=== PATIENT | female | born 1950 | race Caucasian/White ===

== ENCOUNTER 2016-11-03 09:45 | Outpatient (RCR) | payer MEDICARE, SELFPAY | END 2016-11-21 | disposition home or self-care (01) | LOC: PSN 09:45 | PROVIDERS: Family Provider Family Medicine; PCP Family Medicine; Visit Provider Internal Medicine Critical Care Medicine | DX: F17.210 Nicotine dependence, cigarettes, uncomplicated (principal); Z71.6 Tobacco abuse counseling | CPT/HCPCS: 99407 ==

== ENCOUNTER → 2017-03-23 13:17 | Outpatient (CLI) | payer MEDICARE, SELFPAY ==
[2017-03-23 15:53] LABS: Absolute Lymphocyte Count 1.42 X10^3/ul (0.83-4.51); Absolute Neutrophil Count 3.2 X10^3/uL (2.0-7.7); Basophil# 0.03 X10^3/uL; Basophil% 0.6 % (0-1); Eosinophil# 0.11 X10^3/uL; Eosinophils% 2.1 % (0-5); Hematocrit 40.2 % (37-47); Hemoglobin 12.8 g/dl (12.0-15.0); Lymphocyte # 1.42 X10^3/ul (4.0); Mean Corp Hgb Conc 31.8 g/gl (32-36); Mean Corpuscular Hgb 28.4 pg (27.0-32.0); Mean Corpuscular Volume 89.1 fL (81-99); Mean Platelet Vol. 10.3 fl (6.2-12.0); Monocyte# 0.53 X10^3/uL; Monocyte% 10.1 % (0-10); Neutrophil # 3.15 X10^3/uL (2.7-7.7); Platelet Count 263 K/mm3 (150-450); RBC Distribution Width CV 13.6 % (11.6-14.6); RBC Distribution Width SD 43.9 fl (35.1-43.9); Red Blood Count 4.51 M/mm3 (4.2-5.4); White Blood Count 5.3 K/mm3 (4.4-11.0)
[2017-03-23 15:57] LABS: POSITIVE COUNT NO; POSITIVE DIFFERENTIAL NO; POSITIVE MORPHOLOGY NO
[2017-03-23 16:11] LABS: ALB/GLOB Ratio 1.1 RATIO (0.9-2.4); AST(SGOT) 26 U/L (15-37); Alanine Aminotransfer ALT/SGPT 26 U/L (13-56); Albumin, Serum 3.9 g/dL (3.2-5.0); Alkaline Phosphatase 85 U/L (45-117); Anion Gap 6 (5-15); BUN 15 mg/dL (7-18); BUN/Creat Ratio 24.8 RATIO (10-20); Calcium,Total 8.5 mg/dL (8.5-10.1); Chloride 100 mmol/L (98-107); Cholesterol 184 mg/dL (200); EST Glomerular Filtration Rate 105 mL/min (>60); Est Glom Filt Rate - Afr Amer 127 mL/min (>60); Globulin 3.5 g/dL (2.2-4.2); Glucose 93 mg/dL (70-110); High Density Lipoprotein 60 mg/dL; Potassium 3.6 mmol/L (3.5-5.1); Protein, Total 7.4 g/dL (6.4-8.2); Sodium Level 134 mmol/L (136-145); Triglycerides 72 mg/dL; Very Low Density Lipoprotein 14 mg/dL (5-40)
== END ==
PROVIDERS: Family Provider Family Medicine; PCP Family Medicine; Visit Provider Family Medicine
DX: I10 Essential (primary) hypertension (principal)
CPT/HCPCS: 36415; 80053; 80061; 85025

== ENCOUNTER → 2017-04-02 14:33 | Outpatient (CLI) | payer MEDICARE, SELFPAY ==
--- NOTE | 2017-04-02 14:50 | RAD_ITS ---
STUDY: X-RAY CHEST REASON FOR EXAM: Female, 66 years old. Shortness of breath. Upper respiratory infection. History of lung cancer with partial right pneumonectomy. TECHNIQUE: PA and lateral views of the chest. COMPARISON: Chest, February 27, 2016. CT of the chest, January 16, 2017. FINDINGS: The lungs are hyperexpanded. There is no focal mass or infiltrate. There is minimal right pleural effusion versus pleural thickening. Normal size heart. Normal mediastinum and lucia. Normal visualized pulmonary arteries. There is atherosclerotic calcification of the aortic arch with tortuosity. There are diffuse degenerative changes of the visualized thoracic spine. There is degenerative osteoarthritis of the bilateral shoulders. There is no demonstrated abnormality of the visualized soft tissue structures of the upper abdomen. RAD/Chest PA and Lateral IMPRESSION: 1. Pleural thickening versus small pleural effusion at the right lung base. 2. Emphysematous changes of the lungs. Electronically Signed: Dom Martínez DO at 18:48 EST Tel [phone], Service support ,
== END ==
PROVIDERS: Family Provider Family Medicine; PCP Family Medicine; Visit Provider Family Medicine
DX: J06.9 Acute upper respiratory infection, unspecified (principal); J44.9 Chronic obstructive pulmonary disease, unspecified
CPT/HCPCS: 71046

== ENCOUNTER → 2017-05-26 08:06 | Outpatient (CLI) | payer MEDICARE, SELFPAY ==
--- NOTE | 2017-05-26 08:11 | ECHOD_ITS ---
Reason For Study: Capillary infarcts in toes Procedure This was a 2D Doppler, Color Flow transthoracic echocardiogram. Exam performed in department. Left Ventricle Normal size and thickness. The estimated ejection fraction is 65 %. Stage 1 diastolic dysfunction. No regional wall motion abnormalities noted. Right Ventricle Normal size and thickness. Normal systolic function. Atria Normal left atrium. Normal right atrium. Normal atrial septum. Mitral Valve The mitral valve is structurally normal. No prolapse or stenosis seen. Trivial mitral valve insufficiency. Tricuspid Valve Normal tricuspid valve. Trivial tricuspid valve insufficiency. Right ventricular systolic pressure estimated to be 26 mmHg. Aortic Valve Trisinus/trileaflet aortic valve. Pulmonic Valve Normal pulmonic valve. Great Vessels Normal aortic root. Normal arch. Normal inferior vena cava. Inferior vena cava collapse with sniff. Pericardium/Pleural No pericardial effusion. MMode/2D Measurements & Calculations LVIDd: 4.1 cm IVSd: 0.95 cm Ao root diam: 2.9 cm LVIDs: 2.5 cm LVPWd: 0.94 cm LA dimension: 3.9 cm RVDd: 3.0 cm FS: 37.9 % LAV(MOD-bp): 48.7 ml LA A4 area: 17.8 cm2 RA A4 area: 11.9 cm2 LAV(MOD-bp) Indexed: 32.8 ml/m2 LAV(MOD-sp2): 48.9 ml LAV(MOD-sp4): 48.9 ml Doppler Measurements & Calculations MV E max etienne: 65.0 cm/sec Lat Peak E' Etienne: 6.7 cm/sec Med Peak E' Etienne: 6.1 cm/sec MV A max etienne: 55.6 cm/sec E/E' lat: 9.7 E/E' med: 10.6 MV E/A: 1.2 Ao V2 max: 132.5 cm/sec LV V1 max: 103.7 cm/sec PA V2 max: 80.6 cm/sec Ao max P.0 mmHg LV V1 max P.3 mmHg TR max etienne: 230.9 cm/sec TR max P.4 mmHg Interpretation Summary The estimated ejection fraction is 65 %. Stage 1 diastolic dysfunction. Trivial mitral valve insufficiency. Trivial tricuspid valve insufficiency. Right ventricular systolic pressure estimated to be 26 mmHg. There is no comparison study available. Ordering Physician: Heather Junior Referring Physician: Heather Junior Performed By: Maren Lee RDCS
--- NOTE | 2017-05-30 20:08 | LEAS ---
Arterial Study - Arterial Study Arterial Study: This is a 66-year-old female with a history of hypertension and smoking. The patient presents with digital infarction in the toes of her lower extremities. She also experiences paresthesias in her feet, thought to be due to ischemia. The patient was brought to the noninvasive vascular laboratory at this time for the purpose of bilateral noninvasive lower extremity arterial assessment. Doppler signal assessment was used to evaluate the pulses at ankle level bilaterally. The posterior tibial and dorsalis pedis pulses were triphasic bilaterally. Segmental limb pressures were obtained at ankle level bilaterally. The right ankle pressure, as determined by posterior tibial pulse, was measured at 155 mmHg. The right ankle pressure, as determined by dorsalis pedis pulse, was measured at 142 mmHg. The left ankle pressure, as determined by posterior tibial pulse, was measured at 154 mmHg. The left ankle pressure, as determined by dorsalis pedis pulse, was measured at 136 mmHg. Pulse-volume recordings were obtained bilaterally and segmentally. Waveform amplitudes appeared to be satisfactory at low thigh, calf, and ankle levels bilaterally. Resting ankle-brachial indices were calculated bilaterally. The resting right ankle-brachial index was calculated to be 1.18. The resting left ankle-brachial index was calculated to be 1.18. Digital waveforms were obtained of all 5 digits in both feet. A flat-line nonpulsatile waveform was noted in all digits bilaterally. Impression: Based upon the findings of this resting noninvasive lower extremity study, arterial perfusion to ankle level appears to be relatively normal, with triphasic waveforms at ankle level bilaterally. Furthermore, resting ankle-brachial indices are bilaterally normal. However, based upon digital waveforms of the digits bilaterally, there appears to be severely diminished perfusion at digital level in both feet, for which clinical correlation is advised.
--- NOTE | 2017-05-30 20:11 | LEAS_ITS ---
Arterial Study - Arterial Study Arterial Study: This is a 66-year-old female with a history of hypertension and smoking. The patient presents with digital infarction in the toes of her lower extremities. She also experiences paresthesias in her feet, thought to be due to ischemia. The patient was brought to the noninvasive vascular laboratory at this time for the purpose of bilateral noninvasive lower extremity arterial assessment. Doppler signal assessment was used to evaluate the pulses at ankle level bilaterally. The posterior tibial and dorsalis pedis pulses were triphasic bilaterally. Segmental limb pressures were obtained at ankle level bilaterally. The right ankle pressure, as determined by posterior tibial pulse, was measured at 155 mmHg. The right ankle pressure, as determined by dorsalis pedis pulse, was measured at 142 mmHg. The left ankle pressure, as determined by posterior tibial pulse, was measured at 154 mmHg. The left ankle pressure, as determined by dorsalis pedis pulse, was measured at 136 mmHg. Pulse-volume recordings were obtained bilaterally and segmentally. Waveform amplitudes appeared to be satisfactory at low thigh, calf, and ankle levels bilaterally. Resting ankle-brachial indices were calculated bilaterally. The resting right ankle-brachial index was calculated to be 1.18. The resting left ankle- brachial index was calculated to be 1.18. Digital waveforms were obtained of all 5 digits in both feet. A flat-line nonpulsatile waveform was noted in all digits bilaterally. Impression: Based upon the findings of this resting noninvasive lower extremity study, arterial perfusion to ankle level appears to be relatively normal, with triphasic waveforms at ankle level bilaterally. Furthermore, resting ankle- brachial indices are bilaterally normal. However, based upon digital waveforms of the digits bilaterally, there appears to be severely diminished perfusion at digital level in both feet, for which clinical correlation is advised.
== END ==
LOC: CVS 08:08
PROVIDERS: Family Provider Family Medicine; PCP Family Medicine; Visit Provider Family Medicine
DX: I74.3 Embolism and thrombosis of arteries of the lower extremities (principal)
CPT/HCPCS: 93306; 93923

== ENCOUNTER → 2017-10-26 14:32 | Outpatient (CLI) | payer MEDICARE, SELFPAY | LOC: CT 14:33 | PROVIDERS: Family Provider Family Medicine; PCP Family Medicine; Visit Provider Otolaryngology | DX: J32.9 Chronic sinusitis, unspecified (principal) | CPT/HCPCS: 70486 ==

== ENCOUNTER → 2017-12-03 06:37 | Outpatient (CLI) | payer MEDICARE, SELFPAY ==
--- NOTE | 2017-12-03 06:40 | CT_ITS ---
STUDY: CT CHEST WITHOUT CONTRAST REASON FOR EXAM: Female, 67 years old. COPD, follow-up lung cancer with previous right upper lobectomy RADIATION DOSAGE (If Supplied By Facility): CTDIvol = ( 7.17 ) mGy, DLP = ( 281.26 ) mGycm TECHNIQUE: Transaxial imaging was performed without the administration of intravenous contrast material. Individualized dose optimization techniques were used for this CT. COMPARISON: Previous study of 01/16/2017 FINDINGS: There are mild emphysematous changes of the lungs predominantly involving the left upper lobe. There is a stable 4 mm nodule of the left lower lobe image 73 of series 4. There are changes consistent with right upper lobectomy. There are prominent interstitial fibrotic markings most severely affecting the right lower lobe. No new nodules are identified. There is a small loculated right apical effusion, stable in the interval. The heart size is within normal limits. There is no pericardial effusion. Coronary arterial calcifications are seen. Normal mediastinum. Hilar areas are difficult to assess on this noncontrast study. There is no obvious hilar mass or adenopathy. Normal unenhanced pulmonary arteries. There are calcified plaques of the thoracic aorta. There is mild diffuse endplate spondylosis of the visualized thoracolumbar spine. There is no demonstrated abnormality of the visualized upper abdomen. CT/Chest without Contrast IMPRESSION: 1. Status post right upper lobectomy. 2. Mild emphysematous changes of the lungs predominantly involving the left upper lobe. 3. Stable 4 mm nodule of the left lower lobe. No new nodules are evident. 4. Prominent interstitial fibrotic markings most severely affecting the right lower lobe. 5. Findings are similar to the previous study. There is no evidence of new or recurrent malignancy. Electronically Signed: Giovanni Barrientos MD at 23:32 EDT , Service support ,
--- NOTE | 2017-12-03 12:57 | PFT ---
INTRODUCTION: The patient is a 67-year-old female that presents for pulmonary function studies secondary to a diagnosis of COPD. Respiratory therapy reports good patient effort. Bronchodilators were used during testing. INTERPRETATION: Forced expiration spirometry demonstrates the presence of a mild large airways obstructive ventilatory defect. There was no significant response to aerosolized bronchodilators. Spirograms are of good quality and do not plateau indicating slow emptying of the lungs. Body plethysmography was performed with grossly elevated lung volumes noted, likely erroneous in nature. Diffusing capacity by single breath CO is moderately reduced at 57% of predicted. When compared to previous pulmonary function studies dated December 2015, there has been a 16% reduction in FEV1 along with a 19% reduction in DLCO. IMPRESSION: These pulmonary function studies demonstrate the presence of an irreversible mild large airways obstructive ventilatory defect with an associated moderate reduction in diffusing capacity. Lung volumes were uninterpretable. There has been worsening in the patient's PFTs since 2015, as noted above.
== END ==
PROVIDERS: Family Provider Family Medicine; PCP Family Medicine; Referring Provider Internal Medicine Critical Care Medicine; Visit Provider Internal Medicine Critical Care Medicine
DX: C34.90 Malignant neoplasm of unspecified part of unspecified bronchus or lung (principal); J44.9 Chronic obstructive pulmonary disease, unspecified
CPT/HCPCS: 71250; 94060; 94726; 94729

== ENCOUNTER → 2018-03-02 09:09 | Outpatient (CLI) | payer MEDICARE, SELFPAY ==
[2018-03-02 08:01] VITALS: BMI 24.0
== END ==
PROVIDERS: Family Provider Family Medicine; PCP Family Medicine; Referring Provider Nurse Practitioner Acute Care; Visit Provider Nurse Practitioner Acute Care
DX: J18.9 Pneumonia, unspecified organism (principal)
CPT/HCPCS: 87070; 87205

== ENCOUNTER → 2018-03-15 14:42 | Outpatient (CLI) | payer MEDICARE, SELFPAY ==
[2018-03-02 08:01] VITALS: BMI 24.0
--- NOTE | 2018-03-15 14:46 | CT_ITS ---
STUDY: CT CHEST WITHOUT CONTRAST REASON FOR EXAM: Female, 67 years old. Pulmonary nodule. History of lung cancer with right upper lobectomy. RADIATION DOSAGE (If Supplied By Facility): CTDIvol = ( 7.83 ) mGy, DLP = ( 260.07 ) mGycm TECHNIQUE: Transaxial imaging was performed without the administration of intravenous contrast material. Coronal and sagittal reformatted images were created. Individualized dose optimization techniques were used for this CT. COMPARISON: 12/03/2017 FINDINGS: There are stable emphysematous changes noted in the lungs. There are stable postsurgical changes from a right upper lobectomy. There is stable scarring noted in the right lung. There is a stable 4 mm nodule in the left lower lobe (image 64 series 4). There is a new 7 m millimeter subpleural nodule in the lingula (image 29 series 4) which has adjacent linear opacities and likely represents scarring. However, follow-up is recommended. There are no pulmonary infiltrates or pleural effusions. There is no pneumothorax. The heart and pericardium are within normal limits. There are coronary artery calcifications noted. There is no thoracic lymphadenopathy. Images through the upper abdomen demonstrate no significant abnormality. There are no destructive osseous lesions. CT/Chest without Contrast IMPRESSION: Stable emphysema. Stable post surgical changes from a right upper lobectomy. Stable scarring in the right lung. Stable 4 mm nodule in the left lower lobe. New 7 mm subpleural nodule in the lingula with adjacent linear opacities. This likely represents scarring. However, follow-up is recommended. Coronary artery disease. Electronically Signed: Bennett Huerta, at 15:32 EST Tel , Service support ,
--- OUTSIDE RECORDS SUMMARY | 2018-05-17 20:54 | XMS RPT_ITS ---
:1950 Author Organization OHIP Support Name Relationship Address Phone VERENICE MARTINEZ Unavailable [address] + [place] [address] R Unavailable Unavailable Unavailable VERENICE MARTINEZ Unavailable [address] + [place] [address] R Unavailable Unavailable Unavailable VERENICE MARTINEZ Unavailable [address] + [place] [address] R Unavailable Unavailable Unavailable MICHELLE VERENICE Unavailable [address] + [place] [address] R Unavailable Unavailable Unavailable VERENICE MARTINEZ Unavailable [address] + [place] [address] R Unavailable Unavailable Unavailable MICHELLE VERENICE Unavailable [address] + [place] [address] R Unavailable Unavailable Unavailable VERENICE MARTINEZ Unavailable [address] + [place] [address] R Unavailable Unavailable Unavailable MICHELLE VERENICE Unavailable [address] + [place] [address] R Unavailable Unavailable Unavailable VERENICE MARTINEZ Unavailable [address] + [place] [address] R Unavailable Unavailable Unavailable MICHELLE VERENICE Unavailable [address] + [place] [address] R Unavailable Unavailable Unavailable VERENICE MARTINEZ Unavailable [address] + [place] [address] R Unavailable Unavailable Unavailable VERENICE MARTINEZ Unavailable [address] + [place] [address] R Unavailable Unavailable Unavailable VERENICE MARTINEZ Unavailable [address] + [place] [address] R Unavailable Unavailable Unavailable VERENICE MARTINEZ Unavailable [address] + [place] [address] R Unavailable Unavailable Unavailable Care Team Providers Name Role Phone Louie Johnston D.O. Attending Unavailable Louie Johnston D.O. Referring Unavailable Stephania Diaz Attending Unavailable Ari, Cleve Referring Unavailable Diaz, Stephania Attending Unavailable Diaz, Stephania Referring Unavailable Ari, Cleve Primary Care Unavailable Joe, Stephania Attending Unavailable Diaz, Stephania Referring Unavailable Ari, Cleve Primary Care Unavailable Ari, Cleve Attending Unavailable Ari, Cleve Primary Care Unavailable Ari, Cleve Referring Unavailable Ari, Cleve Attending Unavailable Ari, Cleve Referring Unavailable Ari, Cleve Primary Care Unavailable Heather Junior Attending Unavailable Ari, Cleve Primary Care Unavailable Heather Junior Referring Unavailable Bernard Poole Attending Unavailable Ari, Cleve Referring Unavailable Timothy Agustin Attending Unavailable Sandi, Heather Referring Unavailable Carla Ruth Attending Unavailable Louie Johnston D.O. Attending Unavailable Ari, Cleve Referring Unavailable Nigel Bose Attending Unavailable Nigel Bose Referring Unavailable Ari, Cleve Primary Care Unavailable Louie Johnston D.O. Attending Unavailable Louie Johnston D.O. Referring Unavailable Ari, Cleve Primary Care Unavailable Louie Johnston D.O. Attending Unavailable Ari, Cleve Referring Unavailable PROBLEMS PROBLEMS DATE TYPE CONDITION / CODE ATTENDING STATUS SOURCE 03/02/2018 Unknown J18.9 - Pneumonia, Diaz, Active [place] unspecified [facility] organism / Hospital J18.9(ICD-10) Repository 03/02/2018 Unknown R91.8 - Other Diaz, Active [place] nonspecific [facility] abnormal finding of Hospital lung field / Repository R91.8(ICD-10) 01/20/2018 Unknown J44.9 - Chronic Louie Johnston, Active [place] obstructive [facility] Community pulmonary disease, Hospital unspecified / Repository J44.9(ICD-10) 02/04/2018 Unknown C34.90 - Malignant Louie Johnston, Active [place] neoplasm of D.O. Community unspecified part of Hospital unspecified Repository bronchus or lung / C34.90(ICD-10) 07/20/2017 Unknown F17.210 - Nicotine Louie Johnston Active [place] dependence, D.O. Community cigarettes, Hospital uncomplicated / Repository F17.210(ICD-10) 07/20/2017 Unknown I73.9 - Peripheral Louie Preston, Active [facility] vascular disease, D.O. Community unspecified / Hospital I73.9(ICD-10) Repository 06/18/2017 Unknown I74.9 - Embolism Timothy Agustin Active [place] and thrombosis of Community unspecified artery Hospital / I74.9(ICD-10) Repository 06/18/2017 Unknown J06.9 - Acute upper Cleve Chapman Active [facility] respiratory Community infection, Hospital unspecified / Repository J06.9(ICD-10) 03/24/2017 Unknown I10 - Essential Cleve Chapman Active [place] (primary) Community hypertension / Hospital I10(ICD-10) Repository PROCEDURES PROCEDURES No Procedure Records FoundRESULTS RESULTS CHEST WITHOUT Observed: 03/15/2018 Status: F Source: [facility] CONTRAST 2:46 PM REPOSITORY [facility] Imaging Services [address] [place] [address] Chest without Contrast MR#: [id number] Acct: [id number] Name: YVROSE ADHIKARI Rep #: [id number] : 1950 F 67 From: Bennett Huerta MD PCP: Cleve Chapman DO Status: REG CLI Study: Chest without Contrast Date of Exam: 03/15/18 Exam# [id number] Ordering Dr: Stephania Diaz [address] LIAISON-C STUDY: CT CHEST WITHOUT CONTRAST REASON FOR EXAM: Female, 67 years old. Pulmonary nodule. History of lung cancer with right upper lobectomy. RADIATION DOSAGE (If Supplied By Facility): CTDIvol = ( 7.83 ) mGy, DLP = ( 260.07 ) mGycm TECHNIQUE: Transaxial imaging was performed without the administration of intravenous contrast material. Coronal and sagittal reformatted images were created. Individualized dose optimization techniques were used for this CT. COMPARISON: 12/03/2017 FINDINGS: There are stable emphysematous changes noted in the lungs. There are stable postsurgical changes from a right upper lobectomy. There is stable scarring noted in the right lung. There is a stable 4 mm nodule in the left lower lobe (image 64 series 4). There is a new 7 m millimeter subpleural nodule in the lingula (image 29 series 4) which has adjacent linear opacities and likely represents scarring. However, follow-up is recommended. There are no pulmonary infiltrates or pleural effusions. There is no pneumothorax. The heart and pericardium are within normal limits. There are coronary artery calcifications noted. There is no thoracic lymphadenopathy. Images through the upper abdomen demonstrate no significant abnormality. There are no destructive osseous lesions. CT/Chest without Contrast IMPRESSION: Stable emphysema. Stable post surgical changes from a right upper lobectomy. Stable scarring in the right lung. Stable 4 mm nodule in the left lower lobe. New 7 mm subpleural nodule in the lingula with adjacent linear opacities. This likely represents scarring. However, follow-up is recommended. Coronary artery disease. Electronically Signed: Bennett Chanvanshreya, at 15:32 EST Tel , Service support , CC: Stephania Diaz; Cleve Chapman DO Golf Tournament Consultant: Signed PULMONARY VISIT REPORT Observed: 03/03/2018 Status: F Source: [facility] 1:17 PM REPOSITORY [facility] of [address] [place] [address] OFFICE VISIT Date of Service: 03/02/18 MR#: [id number] Acct: [id number] Name: CHARLYDARIO MICHELLEEDGARYVROSE J Rep #: [id number] : 1950 Provider: Stephania Diaz Age/Sex: 67/F [facility] Status: Signed Assessment AND Plan 1. Chronic obstructive pulmonary disease with acute exacerbation J44.1 Plan Deteriorated. Treating for exacerbation with antibiotics and a prednisone taper. Continue current maintenance medications. Obtaining a sputum culture today to determine if the appropriate medication has been started, will alter antibiotic if necessary. Follow-up with myself in 3 weeks. 2. Malignant neoplasm of lung, unspecified laterality, unspecified part of lung C34.90 Plan History of lung cancer, patient is concerned that she has returning symptoms. Plan to repeat CT of the chest for further evaluation. Follow-up with myself in 3 weeks to discuss test results. 3. 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 Patient has resumed smoking. Will try nicotine patches and encouraged the use of suckers. The patient has previously failed on Chantix and Wellbutrin. Follow-up in 3 weeks. Plan Detail Other Orders Orders: Other Medications New: prednisone take 4 tabs for three days, then 3 tabs for three10 mg PO QDAY 30 tabs 0RF days, then 2 tabs for three days, then 1 tab for 3 days Follow Up 3 Weeks ([facility]) HPI 6 wk FU: Chief Complaint: fatigue HPI Comments Details: This patient presents the office today to follow- up on her COPD and lung mass. She is ambulatory and currently in room air. The patient reports that unfortunately she has started smoking again, is up to approximately 5 cigarettes/day. She does admit that at times it is as high as 1 pack/day. She would like to evaluate smoking cessation options. She was recently started on Stiolto states that the medication has been very helpful. She continues with Flonase but does not needed daily. She is using her pro-air rescue inhaler approximately 3 times daily for shortness of breath, only receives mild resolution of her symptoms. Currently she is experiencing wheezing and chest tightness, these have been going on for the past 4-5 days. She has a cough that is productive of thick yellow sputum. She is reporting chest tightness and chest congestion. She denies any fever, chills or body aches. She has not added any enlg-jhq-[id number] medications for her symptoms. She does report hot flashes that occur nightly. Her weight is down approximately 10-15 pounds recently, despite that she is not only eating a normal diet but believes she has increased her caloric intake. She also reports some strange random episodes of itchy skin. She states that the symptoms were present previously when she was diagnosed with small cell lung cancer. Intake Vital Signs03/02/18 Body Mass Index (BMI) 24.0 03/02/18 Height 5 ft 03/02/18 Weight: 117 lb Intake Visit Reasons: 6 wk FU Clinical Sociologist Required: No Accompanied by: Self Is patient in pain?: No Allergies meperidine HCl [From Demerol] Adverse Reaction (Verified 03/02/18 07:49) pass out Medications Metoprolol Tartrate [Lopressor (Beta J Luis)] 50 mg PO BID 06/20/14 [History Confirmed 03/02/18] hydrochlorothiazide 25 mg tablet 25 mg PO 30 Days tab 07/20/17 [History Confirmed 03/02/18] albuterol sulfate HFA 90 mcg/actuation aerosol inhaler 2 puff INHALATION Q4H PRN #1 device 01/20/18 [Rx Confirmed 03/02/18] tiotropium 2.5 mcg-olodaterol 2.5 mcg/actuation mist for inhalation 2 puff INHALATION DAILY #1 device 01/20/18 [Rx Confirmed 03/02/18] azithromycin 250 mg tablet 250 mg PO QDAY #6 tab 03/02/18 [Rx Confirmed 03/02/18] docusate sodium 100 mg capsule 100 mg PO DAILY 03/02/18 [History Confirmed 03/02/18] fluticasone 50 mcg/actuation nasal spray,suspension 2 spray INTRANASAL QDAY PRN device 03/02/18 [History] nicotine 21 mg/24 hr daily transdermal patch 1 patch TRANSDERMAL DAILY #28 ea 03/02/18 [Rx Confirmed 03/02/18] paroxetine 10 mg tablet 10 mg PO DAILY 03/02/18 [History Confirmed 03/02/18] prednisone 10 mg tablet 10 mg PO QDAY #30 tab 03/02/18 [Rx Confirmed 03/02/18] prednisone 20 mg tablet 20 mg PO DAILY 03/02/18 [History Confirmed 03/02/18] PFSH Medical History Emphysema of lung (Chronic) Lung mass (Acute) COPD (chronic obstructive pulmonary disease) (Chronic) Unintentional weight loss (Acute) Pneumonia (Acute) HTN (hypertension) (Chronic) Lung cancer (Acute) Tobacco dependence in remission (Chronic) Surgical History H/O tubal ligation (Resolved) History of bilateral carpal tunnel release (Resolved) Wedge resection of lung (Resolved) H/O pneumonectomy (Resolved) repaired lymph node (Resolved) Family History Mother Thyroid cancer Anemia Lung disease Father Throat cancer Diabetes Hypertension Arthritis Lung disease Sister Breast cancer Brain cancer Social History Smoking Status: Former smoker alcohol intake: never substance use type: does not use Review of Systems Const CONSTITUTIONAL: Positive fatigue; negative anorexia, body ache, chills, daytime sleepiness, fever(s), night sweats, oral thrush, stops breathing during sleep, weight loss, sleeping in chair, weight loss, weight gain, frequent colds, seasonal allergies, other, headache(s) or orthopnea EETM Ear Nose Throat Mouth: Positive hearing normal, nasal discharge (clear-yellow) and post nasal drip; negative hard of hearing, hoarseness, dry mouth in morning, change in vision, itchy eyes, eye pain, swallowing Difficulty, ear pain, nose bleed, headache(s), mouth pain, nasal congestion, sinus pain, sinus pressure, sore throat or other Cardio Cardiovascular: Negative chest pain, chest pain at rest, chest pain with activity, irregular heart rhythm, edema, shortness of breath when lying down, palpitations, murmur or other Resp Respiratory: Positive as per HPI, shortness of breath, wheezing, cough cough: Positive productive color: Positive yellow and thick, chest tightness and inhalers; negative pain with cough, chest congestion, pain on inspiration, increase use of rescue inhalers, snoring, apnea or other Gastro Gastrointestional: Negative bloody stools, change in appetite, difficulty swallowing, reflux, hematemesis, melena stool, loose stool, constipation or other Genitourinary: Negative blood in urine, nocturia, pain with urination or other Musc Musculoskeletal: Negative body pain, back pain, neck pain or other Skin/Breast Skin/Breast: Negative dry skin, itching, rash, unusual bruising, breast lump or other Neuro Neurological: Positive weakness; negative restless legs, confusion or other Psych Psychocological: Negative abnormal sleep pattern, anxiety, thoughts of hurting self/others, hopelessness or other Lymph Lymphatic: Negative easy bleeding, easy bruising, swollen lymph nodes or other Exam Const Constitutional: Positive conversant, cooperative, in no acute respiratory distress, healthy appearing, well developed, well nourished, good hygiene and smells of smoke Head Head: Positive normocephalic and atraumatic; negative cyanosis of lips/distal nose Eyes Eye: Positive clear conjunctiva; negative nystagmus or scleral abnormality Ears Ear: Positive hearing normal and external ears normal; negative hard of hearing Nose Nose: Positive external nose normal and no nasal discharge; negative epistaxis Mouth Mouth: Positive post nasal drip, oral mucosae normal, no lesions, poor dentition and posterior oropharynx is adequate; negative malodorous breath or oral thrush present Mallampati Score: II: Mallampati Score Neck Neck: Positive normal visual inspection, full ROM and trachea midline; negative lymphadenopathy, JVD or tender Chest Wall Chest: Positive normal inspection of the chest and symmetric chest movement; negative increased A/P diameter Resp lung sounds: Positive diminished, wheezes, prolonged expiratory time and increased work of breathing; negative rhonchi, rales, dullness to percussion or use of accessory muscles Cardio Cardiac: Positive regular rate, regular rhythm, S1 normal and S2 normal; negative murmur GI GI: Positive normal to inspection; negative distended Genitourinary: Positive deferred Musc Musculoskeletal: Positive steady gait and ROM normal; negative kyphosis or scoliosis Skin Pulmonary Skin Exam: Positive intact; negative rash Pulses Pulse: Yes pulses normal x4 extremities Extremities Extremities: Yes capillary refill normal, No clubbing, No cyanosis, No edema Neuro Neurologic: Yes conversant, Yes no focal neuro deficits, Yes cooperative, Yes normal cognition, Yes normal coordination, Yes normal concentration, Yes understands questions, No tremor Lymph Lymphatic: No lymphadenopathy, No tenderness, No cervical adenopathy Psych Appearance: Positive grossly normal, eye contact and well kempt Mental Status: Positive mental status grossly normal Mood: Positive congruent mood Affect: Positive normal affect Coding Level of Care Code Off vis,est,level 4 Diagnoses Chronic obstructive pulmonary disease with acute exacerbation J44.1 COPD type: COPD with acute exacerbation Malignant neoplasm of lung, unspecified laterality, unspecified part of lung C34.90 Laterality: unspecified laterality Lung location: unspecified part of lung Tobacco abuse, in remission F17.201 03/03/18 1317 <Electronically signed by Stephania JONES> Date Stephania JONES Cosigner Signature: Date (if applicable) CC: Cleve Chapman DO Observed: 03/02/2018 Status: F Source: [facility] CULTURE, SPUTUM 9:59 AM REPOSITORY Gram Stain Acceptable Specimen? Yes (<25 Epithelial cells per/lpf) Gram Stain 2+ White Blood Cells 1+ Epithelial cells 4+ Gram positive cocci 2+ Gram negative rods Resp. Culture Mixed normal respiratory henry. No Haemophilus, Streptococcus pneumoniae, beta-hemolytic Streptococcus or Staphylococcus aureus isolated. Performed By: #### [id number] #### [facility] [address] [place], [address] PULMONARY VISIT REPORT Observed: 01/20/2018 Status: F Source: [facility] 7:52 AM REPOSITORY [facility] [address] [place] [address] OFFICE VISIT Date of Service: 01/20/18 MR#: [id number] Acct: [id number] Name: YVROSE ADHIKARI Lisa Rep #: [id number] : 1950 Provider: Louie Johnston D.O. Age/Sex: 67/F Location: [facility] [place] Status: Signed Assessment AND Plan 1. COPD (chronic obstructive pulmonary disease) J44.9 Plan The patient has known COPD and continues to smoke cigarettes daily. She was previously trialed on Anoro, but developed side effects to the medication and subsequently discontinued its use. She is not currently utilizing any inhalers at her baseline. At this time, would recommend initiation of Stiolto Respimat along with an albuterol metered- dose inhaler to be utilized every 4 hours as needed. Samples for the patient's new maintenance inhaler regimen were provided to her today. I personally supervised the patient's self administration of her new inhaler medication. Inhaler technique was reviewed and questions were answered accordingly. The patient is going to follow-up in 6 weeks to reassess her symptom response to her new therapy. Orders Orders: 2. Lung cancer C34.90 Plan The patient has a history of non-small cell lung cancer, which was surgically resected at [facility]. Given the patient's smoking history, age and cancer history, recommend periodic chest imaging. 3. Nicotine dependence, cigarettes, uncomplicated F17.210 Plan The patient was once again counseled regarding the deleterious effects of ongoing tobacco use. 4. Allergic rhinitis J30.9 Plan The patient was provided with a prescription for Flonase today with instructions on its use. Plan Detail Other Medications New: tiotropium-olodaterol 2.5-2.5 mcg/actuation (2 puffs Inhalation DAILY 1 device 3RF Stiolto Respimat) albuterol sulfate HFA 90 mcg/actuation adm2 puffs Inhalation Q4H PRN 1 device 3RF shor inister with spacer tness of breath or wheezing Follow Up 6 Weeks ([facility]) HPI HPI Comments Details: The patient is a 67-year-old female who presents to the clinic today for a routine scheduled follow-up office visit. If you recall, the patient has a history of non-small cell lung cancer. She also has an extensive smoking history. The patient underwent a right upper lobectomy in January 2016 with repeat surgery completed in February 2016. Her operative course was complicated by the development of a chylothorax, which necessitated TPN and ultimately repeat surgery with ligation. Noncontrasted chest CT completed in August 2016 revealed a subcentimeter opacity in the lateral segment of the right lower lobe along with paratracheal lymphadenopathy and emphysematous changes. Noncontrasted chest CT completed in December 2016 showed radiographic evidence of the patient's right upper lobectomy, along with interstitial fibrotic densities and a 0.4 cm nodule in the periphery of the left lower lobe. Pulmonary function testing from September 2016 revealed evidence of an irreversible mild large airways obstructive ventilatory defect with associated hyperinflation, air trapping and reduction in diffusing capacity. A 6 minute walk test also completed at that time revealed no significant exertional oxygen desaturation. Repeat pulmonary function testing completed in November 2017 revealed evidence of any reversible mild large airways obstructive ventilatory defect with an associated moderate reduction in diffusing capacity. A CT chest without contrast completed in November 2017 revealed evidence of emphysematous changes and 4 mm left lower lobe pulmonary nodule. Today, the patient reports that she has had worsening in the degree of her shortness of breath. She is no longer taking the Anoro, as previously prescribed, due to side effects which included nausea and choking. She is also out of her rescue inhaler is therefore not utilizing any baseline inhalers at this time. She is currently seeing an law enforcement officer and receiving immunotherapy injections. She reports the presence of clear nasal discharge and postnasal drip, but is not utilizing any medications at the time. She continues to smoke between 5 and 10 cigarettes daily. Her weight has remained stable. She denies fevers, chills or night sweats. Intake Vital Signs01/20/18 Height 5 ft 01/20/18 Weight: 123 lb 01/20/18 Body Mass Index (BMI) 24.0 01/20/18 Blood Pressure 131/73 H H 01/20/18 Blood Pressure Location Rt brachial 01/20/18 Blood Pressure Position Sitting Intake Visit Reasons: 6 M FU Clinical Sociologist Required: No Accompanied by: Self Is patient in pain?: No Allergies meperidine HCl [From Demerol] Adverse Reaction (Verified 01/20/18 06:54) Other Medications Metoprolol Tartrate [Lopressor (Beta J Luis)] 50 mg PO BID 06/20/14 [History Confirmed 01/20/18] bupropion HCl SR 150 mg tablet,12 hr sustained-release 150 mg PO BID #60 tab 01/29/17 [Rx Confirmed 01/20/18] albuterol sulfate HFA 90 mcg/actuation aerosol inhaler 2 puff INHALATION Q4H PRN 07/09/17 [History Confirmed 01/20/18] aspirin 81 mg tablet,delayed release 81 mg PO QDAY 07/20/17 [History Confirmed 01/20/18] fluticasone 50 mcg/actuation nasal spray,suspension 2 spray INTRANASAL QDAY #1 device 07/20/17 [Rx Confirmed 01/20/18] hydrochlorothiazide 25 mg tablet 25 mg PO 30 Days tab 07/20/17 [History Confirmed 01/20/18] loratadine 10 mg tablet 10 mg PO QDAY #30 tab 07/20/17 [Rx Confirmed 01/20/18] albuterol sulfate HFA 90 mcg/actuation aerosol inhaler 2 puff INHALATION Q4H PRN #1 device 01/20/18 [Rx Confirmed 01/20/18] fluticasone 50 mcg/actuation nasal spray,suspension 2 spray INTRANASAL QDAY #1 device 01/20/18 [Rx Confirmed 01/20/18] tiotropium 2.5 mcg-olodaterol 2.5 mcg/actuation mist for inhalation 2 puff INHALATION DAILY #1 device 01/20/18 [Rx Confirmed 01/20/18] [facility] Medical History Emphysema of lung (Chronic) Lung mass (Acute) COPD (chronic obstructive pulmonary disease) (Chronic) Unintentional weight loss (Acute) Pneumonia (Acute) HTN (hypertension) (Chronic) Lung cancer (Acute) Tobacco dependence in remission (Chronic) Surgical History H/O tubal ligation (Resolved) History of bilateral carpal tunnel release (Resolved) Wedge resection of lung (Resolved) H/O pneumonectomy (Resolved) repaired lymph node (Resolved) Family History Mother Thyroid cancer Anemia Lung disease Father Throat cancer Diabetes Hypertension Arthritis Lung disease Sister Breast cancer Brain cancer Social History Smoking Status: Former smoker quit date: 02/23/16 pack-years: 26 alcohol intake: never substance use type: does not use Review of Systems Const CONSTITUTIONAL: Positive fatigue; negative anorexia, body ache, chills, daytime sleepiness, fever(s), night sweats, oral thrush, stops breathing during sleep, weight loss, sleeping in chair, weight loss, weight gain, frequent colds, seasonal allergies, other, headache(s) or orthopnea EETM Ear Nose Throat Mouth: Positive hearing normal and nasal discharge; negative hard of hearing, hoarseness, dry mouth in morning, change in vision, itchy eyes, eye pain, swallowing Difficulty, ear pain, nose bleed, headache(s), mouth pain, nasal congestion, post nasal drip, sinus pain, sinus pressure, sore throat or other Cardio Cardiovascular: Negative chest pain, chest pain at rest, chest pain with activity, irregular heart rhythm, edema, shortness of breath when lying down, palpitations, murmur or other Resp Respiratory: Positive as per HPI, shortness of breath, cough cough: Positive productive color: Positive clear and inhalers; negative pain with cough, wheezing, chest congestion, chest tightness, pain on inspiration, increase use of rescue inhalers, snoring, apnea or other Gastro Gastrointestional: Negative bloody stools, change in appetite, difficulty swallowing, reflux, hematemesis, melena stool, loose stool, constipation or other Genitourinary: Negative blood in urine, nocturia, pain with urination or other Musc Musculoskeletal: Negative body pain, back pain, neck pain or other Skin/Breast Skin/Breast: Negative dry skin, itching, rash, unusual bruising, breast lump or other Neuro Neurological: Negative restless legs, confusion, weakness or other Psych Psychocological: Negative abnormal sleep pattern, anxiety, thoughts of hurting self/others, hopelessness or other Lymph Lymphatic: Negative easy bleeding, easy bruising, swollen lymph nodes or other Exam Const Constitutional: Positive conversant, cooperative, in no acute respiratory distress, well developed, well nourished and good hygiene Head Head: Positive normocephalic and atraumatic; negative cyanosis of lips/distal nose Eyes Eye: Positive clear conjunctiva; negative nystagmus or scleral abnormality Ears Ear: Positive hearing normal and external ears normal; negative hard of hearing Nose Nose: Positive external nose normal; negative epistaxis Mouth Mouth: Positive oral mucosae normal and posterior oropharynx is adequate; negative no lesions or post nasal drip Mallampati Score: I: Mallampati Score Neck Neck: Positive normal visual inspection and trachea midline; negative lymphadenopathy Chest Wall Chest: Positive symmetric chest movement Normal AP diameter. Resp lung sounds: Positive diminished; negative wheezes, rhonchi or rales Cardio Cardiac: Positive regular rate, regular rhythm, S1 normal and S2 normal; negative rub, gallop or murmur GI GI: Positive normal bowel sounds Soft without distention Genitourinary: Positive deferred Musc Musculoskeletal: Positive steady gait Skin Pulmonary Skin Exam: Positive intact; negative lesion, ulcers, dermal atrophy or rash Pulses Pulse: Yes Pedal pulses present: Extremities Extremities: No clubbing, No cyanosis, No edema Neuro Neurologic: Yes conversant, Yes no focal neuro deficits, Yes cooperative Lymph Lymphatic: No lymphadenopathy Psych Appearance: Positive grossly normal Mental Status: Positive mental status grossly normal Mood: Positive congruent mood Affect: Positive normal affect Pulmonary Procedure Smoking Cessation Education: Yes education provided Coding Level of Care Code Off vis,est,level 3 Diagnoses COPD (chronic obstructive pulmonary disease) J44.9 Lung cancer C34.90 Nicotine dependence, cigarettes, uncomplicated F17.210 Allergic rhinitis J30.9 01/20/18 0752 <Electronically signed by Louie Johnston DO> Date Louie Johnston DO Cosigner Signature: Date (if applicable) CC: Cleve Chapman DO PULMONARY FUNCTION Observed: 12/03/2017 Status: F Source: [facility] TEST 1:00 PM REPOSITORY [facility] Pulmonary Services/Neurology [address] [place] [address] MR#: [id number] Acct: [id number] Name: YVROSE ADHIKARI Rep #: [id number] : 1950 67 From: Louie Johnston DO Referring Dr: Louie Johnston D.O. Status: REG CLI Ordering Dr: Date: Location: [facility] Sex: F C INTRODUCTION: The patient is a 67-year-old female that presents for pulmonary function studies secondary to a diagnosis of COPD. Respiratory therapy reports good patient effort. Bronchodilators were used during testing. INTERPRETATION: Forced expiration spirometry demonstrates the presence of a mild large airways obstructive ventilatory defect. There was no significant response to aerosolized bronchodilators. Spirograms are of good quality and do not plateau indicating slow emptying of the lungs. Body plethysmography was performed with grossly elevated lung volumes noted, likely erroneous in nature. Diffusing capacity by single breath CO is moderately reduced at 57% of predicted. When compared to previous pulmonary function studies dated December 2015, there has been a 16% reduction in FEV1 along with a 19% reduction in DLCO. IMPRESSION: These pulmonary function studies demonstrate the presence of an irreversible mild large airways obstructive ventilatory defect with an associated moderate reduction in diffusing capacity. Lung volumes were uninterpretable. There has been worsening in the patient's PFTs since 2015, as noted above. 12/03/17 1300 <Electronically signed by Louie Johnston DO> Date Louie Johnston DO CC: Louie Johnston D.O.; Cleve Chapman DO Date Dictated: 12/03/17 1257 Date Transcribed: 12/03/17 1257 Golf Tournament Consultant: LITTLE Signed CHEST WITHOUT Observed: 12/03/2017 Status: F Source: [facility] CONTRAST 6:40 AM REPOSITORY [facility] Imaging Services [address] [place] [address] Chest without Contrast MR#: [id number] Acct: [id number] Name: YVROSE ADHIKARI Rep #: [id number] : 1950 F 67 From: Giovanni Barrientos MD PCP: Cleve Chapman DO Status: REG CLI Study: Chest without Contrast Date of Exam: 12/03/17 Exam# [id number] Ordering Dr: Stephania Diaz [address] LIAISON-C STUDY: CT CHEST WITHOUT CONTRAST REASON FOR EXAM: Female, 67 years old. COPD, follow-up lung cancer with previous right upper lobectomy RADIATION DOSAGE (If Supplied By Facility): CTDIvol = ( 7.17 ) mGy, DLP = ( 281.26 ) mGycm TECHNIQUE: Transaxial imaging was performed without the administration of intravenous contrast material. Individualized dose optimization techniques were used for this CT. COMPARISON: Previous study of 01/16/2017 FINDINGS: There are mild emphysematous changes of the lungs predominantly involving the left upper lobe. There is a stable 4 mm nodule of the left lower lobe image 73 of series 4. There are changes consistent with right upper lobectomy. There are prominent interstitial fibrotic markings most severely affecting the right lower lobe. No new nodules are identified. There is a small loculated right apical effusion, stable in the interval. The heart size is within normal limits. There is no pericardial effusion. Coronary arterial calcifications are seen. Normal mediastinum. Hilar areas are difficult to assess on this noncontrast study. There is no obvious hilar mass or adenopathy. Normal unenhanced pulmonary arteries. There are calcified plaques of the thoracic aorta. There is mild diffuse endplate spondylosis of the visualized thoracolumbar spine. There is no demonstrated abnormality of the visualized upper abdomen. CT/Chest without Contrast IMPRESSION: 1. Status post right upper lobectomy. 2. Mild emphysematous changes of the lungs predominantly involving the left upper lobe. 3. Stable 4 mm nodule of the left lower lobe. No new nodules are evident. 4. Prominent interstitial fibrotic markings most severely affecting the right lower lobe. 5. Findings are similar to the previous study. There is no evidence of new or recurrent malignancy. Electronically Signed: Giovanni Barrientos MD at 23:32 EDT , Service support , CC: Stephania Diaz; Cleve Chapman DO Golf Tournament Consultant: Signed SINUS/FACIAL BONE Observed: 10/26/2017 Status: F Source: [place] 2:36 PM REPOSITORY [facility] Imaging Services [address] [place] [address] Sinus/Facial Bone MR#: [id number] Acct: [id number] Name: YVROSE ADHIKARI Rep #: [id number] : 1950 F 67 From: Ladan Kay MD PCP: Cleve Chapman DO Status: REG CLI Study: Sinus/Facial Bone Date of Exam: 10/26/17 Exam# [id number] Ordering Dr: Nigel Bose MD STUDY: CT MAXILLOFACIAL SINUSES REASON FOR EXAM: Female, 67 years old. Sinusitis, allergies RADIATION DOSAGE (If Supplied By Facility): CTDIvol = ( 33.06 ) mGy, DLP = ( 862.77 ) mGycm TECHNIQUE: The patient was scanned in a multi detector CT scanner. High resolution axial imaging was performed without the administration of intravenous contrast material. Sagittal and coronal images were reconstructed. Individualized dose optimization techniques were used for this CT. COMPARISON: None. FINDINGS: FRONTAL SINUSES: Normal aeration, without mucosal inflammatory disease. ETHMOIDAL SINUSES: There is minimal mucosal thickening. MAXILLARY SINUSES: There is a left side minimal focus of mucosal thickening. SPHENOIDAL SINUSES: There is opacification of the left-sided sphenoid sinus. There is patency of the bilateral maxillary infundibuli with normal uncinate processes, ethmoid bullae, and hiatus semilunaris. Normal bilateral middle turbinates. Normal bilateral inferior turbinates. Normal midline nasal septum. There is patency of the bilateral nasal airways. There are numerous dental cavities and periodontal abscesses. For example on the right side maxilla there is a large periodontal abscess erosion of the bone around the remaining right molar. There is degenerative change in the cervical spine. The bones are osteopenic. The visualized bilateral orbital contents are normal. CT/Sinus/Facial Bone IMPRESSION: Mild to moderate sphenoid sinusitis. Minimal ethmoid sinusitis. Multiple dental cavities recommend dental consult. Multilevel degenerative change cervical spine. Electronically Signed: Ladan Kay MD at 20:02 EDT Tel , Service support , CC: Calderon Bose MD; Cleve Chapman DO Golf Tournament Consultant: Signed PULMONARY VISIT REPORT Observed: 07/20/2017 Status: F Source: [place] 8:00 AM [facility] Pulmonary Medicine of [address] [place] [address] OFFICE VISIT Date of Service: 07/20/17 MR#: [id number] Acct: [id number] Name: YVROSE ADHIKARI Rep #: [id number] : 1950 Provider: Louie Johnston D.O. Age/Sex: 66/F Location: [facility] [place].[facility] Status: Signed Assessment AND Plan 1. COPD (chronic obstructive pulmonary disease) J44.9 Plan Pulmonary function testing did reveal evidence of a mild obstructive ventilatory impairment. The patient currently only utilizes albuterol on an as-needed basis. She was previously prescribed Anoro, but stopped utilizing the medication due to a lack of perceived benefit. Given the patient's ongoing tobacco utilization, recommend repeating pulmonary function testing prior to her follow-up office. The patient's current cough, is likely precipitated by postnasal drip in the setting of allergic rhinitis. Therefore, she will be started on Flonase and Claritin daily. Orders Orders: 2. Lung cancer C34.90 Plan The patient has a history of non-small cell lung cancer, which was surgically resected by Dr. Meeks at [facility]. Given the patient's smoking history, age and cancer history, recommend repeating low-dose CT scan. 3. PVD (peripheral vascular disease) I73.9 Plan Recent lower extremity arterial studies revealed severely diminished perfusion at digital level in both feet. The patient does report the presence of associated ulcer formation. The patient is interested in being referred to vascular surgery for further evaluation. A referral will be placed to Dr. Walt Melvin of vascular surgery at [facility]. Orders Referrals: 4. Nicotine dependence, cigarettes, uncomplicated F17.210 Plan The patient was again counseled regarding the deleterious effects of ongoing tobacco use, including modalities which could be utilized to achieve a smoke-free lifestyle. The patient was recently started on Wellbutrin by her primary care provider. Orders Orders: Referrals: Plan Detail Other Medications New: fluticasone 50 mcg/actuation (Flonase Allergy Relief) adminis2 sprays Intranasal QDAY ter into each nostril Follow Up 6 Months (DMB) HPI HPI Comments Details: The patient is a 66-year-old female who presents to the clinic today for a routine scheduled follow-up office visit. If you recall, the patient has a history of non-small cell lung cancer. She also has an extensive smoking history. The patient underwent a right upper lobectomy in January 2016 with repeat surgery completed in February 2016. Her operative course was complicated by the development of a chylothorax, which necessitated TPN and ultimately repeat surgery with ligation. Noncontrasted chest CT completed in August 2016 revealed a subcentimeter opacity in the lateral segment of the right lower lobe along with paratracheal lymphadenopathy and emphysematous changes. Noncontrasted chest CT completed in December 2016 showed radiographic evidence of the patient's right upper lobectomy, along with interstitial fibrotic densities and a 0.4 cm nodule in the periphery of the left lower lobe. Pulmonary function testing from September 2016 revealed evidence of an irreversible mild large airways obstructive ventilatory defect with associated hyperinflation, air trapping and reduction in diffusing capacity. A 6 minute walk test also completed at that time revealed no significant exertional oxygen desaturation. Today, the patient reports overall stability in her breathing quality. She continues to experience dyspnea with strenuous physical exertion. Since her last office visit, she stopped using the Anoro, which was previously prescribed to her, stating that she did not feel that it helped her. She continues to utilize an albuterol rescue inhaler on an as-needed basis. However, she states that on average she only has to utilize said medication 2-3 times per months. She believes that performing breathing exercises helps more with her sensation of dyspnea than medications. She is currently battling symptoms of depression, for which her primary care provider recently started her on Wellbutrin. She also reports having completed arterial Doppler studies recently which revealed severely diminished perfusion at digital level in both feet. She is awaiting referral to vascular surgery for evaluation. 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 She has recently been experiencing issues with a cough with associated rhinorrhea, postnasal drip, sneezing and itchy/watery eyes. She has lost 5 pounds, but reports that her appetite remains good. She denies fevers, chills or night sweats. She denies chest pain, dizziness or lightheadedness. Intake Vital Signs07/20/17 Height 5 ft 07/20/17 Weight: 120 lb Intake Visit Reasons: 6 M FU Clinical Sociologist Required: No Accompanied by: Self Is patient in pain?: Yes Allergies meperidine HCl [From Demerol] Adverse Reaction (Verified 07/20/17 07:15) Other Medications Metoprolol Tartrate [Lopressor (Beta J Luis)] 50 mg PO BID 06/20/14 [History Confirmed 07/20/17] bupropion HCl SR 150 mg tablet,12 hr sustained-release 150 mg PO BID #60 tab 01/29/17 [Rx Confirmed 07/20/17] albuterol sulfate HFA 90 mcg/actuation aerosol inhaler 2 puff INHALATION Q4H PRN 07/09/17 [History Confirmed 07/20/17] aspirin 81 mg tablet,delayed release 81 mg PO QDAY 07/20/17 [History Confirmed 07/20/17] fluticasone 50 mcg/actuation nasal spray,suspension 2 spray INTRANASAL QDAY #1 device 07/20/17 [Rx Confirmed 07/20/17] hydrochlorothiazide 25 mg tablet 25 mg PO 30 Days tab 07/20/17 [History Confirmed 07/20/17] loratadine 10 mg tablet 10 mg PO QDAY #30 tab 07/20/17 [Rx Confirmed 07/20/17] [facility] Medical History Emphysema of lung (Chronic) Lung mass (Acute) COPD (chronic obstructive pulmonary disease) (Chronic) Unintentional weight loss (Acute) Pneumonia (Acute) HTN (hypertension) (Chronic) Lung cancer (Acute) Tobacco dependence in remission (Chronic) Surgical History H/O tubal ligation (Resolved) History of bilateral carpal tunnel release (Resolved) Wedge resection of lung (Resolved) H/O pneumonectomy (Resolved) repaired lymph node (Resolved) Family History Mother Thyroid cancer Anemia Lung disease Father Throat cancer Diabetes Hypertension Arthritis Lung disease Sister Breast cancer Brain cancer Social History Smoking Status: Former smoker quit date: 02/23/16 pack-years: 26 alcohol intake: never substance use type: does not use Review of Systems Const CONSTITUTIONAL: Positive fatigue; negative anorexia, body ache, chills, daytime sleepiness, fever(s), night sweats, oral thrush, stops breathing during sleep, weight loss, sleeping in chair, weight loss, weight gain, frequent colds, seasonal allergies, other, headache(s) or orthopnea EETM Ear Nose Throat Mouth: Positive hearing normal and nasal discharge; negative hard of hearing, hoarseness, dry mouth in morning, change in vision, itchy eyes, eye pain, swallowing Difficulty, ear pain, nose bleed, headache(s), mouth pain, nasal congestion, post nasal drip, sinus pain, sinus pressure, sore throat or other Cardio Cardiovascular: Positive edema Location: upper extremity (hands); negative chest pain, chest pain at rest, chest pain with activity, irregular heart rhythm, shortness of breath when lying down, palpitations, murmur or other Resp Respiratory: Positive as per HPI, shortness of breath, cough cough: Positive productive color: Positive clear and inhalers; negative pain with cough, wheezing, chest congestion, chest tightness, pain on inspiration, increase use of rescue inhalers, snoring, apnea or other Gastro Gastrointestional: Negative bloody stools, change in appetite, difficulty swallowing, reflux, hematemesis, melena stool, loose stool, constipation or other Genitourinary: Negative blood in urine, nocturia, pain with urination or other Musc Musculoskeletal: Negative body pain, back pain, neck pain or other Skin/Breast Skin/Breast: Negative dry skin, itching, rash, unusual bruising, breast lump or other Neuro Neurological: Negative restless legs, confusion, weakness or other Psych Psychocological: Positive other (depression); negative abnormal sleep pattern, anxiety, thoughts of hurting self/others or hopelessness Lymph Lymphatic: Negative easy bleeding, easy bruising, swollen lymph nodes or other Exam Const Constitutional: Positive conversant, cooperative, in no acute respiratory distress, well developed, well nourished, good hygiene and thin Head Head: Positive normocephalic and atraumatic; negative cyanosis of lips/distal nose Eyes Eye: Positive clear conjunctiva; negative nystagmus or scleral abnormality Ears Ear: Positive hearing normal and external ears normal; negative hard of hearing Nose Nose: Positive external nose normal; negative epistaxis Mouth Mouth: Positive oral mucosae normal and posterior oropharynx is adequate; negative no lesions or post nasal drip Mallampati Score: II: Mallampati Score Neck Neck: Positive normal visual inspection and trachea midline; negative lymphadenopathy Chest Wall Chest: Positive symmetric chest movement Normal AP diameter. Resp lung sounds: Positive diminished diminished: Positive bialteral and normal expiratory time; negative wheezes, rhonchi or rales Cardio Cardiac: Positive regular rate, regular rhythm, S1 normal and S2 normal; negative rub, gallop or murmur GI GI: Positive normal bowel sounds Soft without distention Genitourinary: Positive deferred Musc Musculoskeletal: Positive steady gait Skin Pulmonary Skin Exam: Positive intact; negative lesion, ulcers, dermal atrophy or rash Pulses Pulse: Yes Pedal pulses present: Extremities Extremities: No clubbing, No cyanosis, No edema Neuro Neurologic: Yes conversant, Yes no focal neuro deficits, Yes cooperative Lymph Lymphatic: No lymphadenopathy Psych Appearance: Positive grossly normal Mental Status: Positive mental status grossly normal Mood: Positive congruent mood Affect: Positive flat Coding Level of Care Code Off vis,est,level 4 Diagnoses COPD (chronic obstructive pulmonary disease) J44.9 Lung cancer C34.90 PVD (peripheral vascular disease) I73.9 Nicotine dependence, cigarettes, uncomplicated F17.210 07/20/17 0800 <Electronically signed by Louie Johnston DO> Date Louie Johnston DO Cosigner Signature: Date (if applicable) CC: Cleve Chapman DO LOWER EXT ARTERIAL Observed: 05/30/2017 Status: F Source: [facility] 8:11 PM REPOSITORY [facility] Cardiovascular Services [address] [place] [address] 05/30/172007 MR#: [id number] Acct: [id number] Name: YVROSE ADHIKARI Rep #: [id number] : 1950 66 From: Derrek Garcia MD Attending Dr: Heather Junior MD Status: REG CLI Ordering Dr: Date: 05/30/17 Location: [facility] Sex: F C Admitted: Arterial Study - Arterial Study Arterial Study: This is a 66-year-old female with a history of hypertension and smoking. The patient presents with digital infarction in the toes of her lower extremities. She also experiences paresthesias in her feet, thought to be due to ischemia. The patient was brought to the noninvasive vascular laboratory at this time for the purpose of bilateral noninvasive lower extremity arterial assessment. Doppler signal assessment was used to evaluate the pulses at ankle level bilaterally. The posterior tibial and dorsalis pedis pulses were triphasic bilaterally. Segmental limb pressures were obtained at ankle level bilaterally. The right ankle pressure, as determined by posterior tibial pulse, was measured at 155 mmHg. The right ankle pressure, as determined by dorsalis pedis pulse, was measured at 142 mmHg. The left ankle pressure, as determined by posterior tibial pulse, was measured at 154 mmHg. The left ankle pressure, as determined by dorsalis pedis pulse, was measured at 136 mmHg. Pulse-volume recordings were obtained bilaterally and segmentally. Waveform amplitudes appeared to be satisfactory at low thigh, calf, and ankle levels bilaterally. Resting ankle-brachial indices were calculated bilaterally. The resting right ankle-brachial index was calculated to be 1.18. The resting left ankle-brachial index was calculated to be 1.18. Digital waveforms were obtained of all 5 digits in both feet. A flat-line nonpulsatile waveform was noted in all digits bilaterally. Impression: Based upon the findings of this resting noninvasive lower extremity study, arterial perfusion to ankle level appears to be relatively normal, with triphasic waveforms at ankle level bilaterally. Furthermore, resting ankle-brachial indices are bilaterally normal. However, based upon digital waveforms of the digits bilaterally, there appears to be severely diminished perfusion at digital level in both feet, for which clinical correlation is advised. 05/30/172010 <Electronically signed by Derrek Garcia MD> Date Derrek Garcia MD CC: Heather Junior MD; Cleve Chapman DO Date Dictated: 05/30/172007 Date Transcribed: 05/30/172007 Golf Tournament Consultant: ABRAHAN Perez ECHOCARDIOGRAM COMPLETE Observed: 05/26/2017 Status: F Source: [place] 4:12 PM REPOSITORY [facility] Cardiovascular Services [address] [place] [address] Echo Complete 05/26/17 0855 MR#: [id number] Acct: [id number] Name: YVROSE ADHIKARI Rep #: [id number] : 1950 66 From: Timothy Agustin MD Attending Dr: Heather Junior MD Status: REG CLI Ordering Dr: Heather Junior MD Date: 05/26/17 Location: [facility] Sex: F C Admitted: Reason For Study: Capillary infarcts in toes Procedure This was a 2D Doppler, Color Flow transthoracic echocardiogram. Exam performed in department. Left Ventricle Normal size and thickness. The estimated ejection fraction is 65 %. Stage 1 diastolic dysfunction. No regional wall motion abnormalities noted. Right Ventricle Normal size and thickness. Normal systolic function. Atria Normal left atrium. Normal right atrium. Normal atrial septum. Mitral Valve The mitral valve is structurally normal. No prolapse or stenosis seen. Trivial mitral valve insufficiency. Tricuspid Valve Normal tricuspid valve. Trivial tricuspid valve insufficiency. Right ventricular systolic pressure estimated to be 26 mmHg. Aortic Valve Trisinus/trileaflet aortic valve. Pulmonic Valve Normal pulmonic valve. Great Vessels Normal aortic root. Normal arch. Normal inferior vena cava. Inferior vena cava collapse with sniff. Pericardium/Pleural No pericardial effusion. MMode/2D Measurements AND Calculations LVIDd: 4.1 cm IVSd: 0.95 cm Ao root diam: 2.9 cm LVIDs: 2.5 cm LVPWd: 0.94 cm LA dimension: 3.9 cm RVDd: 3.0 cm FS: 37.9 % LAV(MOD-bp): 48.7 ml LA A4 area: 17.8 cm2 RA A4 area: 11.9 cm2 LAV(MOD-bp) Indexed: 32.8 ml/m2 LAV(MOD-sp2): 48.9 ml LAV(MOD-sp4): 48.9 ml Doppler Measurements AND Calculations MV E max etienne: 65.0 cm/sec Lat Peak E' Etienne: 6.7 cm/sec Med Peak E' Etienne: 6.1 cm/sec MV A max etienne: 55.6 cm/sec E/E' lat: 9.7 E/E' med: 10.6 MV E/A: 1.2 Ao V2 max: 132.5 cm/sec LV V1 max: 103.7 cm/sec PA V2 max: 80.6 cm/sec Ao max P.0 mmHg LV V1 max P.3 mmHg TR max etienne: 230.9 cm/sec TR max P.4 mmHg Interpretation Summary The estimated ejection fraction is 65 %. Stage 1 diastolic dysfunction. Trivial mitral valve insufficiency. Trivial tricuspid valve insufficiency. Right ventricular systolic pressure estimated to be 26 mmHg. There is no comparison study available. Ordering Physician: Heather Junior Referring Physician: Heather Junior Performed By: Maren Lee RDCS 05/26/171611 Date Timothy Agustin MD CC: Heather Junior MD; Cleve Chapman DO Date Dictated: 05/26/17 0855 Date Transcribed: 05/26/171611 Golf Tournament Consultant: Signed CHEST PA AND LATERAL Observed: 04/02/2017 Status: F Source: [facility] 2:38 PM REPOSITORY [facility] Imaging Services [address] [place] [address] Chest PA and Lateral MR#: [id number] Acct: [id number] Name: YVROSE ADHIKARI Rep #: [id number] : 1950 F 66 From: Dom Martínez DO PCP: Cleve Chapman DO Status: REG CLI Study: Chest PA and Lateral Date of Exam: 04/02/17 Exam# [id number] Ordering Dr: Cleve Chapman DO STUDY: X-RAY CHEST REASON FOR EXAM: Female, 66 years old. Shortness of breath. Upper respiratory infection. History of lung cancer with partial right pneumonectomy. TECHNIQUE: PA and lateral views of the chest. COMPARISON: Chest, February 27, 2016. CT of the chest, January 16, 2017. FINDINGS: The lungs are hyperexpanded. There is no focal mass or infiltrate. There is minimal right pleural effusion versus pleural thickening. Normal size heart. Normal mediastinum and lucia. Normal visualized pulmonary arteries. There is atherosclerotic calcification of the aortic arch with tortuosity. There are diffuse degenerative changes of the visualized thoracic spine. There is degenerative osteoarthritis of the bilateral shoulders. There is no demonstrated abnormality of the visualized soft tissue structures of the upper abdomen. RAD/Chest PA and Lateral IMPRESSION: 1. Pleural thickening versus small pleural effusion at the right lung base. 2. Emphysematous changes of the lungs. Electronically Signed: Dom Martínez DO at 18:48 EST Tel [phone], Service support , CC: Cleve Chapman DO Golf Tournament Consultant: Signed CBC W/DIFF, AUTOMATED Collected: 03/23/2017 Status: F Source: KIKI 1:19 PM REPOSITORY TYPE CODE TESTS RESULT OUT OF RANGE REFERENCE UNITS LAB L100.1000 4.4-11.0 K/mm3 Normal WBC 5.3 LAB L100.1200 4.2-5.4 M/mm3 Normal RBC 4.51 LAB L100.1300 12.0-15.0 g/dl Normal HGB 12.8 LAB L100.1400 37-47 % Normal HCT 40.2 LAB L100.1500 81-99 fL Normal MCV 89.1 LAB L100.1600 27.0-32.0 pg Normal MCH 28.4 LAB L100.1700 32-36 g/gl Low MCHC 31.8 LAB L100.1810 11.6-14.6 % Normal RDW CV 13.6 LAB L100.1820 35.1-43.9 fl Normal RDW SD 43.9 LAB L100.1900 150-450 K/mm3 Normal PLT 263 LAB L100.2000 6.2-12.0 fl Normal MPV 10.3 LAB L100.2100 47-70 % Normal NEUT% 60.0 LAB L100.2200 19-41 % Normal LY% 27.0 LAB L100.2300 0-10 % High MONO% 10.1 LAB L100.2400 0-5 % Normal EO% 2.1 LAB L100.2500 0-1 % Normal BASO% 0.6 LAB L100.2550 0.0-0.9 % Normal IM GRAN % 0.200 Result Comment: IG% - Immature Granulocytes (promyelocytes, myelocytes and metamyelocytes) > 1% indicates that a LEFT SHIFT is Present. LAB L100.2620 2.0-7.7 X10 3/uL Normal Absolute Neut 3.2 LAB L100.2720 0.83-4.51 X10 3/ul Normal Absolute Lymph 1.42 Performed By: #### L100.0100 #### [facility] [address] [place], [place], [address] COMPREHENSIVE METABOLIC Collected: 03/23/2017 Status: F Source: [facility] 1:19 PM REPOSITORY TYPE CODE TESTS RESULT OUT OF RANGE REFERENCE UNITS LAB L501.0100 70-110 mg/dL Normal GLU 93 LAB L501.1000 7-18 mg/dL Normal BUN 15 LAB L501.1100 0.55-1.02 mg/dL Normal 0.60 CREAT,SERUM Result Comment: The validity of the calculated GFR AND GFRAA in patients over 70 years has not been determined. Clinical correlation is essential. LAB L501.1110 >60 mL/min Normal EST GFR 105 Result Comment: Non- GFR Calc LAB L501.1115 >60 mL/min Normal EST GFR - AA 127 Result Comment: GFR Calc LAB L501.1300 10-20 RATIO High BUN/CRE 24.8 LAB L501.1500 6.4-8.2 g/dL T Normal PROT 7.4 LAB L501.1800 3.2-5.0 g/dL Normal ALB 3.9 LAB L501.1950 2.2-4.2 g/dL Normal GLOB 3.5 LAB L501.2000 0.9-2.4 RATIO Normal A/G 1.1 LAB L501.2200 8.5-10.1 mg/dL CA Normal 8.5 LAB L501.4100 15-37 U/L Normal AST 26 LAB L501.4305 45-117 U/L Normal ALK P 85 LAB L501.4405 13-56 U/L Normal ALT 26 Result Comment: Please note revised ALT reference range effective 2017. LAB L501.4600 0.20-1.00 mg/dL Normal T BILI 0.40 LAB L501.5300 136-145 mmol/L Low NA 134 LAB L501.5600 3.5-5.1 mmol/L Normal K 3.6 LAB L501.5900 98-107 mmol/L Normal CL 100 LAB L501.6100 21.0-32.0 mmol/L Normal CO2 28.0 LAB L501.6200 5-15 Normal GAP 6 Performed By: #### L500.4050, L500.4100 #### [facility] [address] [place], [address] LIPID PROFILE Collected: 03/23/2017 Status: F Source: [facility] 1:19 PM REPOSITORY TYPE CODE TESTS RESULT OUT OF RANGE REFERENCE UNITS LAB L501.4900 200 mg/dL Normal CHOL 184 Result Comment: <200 mg/dL Desirable 200-240 mg/dL Borderline >240 mg/dL High Risk LAB L501.5000 mg/dL Normal TRIG 72 Result Comment: The drugs N-Acetylcysteine and Metamizole may falsely depress this assay. Serum Triglycerides Reference Interval Normal <150 mg/dL Borderline high 150 - 199 mg/dL High 200 - 499 mg/dL Very High > or = 500 mg/dL LAB L501.6400 mg/dL Normal HDL 60 Result Comment: The drugs N-Acetylcysteine and Metamizole may falsely depress this assay. Reference Range HDL <40 mg/dL Low HDL Cholesterol HDL >or= 60 mg/dL High HDL Cholesterol LAB L501.6500 0-130 mg/dL Normal LDL 110 LAB L501.6600 5-40 mg/dL Normal VLDL 14 Performed By: #### L500.4050, L500.4100 #### [facility] [address] [place], [address] ALLERGIES ALLERGIES DATE TYPE / CODE NAME / CODE REACTION SEVERITY SOURCE 03/02/2018 Drug meperidine pass out Unknown [place] Allergy/416 HCl/[id number](RX Community 720999([facility] ED CT) Repository ENCOUNTERS ENCOUNTERS ADMIT/DISCHARGE ACCOUNT ADMITTING ENCOUNTER LOCATION SOURCE NUMBER CLASS 03/15/2018 [id number] Ambulatory [place] [facility] 1 [facility] ing:CT Repository 03/02/2018 [id number] Ambulatory [place] 4 [facility] ing:LABSPEC Repository 03/02/2018/ [id number] Ambulatory [facility]MS[facility] [facility] [place] 01/20/2018/ [id number] Ambulatory BMSBuilding:[place] 8 [facility] [place] 12/03/2017 [id number] Ambulatory BMSBuilding:W [place] 3 [facility] Repository 12/03/2017 [id number] Ambulatory [place] 5 [facility] ing:PSN Repository 10/26/2017 [id number] Ambulatory [place] 0 [facility] ing:CT Repository 07/20/2017/ [id number] Ambulatory BMSBuilding:B [place] 8 3 [facility] [place] 07/09/2017 [id number] Ambulatory BMS [place] 9 [facility] Repository 06/14/2017 [id number] Ambulatory BMSBuilding:B [place] 5 [facility] Repository 05/26/2017 [id number] Ambulatory [place]iki K[place] 8 [facility] ing:CVS Repository 05/26/2017 [id number] Ambulatory BMSBuilding:W [place] 0 [facility] Repository 04/02/2017 [id number] Ambulatory [place] 0 [facility] ing:RAD Repository 03/23/2017 [id number] Ambulatory [place] K[place] 3 [facility] ing:LAB.TAIWO Repository E PAYERS PAYERS ENCOUNTER GUARANTOR PAYER SUBSCRIBER SOURCE 03/15/2018 YVROSEJAMAICA PARKSEL Primary YVROSE J ZACKEL [place] [id number] [place] Insurance:[employer] E[place]ISDOB[place] [id number] Hospital [address]251Qag: (330) Number: Repository [phone] () [id number] Date:4775-72-79FD [address] [place] [address] 54[address]OQ: 03/15/2018 Secondary NOT GIVENUNK [place] Insurance:SELF PAY [facility] Number: Effective Repository Date:2018-03-10 03/02/2018 YVROSEWilbert PARKSEL Primary YVROSE J ZACKEL [place] [id number] [place] Insurance:[employer] ENNISDOB[place] [id number] Hospital 35854Mzw: (330) Number: Repository [phone] () [id number] Date:2398-49-55AB [address] [place] [address] 85499WM: 03/02/2018 Secondary NOT GIVENUNK [place] Insurance:SELF PAY [facility] Number: Effective Repository Date:2018-03-02 03/02/2018 YVROSE Lisa ELIZONDOCKEL Primary YVROSE J CAROCKEL [place] [id number] [place] Insurance:[employer] ENNISDOB[place] [id number] Hospital 6[address]Cwp: (330) Number: Repository [phone] () [id number] Date:3092-22-05MU [address] [place] [address] 05829LF: 03/02/2018 Secondary NOT GIVENUNK [place] Insurance:SELF PAY [facility] Number: Effective Repository Date:2018-02-25 01/20/2018 YVROSE J ZACKEL Primary YVROSE J ZACKEL K[place] [id number] [place] Insurance:[employer] ENNISDOB[place] [id number] Hospital 517[address]Ehg: (330) Number: Repository [phone] () [id number] Date:4123-91-12YT [address] [place] [address] 37173KK: 01/20/2018 Secondary NOT GIVENUNK [place] Insurance:SELF PAY [facility] Number: Effective Repository Date:2018-01-17 12/03/2017 YVROSE J ZACKEL Primary YVROSE J ZACKEL Kiki [id number] [place] Insurance:[employer] ENNISDOB: [place] [id number] Hospital 079[address]Mbp: (330) Number: Repository [phone] () [id number] Date:3005-26-31MU [address] [place] [address] 79550PB: 12/03/2017 Secondary NOT GIVENUNK [place] Insurance:SELF PAY [facility] Number: Effective Repository Date:2017-12-03 12/03/2017 YVROSE J ZACKEL Primary YVROSE J ZACKEL [place] [id number] [place] Insurance:[employer] ENNISDOB: [place] [id number] Hospital 405[address]Jfh: (330) Number: Repository [phone] () [id number] Date:3638-49-16PC [address] [place] [address] 46506XI: 12/03/2017 Secondary NOT GIVENUNK [place] Insurance:SELF PAY [facility] Number: Effective Repository Date:2017-07-20 10/26/2017 YVROSE J ZACKEL Primary YVROSE J ZACKEL K[place] [id number] [place] Insurance:[employer] ENNISDOB: [place] [id number] Hospital 42247Mpw: (330) Number: Repository [phone] () [id number] Date:2200-23-63LN [facility] [facility] [place] [place] [address]TO: 10/26/2017 Secondary NOT GIVENUNK [place] Insurance:SELF PAY [facility] Number: Effective Repository Date:2017-10-13 07/20/2017 YVROSE J ZACKEL Primary YVROSE J ZACKEL [place] [id number] [place] Insurance:[employer] ENNISDOB: [place] [id number] [id number]: (330) Number: Repository [phone] () [id number] Date:1181-26-09FN [address] [facility] [place], [place] [address]MO: 07/20/2017 Secondary NOT GIVENUNK [place] Insurance:SELF PAY [facility] Number: Effective Repository Date:2017-07-16 07/09/2017 YVROSE J ZACKEL Primary YVROSE J ZACKEL K[place] [id number] [place] Insurance:[employer] ENNISDOB: [place] [id number] Hospital 15400Tbr: (330) Number: Repository [phone] () [id number] Date:4753-09-50KZ [address] [place], [place] [address]RP: 07/09/2017 Secondary NOT GIVENUNK [place] Insurance:SELF PAY [facility] Number: Effective Repository Date:2017-07-09 06/14/2017 YVROSE J ZACKEL Primary YVROSE J ZACKEL K[place] [id number] [place] Insurance:[employer] ENNISDOB: [place] [id number] Hospital 64990Ovp: (330) Number: Repository [phone] () [id number] Date:2033-91-95KZ [address] [address]JW: 06/14/2017 Secondary NOT GIVENUNK [place] Insurance:SELF PAY [facility] Number: Effective Repository Date:2017-06-08 05/26/2017 YVROSE J ZACKEL Primary YVROSE J ZACKEL K[place] [id number] [place] Insurance:[employer] [place] [id number] Hospital [address]Ufk: (330) Number: Repository [phone] () [id number] Date:9700-70-70VJ [address] [place] [address] 207[address]IJ: 05/26/2017 Secondary NOT GIVENUNK [place] Insurance:SELF PAY [facility] Number: Effective Repository Date:2017-05-07 05/26/2017 YVROSE J CAROCKEL Primary YVROSE J ZACKEL K[place] [id number] [place] Insurance:[employer] E[place]ISDOB: [place] [id number] Hospital 211[address]Dsv: (330) Number: Repository [phone] () [id number] Date:9229-00-00EW [address] [place] [address] 28759HZ: 05/26/2017 Secondary NOT GIVENUNK [place] Insurance:SELF PAY [facility] Number: Effective Repository Date:2017-05-26 04/02/2017 YVROSE J CAROCKEL Primary YVROSE J ZACKEL [place] [id number] [place] Insurance:[employer] ENNISDOB: [place] [id number] Hospital [address]Gnx: (330) Number: Repository [phone] () [id number] Date:2414-04-13MQ [address] [place] [address] 98122WD: 04/02/2017 Secondary NOT GIVENUNK [place] Insurance:SELF PAY [facility] Number: Effective Repository Date:2017-04-02 03/23/2017 YVROSE J ZACKEL Primary YVROSE J ZACKEL Kiki [id number] [place] [facility] ENNISD[facility]: [place] [facility] [id number] Hospital [address]Gvb: (330) Number: Repository [phone] (HP) [id number] Date:7779-49-83SC [address] [place], [place] [address]SG: 03/23/2017 Secondary NOT GIVENUNK [place] Insurance:SELF PAY [facility] Number: Effective Repository Date:2017-01-27
== END ==
PROVIDERS: Family Provider Family Medicine; PCP Family Medicine; Referring Provider Nurse Practitioner Acute Care; Visit Provider Nurse Practitioner Acute Care
DX: R91.8 Other nonspecific abnormal finding of lung field (principal)
CPT/HCPCS: 71250

== ENCOUNTER → 2018-08-09 | Outpatient (CLI) | payer MEDICARE, SELFPAY ==
[2018-03-23 08:13] VITALS: BMI 24.0
--- NOTE | 2018-08-09 13:55 | RAD_ITS ---
HISTORY: right side chest pain, suspect muscular, hx of right bronchial cancer s/p removalhx of pneumonia EXAMINATION/TECHNIQUE: XR Chest 2 Views: COMPARISON: 04/02/17 CXR FINDINGS: LINES/DEVICES: None. LUNGS: No evidence of pneumothorax, pleural effusion, pneumonia, or pulmonary edema. Right apical and costophrenic sulcus opacities, surgical sutures right lateral lower lung base unchanged. Emphysematous changes are noted. MEDIASTINUM AND CARDIOVASCULAR STRUCTURES: Cardiac silhouette not enlarged. Central airways and mediastinal contour are unremarkable. BONES AND SOFT TISSUES: Unremarkable. RAD/Chest PA and Lateral IMPRESSION: COPD with right-sided pleural-based opacities which are chronic and unchanged. No radiographic evidence of acute cardiopulmonary disease. at 1427 Reported and signed by: Giovanni Metz MD Electronically Signed: Giovanni Metz, at 14:26 EDT Tel , Service support ,
== END | disposition home or self-care (01) ==
PROVIDERS: Family Provider Family Medicine; PCP Family Medicine; Referring Provider Family Medicine; Visit Provider Family Medicine
DX: R07.9 Chest pain, unspecified (principal)
CPT/HCPCS: 71046

== ENCOUNTER → 2018-08-19 | Outpatient (CLI) | payer MEDICARE, SELFPAY ==
[2018-03-23 08:13] VITALS: BMI 24.0
--- NOTE | 2018-08-19 06:34 | CT_ITS ---
STUDY: CT CHEST WITHOUT CONTRAST REASON FOR EXAM: Female, 67 years old. RADIATION DOSAGE (If Supplied By Facility): CTDIvol = ( 7.30 ) mGy, DLP = ( 289.96 ) mGycm TECHNIQUE: Transaxial imaging was performed without the administration of intravenous contrast material. Individualized dose optimization techniques were used for this CT. COMPARISON: March 15, 2018 FINDINGS: There is now noted evidence of remote In the right in the left upper lobe with pleural parenchymal scarring series 4 image 31, this showed interval increase in the size of the nodule in the left upper lobe this measures in today's examination 1 cm compared to 7 mm before, there is no new revealed some irregularity of the border is associated with some degree of honeycomb pattern. Otherwise no evidence of any masses in either lung no pleural effusion or pneumothorax. No retrosternal, paratracheal or hilar adenopathy calcification is noted in the thoracic aorta some scarring noted in the right base. Hyperinflation of the lung tineo noted although there is known right upper lobe lobectomy with evidence of pleural-parenchymal scarring in the right apex.. No evidence of pneumothorax or pleural effusion No retrosternal, paratracheal or hilar adenopathy. The lungs are normal. There is no demonstrated pleural abnormality. Normal heart and pericardium. Except for coronary calcification Normal osseous structures. There is no demonstrated abnormality of the visualized upper abdomen. CT/Chest without Contrast IMPRESSION: Interval increase in the size of the small nodule which is irregular involving the left upper lobe with some honeycomb pattern. Electronically Signed: Louise Alonzo, at 11:38 EDT Tel , Service support ,
== END | disposition home or self-care (01) ==
PROVIDERS: Family Provider Family Medicine; PCP Family Medicine; Referring Provider Nurse Practitioner Acute Care; Visit Provider Nurse Practitioner Acute Care
DX: R91.8 Other nonspecific abnormal finding of lung field (principal)
CPT/HCPCS: 71250

== ENCOUNTER → 2018-08-29 06:48 | Outpatient (CLI) | payer MEDICARE, SELFPAY ==
[2018-08-23 07:39] VITALS: BMI 24.0
--- NOTE | 2018-08-29 07:30 | PET_ITS ---
EXAMINATION: FDG PET/CT INDICATIONS: A 67-year-old female with history of carcinoma of the lung presenting for restaging examination. COMPARISON EXAMINATION: Prior FDG PET study dated 12/30/15 INDEX LESION SIZE SUV INTERPRETATION NEW: left upper hemithorax pulmonary parenchyma, left upper lobe 9.6-mm (frame 204) 1.4 Quantitative criteria for viable neoplasm are not fulfilled, sequential radiologic investigation recommended PREVIOUS: right upper hemithorax pulmonary parenchyma, right upper lobe Demonstrates metabolic resolution on the current examination NON-INDEX LESION SIZE SUV INTERPRETATION NEW: right anterolateral chest wall, fourth rib 1.3 Quantitative criteria for viable osseous neoplasm are not fulfilled, most consistent with trauma-fracture TECHNIQUE: Following the intravenous administration of 13.46 mCi of F-18 deoxyglucose via the left antecubital fossa, multiplanar image acquisitions of the neck, chest, abdomen and pelvis to level of mid thigh, obtained at one hour post radiopharmaceutical administration contemporaneously interpreted with the current CT of the neck, chest, abdomen and pelvis to level of mid thigh, dated 08/29/18 via coregistration, and prior FDG PET study dated 12/30/15 reveal: SERUM GLUCOSE LEVEL: 113 mg/dl. HEIGHT: 60 inches. WEIGHT: 129 lbs. FINDINGS: 1. Newly identified increased glucose metabolism is demonstrated in the left upper anterior hemithorax pulmonary parenchyma, left upper lobe, generating a calculated maximal standard uptake value of 1.4. The maximal axial diameter of the corresponding parenchymal density on review of CT of the chest dated 08/29/18 is 9.6-mm (AP). 2. Normal physiologic distribution of the radiopharmaceutical is apparent in the hepatic (3.3/2.5) and splenic parenchyma, both renal units, bladder and visualized intestinal tract. The visualized portion of the cerebral cortex demonstrate symmetric and preserved glucose metabolism. Diffuse radiopharmaceutical concentration is noted in all four quadrants of the abdomen and pelvis. Prominent glucose concentration is observed in the oral cavity to the right of the midline in proximity to dental hardware placement likely representing a component of metallic reconstruction artifact. Facilitated uptake is noted in the right mid anterolateral chest wall contiguous to the fourth rib with a calculated maximal standard uptake value of 1.3. The previously identified right upper hemithorax pulmonary parenchymal, right upper lobe hypermetabolic focus noted on the FDG PET study dated 12/30/15 is not apparent on the current examination. Pertinent CT findings are as follows: CHEST: There are no additional parenchymal densities-nodules defined in the right and left hemithorax demonstrating discernible increased glucose metabolism. A subtle pleural-based subcentimeter non-calcified density noted in the right mid posterolateral hemithorax demonstrates no evidence of increased glucose metabolism. There is atherosclerotic calcification defined in the thoracic aorta without evidence of dilatation-aneurysm formation. Coronary arterial calcification is observed. Calcifications defined in the region of the right thoracic perihilum and medial pleural interface of the right mid hemithorax are ametabolic. ABDOMEN AND PELVIS: There is atherosclerotic calcification defined in the abdominal aorta without evidence of dilatation-aneurysm formation. Pelvic arterial calcification is observed. Right-left inguinal soft tissue densities with fatty hilus formation are non-glucose avid. SKELETAL: Degenerative changes are noted in the cervical, thoracic and lumbar spine. Diffuse demineralization is demonstrated. PET/PET/CT Tumor Base -Thigh Init IMPRESSION: 1. NEGATIVE EXAMINATION. There is no definitive quantitative scintigraphic evidence of recurrent-metastatic/viable neoplasm. 2. Subtle increased FDG concentration noted in the left upper anterior lung field, left upper lobe, does not fulfill quantitative criteria for viable neoplasm. (Quintanilla et al, Annals of Internal Medicine, 138:724, 2003). 3. Metabolic and/or anatomic stability may be ensured in the left upper hemithorax pulmonary parenchymal abnormality with repeat FDG PET study and/or CT of the thorax in three-six months. (Xiu, Journal of Nuclear Medicine 45:88, P2004 [facility], Seminars in Thoracic and Cardiovascular Surgery 14:292, 2002). 4. Mild increased FDG distribution noted in the fourth rib anteriorly on the right does not fulfill quantitative criteria for viable osseous neoplasm and is most consistent with trauma-fracture. (Shelton et al, [employer] 13:755, 2002). 5. There is interim metabolic resolution of the prior defined right upper lung field, right upper lobe, hypermetabolic focus. 6. Overall, compared to the prior FDG PET study dated 12/30/15, there is current absence of defined viable neoplastic disease. Electronic Signature River Florian D.O. Electronically Signed: River Florian DO at 23:06 EDT Tel , Service support ,
== END ==
PROVIDERS: Family Provider Family Medicine; PCP Family Medicine; Referring Provider Nurse Practitioner Acute Care; Visit Provider Nurse Practitioner Acute Care
DX: R91.8 Other nonspecific abnormal finding of lung field (principal)
CPT/HCPCS: 78815; A9552

== ENCOUNTER → 2018-09-13 | Outpatient (CLI) | payer MEDICARE, SELFPAY ==
[2018-08-23 07:39] VITALS: BMI 24.0
[2018-09-13 12:43] VITALS: PULSE 58; PULSE 60; PULSE 62; PULSE 64; PULSE 65; PULSE 67; PULSE 73; O2SAT 100; O2SAT 88; O2SAT 89; O2SAT 94; O2SAT 95; O2SAT 98
--- NOTE | 2018-09-13 12:49 | CPS ---
came in on room Air at 145 into test dropped to 88% placed on 2 LPM for rest of test. Stephania called and notified Patient sent home without O2 will be notified later.
--- NOTE | 2018-09-13 14:51 | PCM.PSN.6M ---
PSN 6 Minute Walk Test - 6 Minute Walk Test 6 Minute Walk Test: 6 Minute Walk Test PSN:6-Minute Walk Test Start: 09/13/18 12:42 Freq: Status: Active Protocol: RESP.6MINW Document 09/13/18 12:43 FR (Rec: 09/13/18 12:52 FR [id number]) 6 Minute Walk Test Date Performed 09/13/18 Time Performed 12:30 Height 5 ft Weight: 57.153 kg Weight in Pounds 126.0 lbs Assistive device used: None Pre-test Oxygen Delivery Method Room Air Pulse Ox (%) 98 Pulse Rate (60-100 beats/min) 60 Dyspnea Casey Scale (0-10) 3 Exertion Casey Scale (6-20) 8 1st minute Oxygen Delivery Method Room Air Pulse Ox (%) 89 Pulse Rate (60-100 beats/min) 58 L Reported Symptoms Increased Work of Breathing 2nd minute Oxygen Delivery Method Room Air Pulse Ox (%) 88 Pulse Rate (60-100 beats/min) 64 3rd minute Oxygen Flow Rate (L/min) (L/min) 2 Oxygen Delivery Method Nasal Cannula Pulse Ox (%) 95 Pulse Rate (60-100 beats/min) 62 Reported Symptoms Increased Work of Breathing 4th minute Oxygen Flow Rate (L/min) (L/min) 2 Oxygen Delivery Method Nasal Cannula Pulse Ox (%) 95 Pulse Rate (60-100 beats/min) 65 5th minute Oxygen Flow Rate (L/min) (L/min) 2 Oxygen Delivery Method Nasal Cannula Pulse Ox (%) 94 Pulse Rate (60-100 beats/min) 67 6th minute Oxygen Flow Rate (L/min) (L/min) 2 Oxygen Delivery Method Nasal Cannula Pulse Ox (%) 98 Pulse Rate (60-100 beats/min) 73 Dyspnea Casey Scale (0-10) 6 Exertion Casey Scale (6-20) 11 Post-test Oxygen Flow Rate (L/min) (L/min) 2 Oxygen Delivery Method Nasal Cannula Pulse Ox (%) 100 Pulse Rate (60-100 beats/min) 58 L Full Laps Walked 12 Partial Lap, Number of Tiles Walked 24 Total Distance Walked (ft) 732 09/13/18 12:49 Cardiopulmonary Services by Dulce Petty came in on room Air at 145 into test dropped to 88% placed on 2 LPM for rest of test. Stephania called and notified Patient sent home without O2 will be notified later. Initialized on 09/13/18 12:49 - END OF NOTE - Interpretation Interpretation: The patient was noted to be 98% on room air at rest. However, in the second minute of ambulation, patient desaturated to 88%. Patient was placed on 2 L nasal cannula and saturations were acceptable for the remaining of the test. In total, patient traveled 732 feet over the course of 6 minutes on room air with no assistive device and only one break. No significant tachycardia was noted. These veins are consistent with a respiratory limitation exercise tolerance. - Recommendations Recommendations: No supplemental oxygen is indicated at rest. However, patient should be using 2 L nasal cannula with any exertion.
== END | disposition home or self-care (01) ==
LOC: PSN 12:12
PROVIDERS: Family Provider Family Medicine; PCP Family Medicine; Referring Provider Nurse Practitioner Acute Care; Visit Provider Nurse Practitioner Acute Care
DX: J44.9 Chronic obstructive pulmonary disease, unspecified (principal)
CPT/HCPCS: 94618

== ENCOUNTER → 2018-12-23 15:12 | Outpatient (CLI) | payer MEDICARE, SELFPAY ==
[2018-10-10 13:47] VITALS: BMI 25.4
[2018-12-23 17:13] LABS: Absolute Lymphocyte Count 1.57 X10^3/uL (0.83-4.51); Basophil# 0.06 X10^3/uL; Basophil% 0.9 % (0-1); Eosinophil# 0.12 X10^3/uL; Eosinophils% 1.9 % (0-5); Hematocrit 42.9 % (37-47); Hemoglobin 13.7 g/dL (12.0-15.0); Lymphocyte # 1.57 X10^3/ul (4.0); Lymphocyte % 24.8 % (19-41); Mean Corp Hgb Conc 31.9 g/dL (32-36); Mean Corpuscular Hgb 28.4 pg (27.0-32.0); Mean Corpuscular Volume 88.8 fL (81-99); Mean Platelet Vol. 9.7 fl (6.2-12.0); Monocyte# 0.59 X10^3/uL; Monocyte% 9.3 % (0-10); NRBC Flagged by Analyzer 0 % (0-5); Neutrophil # 3.99 X10^3/uL (2.7-7.7); Neutrophil % 62.9 % (47-70); Platelet Count 287 K/mm3 (150-450); RBC Distribution Width CV 12.9 % (11.6-14.6); RBC Distribution Width SD 42.2 fl (35.1-43.9); Red Blood Count 4.83 M/mm3 (4.2-5.4); White Blood Count 6.3 K/mm3 (4.4-11.0)
[2018-12-23 17:25] LABS: ALB/GLOB Ratio 0.9 RATIO (0.9-2.4); AST(SGOT) 20 U/L (15-37); Alanine Aminotransfer ALT/SGPT 20 U/L (13-56); Albumin, Serum 3.6 g/dL (3.2-5.0); Alkaline Phosphatase 82 U/L (45-117); Anion Gap 7 (5-15); BUN 13 mg/dL (7-18); BUN/Creat Ratio 22.7 RATIO (10-20); Calcium,Total 8.9 mg/dL (8.5-10.1); Chloride 100 mmol/L (98-107); Creatinine, Serum 0.57 mg/dL (0.55-1.02); EST Glomerular Filtration Rate 111 mL/min (>60); Est Glom Filt Rate - Afr Amer 134 mL/min (>60); Globulin 3.8 g/dL (2.2-4.2); Glucose 89 mg/dL (74-106); Potassium 3.6 mmol/L (3.5-5.1); Protein, Total 7.4 g/dL (6.4-8.2); Sodium Level 135 mmol/L (136-145)
== END ==
PROVIDERS: Family Provider Family Medicine; PCP Family Medicine; Visit Provider Family Medicine
DX: I10 Essential (primary) hypertension (principal)
CPT/HCPCS: 36415; 80053; 85025

== ENCOUNTER → 2019-01-06 15:25 | Outpatient (CLI) | payer MEDICARE, SELFPAY ==
[2018-10-10 13:47] VITALS: BMI 25.4
--- NOTE | 2019-01-06 15:27 | BI_ITS ---
MAMMOGRAPHY - BILATERAL SCREENING REASON FOR EXAM: Female, 68 years old. Routine annual screening examination. PERTINENT HISTORY: Sister with breast cancer. TECHNIQUE: Digital bilateral breast jasmin (3D mammographic acquisition) in the CC and MLO projections. 2-D mediolateral oblique (MLO) and craniocaudad (CC) views of both breasts were obtained. CAD: Full Field Digital Mammography with Computer Added Detection was performed. COMPARISON: Comparison is made with prior study dated April 04, 2015 and October 30, 2013. FINDINGS: Breast Composition: There are scattered areas of fibroglandular density. There are no dominant masses or suspicious calcifications. No other significant abnormalities are identified. There has been no significant change since the prior study. BI/SCREEN MAMM (CAD) W/JASMIN BILAT IMPRESSION: Stable bilateral screening mammogram. Yearly follow-up mammogram recommended. (A) ASSESSMENT CATEGORY: BIRADS Category 1: Negative. A letter regarding these results will be sent to the patient by the facility within 30 days. Approximately 10% of breast cancers are not detected by mammography. A normal mammogram should not delay biopsy of a clinically suspicious abnormality. [id number] Electronically Signed: Hiram Chi, at 8:15 EST , Service support ,
== END ==
PROVIDERS: Family Provider Family Medicine; PCP Family Medicine; Referring Provider Family Medicine; Visit Provider Family Medicine
DX: Z12.31 Encounter for screening mammogram for malignant neoplasm of breast (principal)
CPT/HCPCS: 77063; 77067

== ENCOUNTER → 2019-01-10 13:25 | Outpatient (CLI) | payer MEDICARE, SELFPAY ==
[2018-10-10 13:47] VITALS: BMI 25.4
--- NOTE | 2019-01-11 10:03 | PFT ---
INTRODUCTION: The patient is a 68-year-old female that presents for pulmonary function studies secondary to a diagnosis of COPD. Respiratory therapy reports good patient effort. Bronchodilators were used during testing. INTERPRETATION: Forced expiration spirometry demonstrates the presence of a moderate large airways obstructive ventilatory defect. There was no significant response to aerosolized bronchodilators. Spirograms are of fair quality and do not plateau indicating slow emptying of the lungs. Body plethysmography was performed and revealed an elevated TLC and RV, indicative of underlying hyperinflation and air trapping. Diffusing capacity by single breath CO is reduced at 50% of predicted. IMPRESSION: Irreversible moderate large airways obstructive ventilatory defect with associated hyperinflation, air trapping and symmetric reduction in diffusing capacity.
== END ==
LOC: PSN 13:26
PROVIDERS: Family Provider Family Medicine; PCP Family Medicine; Referring Provider Internal Medicine Critical Care Medicine; Visit Provider Internal Medicine Critical Care Medicine
DX: J44.1 Chronic obstructive pulmonary disease with (acute) exacerbation (principal)
CPT/HCPCS: 94060; 94726; 94729

== ENCOUNTER → 2019-01-26 14:25 | Outpatient (CLI) | payer MEDICARE, SELFPAY ==
[2018-10-10 13:47] VITALS: BMI 25.4
--- NOTE | 2019-01-26 14:27 | CT_ITS ---
STUDY: CT CHEST WITHOUT CONTRAST REASON FOR EXAM: Female, 68 years old. Follow-up lung cancer with pulmonary nodules. Prior right upper lobectomy, COPD and hypertension. RADIATION DOSAGE (If Supplied By Facility): CTDIvol = ( 7.18 ) mGy, DLP = ( 269.01 ) mGycm TECHNIQUE: Transaxial imaging was performed without the administration of intravenous contrast material. Coronal and sagittal reconstructions were performed. Individualized dose optimization techniques were used for this CT. COMPARISON: Whole body PET/CT fusion scan 08/29/2018. FINDINGS: Increased size of spiculated nodule in the anterior segment of the left upper lobe measuring 9 mm in diameter (series 4, images 34), previously 7 mm. No new pulmonary nodules. Paraseptal cysts in the left upper lobe and multiple coalescent centrilobular cysts in the medial aspect of the lower lobes. Minimal subsegmental atelectases and/or scarring in the right lower lobe. Surgical sutures in the right suprahilar region from previous partial right upper lobectomy. There is no demonstrated pleural abnormality. Normal cardiac size. Calcifications of the coronary arteries. No pericardial fluid. Small lymph nodes in the right medial aspect of the right posterior neck base. These were present previously and are unchanged. Normal mediastinum. Normal hilar regions. Normal unenhanced pulmonary arteries. Atherosclerotic calcifications along the thoracic aorta were present previously. No acute osseous abnormality. There is no demonstrated abnormality of the visualized upper abdomen. CT/Chest without Contrast IMPRESSION: 1. Mild increased size of spiculated left upper lobe pulmonary nodule measuring 9 mm, previously 7 mm. 2. Coalescent centrilobular cysts in the medial aspect of both lower lobes and paraseptal cysts in the left upper lobe. These were present previously. 3. Small lymph nodes in the medial aspect of the right posterior neck base. These are just above the right partial upper lobectomy site and were present previously. Electronically Signed: Robel Fleming MD at 12:08 EST , Service support ,
== END ==
LOC: CT 14:27
PROVIDERS: Family Provider Family Medicine; PCP Family Medicine; Referring Provider Internal Medicine Critical Care Medicine; Visit Provider Internal Medicine Critical Care Medicine
DX: R91.1 Solitary pulmonary nodule (principal); Z85.118 Personal history of other malignant neoplasm of bronchus and lung
CPT/HCPCS: 71250

== ENCOUNTER → 2019-02-06 07:50 | Outpatient (CLI) | payer MEDICARE, SELFPAY ==
[2019-01-30 10:49] VITALS: BMI 25.9
[2019-02-06] VITALS (11 sets, daily range): BP systolic 94–155; BP diastolic 37–65; PULSE 53–59; RESP 10–20; TEMP 37.2; O2SAT 95–100; BMI 25.5
--- NOTE | 2019-02-06 | LUNB_PTH ---
PATIENT: YVROSE HAWTHORNE LOC: [place] U#:[id number] AGE/SX: 74/F ROOM: RE02/06/[address]: Dr. Louie Johnston DO : 1950 BED: DIS: SPEC #: [id number] RECD: 02/06/19 10:37 STATUS: LUCILLE REQ #: [id number] OSVALDO: 02/06/19 00:[address]: Louie Johnston DEPT: SURGICAL PATHOLOGY RECD BY: Linda Pardo ENTERED: 02/06/19 10:38 SP TYPE: LUNG BX OTHR DR: Dr. Cleve Chapman DO Tissues: Lung, NOS Procedures: Special Stain Group II Surgery Specimen Level IV Imprint (control) Cytology Other HEADER OPERATION: CT-guided left lung biopsy PRE-OP DIAGNOSIS: RAIZA mass TISSUE SUBMITTED: RAIZA lung mass, CT-guided core biopsy MICROSCOPIC DIAGNOSIS RAIZA lung mass, CT-guided core biopsy (cell block and cytospin): A few atypical cells noted. Negative for malignancy. See comment. SJ:rg 02/07/19 COMMENT The specimen is evaluated at the time of biopsy by Dr. Moses. Immediate Evaluation = Negative for malignant cells. The smears predominantly show benign epithelial cells, a few atypical epithelial cells and macrophages. Cell block is paucicellular and consists of a minute fragment of fibrous tissue and macrophages. Multiple levels are examined. Cytospin smears are acellular. Please make reference to previous specimen ([id number]) CT-guided fine needle aspiration, right lung mass with diagnosis of positive for malignant cells consistent with non-small cell carcinoma with squamous features. Correlation with clinical, radiologic findings and appropriate follow up are necessary. Case has been reviewed in consultation with Dr. Hermosillo who concurs with the above diagnosis. MICROSCOPIC DESCRIPTION Slides are reviewed. GROSS DESCRIPTION Received in fixative is one container labeled with the patient's name and designated left upper lung mass, CT-guided core biopsy. The specimen consists of a scant amount of soft tissue. The specimen is totally submitted for cell block preparation. Two cytospins are also prepared. Two touch imprints are prepared at the time of core biopsy. / RUCHI:stephanie 02/06/19 TC:5 CPT: 24633, 87159, 85142
--- NOTE | 2019-02-06 07:53 | CT_ITS ---
PROCEDURE: CT GUIDED CORE NEEDLE BIOPSY OF A left upper lobe LUNG LESION INDICATION: Female, 68 years old. Left upper lobe nodule. PHYSICIAN: Dr. Alon Prado CONSENT: Written informed consent was obtained having explained the risks, benefits and alternatives in detail with the patient who accepted the risks and agreed to proceed. Laboratory review and clinical assessment was performed. CONSCIOUS SEDATION PROTOCOL: The Drugs used were: 2 mg Versed, IV., and 50 mcg Fentanyl, IV. The sedation time was: 23 minutes. Conscious sedation was started on 9:21 AM and terminated at 9:44 AM. The conscious sedation protocol was independently monitored. RADIATION DOSAGE (If Supplied By Facility): CTDIvol = ( 21.9 ) mGy, DLP = ( 259.97 ) mGycm Individualized dose optimization techniques were used for this CT. TECHNIQUE: The patient was placed in the supine position. A noncontrast CT was performed to localize the lesion in the left upper lobe . The skin surface was prepped and draped in a sterile fashion. 1% lidocaine was used for local anesthesia. Using CT guidance, a 20-gauge coaxial biopsy device was advanced to the periphery of the lesion. A total of 4 core specimens were obtained. The specimens were placed in a formalin solution. A post procedure CT demonstrated no adverse sequelae or pneumothorax. The patient tolerated the procedure well without adverse event. A negative biopsy does not exclude malignancy. Further imaging or clinical followup based on patient condition and degree of clinical suspicion for malignancy. Suggest rebiopsy, if biopsy results do not match with clinical scenario. CT/Biopsy/Inj or Needle Placement IMPRESSION: 1. CT directed core needle biopsy of the using CT image guidance with image documentation as described. Pathology results are pending. 2. Conscious Sedation protocol utilized with independent monitoring. Electronically Signed: Hiram Chi, at 10:31 EST , Service support ,
[2019-02-06 08:36] LABS: Basophil# 0.03 X10^3/uL; Basophil% 0.7 % (0-1); Eosinophil# 0.11 X10^3/uL; Eosinophils% 2.4 % (0-5); Hematocrit 41.8 % (37-47); Hemoglobin 13.3 g/dL (12.0-15.0); Lymphocyte % 19.5 % (19-41); Mean Corp Hgb Conc 31.8 g/dL (32-36); Mean Corpuscular Hgb 28.2 pg (27.0-32.0); Mean Corpuscular Volume 88.7 fL (81-99); Mean Platelet Vol. 9.6 fl (6.2-12.0); Monocyte# 0.54 X10^3/uL; Monocyte% 11.7 % (0-10); NRBC Flagged by Analyzer 0 % (0-5); Neutrophil # 3.02 X10^3/uL (2.7-7.7); Neutrophil % 65.5 % (47-70); Platelet Count 212 K/mm3 (150-450); RBC Distribution Width CV 13.1 % (11.6-14.6); RBC Distribution Width SD 42.7 fl (35.1-43.9); Red Blood Count 4.71 M/mm3 (4.2-5.4); White Blood Count 4.6 K/mm3 (4.4-11.0)
[2019-02-06 08:41] LABS: International Normalized Ratio 1.1; Partial Thromboplast Time 36.7 Seconds (24.1-36.2); Prothrombin Time (Protime)PT. 13.6 SECONDS (11.7-14.9)
[2019-02-06] MEDS: Midazolam 2 MG/2 ML Syringe IV (09:21)
[2019-02-06] MEDS: fentaNYL 100 MCG/2 ML Ampul IV (09:22)
--- NOTE | 2019-02-06 09:50 | RAD_ITS ---
STUDY: X-RAY CHEST REASON FOR EXAM: Female, 68 years old. Status post left lung biopsy. TECHNIQUE: PA inspiration expiration views. COMPARISON: Comparison is made with prior examination dated August 09, 2018. FINDINGS: The patient is status post percutaneous biopsy of the left upper lobe nodule. There is no evidence of pneumothorax. There is evidence of a small parenchymal bleed. RAD/Chest Insp/Exp 2 View IMPRESSION: Status post percutaneous biopsy of the left upper lobe nodule. There is no evidence of pneumothorax. Electronically Signed: Hiram Chi, at 10:23 EST , Service support ,
--- NOTE | 2019-02-06 11:58 | RAD_ITS ---
STUDY: X-RAY CHEST REASON FOR EXAM: Female, 68 years old. 2 hour post lung biopsy TECHNIQUE: 2 AP portable views of the chest. Inspiration expiration COMPARISON: Post biopsy study February 07, 2016 at 9:58 AM FINDINGS: The upright inspiration and expiration images show no evidence of pneumothorax. There is a persistent vague density in the left upper lobe. There is blunting of the right costophrenic angle. There is persistent right apical thickening. Normal size heart. Normal mediastinum and lucia. Normal visualized pulmonary arteries. There is atherosclerotic calcification of the aortic arch with tortuosity. Normal visualized thoracic spine. Normal visualized ribs, clavicles, and shoulders. There is no demonstrated abnormality of the visualized soft tissue structures of the upper abdomen. RAD/Chest Insp/Exp 2 View IMPRESSION: No evidence of pneumothorax with inspiration and expiration. Persistent left upper lobe density. Persistent right apical thickening. Trace blunting of the right costophrenic angle likely associated with scarring. Electronically Signed: Ladan Kay MD at 13:15 EST Tel , Service support ,
== END ==
LOC: CT 07:50
PROVIDERS: Family Provider Family Medicine; PCP Family Medicine; Referring Provider Internal Medicine Critical Care Medicine; Visit Provider Internal Medicine Critical Care Medicine
DX: R91.1 Solitary pulmonary nodule (principal); J43.9 Emphysema, unspecified; I10 Essential (primary) hypertension; Z87.01 Personal history of pneumonia (recurrent); Z85.118 Personal history of other malignant neoplasm of bronchus and lung; Z79.899 Other long term (current) drug therapy; F17.210 Nicotine dependence, cigarettes, uncomplicated
CPT/HCPCS: 32405; 36415; 71046; 77012; 85025; 85610; 85730; 88161; 88305; 88313; 99156; 99157; J7040; A4216

== ENCOUNTER → 2019-08-02 14:55 | Outpatient (CLI) | payer MEDICARE, SELFPAY ==
[2019-02-10 09:16] VITALS: BMI 25.5
--- NOTE | 2019-08-02 15:05 | CT_ITS ---
STUDY: CT CHEST WITH CONTRAST REASON FOR EXAM: Female, 68 years old. LUNG CANCER RADIATION DOSAGE (If Supplied By Facility): CTDIvol = ( 8.72 ) mGy, DLP = ( 221.20 ) mGycm TECHNIQUE: Transaxial imaging was performed following intravenous administration of IV 100ML ISOVUE [id number]. Multiplanar coronal and sagittal images were reformatted. Individualized dose optimization techniques were used for this CT. COMPARISON: Comparison is made with prior study dated January 26, 2019. FINDINGS: Hyperinflation. Stable emphysematous changes worse in the upper lobes. The previously seen spiculated nodule in the anterior aspect of the left upper lobe is not seen at this time. There is evidence of a linear density along the medial aspect of the left upper lobe with mild nodularity. 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 Stable partial right upper lobectomy. There is no demonstrated pleural abnormality. There are calcifications of the coronary arteries. Normal mediastinum. Normal hilar regions. Normal enhanced pulmonary arteries. There is atherosclerotic calcification of the aortic arch with tortuosity and elongation of the aortic arch and descending thoracic aorta. There are degenerative changes of the thoracic spine. Stable hypertrophy of the left adrenal gland. 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 Electronically Signed: Hiram Chi, at 15:50 EDT , Service support ,
[2019-08-03 07:23] LABS: CREATININE FINGERSTICK 0.57 mg/dL (0.55-1.02); EGFR FINGERSTICK > 60 mL/min (>60)
== END ==
PROVIDERS: PCP Family Medicine
DX: C34.12 Malignant neoplasm of upper lobe, left bronchus or lung (principal)
CPT/HCPCS: 71260; Q9967

== ENCOUNTER → 2019-09-25 08:19 | Outpatient (CLI) | payer MEDICARE, SELFPAY ==
[2019-02-10 09:16] VITALS: BMI 25.5
--- NOTE | 2019-09-25 14:44 | PFTCOMP ---
COMPLETE PULMONARY FUNCTION TEST INTERPRETATION Brief HPI: Patient is a 69 year old female, currently under the care of Dr. Johnston, who presents to [facility] for complete pulmonary function tests secondary to diagnosis of COPD. Respiratory therapist reports good effort and reproducible results. Interpretation: Forced expiration spirometry shows a severe large airways obstructive ventilatory defect with an FEV1 of 48% predicted. There is a significant bronchodilator response in FEV1 by strict ATS criteria. Spirograms are of good quality and plateau slowly, indicating slowly emptying areas of the lungs. The respiratory flow volume loop shows decreased expiratory flow rates at all lung volumes consistent with airway obstruction. Lung volumes by body plethysmography show a normal total lung capacity at 4.04 L, 101% predicted. FRC and RV are elevated out of proportion. Lung volume measurements are consistent with air-trapping. Diffusion capacity by carbon monoxide is decreased at 48% predicted. The airway resistance is elevated. Compared to previous pulmonary function tests from 01/10/2019, there is been a significant decrease in FVC, FEV1 and TLC by 24%, 44% and 25% respectively. Impression: Partially reversible severe large airways obstructive ventilatory defect with a symmetric reduction diffusing capacity and significant worsening compared to previous study.
== END ==
PROVIDERS: PCP Family Medicine; Referring Provider Internal Medicine Critical Care Medicine; Visit Provider Internal Medicine Critical Care Medicine
DX: J44.9 Chronic obstructive pulmonary disease, unspecified (principal)
CPT/HCPCS: 94060; 94726; 94729

== ENCOUNTER → 2019-09-26 08:13 | Outpatient (CLI) | payer MEDICARE, SELFPAY ==
[2019-02-10 09:16] VITALS: BMI 25.5
[2019-09-26 08:30] VITALS: PULSE 59; PULSE 61; PULSE 66; PULSE 67; PULSE 68; PULSE 71; O2SAT 87; O2SAT 94; O2SAT 96; O2SAT 97; O2SAT 98
--- NOTE | 2019-09-26 08:58 | CPS ---
Pt dropped to 87% at 1min 35 seconds into walk. Pt was placed on O2 at 2 lpm. Saturation came up to 95%. Walk was resumed and finished with 2 lpm of oxygen
--- NOTE | 2019-09-26 12:34 | WT_ITS ---
PSN 6 Minute Walk Test - 6 Minute Walk Test 6 Minute Walk Test: 6 Minute Walk Test PSN:6-Minute Walk Test Start: 09/26/19 08:50 Freq: Status: Active Protocol: RESP.6MINW Document 09/26/19 08:30 [facility] (Rec: 09/26/19 09:00 [facility] [id number]) 6 Minute Walk Test Date Performed 09/26/19 Time Performed 08:30 Height 5 ft Weight: 118 kg Weight in Pounds 260.[address]: Dr Johnston Assistive device used: None 1st minute Oxygen Delivery Method Room Air Pulse Ox (%) 87 Pulse Rate (60-100 beats/min) 66 Dyspnea Casey Scale (0-10) 5 Number of Rests Taken 1 Reported Symptoms Increased Work of Breathing 2nd minute Oxygen Flow Rate (L/min) (L/min) 2 Oxygen Delivery Method Nasal Cannula Pulse Ox (%) 96 Pulse Rate (60-100 beats/min) 61 3rd minute Oxygen Flow Rate (L/min) (L/min) 2 Oxygen Delivery Method Nasal Cannula Pulse Ox (%) 94 Pulse Rate (60-100 beats/min) 68 Number of Rests Taken 1 4th minute Oxygen Flow Rate (L/min) (L/min) 2 Oxygen Delivery Method Nasal Cannula Pulse Ox (%) 96 Pulse Rate (60-100 beats/min) 71 5th minute Oxygen Flow Rate (L/min) (L/min) 2 Oxygen Delivery Method Nasal Cannula Pulse Ox (%) 97 Pulse Rate (60-100 beats/min) 71 6th minute Oxygen Flow Rate (L/min) (L/min) 2 Oxygen Delivery Method Nasal Cannula Pulse Ox (%) 96 Pulse Rate (60-100 beats/min) 67 Dyspnea Casey Scale (0-10) 5 Exertion Casey Scale (6-20) 14 Post-test Oxygen Flow Rate (L/min) (L/min) 2 Oxygen Delivery Method Nasal Cannula Pulse Ox (%) 98 Pulse Rate (60-100 beats/min) 59 L Full Laps Walked 8 Partial Lap, Number of Tiles Walked 13 Total Distance Walked (ft) 485 09/26/19 08:58 Cardiopulmonary Services by Aruna Barrera Pt dropped to 87% at 1min 35 seconds into walk. Pt was placed on O2 at 2 lpm. Saturation came up to 95%. Walk was resumed and finished with 2 lpm of oxygen Initialized on 09/26/19 08:58 - END OF NOTE - Interpretation Interpretation: The patient was noted to be 90% on room air at rest. Within the first minute of ambulation, the patient desaturated to 87% was placed on 2 L nasal cannula with improvement to 95%. The patient was then able to ambulate for the remaining of the 6 minutes. No significant tachycardia was noted. In total, the patient traveled 485 feet over the course of 6 minutes with the assistance of a break. These findings are consistent with a respiratory limitation exercise tolerance. - Recommendations Recommendations: The patient requires no supplemental oxygen at rest, but should be using 2 L nasal cannula with any exertion.
== END ==
PROVIDERS: PCP Family Medicine; Referring Provider Internal Medicine Critical Care Medicine; Visit Provider Internal Medicine Critical Care Medicine
DX: J96.11 Chronic respiratory failure with hypoxia (principal)
CPT/HCPCS: 94618

== ENCOUNTER → 2019-12-04 12:35 | Outpatient (CLI) | payer MEDICARE, SELFPAY ==
[2019-02-10 09:16] VITALS: BMI 25.5
--- NOTE | 2019-12-04 12:40 | CT_ITS ---
HISTORY: LEFT LUNG CA. HX OF LOBECOTOMY TECHNIQUE: Helically acquired images of the chest were obtained without IV contrast. Number of images including paperwork: [phone]. A radiation dose optimization technique was used for this scan. COMPARISON: 08/02/2019, 01/26/2019 FINDINGS: VASCULATURE: Unremarkable as imaged. HEART/PERICARDIUM: Left ventricular prominence. Coronary calcifications. MEDIASTINUM: Unremarkable. ADENOPATHY: Small nodes in the right lower neck/upper mediastinum appear similar to previous. Evaluation limited without contrast. THYROID: Unremarkable visualized portions. LUNG PARENCHYMA: Emphysema. Postoperative changes are noted bilaterally. Bilateral apical scarring with small amount of fluid at the right apex, similar to previous exam 08/02/2019. PLEURAL SPACES: Unremarkable. UPPER ABDOMEN: Unremarkable. OSSEOUS AND SOFT TISSUE STRUCTURES: No acute skeletal findings. DEVICES: None. CT/Chest without Contrast IMPRESSION: Postoperative changes of the lungs. No evidence of metastatic disease in the chest. Individualized dose optimization techniques were used for this CT. at 0424 Reported and signed by: Sirena Xiao MD Electronically Signed: Sirena Xiao MD at 4:24 EDT Tel , Service support ,
== END ==
PROVIDERS: PCP Family Medicine
DX: C34.92 Malignant neoplasm of unspecified part of left bronchus or lung (principal)
CPT/HCPCS: 71250

== ENCOUNTER → 2019-12-22 08:58 | Outpatient (CLI) | payer MEDICARE, SELFPAY ==
[2019-12-20 10:25] VITALS: BMI 23.6
--- NOTE | 2019-12-22 09:05 | RAD_ITS ---
STUDY: X-RAY - BILATERAL, Knee(s) REASON FOR EXAM: Female, 69 years old. LEFT KNEE PAIN AND WEAKNESS, NKI -- OSTEOARTHRITIS TECHNIQUE: 1 view(s) of the BILATERAL, knee(s) were obtained including AP standing weight-bearing views. COMPARISON: None. FINDINGS - RIGHT KNEE: Normal visualized right distal femur. Normal visualized proximal right tibia and fibula. Normal right proximal tibiofibular articulation. Normal medial femorotibial compartment of the right knee. Normal lateral femorotibial compartment of the right knee. Normal patellofemoral articulation of the right knee. The soft tissue structures are unremarkable. FINDING - LEFT KNEE: Normal visualized left distal femur. Normal visualized proximal left tibia and fibula. Normal left proximal tibiofibular articulation. Normal medial femorotibial compartment of the left knee. Normal lateral femorotibial compartment of the left knee. Normal patellofemoral articulation of the left knee. The soft tissue structures are unremarkable. RAD/Knees Standing AP Bilateral IMPRESSION: Normal x-ray examination of the knee(s). Electronically Signed: River Siddiqui MD at 8:40 EDT Tel , Service support ,
--- NOTE | 2019-12-22 09:05 | RAD_ITS ---
STUDY: X-RAY - LEFT KNEE REASON FOR EXAM: Female, 69 years old. LEFT KNEE PAIN AND WEAKNESS, NKI -- OSTEOARTHRITIS TECHNIQUE: 4 view(s) of the knee. COMPARISON: None. FINDINGS: Normal visualized distal femur. Normal visualized proximal tibia and fibula. Normal proximal tibiofibular articulation. Normal medial femorotibial compartment. Normal lateral femorotibial compartment. Normal patellofemoral articulation. The soft tissue structures are unremarkable. RAD/Knee 4 or More Views IMPRESSION: Normal x-ray examination of the knee. Electronically Signed: River Siddiqui MD at 8:39 EDT Tel , Service support ,
== END ==
PROVIDERS: PCP Internal Medicine; Referring Provider Internal Medicine; Visit Provider Internal Medicine
DX: M25.562 Pain in left knee (principal); M17.10 Unilateral primary osteoarthritis, unspecified knee; M25.362 Other instability, left knee
CPT/HCPCS: 73564; 73565

== ENCOUNTER → 2020-06-03 12:33 | Outpatient (CLI) | payer MEDICARE, SELFPAY ==
[2019-12-20 10:25] VITALS: BMI 23.6
--- NOTE | 2020-06-03 12:41 | CT_ITS ---
STUDY: CT CHEST WITHOUT CONTRAST REASON FOR EXAM: Female, 69 years old. For exam chest pain, known lung CA RADIATION DOSAGE (If Supplied By Facility): CTDIvol = ( 5.16 ) mGy, DLP = ( 170.51 ) mGycm TECHNIQUE: Transaxial imaging was performed without the administration of intravenous contrast material. Multiplanar coronal and sagittal images were reformatted. Individualized dose optimization techniques were used for this CT. COMPARISON: 12/04/2019 FINDINGS: The lung windows again show underlying emphysema with nonspecific pleural thickening in the right apex with fibrotic scarring in the left anterior and medial aspect of the right upper lobe. There appearance is essentially unchanged from the previous study. There are stable nonspecific pleural thickening in both hemithoraces. There is no new suspicious noncalcified mass or nodule, no organized infiltrate, or suspicious groundglass opacifications. The soft tissue windows show a normal-appearing thyroid gland stable scattered subcentimeter axillary and mediastinal lymph nodes. No suspicious perihilar adenopathy. Normal heart and pericardium. There are calcifications of the coronary arteries. Normal unenhanced pulmonary arteries. Normal aorta arch and descending thoracic aorta. There are multi-level degenerative changes of the thoracic spine. There is no demonstrated abnormality of the visualized upper abdomen. CT/Chest without Contrast IMPRESSION: Underlying emphysema with stable interstitial fibrotic scarring, and postoperative changes. No new suspicious noncalcified mass or nodule, no organized infiltrate or effusion. No significant interval change No new suspicious adenopathy Calcified coronary vessels Degenerative bony changes Electronically Signed: Bryce Meeks MD at 16:21 EDT , Service support ,
== END ==
LOC: CT 12:37 → RAO 06-17 15:55
PROVIDERS: PCP Internal Medicine
DX: C34.11 Malignant neoplasm of upper lobe, right bronchus or lung (principal); C34.12 Malignant neoplasm of upper lobe, left bronchus or lung
CPT/HCPCS: 71250

== ENCOUNTER → 2020-12-05 12:35 | Outpatient (CLI) | payer MEDICARE, SELFPAY ==
[2020-06-07 10:30] VITALS: BMI 24.0
--- NOTE | 2020-12-05 12:40 | CT_ITS ---
STUDY: CT CHEST WITHOUT CONTRAST REASON FOR EXAM: Female, 70 years old. Follow up treated lung cancer. The patient is status post right upper lobectomy and partial resection of the left upper lobe. RADIATION DOSAGE (If Supplied By Facility): CTDIvol = ( 6.73 ) mGy, DLP = ( 250.56 ) mGycm TECHNIQUE: Transaxial imaging was performed without the administration of intravenous contrast material. Multiplanar coronal and sagittal images were reformatted. Individualized dose optimization techniques were used for this CT. COMPARISON: Comparison is made with prior examination dated 06/03/2020. FINDINGS: Stable postsurgical changes in the right upper lobe. Stable postsurgical changes in the medial aspect of the left upper lobe. Emphysematous changes. Stable linear scarring at the right lung base. There is no demonstrated pleural abnormality. There are calcifications of the coronary arteries. Normal mediastinum. Normal hilar regions. Normal unenhanced pulmonary arteries. There is atherosclerotic calcification of the aortic arch with tortuosity and elongation of the aortic arch and descending thoracic aorta. There are multi-level degenerative changes of the thoracic spine. There is no demonstrated abnormality of the visualized upper abdomen. CT/Chest without Contrast IMPRESSION: Stable examination. Electronically Signed: Hiram Chi MD at 15:10 EDT , Service support ,
== END ==
PROVIDERS: PCP Internal Medicine; Referring Provider Student in an Organized Health Care Education/Training Program; Visit Provider Student in an Organized Health Care Education/Training Program
DX: Z85.118 Personal history of other malignant neoplasm of bronchus and lung (principal)
CPT/HCPCS: 71250

== ENCOUNTER 2021-01-01 15:25 | Emergency (ER) | payer MEDICARE, SELFPAY ==
[2021-01-01] VITALS (7 sets, daily range): BP systolic 139–154; BP diastolic 69–77; PULSE 58–68; RESP 14–22; TEMP 35.5–37.2; O2SAT 88–98; BMI 23.0
--- NOTE | 2021-01-01 15:47 | EKG12_ITS ---
Test Reason : SOB Blood Pressure : / mmHG Vent. Rate : 057 BPM Atrial Rate : 057 BPM P-R Int : 172 ms QRS Dur : 072 ms QT Int : 424 ms P-R-T Axes : 086 062 059 degrees QTc Int : 412 ms Sinus bradycardia Nonspecific ST abnormality Abnormal ECG When compared with ECG of 27-FEB-2016 14:37, No significant change was found Confirmed by ALDA NICHOLS, CAITLIN ([id number]), editor school photograph CIARRA HYDE ([id number]) on 01/07/2021 11:00:06 AM Referred By: WALT Confirmed By:CAITLIN LIZAMA MD
[2021-01-01] MEDS: Ipratropium/Albuterol Sulfate 3 ML AMPUL.NEB INHALATION (16:04)
[2021-01-01] MEDS: Albuterol 2.5 MG/3 ML VIAL.NEB. INHALATION ×3 (16:04)
--- NOTE | 2021-01-01 16:04 | EDS_ITS ---
HPI History of Present Illness Chief Complaint: Shortness of Breath Informant: patient and spouse/S.O. Onset/Context/Timing Onset: Weeks (Respiratory symptoms started 1 week ago) Context: sudden Timing: Continuous and Waxes and wanes Quality: Positive for Dyspnea on exertion and Wheezing; Negative for Orthopnea and PND Current Severity: Mild Maximum Severity: Severe Worsened by: Exertion and Coughing Relieved by: Nothing (Is better with rest and use of inhaler) Associated Symptoms cough, rhinorrhea, sore throat and yellow sputum; Negative for post nasal drip, ear pain, fever, subjective, chills or sweats Chest Pain: Positive for Tightness (Onset this morning while at rest. No radiation or associated symptoms.) Narrative Narrative: Patient is a 70-year-old woman with history of COPD who is still a smoker. She had a resection of her right lobe in 2015 and a resection of a left lobe in 2019 due to lung cancer. Surgery was done at [facility] by Dr. Walt Meeks. She presents with respiratory symptoms a started 3 days after her booster Covid 19 vaccine. She denies fever or chills. She denies headache. She denies visual, ocular auditory symptoms. She does report rhinorrhea and sore throat. She denies loss of taste or smell. She does report dyspnea on exertion. She states she can walk 10 to 15 feet before stopping. Prior to this illness she was able to walk 50 to 75 feet. She is on oxygen at home as needed. She has not been on oral steroids in the last 3 to 6 months. She does report cough that is essentially nonproductive. When she does cough up sputum is yellow-colored. There is no blood. She denies abdominal pain, nausea or vomiting. She has had 1-2 loose mushy stools past 2 to 3 days. Has not noted blood or mucus. She denies urologic symptoms. She denies neurologic symptoms. She denies history of VTE. She denies leg pain, swelling discoloration. PE Risk Factors: Positive for Cancer; Negative for OCP + Smoking + > 35, Prior DVT or PE, Recent immobilization, Recent surgery and Recent travel Prior similar symptoms: Yes (COPD exacerbation) Recent Illness/Hospitalization: No [facility] Medical History Chronic bronchitis COPD (chronic obstructive pulmonary disease) Depression Emphysema of lung History of pneumonia HTN (hypertension) Lung cancer Lung mass Pneumonia Seasonal allergies Tobacco dependence in remission Unintentional weight loss Home Medications albuterol sulfate 90 mcg/actuation aerosol inhaler 2 puff INHALATION Q4H PRN #8.5 g 12/08/19 [Rx Last Taken Unknown] albuterol sulfate 90 mcg/actuation breath activated powder inhaler 2 inh INHALATION Q6H PRN 12/08/19 [History Last Taken Unknown] ipratropium 0.5 mg-albuterol 3 mg (2.5 mg base)/3 mL nebulization soln 3 ml INHALATION Q4H PRN #120 vial 12/08/19 [Rx Last Taken Unknown] meloxicam 15 mg tablet 15 mg PO DAILY #30 tab 01/29/20 [Rx Last Taken Unknown] fluticasone propionate 220 mcg/actuation HFA aerosol inhaler 1 puff INHALATION BID #12 g 06/07/20 [Rx Last Taken Unknown] tiotropium 2.5 mcg-olodaterol 2.5 mcg/actuation mist for inhalation 2 puff INHALATION DAILY #1 device 06/07/20 [Rx Last Taken Unknown] paroxetine HCl 10 mg tablet 10 mg PO DAILY #90 tab 07/15/20 [Rx Last Taken Unknown] metoprolol tartrate 50 mg tablet 50 mg PO BID #180 tab 10/03/20 [Rx Last Taken Unknown] doxycycline monohydrate 100 mg PO BID #10 capsule 01/01/21 [Rx Last Taken Unknown] prednisone 60 mg PO DAILY #15 tablet 01/01/21 [Rx Last Taken Unknown] Allergy/AdvReac Type Severity Reaction Status Date / Time meperidine HCl [From Demerol] AdvReac pass out Verified 01/01/21 15:27 Family History Mother Thyroid cancer Anemia Lung disease Father Throat cancer Diabetes Hypertension Arthritis Lung disease Sister Breast cancer Brain cancer Other Asthma Ovarian cancer Surgical History H/O pneumonectomy H/O tubal ligation History of bilateral carpal tunnel release repaired lymph node Wedge resection of lung Social History (Updated 01/01/21 @ 16:[address] Valentin aPrsons MD) household members: spouse Smoking Status: Heavy Smoker (>10/day) Tobacco: How many years used: 50 second hand exposure: Yes alcohol intake: never substance use type: does not use what type of physical activity do you participate in: none ROS ROS ED Constitutional Constitutional ED: Denies chills, fever(s), sweats or weight loss Eyes Eyes: Denies blurry vision or change in vision ENT ENT ED: Reports rhinorrhea and sore throat; Denies ear pain Cardiovascular Cardiovascular: Reports chest pain; Denies orthopnea, palpitations, paroxysmal nocturnal dyspnea or racing heartbeat Respiratory/Chest Respiratory/Chest: Reports cough, dyspnea, dyspnea on exertion and sputum; Denies orthopnea or paroxysmal nocturnal dyspnea Gastrointestinal Gastrointestinal: Reports diarrhea; Denies abdominal pain, constipation, melena, nausea or vomiting Genitourinary Genitourinary ED: Denies dysuria, hematuria or urinary frequency Musculoskeletal Musculoskeletal: Denies arthralgias, back pain, myalgias or neck pain Integumentary Denies rash Neurologic Neurologic: Denies headache(s), paresthesias or weakness Endocrine Endocrinology: Denies polydipsia, polyphagia or polyuria Hematologic/Lymphatic Hematologic/Lymphatic: Denies easy bleeding or easy bruising EXAM Physical Exam Const Vital Signs: 01/01/21 15:25 01/01/21 15:40 01/01/21 16:05 Temperature 96 F L Temperature Source Temporal Pulse Rate 58 L 59 L 58 L Respiratory Rate 22 H 18 20 H Respiratory Effort Short of Breath Labored Respiratory Pattern Tachypnea Normal Blood Pressure 154/77 H Blood Pressure Mean 102 Pulse Ox 90 92 Oxygen Delivery Method Room Air Room Air Oxygen Flow Rate (L/min) 01/01/21 16:30 01/01/21 17:35 Temperature 99.0 F Temperature Source Temporal Pulse Rate 62 67 Respiratory Rate 14 14 Respiratory Effort Respiratory Pattern Blood Pressure 139/75 H 146/69 H Blood Pressure Mean 96 94 Pulse Ox 91 97 Oxygen Delivery Method Room Air Nasal Cannula Oxygen Flow Rate (L/min) 3 Positive well nourished and well developed General Appearance ED: well developed; Negative for NAD or pallor HEENT Reports TM's clear and moist mucous membranes HEENT Narrative: Nares patent. Uvula midline. No erythema or exudate of posterior pharynx. Head is normocephalic. atraumatic Tympanic Membrane ED: Yes TM's clear Eyes PERRL and EOMs intact bilaterally General Eye ED: Negative for pale conjunctiva or scleral icterus Neck no lymphadenopathy, supple, no meningeal signs and no JVD Resp No normal respiratory effort and No clear to auscultation bilaterally Auscultation: wheezes expiratory wheezes and throughout (With increased expiratory phase and diminished breath sounds) Cardio regular rate, regular rhythm, S1 normal heart sound, S2 normal heart sound and no murmurs GI non-tender, non-distended and no masses Auscultation: normoactive bowel sounds Palpation: soft Back/Spine normal to inspection; Negative for no CVA tenderness Extremity normal to inspection Extremity Narrative: There is no asymmetry, swelling, discoloration, leg vein distention, palpable cords or tenderness along the distribution of the deep venous system. General Extremety ED: Negative for edema or tenderness General Extremity: Negative for edema Neuro oriented x3 and CN's II-XII intact bilaterally Sensorium / Orientation: alert Psych mental status grossly normal Thought Process: normal thought process Skin no wounds General Skin Exam: Negative for jaundice or pallor Lesions: no lesions Rashes: no rashes MDM MDM MDM Narrative Medical decision making narrative: With history of chest tightness suspect COPD. Will obtain EKG to evaluate for any acute ischemic EKG changes. Chest x-ray is obtained to assess for pneumonia versus pneumothorax versus exacerbation COPD. Appropriate blood work was ordered. Patient was treated with Solu-Medrol, DuoNeb and albuterol. Lab Data Attestation: I reviewed the patient's lab results. Labs: Laboratory Results - last 24 hr 01/01/21 01/01/21 01/01/21 15:46 15:46 15:46 WBC 7.9 RBC 4.86 Hgb 13.9 Hct 42.8 MCV 88.1 MCH 28.6 MCHC 32.5 RDW Std Deviation 41.3 RDW Coeff of Joi 12.8 Plt Count 241 MPV 9.4 Immature Gran % (Auto) 0.300 Neut % (Auto) 76.1 H Lymph % (Auto) 14.2 L Harris % (Auto) 7.0 Eos % (Auto) 1.8 Baso % (Auto) 0.6 Absolute Neuts (auto) 6.0 Absolute Lymphs (auto) 1.12 Nucleated RBC % 0 Sodium 136 Potassium 4.1 Chloride 104 Carbon Dioxide 28.0 Anion Gap 4 L BUN 12 Creatinine 0.66 Estim Creat Clear Calc 36.53 Est GFR (MDRD) Af Amer 114 Est GFR (MDRD) Non-Af 94 BUN/Creatinine Ratio 18.2 Glucose 95 Lactic Acid 0.5 Calcium 9.0 Radiography Chest X-Ray - ED: 1 View, Read by ED Physician (X-ray reveals chronic changes with hyperinflation and COPD. There is no evidence of pneumothorax or infiltrate. X-ray of interpreted by me at 16;09), Unchanged, Normal, Heart, Mediastinum, Bony Structures, No Acute Disease and Chronic Changes Diagnostic Testing: Clinical Impression(s) from Imaging Studies Chest X-Ray 01/01/21 16:15 IMPRESSION: Emphysema without pneumonia or atelectasis. Electronically Signed: River Siddiqui MD at 16:37 EST Tel , Service support , EKG Initial EKG: Attestation: I personally reviewed and interpreted this EKG as follows: Interpretation: Sinus Bradycardia (Ventricular rate is 57. OR interval is 172 ms. QS duration 72 ms. QT durations 424 ms. [place] is normal. Computer is reading nonspecific ST-T wave abnormalities. I did cut agree and there is no ischemic changes noted.) Treatment and Re-Evaluation Comments:: Patient was reassessed. She states she feels much better. She is no longer wheezing. Plan is to discharge to home with a burst of prednisone and short course of doxycycline. Discharge Plan Triage Chief Complaint: Shortness of Breath ED Provider: Valentin Parsons Dx/Rx/DC Orders Clinical Impression: Chronic obstructive pulmonary disease with (acute) exacerbation, Bronchitis, purulent, chronic, Acute bronchospasm Instructions: ED COPD Flare Prescriptions: New prednisone 20 MG tablet 60 mg PO DAILY Qty: 15 RF: 0 doxycycline monohydrate 100 MG capsule 100 mg PO BID Qty: 10 RF: 0 No Action albuterol sulfate 90 mcg/actuation aerosol powdr breath activated 2 inh INHALATION Q6H PRN (Reason: Shortness Of Breath) RF: 0 ipratropium-albuterol 0.5 mg-3 mg(2.5 mg base)/3 mL solution for nebulization 3 ml INHALATION Q4H PRN (Reason: shortness of breath or wheezing) Qty: 120 RF: 6 albuterol sulfate 90 mcg/actuation HFA aerosol inhaler 2 puff INHALATION Q4H PRN (Reason: shortness of breath or wheezing) Qty: 8.5 RF: 6 Flovent HFA 220 mcg/actuation HFA aerosol inhaler 1 puff INHALATION BID Qty: 12 RF: 6 Stiolto Respimat 2.5-2.5 mcg/actuation mist 2 puff INHALATION DAILY Qty: 1 RF: 11 meloxicam [Mobic] 15 mg tablet 15 mg PO DAILY Qty: 30 RF: 0 paroxetine HCl [Paxil] 10 mg tablet 10 mg PO DAILY Qty: 90 RF: 1 metoprolol tartrate 50 mg tablet 50 mg PO BID Qty: 180 RF: 1 Primary Care Provider: Eryn Shelton Referrals: Eryn Shelton MD [Primary Care Provider] -
[2021-01-01 16:10] LABS: Absolute Lymphocyte Count 1.12 X10^3/uL (0.83-4.51); Basophil# 0.05 X10^3/uL; Basophil% 0.6 % (0-1); Eosinophil# 0.14 X10^3/uL; Eosinophils% 1.8 % (0-5); Hematocrit 42.8 % (37-47); Hemoglobin 13.9 g/dL (12.0-15.0); Lymphocyte # 1.12 X10^3/ul (0.83-4.51); Lymphocyte % 14.2 % (19-41); Mean Corp Hgb Conc 32.5 g/dL (32-36); Mean Corpuscular Hgb 28.6 pg (27.0-32.0); Mean Corpuscular Volume 88.1 fL (81-99); Mean Platelet Vol. 9.4 fl (6.2-12.0); Monocyte# 0.55 X10^3/uL; NRBC Flagged by Analyzer 0 % (0-5); Neutrophil # 6.02 X10^3/uL (2.7-7.7); Neutrophil % 76.1 % (47-70); Platelet Count 241 K/mm3 (150-450); RBC Distribution Width CV 12.8 % (11.6-14.6); RBC Distribution Width SD 41.3 fl (35.1-43.9); Red Blood Count 4.86 M/mm3 (4.2-5.4); White Blood Count 7.9 K/mm3 (4.4-11.0)
[2021-01-01] MEDS: MethylPREDNISolone 125 MG/2 ML Vial 60 MG IV (16:11)
--- NOTE | 2021-01-01 16:15 | RAD_ITS ---
STUDY: X-RAY CHEST REASON FOR EXAM: Female, 70 years old. Dyspnea, wheezing, cough TECHNIQUE: Single AP portable view of the chest. COMPARISON: 02/06/2019 FINDINGS: There is hyperinflation of the lungs consistent with chronic obstructive lung disease (COPD). There is no demonstrated pleural abnormality. Normal size heart. Normal mediastinum and lucia. Normal visualized pulmonary arteries. Normal visualized aortic arch and descending thoracic aorta. Normal visualized thoracic spine. Normal visualized ribs, clavicles, and shoulders. There is no demonstrated abnormality of the visualized soft tissue structures of the upper abdomen. RAD/Chest 1 View (Portable) IMPRESSION: Emphysema without pneumonia or atelectasis. Electronically Signed: River Siddiqui MD at 16:37 EST Tel , Service support ,
[2021-01-01 16:19] LABS: Anion Gap 4 (5-15); BUN 12 mg/dL (7-18); BUN/Creat Ratio 18.2 RATIO (10-20); Chloride 104 mmol/L (98-107); Creatinine, Serum 0.66 mg/dL (0.55-1.02); EST Glomerular Filtration Rate 94 mL/min (>60); Est Glom Filt Rate - Afr Amer 114 mL/min (>60); Estimated Creatinine Clearance 36.53 ml/min; Glucose 95 mg/dL (74-106); Potassium 4.1 mmol/L (3.5-5.1); Sodium Level 136 mmol/L (136-145)
[2021-01-01 16:41] LABS: Lactic Acid 0.5 mmol/L (0.4-1.9)
== END 2021-01-01 18:03 | disposition home or self-care (01) ==
LOC: ED 16:30
PROVIDERS: Emergency Provider Emergency Medicine; PCP Internal Medicine
DX: J44.1 Chronic obstructive pulmonary disease with (acute) exacerbation (principal); I10 Essential (primary) hypertension; F32.A Depression, unspecified; Z87.01 Personal history of pneumonia (recurrent); Z85.118 Personal history of other malignant neoplasm of bronchus and lung; Z90.2 Acquired absence of lung [part of]; F17.200 Nicotine dependence, unspecified, uncomplicated
CPT/HCPCS: 71045; 80048; 83605; 85025; 87426; 93005; 94640; 96374; 99285; J7030; A4216

== ENCOUNTER 2021-06-06 12:44 | Outpatient (CLI) | payer MEDICARE, SELFPAY ==
--- NOTE | 2021-06-06 12:46 | CT_ITS ---
STUDY: CT CHEST WITHOUT CONTRAST REASON FOR EXAM: Female, 70 years old. Disease monitoring, compare to prior -- h/o bilateral lung adenocarcinoma s/p treatment RADIATION DOSAGE (If Supplied By Facility): CTDIvol = ( 5.18 ) mGy, DLP = ( 185.45 ) mGycm TECHNIQUE: Transaxial imaging was performed without intravenous contrast administration . . Multiplanar coronal and sagittal images were reformatted. Individualized dose optimization techniques were used for this CT. COMPARISON: Comparison is made with prior study 12/05/2020. FINDINGS: Scarring and emphysematous changes in the left upper lobe more prominent along its medial aspect. Status post partial resection of the right lung apex. Stable scarring at the right lung base with minimal pleural thickening. There is no demonstrated pleural abnormality. Normal heart and pericardium. Coronary artery calcification Normal mediastinum. Normal hilar regions. Normal enhanced and unenhanced pulmonary arteries. There is atherosclerotic calcification of the aortic arch with tortuosity and elongation of the aortic arch and descending thoracic aorta. There are multi-level degenerative changes of the thoracic spine. There is no demonstrated abnormality of the visualized upper abdomen. CT/Chest without Contrast IMPRESSION: Stable examination. No acute abnormality is seen. Electronically Signed: Hiram Chi MD at 13:37 EDT ,
== END 2021-06-06 23:59 | disposition home or self-care (01) ==
PROVIDERS: PCP Internal Medicine; Visit Provider Student in an Organized Health Care Education/Training Program
DX: C34.91 Malignant neoplasm of unspecified part of right bronchus or lung (principal); C34.92 Malignant neoplasm of unspecified part of left bronchus or lung
CPT/HCPCS: 71250

== ENCOUNTER → 2021-11-06 | Outpatient (CLI) | payer MEDICARE, SELFPAY ==
[2021-11-06 15:04] LABS: Absolute Lymphocyte Count 0.66 X10^3/uL (0.83-4.51); Absolute Neutrophil Count 3.3 X10^3/uL (2.0-7.7); Basophil# 0.03 X10^3/uL; Basophil% 0.7 % (0-1); Eosinophil# 0.09 X10^3/uL; Hematocrit 43.4 % (37-47); Hemoglobin 13.7 g/dL (12.0-15.0); Lymphocyte # 0.66 X10^3/ul (0.83-4.51); Lymphocyte % 14.8 % (19-41); Mean Corp Hgb Conc 31.6 g/dL (32-36); Mean Corpuscular Hgb 28.3 pg (27.0-32.0); Mean Corpuscular Volume 89.7 fL (81-99); Mean Platelet Vol. 9.8 fl (6.2-12.0); Monocyte# 0.31 X10^3/uL; NRBC Flagged by Analyzer 0 % (0-5); Neutrophil # 3.34 X10^3/uL (2.7-7.7); Neutrophil % 75.1 % (47-70); Platelet Count 240 K/mm3 (150-450); RBC Distribution Width CV 13.2 % (11.6-14.6); RBC Distribution Width SD 43.5 fl (35.1-43.9); Red Blood Count 4.84 M/mm3 (4.2-5.4); White Blood Count 4.5 K/mm3 (4.4-11.0)
[2021-11-06 15:22] LABS: Vitamin D,25 Hydroxy 21.6 ng/mL
[2021-11-06 15:31] LABS: ALB/GLOB Ratio 0.9 RATIO (0.9-2.4); AST(SGOT) 17 U/L (15-37); Alanine Aminotransfer ALT/SGPT 23 U/L (13-56); Albumin, Serum 3.6 g/dL (3.2-5.0); Alkaline Phosphatase 99 U/L (45-117); Anion Gap 5 (5-15); BUN 13 mg/dL (7-18); Calcium,Total 8.8 mg/dL (8.5-10.1); Chloride 106 mmol/L (98-107); Cholesterol 203 mg/dL (200); Creatinine, Serum 0.72 mg/dL (0.55-1.02); EST Glomerular Filtration Rate 84 mL/min (>60); Est Glom Filt Rate - Afr Amer 101 mL/min (>60); Globulin 3.9 g/dL (2.2-4.2); Glucose 91 mg/dL (74-106); High Density Lipoprotein 60 mg/dL; Protein, Total 7.5 g/dL (6.4-8.2); Sodium Level 138 mmol/L (136-145); Thyroid Stim Hormone (TSH) 2.21 uIU/mL (0.358-3.74); Triglycerides 73 mg/dL; Very Low Density Lipoprotein 15 mg/dL (5-40)
== END | disposition home or self-care (01) ==
LOC: BIMLAB 13:48
PROVIDERS: PCP Internal Medicine; Referring Provider Internal Medicine; Visit Provider Internal Medicine
DX: F32.9 Major depressive disorder, single episode, unspecified (principal); J44.1 Chronic obstructive pulmonary disease with (acute) exacerbation; I10 Essential (primary) hypertension; Z13.220 Encounter for screening for lipoid disorders; E55.9 Vitamin D deficiency, unspecified
CPT/HCPCS: 36415; 80053; 80061; 82306; 84443; 85025

== ENCOUNTER → 2021-11-11 | Outpatient (CLI) | payer MEDICARE, SELFPAY ==
--- NOTE | 2021-11-11 08:29 | BI_ITS ---
MAMMOGRAPHY - BILATERAL SCREENING 3-D TOMOSYNTHESIS REASON FOR EXAM: Female, 71 years old. breast cancer screening PERTINENT HISTORY: No significant family history. TECHNIQUE: 2-D mammograms and 3-D Tomosynthesis of the breast (s) were performed. CAD was performed. COMPARISON: 01/06/2019 FINDINGS: The breast composition is composed of scattered fibroglandular density. Scattered benign calcifications are seen. No dense spiculated masses or suspicious microcalcifications are identified. No architectural distortion is identified. There is no skin thickening or retraction. There has been no significant change since the prior study. BI/SCRN MAMM (CAD)W/JASMIN BILAT IMPRESSION: No mammographic signs of malignancy. Routine yearly mammograms recommended. ASSESSMENT CATEGORY: BIRADS Category 1: Negative. A letter regarding these results will be sent to the patient by the facility within 30 days. FOLLOW UP RECOMMENDATION: Yearly follow up mammogram recommended. (A) Approximately 10% of breast cancers are not detected by mammography. A normal mammogram should not delay biopsy of a clinically suspicious abnormality. Electronically Signed: River Siddiqui MD at 9:14 EDT ,
== END | disposition home or self-care (01) ==
LOC: OPBI 08:28
PROVIDERS: PCP Internal Medicine; Referring Provider Internal Medicine; Visit Provider Internal Medicine
DX: Z12.31 Encounter for screening mammogram for malignant neoplasm of breast (principal)
CPT/HCPCS: 77063; 77067

== ENCOUNTER → 2021-12-02 | Outpatient (CLI) | payer MEDICARE, SELFPAY ==
--- NOTE | 2021-12-02 13:12 | CT_ITS ---
HISTORY: bilateral lung cancer treated. TECHNIQUE: Helically acquired images were obtained of the chest without contrast. A radiation dose optimization technique was used for this scan. 519 images. COMPARISON: 06/06/2021, 12/05/2020, 08/02/2019. FINDINGS: LARGE AIRWAYS: Trace fluid in the central airways. LUNGS/PLEURA: Right upper lobectomy with chronic pleural parenchymal scarring and thickening. Right lower lobe postoperative change with suture, mild scarring, mild bronchiectasis, and air trapping similar to prior. Chronic left apical and medial scarring with suture. Hyperinflation with emphysema. Stable since 2019 2 mm left lower lobe nodule laterally. HEART/PERICARDIUM: Heart within normal limits in size. Multivessel coronary artery calcification. No pericardial effusion. VESSELS: Thoracic aorta nondilated. MEDIASTINUM/SARAH: Stable borderline enlarged 9 to 10 mm right apical superior mediastinal lymph nodes. UPPER ABDOMEN: Unchanged appearance. BONES: Degenerative change and osteopenia without suspicious osteoblastic or osteolytic lesion.. CT/Chest without Contrast IMPRESSION: No significant interval change. Stable postoperative changes and scarring in the lungs. Electronically Signed: Nathalia Bliss MD at 10:24 EDT ,
== END | disposition home or self-care (01) ==
LOC: CT 13:12
PROVIDERS: PCP Internal Medicine; Referring Provider Student in an Organized Health Care Education/Training Program; Visit Provider Student in an Organized Health Care Education/Training Program
DX: C34.91 Malignant neoplasm of unspecified part of right bronchus or lung (principal); C34.92 Malignant neoplasm of unspecified part of left bronchus or lung
CPT/HCPCS: 71250

== ENCOUNTER 2021-12-04 22:17 | Emergency (ER) | payer MEDICARE, SELFPAY ==
[2021-12-04 22:19] VITALS: BP 187/81; PULSE 90; RESP 24; TEMP 36.4; O2SAT 100; BMI 23.4
[2021-12-04 22:38] LABS: Absolute Lymphocyte Count 0.99 X10^3/uL (0.83-4.51); Basophil# 0.04 X10^3/uL; Basophil% 0.5 % (0-1); Eosinophil# 0.09 X10^3/uL; Hematocrit 42.7 % (37-47); Hemoglobin 13.4 g/dL (12.0-15.0); Lymphocyte # 0.99 X10^3/ul (0.83-4.51); Lymphocyte % 11.1 % (19-41); Mean Corp Hgb Conc 31.4 g/dL (32-36); Mean Corpuscular Hgb 28.2 pg (27.0-32.0); Mean Corpuscular Volume 89.7 fL (81-99); Mean Platelet Vol. 9.6 fl (6.2-12.0); Monocyte# 0.79 X10^3/uL; Monocyte% 8.9 % (0-10); NRBC Flagged by Analyzer 0 % (0-5); Neutrophil # 6.95 X10^3/uL (2.7-7.7); Neutrophil % 78.3 % (47-70); Platelet Count 205 K/mm3 (150-450); RBC Distribution Width CV 13.2 % (11.6-14.6); RBC Distribution Width SD 43.3 fl (35.1-43.9); Red Blood Count 4.76 M/mm3 (4.2-5.4); White Blood Count 8.9 K/mm3 (4.4-11.0)
--- NOTE | 2021-12-04 22:40 | RAD_ITS ---
STUDY: X-RAY CHEST REASON FOR EXAM: Female, 71 years old. SOB TECHNIQUE: Single AP portable view of the chest. COMPARISON: 01/01/2021 FINDINGS: There is hyperinflation of the lungs consistent with chronic obstructive lung disease (COPD). Tiny right pleural effusion or pleural scarring which is unchanged. Normal size heart. Normal mediastinum and lucia. Normal visualized pulmonary arteries. Normal visualized aortic arch and descending thoracic aorta. Normal visualized thoracic spine. Normal visualized ribs, clavicles, and shoulders. There is no demonstrated abnormality of the visualized soft tissue structures of the upper abdomen. RAD/Chest 1 View (Portable) IMPRESSION: Emphysema without pneumonia or atelectasis. Electronically Signed: River Siddiqui MD at 23:03 EDT ,
[2021-12-04 22:52] LABS: Anion Gap 5 (5-15); BUN 12 mg/dL (7-18); BUN/Creat Ratio 18.7 RATIO (10-20); Chloride 106 mmol/L (98-107); Creatinine, Serum 0.64 mg/dL (0.55-1.02); EST Glomerular Filtration Rate 96 mL/min (>60); Est Glom Filt Rate - Afr Amer 116 mL/min (>60); Estimated Creatinine Clearance 35.99 ml/min; Glucose 117 mg/dL (74-106); Potassium 3.9 mmol/L (3.5-5.1); Sodium Level 140 mmol/L (136-145)
[2021-12-04 23:23] VITALS: BP 159/77; PULSE 97; RESP 21; TEMP 36.6; O2SAT 98
[2021-12-04 23:31] VITALS: RESP 21; O2SAT 98
--- NOTE | 2021-12-04 23:44 | EKG12_ITS ---
Test Reason : SOB Blood Pressure : / mmHG Vent. Rate : 067 BPM Atrial Rate : 067 BPM P-R Int : 164 ms QRS Dur : 072 ms QT Int : 376 ms P-R-T Axes : 085 065 067 degrees QTc Int : 397 ms Normal sinus rhythm Nonspecific ST abnormality Abnormal ECG Confirmed by CALI NICHOLS, VLADISLAV ([id number]), social media editor CIARRA HYDE ([id number]) on 12/08/2021 10:12:09 AM Referred By: Confirmed By:PRAKASH LEIVA MD
--- NOTE | 2021-12-04 23:46 | EDS_ITS ---
HPI History of Present Illness Chief Complaint: Shortness of Breath Informant: patient Onset/Context/Timing Onset: Yesterday Context: Gradual Onset Current Severity: Mild Maximum Severity: Moderate Narrative Narrative: Patient present secondary shortness of breath. Patient has a history of COPD, asthma, lung cancer. She reports shortness of breath that started yesterday. She did feel like she was wheezing. She had some chest pressure. She has had cough but no fever. Tonight her breathing got much worse. She was finishing albuterol treatment as EMS arrived. They note that she had wheezes bilaterally on their exam. Due to very busy emergency room patient placed in triage before being brought back to the room. On my evaluation patient is breathing comfortably and speaking full sentences with no distress. [facility] Medical History Chronic bronchitis COPD (chronic obstructive pulmonary disease) Depression Emphysema of lung History of pneumonia HTN (hypertension) Lung cancer Lung mass Pneumonia Seasonal allergies Tobacco dependence in remission Unintentional weight loss Home Medications metoprolol tartrate 50 mg tablet 50 mg PO BID #180 tabs 10/28/21 [Rx Last Taken Unknown] Handicap Placard #1 ea 11/05/21 [Rx Last Taken Unknown] albuterol sulfate 90 mcg/actuation aerosol inhaler 2 puff inhalation Q4H PRN shortness of breath or wheezing #8.5 grams 11/05/21 [Rx Last Taken Unknown] budesonide 0.5 mg/2 mL suspension for nebulization 0.5 mg (2 mL) inhalation BID #120 mL 11/05/21 [Rx Last Taken Unknown] ipratropium 0.5 mg-albuterol 3 mg (2.5 mg base)/3 mL nebulization soln 3 ml inhalation Q4H PRN shortness of breath or wheezing #120 vials 11/05/21 [Rx Last Taken Unknown] paroxetine HCl 10 mg tablet (Paxil) 10 mg PO DAILY #90 tabs 11/05/21 [Rx Last Taken Unknown] cholecalciferol (vitamin D3) 25 mcg (1,000 unit) capsule 25 mcg PO DAILY 11/10/21 [History Last Taken Unknown] azithromycin 250 mg tablet (Zithromax) 250 mg PO DAILY 4 days #4 tabs 12/05/21 [Rx Last Taken Unknown] prednisone 20 mg tablet 40 mg PO DAILY #8 tabs 12/05/21 [Rx Last Taken Unknown] Allergy/AdvReac Type Severity Reaction Status Date / Time meperidine HCl [From Demerol] AdvReac pass out Verified 12/04/21 22:23 Family History Mother Thyroid cancer Anemia Lung disease Father Throat cancer Diabetes Hypertension Arthritis Lung disease Sister Breast cancer Brain cancer Other Asthma Ovarian cancer Surgical History H/O pneumonectomy H/O tubal ligation History of bilateral carpal tunnel release repaired lymph node Wedge resection of lung Social History household members: spouse Smoking Status: Heavy Smoker (>10/day) Tobacco: How many years used: 50 how long ago did patient quit smoking: pt reports smoking 2-3 cigs every couple of days second hand exposure: Yes alcohol intake: never substance use type: does not use what type of physical activity do you participate in: none ROS ROS ED Constitutional Constitutional ED: Denies chills or fever(s) Eyes Eyes: Denies change in vision or discharge from eye(s) ENT ENT ED: Denies discharge from eye(s), rhinorrhea or sore throat Cardiovascular Cardiovascular: Reports chest pain; Denies palpitations Respiratory/Chest Respiratory/Chest: Reports cough, dyspnea and sputum Gastrointestinal Gastrointestinal: Denies abdominal pain, diarrhea, nausea or vomiting Genitourinary Genitourinary ED: Denies dysuria Musculoskeletal Musculoskeletal: Denies back pain or extremity pain Integumentary Denies Abrasions or rash Neurologic Neurologic: Denies headache(s) or weakness Psychiatric Psychiatric: Denies anxiety or depression Allergic/Immunologic Allergic/Immunologic ED: Denies lip swelling or urticaria EXAM Physical Exam Const Vital Signs: 12/04/21 22:19 12/04/21 23:23 12/04/21 23:23 Temperature 97.6 F L 97.8 F Temperature Source Temporal Temporal Pulse Rate 90 97 Respiratory Rate 24 H 21 H Respiratory Effort Respiratory Depth Respiratory Pattern Blood Pressure 187/81 H 159/77 H Blood Pressure Mean 116 104 Pulse Ox 100 98 98 Oxygen Delivery Method Nasal Cannula Nasal Cannula Nasal Cannula Oxygen Flow Rate (L/min) 4 2 2 12/04/21 23:31 12/04/21 23:31 12/04/21 23:31 Temperature Temperature Source Pulse Rate Respiratory Rate 21 H Respiratory Effort Short of Breath Respiratory Depth Normal Respiratory Pattern Normal Blood Pressure Blood Pressure Mean Pulse Ox 98 98 Oxygen Delivery Method Nasal Cannula Nasal Cannula Nasal Cannula Oxygen Flow Rate (L/min) 2 2 2 12/05/21 00:00 Temperature Temperature Source Pulse Rate Respiratory Rate Respiratory Effort Respiratory Depth Respiratory Pattern Blood Pressure Blood Pressure Mean Pulse Ox 93 Oxygen Delivery Method Room Air Oxygen Flow Rate (L/min) Positive well nourished and well developed General Appearance ED: well developed HEENT Reports normocephalic and head/scalp atraumatic Eyes PERRL and EOMs intact bilaterally Neck supple Chest Wall inspection of chest normal and palpation of chest normal Resp normal respiratory effort Resp Narrative: Lung sounds slightly diminished bilaterally. No wheezing appreciated at this time. Cardio regular rate and regular rhythm GI normal to inspection, nondistended, normoactive bowel sounds Palpation: soft Extremity normal to inspection General Extremety ED: Negative for edema General Extremity: Negative for edema Neuro oriented x3 and no sensory deficits noted Sensorium / Orientation: alert Motor Exam: strength 5/5 throughout Psych mental status grossly normal Skin no rashes or lesions noted MDM MDM MDM Narrative Medical decision making narrative: Patient placed on manager monitoring. EKG, chest x-ray, lab work obtained. Patient given Solu-Medrol. Lung sounds are clear at this time the patient does not feel that she needs another breathing treatment. Lab Data Attestation: I reviewed the patient's lab results. Labs: Laboratory Results - last 24 hr 12/04/21 12/04/21 12/04/21 22:30 22:30 22:30 WBC 8.9 RBC 4.76 Hgb 13.4 Hct 42.7 MCV 89.7 MCH 28.2 MCHC 31.4 L RDW Std Deviation 43.3 RDW Coeff of Joi 13.2 Plt Count 205 MPV 9.6 Immature Gran % (Auto) 0.200 Neut % (Auto) 78.3 H Lymph % (Auto) 11.1 L [place] % (Auto) 8.9 Eos % (Auto) 1.0 Baso % (Auto) 0.5 Absolute Neuts (auto) 7.0 Absolute Lymphs (auto) 0.99 Nucleated RBC % 0 Sodium 140 Potassium 3.9 Chloride 106 Carbon Dioxide 29.0 Anion Gap 5 BUN 12 Creatinine 0.64 Estim Creat Clear Calc 35.99 Est GFR (MDRD) Af Amer 116 Est GFR (MDRD) Non-Af 96 BUN/Creatinine Ratio 18.7 Glucose 117 H Calcium 9.0 Troponin I High Sens 5 Radiography Chest X-Ray - ED: 1 View, Read by ED Physician and Chronic Changes Diagnostic Testing: Clinical Impression(s) from Imaging Studies Chest X-Ray 12/04/21 22:40 IMPRESSION: Emphysema without pneumonia or atelectasis. Electronically Signed: River Siddiqui MD at 23:03 EDT , EKG Initial EKG: Attestation: I personally reviewed and interpreted this EKG as follows: Interpretation: Sinus Rhythm (Sinus at 67. 1/[address] depression diffusely. This appears similar to prior study.) Treatment and Re-Evaluation Narrative: On repeat evaluation patient resting comfortably. CBC reveals normal white count. Chemistry studies unremarkable. Troponin returns normal at 5. Chest x- ray reveals no focal infiltrate. With patient having wheezing earlier I do feel that this is more consistent with a COPD exacerbation. She has had increased cough. She will be given 4 additional days of prednisone as well as Zithromax. Patient has home oxygen and a pulse ox meter. Return instructions are provided. Discharge Plan Triage Chief Complaint: Shortness of Breath ED Provider: Mildred Paul Dx/Rx/DC Orders Clinical Impression: COPD exacerbation Instructions: ED COPD Flare Prescriptions: New prednisone 20 mg tablet 40 mg PO DAILY Qty: 8 0RF azithromycin [Zithromax] 250 mg tablet 250 mg PO DAILY 4 Days Qty: 4 0RF Rx Instructions: start on day 2 of therapy No Action (DME) Handicap Placard See Rx Instructions .Route .MEDSUPPLY Qty: 1 0RF Rx Instructions: 5 year RX (11/05/21-11/05/26) cholecalciferol (vitamin D3) 25 mcg (1,000 unit) capsule 25 mcg PO DAILY metoprolol tartrate 50 mg tablet 50 mg PO BID Qty: 180 3RF albuterol sulfate 90 mcg/actuation HFA aerosol inhaler 2 puff INHALATION Q4H PRN (Reason: shortness of breath or wheezing) Qty: 8.5 6RF Rx Instructions: administer with spacer budesonide 0.5 mg/2 mL suspension for nebulization 0.5 mg inhalation BID Qty: 120 6RF ipratropium-albuterol 0.5 mg-3 mg(2.5 mg base)/3 mL solution for nebulization 3 ml INHALATION Q4H PRN (Reason: shortness of breath or wheezing) Qty: 120 6RF Rx Instructions: J96.11 Chronic respiratory failure with hypoxia J44.1 COPD with exacerbation paroxetine HCl [Paxil] 10 mg tablet 10 mg PO DAILY Qty: 90 3RF Primary Care Provider: Eryn Shelton Referrals: Eryn Shelton MD [Primary Care Provider] - 1 Week Disposition Disposition: Home, Self Care
[2021-12-04] MEDS: MethylPREDNISolone 125 MG/2 ML Vial IV (23:53)
[2021-12-05] VITALS: O2SAT 93
[2021-12-05 00:32] LABS: Troponin-I HS 5 pg/mL (3.0-54.0)
[2021-12-05] MEDS: Ibuprofen 200 MG Tablet 400 MG PO (00:32)
[2021-12-05] MEDS: Azithromycin 250 MG Tablet 500 MG PO (00:50)
[2021-12-05 00:51] VITALS: PULSE 71; RESP 20; O2SAT 96
== END 2021-12-05 00:58 | disposition home or self-care (01) ==
PROVIDERS: Emergency Provider Emergency Medicine; PCP Internal Medicine; Visit Provider Emergency Medicine
DX: J44.1 Chronic obstructive pulmonary disease with (acute) exacerbation (principal); I10 Essential (primary) hypertension; F17.210 Nicotine dependence, cigarettes, uncomplicated; R06.02 Shortness of breath; Z79.52 Long term (current) use of systemic steroids; Z20.822 Contact with and (suspected) exposure to COVID-19
CPT/HCPCS: 71045; 80048; 84484; 85025; 87811; 93005; 94760; 96374; 99284; A4216

== ENCOUNTER 2022-01-10 14:00 | Emergency (ER) | payer MEDICARE, SELFPAY ==
[2022-01-10 14:00] VITALS: O2SAT 100
[2022-01-10 14:01] VITALS: BP 145/110; PULSE 62; RESP 22; TEMP 36.2; O2SAT 100; BMI 22.4
--- NOTE | 2022-01-10 14:17 | EDS_ITS ---
HPI HPI - URI History of Present Illness Chief Complaint: Shortness of Breath Narrative Narrative: 71-year-old female presenting with a cough and shortness of breath. She has a history of COPD. She states she has home nebulizers at home which she has been using. Her symptoms started last evening. She states she has production of yellow sputum. She has not had a fever that she knows of. She states she feels a little rundown. She states she wears up to 3 L at home if needed but she has not had a need for that recently until last evening. She states that typically she gets put on prednisone and her symptoms do improve. She has no known sick contacts. She states she does have a history of lung cancer which is in remission. She said follow-up studies that show this. She states that she did have part of her right upper lung removed and a wedge of her left lung removed. ROS ROS ED Constitutional Constitutional ED: Denies chills or fever(s) Eyes Eyes: Denies change in vision or diplopia ENT ENT ED: Reports sore throat; Denies rhinorrhea Cardiovascular Cardiovascular: Denies chest pain or palpitations Respiratory/Chest Respiratory/Chest: Reports cough and dyspnea Gastrointestinal Gastrointestinal: Denies abdominal pain Genitourinary Genitourinary ED: Denies dysuria or hematuria Musculoskeletal Musculoskeletal: Denies arthralgias or back pain Integumentary Denies abscess or Abrasions Neurologic Neurologic: Denies headache(s) or paresthesias Psychiatric Psychiatric: Denies anxiety or depression [facility] Medical History Chronic bronchitis COPD (chronic obstructive pulmonary disease) Depression Emphysema of lung History of pneumonia HTN (hypertension) Lung cancer Lung mass Pneumonia Seasonal allergies Tobacco dependence in remission Unintentional weight loss Home Medications metoprolol tartrate 50 mg tablet 50 mg PO BID #180 tabs 10/28/21 [Rx Last Taken Unknown] Handicap Placard #1 ea 11/05/21 [Rx Last Taken Unknown] albuterol sulfate 90 mcg/actuation aerosol inhaler 2 puff inhalation Q4H PRN shortness of breath or wheezing #8.5 grams 11/05/21 [Rx Last Taken Unknown] budesonide 0.5 mg/2 mL suspension for nebulization 0.5 mg (2 mL) inhalation BID #120 mL 11/05/21 [Rx Last Taken Unknown] ipratropium 0.5 mg-albuterol 3 mg (2.5 mg base)/3 mL nebulization soln 3 ml inhalation Q4H PRN shortness of breath or wheezing #120 vials 11/05/21 [Rx Last Taken Unknown] paroxetine HCl 10 mg tablet (Paxil) 10 mg PO DAILY #90 tabs 11/05/21 [Rx Last Taken Unknown] cholecalciferol (vitamin D3) 25 mcg (1,000 unit) capsule 25 mcg PO DAILY 11/10/21 [History Last Taken Unknown] azithromycin 250 mg tablet (Zithromax) 250 mg PO DAILY 4 days #4 tabs 12/08/21 [Rx Last Taken Unknown] buspirone 5 mg tablet 5 mg PO BID #60 tabs 12/08/21 [Rx Last Taken Unknown] prednisone 10 mg tablet See Rx Instructions PO DAILY #21 tabs 12/08/21 [Rx Last Taken Unknown] prednisone 10 mg tablet 50 mg PO DAILY 5 days #25 tabs 01/10/22 [Rx Last Taken Unknown] Allergy/AdvReac Type Severity Reaction Status Date / Time meperidine HCl [From Demerol] AdvReac pass out Verified 01/10/22 14:03 Family History Mother Thyroid cancer Anemia Lung disease Father Throat cancer Diabetes Hypertension Arthritis Lung disease Sister Breast cancer Brain cancer Other Asthma Ovarian cancer Surgical History H/O pneumonectomy H/O tubal ligation History of bilateral carpal tunnel release repaired lymph node Wedge resection of lung Social History household members: spouse Smoking Status: Heavy Smoker (>10/day) Tobacco: How many years used: 50 how long ago did patient quit smoking: pt reports smoking 2-3 cigs every couple of days second hand exposure: Yes alcohol intake: never substance use type: does not use what type of physical activity do you participate in: none EXAM Physical Exam Const Vital Signs: 01/10/22 14:01 01/10/22 14:00 01/10/22 14:01 Temperature 97.1 F L 97.1 F L Temperature Source Temporal Temporal Pulse Rate 62 62 Respiratory Rate 22 H 22 H Respiratory Effort Short of Breath Respiratory Depth Normal Respiratory Pattern Normal Blood Pressure 145/110 H 145/110 H Blood Pressure Mean 121 121 Pulse Ox 100 100 Oxygen Delivery Method Nasal Cannula Nasal Cannula Nasal Cannula Oxygen Flow Rate (L/min) 2 2 2 01/10/22 14:28 01/10/22 15:03 01/10/22 16:04 Temperature 98.3 F Temperature Source Temporal Pulse Rate 59 L 61 60 Respiratory Rate 17 18 20 H Respiratory Effort Respiratory Depth Respiratory Pattern Normal Blood Pressure 155/85 H 126/93 H Blood Pressure Mean 108 Pulse Ox 96 Oxygen Delivery Method Nasal Cannula Oxygen Flow Rate (L/min) 2 Positive well nourished General Appearance ED: NAD; Negative for pallor HEENT Reports moist mucous membranes normocephalic and atraumatic Throat: posterior oropharynx normal Neck no lymphadenopathy Resp clear to auscultation bilaterally Effort and Inspection: Negative for retractions Auscultation: Negative for rhonchi or wheezes GI non-tender Extremity normal to inspection Neuro oriented x3 and CN's II-XII intact bilaterally Sensorium / Orientation: alert Psych mental status grossly normal Skin General Skin Exam: Negative for jaundice or pallor MDM MDM MDM Narrative Medical decision making narrative: Patient states she feels like she is come down with something. She has not had a fever. She denies chills or body aches. She states she feels a little bit rundown and short. She states he is having to wear her oxygen which she does not always have to wear. She is currently on 2 L and satting 100%. Lungs sound clear to auscultation. No accessory muscle use. Patient subjectively feels like she is wheezing. She is given Solu-Medrol 125 mg and breathing treatments. I will obtain a chest x-ray and basic lab work. She denies any chest pain. CBC and BMP are obtained and are normal. On reevaluation patient is feeling improved. She tested negative for COVID, influenza, RSV. At this point I will place her on a prednisone burst and have her follow-up with pulmonology. She is amenable to this. Impression: 1. COPD exacerbation Lab Data Attestation: I reviewed the patient's lab results. Labs: Laboratory Results - last 24 hr 01/10/22 01/10/22 14:10 14:10 WBC 8.3 RBC 4.69 Hgb 13.1 Hct 42.1 MCV 89.8 MCH 27.9 MCHC 31.1 L RDW Std Deviation 43.4 RDW Coeff of Joi 13.3 Plt Count 255 MPV 9.6 Immature Gran % (Auto) 0.100 Neut % (Auto) 77.3 H Lymph % (Auto) 14.0 L [place] % (Auto) 7.3 Eos % (Auto) 0.8 Baso % (Auto) 0.5 Absolute Neuts (auto) 6.4 Absolute Lymphs (auto) 1.16 Nucleated RBC % 0 Sodium 138 Potassium 3.7 Chloride 106 Carbon Dioxide 28.0 Anion Gap 4 L BUN 12 Creatinine 0.60 Estim Creat Clear Calc 35.99 Est GFR (MDRD) Af Amer 125 Est GFR (MDRD) Non-Af 103 BUN/Creatinine Ratio 19.9 Glucose 107 H Calcium 8.9 Radiography Diagnostic Testing: Clinical Impression(s) from Imaging Studies Chest X-Ray 01/10/22 14:34 IMPRESSION: Stable chest, postoperative change right lower lung scarring. Emphysema chronic obstructive pulmonary disease. Electronically Signed: Ladna Kay MD at 14:48 EST Reading Location ID and State: [facility] / [place] Tel , Service support , Discharge Plan Triage Chief Complaint: Shortness of Breath ED Provider: Erik Lynch Dx/Rx/DC Orders Instructions: ED COPD Flare Prescriptions: New prednisone 10 mg tablet 50 mg PO DAILY 5 Days Qty: 25 0RF No Action (DME) Handicap Placard See Rx Instructions .Route .MEDSUPPLY Qty: 1 0RF Rx Instructions: 5 year RX (11/05/21-11/05/26) cholecalciferol (vitamin D3) 25 mcg (1,000 unit) capsule 25 mcg PO DAILY azithromycin [Zithromax] 250 mg tablet 250 mg PO DAILY 4 Days Qty: 4 0RF prednisone 10 mg tablet See Rx Instructions PO DAILY Qty: 21 0RF Rx Instructions: Take 4 tabs daily for 3 days, then 2 tabs daily for 3 days, then 1 tab daily for 3 days then stop. buspirone 5 mg tablet 5 mg PO BID Qty: 60 2RF metoprolol tartrate 50 mg tablet 50 mg PO BID Qty: 180 3RF albuterol sulfate 90 mcg/actuation HFA aerosol inhaler 2 puff INHALATION Q4H PRN (Reason: shortness of breath or wheezing) Qty: 8.5 6RF Rx Instructions: administer with spacer budesonide 0.5 mg/2 mL suspension for nebulization 0.5 mg inhalation BID Qty: 120 6RF ipratropium-albuterol 0.5 mg-3 mg(2.5 mg base)/3 mL solution for nebulization 3 ml INHALATION Q4H PRN (Reason: shortness of breath or wheezing) Qty: 120 6RF Rx Instructions: J96.11 Chronic respiratory failure with hypoxia J44.1 COPD with exacerbation paroxetine HCl [Paxil] 10 mg tablet 10 mg PO DAILY Qty: 90 3RF Primary Care Provider: Eryn Shelton Referrals: Eryn Shelton MD [Primary Care Provider] - Disposition Disposition: Home, Self Care Discharge Date/Time: 01/10/22 16:08
[2022-01-10] MEDS: Ipratropium/Albuterol Sulfate 3 ML AMPUL.NEB INHALATION (14:25)
[2022-01-10] MEDS: Albuterol 2.5 MG/3 ML VIAL.NEB. INHALATION (14:25)
[2022-01-10 14:27] LABS: Absolute Lymphocyte Count 1.16 X10^3/uL (0.83-4.51); Absolute Neutrophil Count 6.4 X10^3/uL (2.0-7.7); Basophil# 0.04 X10^3/uL; Basophil% 0.5 % (0-1); Eosinophil# 0.07 X10^3/uL; Eosinophils% 0.8 % (0-5); Hematocrit 42.1 % (37-47); Hemoglobin 13.1 g/dL (12.0-15.0); Lymphocyte # 1.16 X10^3/ul (0.83-4.51); Mean Corp Hgb Conc 31.1 g/dL (32-36); Mean Corpuscular Hgb 27.9 pg (27.0-32.0); Mean Corpuscular Volume 89.8 fL (81-99); Mean Platelet Vol. 9.6 fl (6.2-12.0); Monocyte# 0.61 X10^3/uL; Monocyte% 7.3 % (0-10); NRBC Flagged by Analyzer 0 % (0-5); Neutrophil # 6.42 X10^3/uL (2.7-7.7); Neutrophil % 77.3 % (47-70); Platelet Count 255 K/mm3 (150-450); RBC Distribution Width CV 13.3 % (11.6-14.6); RBC Distribution Width SD 43.4 fl (35.1-43.9); Red Blood Count 4.69 M/mm3 (4.2-5.4); White Blood Count 8.3 K/mm3 (4.4-11.0)
[2022-01-10 14:28] VITALS: PULSE 59; RESP 17
[2022-01-10] MEDS: MethylPREDNISolone 125 MG/2 ML Vial IV (14:32)
--- NOTE | 2022-01-10 14:34 | RAD_ITS ---
STUDY: X-RAY CHEST REASON FOR EXAM: Female, 71 years old. Cough TECHNIQUE: Single AP portable view of the chest. COMPARISON: January 01, 2021 chest x-ray FINDINGS: There is a stable appearance of the chest with a hyperlucent, hyperinflated appearance of the lungs with flattening of the right hemidiaphragm and postoperative change in the right lung base. There is no demonstrated pleural abnormality. Normal size heart. Postoperative changes at the level of the aortic arch. Normal visualized pulmonary arteries. Normal visualized aortic arch and descending thoracic aorta. Normal visualized thoracic spine. Normal visualized ribs, clavicles, and shoulders. There is no demonstrated abnormality of the visualized soft tissue structures of the upper abdomen. RAD/Chest 1 View (Portable) IMPRESSION: Stable chest, postoperative change right lower lung scarring. Emphysema chronic obstructive pulmonary disease. Electronically Signed: Ladan Kay MD at 14:48 EST ,
[2022-01-10 14:38] LABS: Anion Gap 4 (5-15); BUN 12 mg/dL (7-18); BUN/Creat Ratio 19.9 RATIO (10-20); Calcium,Total 8.9 mg/dL (8.5-10.1); Chloride 106 mmol/L (98-107); EST Glomerular Filtration Rate 103 mL/min (>60); Est Glom Filt Rate - Afr Amer 125 mL/min (>60); Estimated Creatinine Clearance 35.99 ml/min; Glucose 107 mg/dL (74-106); Potassium 3.7 mmol/L (3.5-5.1); Sodium Level 138 mmol/L (136-145)
[2022-01-10 15:03] VITALS: BP 155/85; PULSE 61; RESP 18; TEMP 36.8; O2SAT 96
[2022-01-10 16:04] VITALS: BP 126/93; PULSE 60; RESP 20
== END 2022-01-10 16:08 | disposition home or self-care (01) ==
PROVIDERS: Emergency Provider Student in an Organized Health Care Education/Training Program; PCP Internal Medicine; Visit Provider Student in an Organized Health Care Education/Training Program
DX: J44.1 Chronic obstructive pulmonary disease with (acute) exacerbation (principal); I10 Essential (primary) hypertension; F17.210 Nicotine dependence, cigarettes, uncomplicated; R06.02 Shortness of breath; Z79.52 Long term (current) use of systemic steroids
CPT/HCPCS: 71045; 80048; 85025; 87428; 87807; 94640; 96374; 99283; A4216

== ENCOUNTER 2022-05-08 02:08 | Inpatient (IN) | payer MEDICARE, SELFPAY ==
[2022-05-08] VITALS (22 sets, daily range): BP systolic 151–188; BP diastolic 70–149; PULSE 67–79; RESP 17–28; TEMP 36.3–37.2; O2SAT 94–99; BMI 27.3; BMI 25.2
--- NOTE | 2022-05-08 02:25 | RAD_ITS ---
EXAM: XR CHEST, 1 VIEW CLINICAL INDICATION: dyspnea TECHNIQUE: Frontal view of the chest. This report was created using [employer] report generation technology. COMPARISON: 01/10/2022 FINDINGS: LUNGS AND PLEURAL SPACES: Mild bibasilar airspace disease. Hyperinflation. No pneumothorax. No effusion. HEART: Unremarkable. Cardiac silhouette not enlarged. MEDIASTINUM: Central airways and mediastinal contour are unremarkable. BONES/JOINTS: Unremarkable. SOFT TISSUES: Unremarkable. RAD/Chest 1 View (Portable) IMPRESSION: Mild bibasilar airspace disease. This may indicate pneumonia superimposed on chronic emphysematous changes. Electronically Signed: Puma Ortiz MD at 3:31 EDT ,
--- NOTE | 2022-05-08 02:25 | EKG12_ITS ---
Test Reason : SOB/CP Blood Pressure : / mmHG Vent. Rate : 068 BPM Atrial Rate : 068 BPM P-R Int : 160 ms QRS Dur : 072 ms QT Int : 362 ms P-R-T Axes : 090 066 082 degrees QTc Int : 384 ms Normal sinus rhythm Possible Left atrial enlargement Nonspecific ST abnormality Abnormal ECG When compared with ECG of 04-DEC-2021 23:52, No significant change was found Confirmed by ALDA NICHOLS, CAITLIN ([id number]), copy editor CIARRA HYDE ([id number]) on 05/13/2022 8:32:52 AM Referred By: BREONNA Confirmed By:CAITLIN LIZAMA MD
--- NOTE | 2022-05-08 02:26 | EDS_ITS ---
HPI History of Present Illness Chief Complaint: Chest Pain Detail of Chief Complaint: Shortness of breath and mild chest discomfort Informant: patient Narrative Narrative: Patient presents the emergency department after waking up this evening feeling short of breath. Patient describes wheezing. She does have history of COPD. Patient on 3 L of O2 all the time. She has had a cough for a couple of days and bringing up some clear phlegm at times. She denies fever or chills or sweats. Patient has no history of PE or DVT. No recent travel or surgery. Patient does have history of lung cancer with prior partial lobectomy bilaterally. Patient has no heart history. [facility] Medical History (Updated 05/08/22 @ 04:[address] Kayden Daigle, ) Chronic bronchitis Chronic obstructive pulmonary disease with (acute) exacerbation COPD (chronic obstructive pulmonary disease) Depression Emphysema of lung History of pneumonia HTN (hypertension) Lung cancer Lung mass Pneumonia Seasonal allergies Tobacco dependence in remission Unintentional weight loss Home Medications metoprolol tartrate 50 mg tablet 50 mg PO BID #180 tabs 10/28/21 [Rx Last Taken Unknown] Handicap Placard #1 ea 11/05/21 [Rx Last Taken Unknown] albuterol sulfate 90 mcg/actuation aerosol inhaler 2 puff inhalation Q4H PRN shortness of breath or wheezing #8.5 grams 11/05/21 [Rx Last Taken Unknown] budesonide 0.5 mg/2 mL suspension for nebulization 0.5 mg (2 mL) inhalation BID #120 mL 11/05/21 [Rx Last Taken Unknown] ipratropium 0.5 mg-albuterol 3 mg (2.5 mg base)/3 mL nebulization soln 3 ml inhalation Q4H PRN shortness of breath or wheezing #120 vials 11/05/21 [Rx Last Taken Unknown] paroxetine HCl 10 mg tablet (Paxil) 10 mg PO DAILY #90 tabs 11/05/21 [Rx Last Taken Unknown] prednisone 10 mg tablet 10 mg PO DAILY #30 tabs 02/09/22 [Rx Last Taken Unknown] buspirone 5 mg tablet 5 mg PO BID #180 tabs 03/09/22 [Rx Last Taken Unknown] Allergy/AdvReac Type Severity Reaction Status Date / Time meperidine HCl [From Demerol] AdvReac pass out Verified 05/08/22 02:16 Family History Mother Thyroid cancer Anemia Lung disease Father Throat cancer Diabetes Hypertension Arthritis Lung disease Sister Breast cancer Brain cancer Other Asthma Ovarian cancer Surgical History H/O pneumonectomy H/O tubal ligation History of bilateral carpal tunnel release repaired lymph node Wedge resection of lung Social History household members: spouse Smoking Status: Heavy Smoker (>10/day) Tobacco: How many years used: 50 how long ago did patient quit smoking: pt reports smoking 2-3 cigs every couple of days second hand exposure: Yes alcohol intake: never substance use type: does not use what type of physical activity do you participate in: none ROS ROS ED Review of Systems ROS Unobtainable: other Constitutional Constitutional ED: Reports lethargy; Denies chills, fever(s), sweats or weight loss Eyes Eyes: Denies blurry vision, change in vision or diplopia ENT ENT ED: Denies rhinorrhea or sore throat Cardiovascular Cardiovascular: Reports chest pain; Denies orthopnea or racing heartbeat Respiratory/Chest Respiratory/Chest: Reports cough, dyspnea and dyspnea on exertion; Denies orthopnea or sputum Gastrointestinal Gastrointestinal: Denies abdominal pain, diarrhea, nausea or vomiting Genitourinary Genitourinary ED: Denies dysuria, hematuria or urinary frequency Musculoskeletal Musculoskeletal: Denies arthralgias, back pain, myalgias or neck pain Integumentary Denies abscess, Abrasions or rash Neurologic Neurologic: Denies headache(s) or weakness Psychiatric Psychiatric: Denies anxiety, depression or suicidal thoughts Endocrine Endocrinology: Denies polydipsia, polyphagia or polyuria Hematologic/Lymphatic Hematologic/Lymphatic: Denies easy bleeding, easy bruising or lymphadenopathy Allergic/Immunologic Allergic/Immunologic ED: Denies mouth swelling, tongue swelling or urticaria EXAM Physical Exam Const Vital Signs: 05/08/22 02:09 05/08/22 02:16 05/08/22 02:31 Temperature 99.0 F Temperature Source Temporal Pulse Rate 68 67 Respiratory Rate 28 H 17 Respiratory Effort Short of Breath Blood Pressure 185/149 H Blood Pressure Mean 161 Pulse Ox 98 Oxygen Delivery Method Nasal Cannula Oxygen Flow Rate (L/min) 3 05/08/22 02:38 05/08/22 03:59 Temperature 99 F 98.8 F Temperature Source Oral Temporal Pulse Rate 67 74 Respiratory Rate 20 H 19 H Respiratory Effort Blood Pressure 185/73 H 179/88 H Blood Pressure Mean 110 118 Pulse Ox 99 96 Oxygen Delivery Method Nasal Cannula Nasal Cannula Oxygen Flow Rate (L/min) 3 3 Positive well nourished and well developed General Appearance ED: well developed and NAD HEENT Reports TM's clear and moist mucous membranes normocephalic and atraumatic; Negative for trauma or tenderness Tympanic Membrane ED: Yes TM's clear Eyes PERRL and EOMs intact bilaterally General Eye ED: Negative for pale conjunctiva or scleral icterus Neck no lymphadenopathy, supple and no JVD General: Negative for tenderness Chest Wall inspection of chest normal and palpation of chest normal Chest: Negative for tenderness Resp normal respiratory effort Resp Narrative: Patient with mild tachypnea and mild conversational dyspnea. She has expiratory wheezes bilaterally. Effort and Inspection: Negative for respiratory distress or pain with movement Auscultation: Negative for rhonchi, wheezes or diminished lung sounds Cardio regular rate, regular rhythm, S1 normal heart sound, S2 normal heart sound and no murmurs Peripheral Pulses: pulses 2+ throughout GI normal to inspection, nondistended, normoactive bowel sounds, soft to palpation, non-tender, non-distended and no masses Back/Spine no CVA tenderness and no thoracic nor lumbar tenderness Extremity normal to inspection General Extremety ED: Negative for edema General Extremity: Negative for edema Neuro oriented x3, CN's II-XII intact bilaterally, no sensory deficits noted and gait normal Sensorium / Orientation: awake, alert, oriented to person, oriented to place and oriented to time Motor Exam: strength 5/5 throughout and strength abnormal Psych mental status grossly normal Skin no rashes or lesions noted and no wounds MDM MDM MDM Narrative Medical decision making narrative: Patient presents with dyspnea and URI symptoms. Patient audibly wheezing on arrival and tachypneic. She was placed on monitor technician and IV line established. Patient was given DuoNeb aerosol followed by albuterol aerosols and Solu-Medrol 125 mg IV. After treatment she continues to wheeze and feel dyspneic. CBC with differential was unremarkable. Chemistries unremarkable. D-dimer when corrected for age was normal at 0.70. Troponin was normal. Lactate was 0.6. Patient will require admission. She will be started on Tamiflu. Patient was positive for influenza B. Lab Data Attestation: I reviewed the patient's lab results. Labs: Laboratory Results - last 24 hr 05/08/22 05/08/22 05/08/22 02:26 02:26 02:26 WBC 7.1 RBC 4.98 Hgb 14.3 Hct 46.2 MCV 92.8 MCH 28.7 MCHC 31.0 L RDW Std Deviation 46.0 H RDW Coeff of Joi 13.5 Plt Count 213 MPV 9.7 Immature Gran % (Auto) 0.400 Neut % (Auto) 79.2 H Lymph % (Auto) 10.3 L [place] % (Auto) 8.7 Eos % (Auto) 0.8 Baso % (Auto) 0.6 Absolute Neuts (auto) 5.6 Absolute Lymphs (auto) 0.73 L Nucleated RBC % 0 D-Dimer Quant (PE/DVT) 0.70 H* Sodium 138 Potassium 3.8 Chloride 103 Carbon Dioxide 30.0 Anion Gap 5 BUN 22 H Creatinine 0.74 Estim Creat Clear Calc 35.99 Est GFR (MDRD) Af Amer 98 Est GFR (MDRD) Non-Af 81 BUN/Creatinine Ratio 29.5 H Glucose 108 H Lactic Acid Calcium 9.0 Troponin I High Sens 9 05/08/22 02:26 WBC RBC Hgb Hct MCV MCH MCHC RDW Std Deviation RDW Coeff of Joi Plt Count MPV Immature Gran % (Auto) Neut % (Auto) Lymph % (Auto) [place] % (Auto) Eos % (Auto) Baso % (Auto) Absolute Neuts (auto) Absolute Lymphs (auto) Nucleated RBC % D-Dimer Quant (PE/DVT) Sodium Potassium Chloride Carbon Dioxide Anion Gap BUN Creatinine Estim Creat Clear Calc Est GFR (MDRD) Af Amer Est GFR (MDRD) Non-Af BUN/Creatinine Ratio Glucose Lactic Acid 0.6 Calcium Troponin I High Sens Radiography Diagnostic Testing: Clinical Impression(s) from Imaging Studies Chest X-Ray 05/08/22 02:25 IMPRESSION: Mild bibasilar airspace disease. This may indicate pneumonia superimposed on chronic emphysematous changes. Electronically Signed: Puma Ortiz MD at 3:31 EDT , 1 view chest x-ray obtained interpreted by myself as chronic interstitial changes without evidence of acute infiltrate or pneumothorax. Radiology felt bibasilar airspace disease may indicate pneumonia superimposed on chronic emphysematous changes. EKG Initial EKG: Attestation: I personally reviewed and interpreted this EKG as follows: Comments: Sinus rhythm with a ventricular rate of 68 bpm with left atrial enlargement and nonspecific ST changes Discharge Plan Triage Chief Complaint: Chest Pain ED Provider: Kayden Daigle Dx/Rx/DC Orders Clinical Impression: Acute exacerbation of chronic obstructive pulmonary disease, Influenza B, Dyspnea Prescriptions: No Action prednisone 10 mg tablet 10 mg PO DAILY Qty: 30 6RF (DME) Handicap Placard See Rx Instructions .Route .MEDSUPPLY Qty: 1 0RF Rx Instructions: 5 year RX (11/05/21-11/05/26) metoprolol tartrate 50 mg tablet 50 mg PO BID Qty: 180 3RF albuterol sulfate 90 mcg/actuation HFA aerosol inhaler 2 puff INHALATION Q4H PRN (Reason: shortness of breath or wheezing) Qty: 8.5 6RF Rx Instructions: administer with spacer budesonide 0.5 mg/2 mL suspension for nebulization 0.5 mg inhalation BID Qty: 120 6RF ipratropium-albuterol 0.5 mg-3 mg(2.5 mg base)/3 mL solution for nebulization 3 ml INHALATION Q4H PRN (Reason: shortness of breath or wheezing) Qty: 120 6RF Rx Instructions: J96.11 Chronic respiratory failure with hypoxia J44.1 COPD with exacerbation paroxetine HCl [Paxil] 10 mg tablet 10 mg PO DAILY Qty: 90 3RF buspirone 5 mg tablet 5 mg PO BID Qty: 180 3RF Primary Care Provider: Eryn Shelton Referrals: Eryn Shelton MD [Primary Care Provider] - Disposition Disposition: Acute Care [facility]
[2022-05-08] MEDS: Ipratropium/Albuterol Sulfate 3 ML AMPUL.NEB INHALATION ×6 (02:31→23:14)
[2022-05-08] MEDS: Albuterol 2.5 MG/3 ML VIAL.NEB. INHALATION ×3 (02:37)
[2022-05-08 02:41] LABS: Absolute Lymphocyte Count 0.73 X10^3/uL (0.83-4.51); Absolute Neutrophil Count 5.6 X10^3/uL (2.0-7.7); Basophil# 0.04 X10^3/uL; Basophil% 0.6 % (0-1); Eosinophil# 0.06 X10^3/uL; Eosinophils% 0.8 % (0-5); Hematocrit 46.2 % (37-47); Hemoglobin 14.3 g/dL (12.0-15.0); Lymphocyte # 0.73 X10^3/ul (0.83-4.51); Lymphocyte % 10.3 % (19-41); Mean Corpuscular Hgb 28.7 pg (27.0-32.0); Mean Corpuscular Volume 92.8 fL (81-99); Mean Platelet Vol. 9.7 fl (6.2-12.0); Monocyte# 0.62 X10^3/uL; Monocyte% 8.7 % (0-10); NRBC Flagged by Analyzer 0 % (0-5); Neutrophil # 5.62 X10^3/uL (2.7-7.7); Neutrophil % 79.2 % (47-70); Platelet Count 213 K/mm3 (150-450); RBC Distribution Width CV 13.5 % (11.6-14.6); Red Blood Count 4.98 M/mm3 (4.2-5.4); White Blood Count 7.1 K/mm3 (4.4-11.0)
[2022-05-08] MEDS: MethylPREDNISolone 125 MG/2 ML Vial IV (02:42)
[2022-05-08] MEDS: 0.9% Normal Saline 1,000 ML 150 ML IV (02:47)
[2022-05-08] MEDS: Acetaminophen 325 MG Tablet 650 MG PO ×2 (03:02→14:22)
[2022-05-08 03:05] LABS: Anion Gap 5 (5-15); BUN 22 mg/dL (7-18); BUN/Creat Ratio 29.5 RATIO (10-20); Chloride 103 mmol/L (98-107); Creatinine, Serum 0.74 mg/dL (0.55-1.02); EST Glomerular Filtration Rate 81 mL/min (>60); Est Glom Filt Rate - Afr Amer 98 mL/min (>60); Estimated Creatinine Clearance 35.99 ml/min; Glucose 108 mg/dL (74-106); Potassium 3.8 mmol/L (3.5-5.1); Sodium Level 138 mmol/L (136-145); Troponin-I HS 9 pg/mL (3.0-54.0)
[2022-05-08 03:29] LABS: Lactic Acid 0.6 mmol/L (0.4-1.9)
--- NOTE | 2022-05-08 03:54 | HP.PCM.HOS_ITS ---
[facility] - General General Date of Admission: 05/08/22 Date of Service: 05/08/22 Chief Complaint: Shortness of breath HPI Narrative YVROSE AHWTHORNE, is a 71 F with a significant history of hypertension; COPD on 3 L of home nasal oxygen; lung cancer status post bilateral lung resection, left lung radiation and currently with lung nodules in her left lung which is under surveillance and who presents to the emergency department with 3-day history of progressively worsening shortness of breath that got even worse on the night of presentation. Associated with her symptoms is increased wheezing above her baseline. Further she has increased cough with thicker clear sputum than her baseline. She has baseline orthopnea and sleeps in a recliner. She reports fatigue. She reports that her had COVID about a year ago and is always sick. [facility] Medical History Chronic bronchitis Chronic obstructive pulmonary disease with (acute) exacerbation COPD (chronic obstructive pulmonary disease) Depression Emphysema of lung History of pneumonia HTN (hypertension) Lung cancer Lung mass Pneumonia Seasonal allergies Tobacco dependence in remission Unintentional weight loss Home Medications metoprolol tartrate 50 mg tablet 50 mg PO BID #180 tabs 10/28/21 [Rx Last Taken Unknown] Handicap Placard #1 ea 11/05/21 [Rx Last Taken Unknown] albuterol sulfate 90 mcg/actuation aerosol inhaler 2 puff inhalation Q4H PRN shortness of breath or wheezing #8.5 grams 11/05/21 [Rx Last Taken Unknown] budesonide 0.5 mg/2 mL suspension for nebulization 0.5 mg (2 mL) inhalation BID #120 mL 11/05/21 [Rx Last Taken Unknown] ipratropium 0.5 mg-albuterol 3 mg (2.5 mg base)/3 mL nebulization soln 3 ml inhalation Q4H PRN shortness of breath or wheezing #120 vials 11/05/21 [Rx Last Taken Unknown] paroxetine HCl 10 mg tablet (Paxil) 10 mg PO DAILY #90 tabs 11/05/21 [Rx Last Taken Unknown] prednisone 10 mg tablet 10 mg PO DAILY #30 tabs 02/09/22 [Rx Last Taken Unknown] buspirone 5 mg tablet 5 mg PO BID #180 tabs 03/09/22 [Rx Last Taken Unknown] Allergy/AdvReac Type Severity Reaction Status Date / Time meperidine HCl [From Demerol] AdvReac pass out Verified 05/08/22 02:16 Family History Mother Thyroid cancer Anemia Lung disease Father Throat cancer Diabetes Hypertension Arthritis Lung disease Sister Breast cancer Brain cancer Other Asthma Ovarian cancer Surgical History H/O pneumonectomy H/O tubal ligation History of bilateral carpal tunnel release repaired lymph node Wedge resection of lung Social History household members: spouse Smoking Status: Heavy Smoker (>10/day) Tobacco: How many years used: 50 how long ago did patient quit smoking: pt reports smoking 2-3 cigs every couple of days second hand exposure: Yes alcohol intake: never substance use type: does not use what type of physical activity do you participate in: none ROS ROS Narrative Pertinent positives and pertinent negatives as noted in HPI. All other systems were reviewed and are negative Vital Signs Vital Signs Vital Signs: 05/08/22 02:09 05/08/22 02:16 05/08/22 02:31 Temperature 99.0 F Temperature Source Temporal Pulse Rate 68 67 Respiratory Rate 28 H 17 Respiratory Effort Short of Breath Blood Pressure 185/149 H Blood Pressure Mean 161 Pulse Ox 98 Oxygen Delivery Method Nasal Cannula Oxygen Flow Rate (L/min) 3 05/08/22 02:38 Temperature 99 F Temperature Source Oral Pulse Rate 67 Respiratory Rate 20 H Respiratory Effort Blood Pressure 185/73 H Blood Pressure Mean 110 Pulse Ox 99 Oxygen Delivery Method Nasal Cannula Oxygen Flow Rate (L/min) 3 Weight Weight: 63.6 kg Body Mass Index (BMI) 27.3 Physical Exam Narrative Physical exam: General: Thin frame elderly female Head: Normocephalic, atraumatic, no tenderness Eyes: Vision is grossly intact. EOMI ENT, no trauma, mildly dry mucous membranes, no rhinorrhea Neck: Nontender, No thyromegaly. CVS: Regular rate and rhythm. S1-S2 present. No murmur, gallop or rub. Respiratory : Moderate wheezing throughout, chest wall nontender, no wheezing Abdomen: Soft, nontender, nondistended, normal bowel sounds, no masses : Deferred Back: Nontender, no CVA tenderness, no midline spinal tenderness, deformities, step-offs Extremities: Nontender full range of motion, no trauma Skin: Normal color, no trauma, abrasions Neuro: Alert, oriented, cranial nerves II through XII grossly intact. Psychiatry: Normal mood. Normal affect. Not depressed. Not anxious. Results Lab / Micro Data Attestation: I reviewed the patient's lab results. Result Diagrams: 05/08/22 02:26 05/08/22 02:26 Labs: Laboratory Results - last 24 hr 05/08/22 02:26: WBC 7.1, RBC 4.98, Hgb 14.3, Hct 46.2, MCV 92.8, MCH 28.7, MCHC 31.0 L, RDW Std Deviation 46.0 H, RDW Coeff of Joi 13.5, Plt Count 213, MPV 9.7, Immature Gran % (Auto) 0.400, Neut % (Auto) 79.2 H, Lymph % (Auto) 10.3 L, [place] % (Auto) 8.7, Eos % (Auto) 0.8, Baso % (Auto) 0.6, Absolute Neuts (auto) 5.6, Absolute Lymphs (auto) 0.73 L, Nucleated RBC % 0 05/08/22 02:26: D-Dimer Quant (PE/DVT) 0.70 H* 05/08/22 02:26: Sodium 138, Potassium 3.8, Chloride 103, Carbon Dioxide 30.0, An ion Gap 5, BUN 22 H, Creatinine 0.74, Estim Creat Clear Calc 35.99, Est GFR ( MDRD) Af Amer 98, Est GFR (MDRD) Non-Af 81, BUN/Creatinine Ratio 29.5 H, Glucose 108 H, Calcium 9.0, Troponin I High Sens 9 05/08/22 02:26: Lactic Acid 0.6 Micro: Microbiology 05/08/22 02:32 Nasal Secretion SARS-CoV-2 & FLU Antigen (Rapid) - Final Influenzae B Radiology Impression Chest X-Ray 05/08/22 02:25 IMPRESSION: Mild bibasilar airspace disease. This may indicate pneumonia superimposed on chronic emphysematous changes. Electronically Signed: Puma Ortiz MD at 3:31 EDT , Assessment & Plan Assessment/Plan (1) COPD exacerbation: (2) Influenza B: (3) Pneumonia: PLAN: Plan Influenza B infection Rapid COVID screen negative. Acute positive for influenza B. Started on Tamiflu and continued. Acute exacerbation of COPD with possible pneumonia Impression of chest x-ray by radiologist: Mild bibasilar airspace disease.? This may indicate pneumonia superimposed on chronic emphysematous changes. Chest x-ray was independently reviewed and compared to previous x-rays and I agree with radiology interpretation. Pneumonia Gram-positive, gram-negative or viral (influenza) CBC reviewed showed normal white counts. Scheduled DuoNeb Albuterol as needed Mucinex ordered Solu-Medrol IV ordered. Continue home ICS. Levaquin ordered. On home supplemental oxygen of 3 L with oxygen saturation of at least 95%, titrate as necessary. Monitor BMP and CBC Elevated BUN/dehydration BUN of 22 on presentation. Review of old records essentially showed normal BUN. Home steroid use may be contributing. Started on gentle IV hydration. Trend BMP. Hypertension Blood pressure is not within goal Home metoprolol continued. As needed hydralazine ordered. Trend blood pressure and adjust blood pressure medications. DVT prophylaxis Subcutaneous Lovenox ordered. Charges/Coding Visit Charges Inpatient E&M: 56685 Init Hosp L3
[2022-05-08] MEDS: Oseltamivir Phosphate 30 MG Capsule PO ×2 (05:01→19:43)
[2022-05-08] MEDS: 0.9% Normal Saline 1,000 ML 75 ML IV (05:40)
[2022-05-08] MEDS: guaiFENesin 1,200 MG Tablet 1200 MG PO ×2 (06:41→19:43)
[2022-05-08] MEDS: levoFLOXacin 750 MG Tablet PO (06:41)
--- NOTE | 2022-05-08 08:52 | PN.HOSP_ITS ---
Reason for Visit Reason for Visit: Diagnoses Influenza due to other identified influenza virus with other respiratory manife stations (05/08/22) Pneumonia, unspecified organism (05/08/22) Chronic obstructive pulmonary disease with (acute) exacerbation (05/08/22) Subjective Subjective Still short of breath Objective Data Objective Data Vital Signs: Vital Signs Temp Pulse Resp BP Pulse Ox O2 Del Method O2 Flow Rate 36.8 C 74 22 H 177/82 H 97 Nasal Cannula 3 05/08/22 05:19 05/08/22 05:19 05/08/22 05:19 05/08/22 05:19 05/08/22 05:19 05/08/22 05:19 05/08/22 05:19 Oxygen Flow Rate (L/min) 3 Oxygen Delivery Method Nasal Cannula Weight: 58.6 kg Body Mass Index (BMI) 25.2 Intake & Output: Intake and Output for Last 24 Hours 05/06/22 05/07/22 05/08/22 23:59 23:59 23:59 Intake Total 357.5 / 357.5 Output Total 0 / 0 Balance 357.5 / 357.5 Lab / Micro Data Result Diagrams: 05/08/22 02:26 05/08/22 02:26 Labs: Laboratory Results - last 24 hr 05/08/22 02:26: WBC 7.1, RBC 4.98, Hgb 14.3, Hct 46.2, MCV 92.8, MCH 28.7, MCHC 31.0 L, RDW Std Deviation 46.0 H, RDW Coeff of Joi 13.5, Plt Count 213, MPV 9.7, Immature Gran % (Auto) 0.400, Neut % (Auto) 79.2 H, Lymph % (Auto) 10.3 L, [place] % (Auto) 8.7, Eos % (Auto) 0.8, Baso % (Auto) 0.6, Absolute Neuts (auto) 5.6, Absolute Lymphs (auto) 0.73 L, Nucleated RBC % 0 05/08/22 02:26: D-Dimer Quant (PE/DVT) 0.70 H* 05/08/22 02:26: Sodium 138, Potassium 3.8, Chloride 103, Carbon Dioxide 30.0, Anion Gap 5, BUN 22 H, Creatinine 0.74, Estim Creat Clear Calc 35.99, Est GFR (MDRD) Af Amer 98, Est GFR (MDRD) Non-Af 81, BUN/Creatinine Ratio 29.5 H, Glucose 108 H, Calcium 9.0, Troponin I High Sens 9 05/08/22 02:26: Lactic Acid 0.6 Micro: Microbiology 05/08/22 02:32 Nasal Secretion SARS-CoV-2 & FLU Antigen (Rapid) - Final Influenzae B Radiography Diagnostic Testing: Radiology Impression Chest X-Ray 05/08/22 02:25 IMPRESSION: Mild bibasilar airspace disease. This may indicate pneumonia superimposed on chronic emphysematous changes. Electronically Signed: Puma Ortiz MD at 3:31 EDT , Physical Exam Const alert and no apparent distress Resp normal respiratory effort, no retractions, no use of accessory muscles and clear to auscultation bilaterally Cardio regular rate, regular rhythm, S1 normal heart sound and S2 normal heart sound GI normal to inspection, nondistended, normoactive bowel sounds, soft to palpation, non-tender and non-distended Extremity normal to inspection Assessment & Plan Assessment/Plan (1) COPD exacerbation: PLAN: Acute exacerbation of COPD with possible pneumonia Scheduled DuoNeb Albuterol as needed Mucinex ordered Solu-Medrol IV ordered. Continue home ICS. Levaquin ordered. On home supplemental oxygen of 3 L with oxygen saturation of at least 95%, titrate as necessary. Monitor BMP and CBC Exacerbated by influenza. Chest x-ray personally reviewed and shows chronic changes not significant change from January 10, 2022. We will continue with the levofloxacin. Check urinary antigens for Streptococcus and Legionella. Check sputum culture. Infectious work-up other than influenza is negative then would discontinue antibiotics. (2) Influenza B: PLAN: Influenza B infection Rapid COVID screen negative. Acute positive for influenza B. Started on Tamiflu and continued. (3) Hypertension, accelerated: PLAN: Certainly exacerbated due to the patient's underlying COPD and influenza but has been persistently high in the 170s 180s. Patient currently takes metoprolol tartrate 50 mg twice daily. We will add HCTZ PLAN: Plan DVT prophylaxis Subcutaneous Lovenox ordered. Disposition: Monitor. Charges/Coding Visit Charges Inpatient E&M: 82441 Subs Hosp L2
[2022-05-08] MEDS: busPIRone 5 MG Tablet PO ×2 (11:15→19:43)
[2022-05-08] MEDS: Metoprolol Tartrate 50 MG Tablet PO ×2 (11:15→19:43)
[2022-05-08] MEDS: Enoxaparin 40 MG/0.4 ML Syringe SC (11:17)
[2022-05-08] MEDS: PARoxetine 10 MG Tablet PO (11:17)
[2022-05-08] MEDS: hydroCHLOROthiazide 25 MG Tablet PO (11:17)
--- NOTE | 2022-05-08 11:25 | CASEMGMT ---
MORGAN MG Face to Face with patient for initial transition planning/care coordination assessment. RN CM introduced self and role at [facility]. Patient lying in bed, alert and oriented, daughter at bedside. Patient willing to participate in assessment and is able to answer all questions appropriately. Care providers, pharmacy, and demographics verified. Patient wishes to discharge home, RN HARITHA discussed Patient Link program with patient and voiced interest, referral made to patient link. Patient states she has no further needs or concerns at this time. CM to follow for discharge planning needs that may arise. PCP: Nikita Specialists: Moshe Johnston menagerie caretaker; Bakari radiation oncologist Preferred Pharmacy: [facility] Insurance: [place] Prescription Benefit: yes Living Will/HPOA: none, patient wishes to complete, SW notified LNOK: , daughter, stepson Living Arrangements: Patient lives with in a 2 story home with bed and bath on first floor, 2 steps to enter the home. Transportation: self, daughter DME/HHC: Patient has shower chair, grab bars, rollator, grab bars, nebulizer, pulse ox, and home oxygen with portability with [employer] at 3 lpm. No previous HHC or SNF Disposition Plan: Patient to discharge home with family support and follow-up plans in place and Patient link referral. Asiya VELAZQUEZ, RN, CM
[2022-05-08] MEDS: Ibuprofen 600 MG Tablet PO ×2 (11:51→19:43)
[2022-05-08] MEDS: 0.9% Saline Lock 10 ML Syringe IV ×2 (15:02→19:44)
--- NOTE | 2022-05-08 18:00 | CASEMGMT ---
Social Work PCU Reason for consult: Advance directives Referral source: RN HARITHA Updated by MORGAN Mcfadden of patient's interest in completing advanced directives. Participated in multidisciplinary rounds this date and let patient know this telegraphic typewriter operator would be back later to discuss advance directives. Patient expressed during rounds that wanted to talk about the directives. Returned to patient's room this evening. Visitors present who were not present during the daytime, and patient's indicated desire to speak with the social worker health services about advance directives but not at current time. Let patient know that social work would be back at a later time to attempt to discuss and if still not a good time could leave information and contact number to call and discuss at patient's convenience. Patient expressed agreement and thanks. -LIZETTE Noel, DEVELOPMENT SPEC *This note was generated with [employer] dictation software. It may contain incorrect words, spelling, and punctuation that were not noted in review of the chart prior to signing*
[2022-05-08] MEDS: Gabapentin 100 MG Capsule PO (19:43)
[2022-05-09] VITALS (10 sets, daily range): BP systolic 128–155; BP diastolic 66–73; PULSE 60–82; RESP 15–18; TEMP 36.7–36.8; O2SAT 80–98
[2022-05-09] MEDS: Ipratropium/Albuterol Sulfate 3 ML AMPUL.NEB INHALATION ×4 (03:09→14:32)
[2022-05-09] MEDS: Acetaminophen 325 MG Tablet 650 MG PO (06:03)
[2022-05-09] MEDS: 0.9% Saline Lock 10 ML Syringe IV (06:03)
[2022-05-09] MEDS: Gabapentin 100 MG Capsule PO (06:03)
--- NOTE | 2022-05-09 08:07 | PCM.PN.HOSP ---
Reason for Visit Reason for Visit: Diagnoses Essential (primary) hypertension (05/08/22) Influenza due to other identified influenza virus with other respiratory manifestations (05/08/22) Pneumonia, unspecified organism (05/08/22) Chronic obstructive pulmonary disease with (acute) exacerbation (05/08/22) Subjective Subjective Feels much better. Non-productive cough, worse at night. Gabapentin helped her restless legs. Objective Data Objective Data Vital Signs: Vital Signs Temp Pulse Resp BP Pulse Ox O2 Del Method O2 Flow Rate 36.8 C 60 18 128/66 H 98 Nasal Cannula 3 05/09/22 03:05 05/09/22 03:10 05/09/22 03:10 05/09/22 03:05 05/09/22 03:05 05/09/22 03:05 05/09/22 03:05 Oxygen Flow Rate (L/min) 3 Oxygen Delivery Method Nasal Cannula Weight: 58.6 kg Body Mass Index (BMI) 25.2 Intake & Output: Intake and Output for Last 24 Hours 05/07/22 05/08/22 05/09/22 23:59 23:59 23:59 Intake Total 1777.5 / 1777.5 120 / 120 Output Total 0 / 0 Balance 1777.5 / 1777.5 120 / 120 Lab / Micro Data Result Diagrams: 05/09/22 08:09 05/09/22 08:09 Micro: Microbiology 05/08/22 15:05 Urine, Clean Catch Legionella Antigen - Final 05/08/22 15:05 Urine, Clean Catch Streptococcus pneumoniae Antigen (M - Final 05/08/22 02:32 Nasal Secretion SARS-CoV-2 & FLU Antigen (Rapid) - Final Influenzae B Physical Exam Const alert and no apparent distress Resp normal respiratory effort and no retractions Resp Narrative: improved aeration. some expiratory wheezes. Cardio regular rate, regular rhythm, S1 normal heart sound and S2 normal heart sound GI normal to inspection, nondistended, normoactive bowel sounds and soft to palpation Assessment & Plan Assessment/Plan (1) COPD exacerbation: PLAN: Acute exacerbation of COPD with possible pneumonia Scheduled DuoNeb Albuterol as needed Mucinex ordered Solu-Medrol IV ordered. Continue home ICS. Levaquin ordered. On home supplemental oxygen of 3 L with oxygen saturation of at least 95%, titrate as necessary. Monitor BMP and CBC Exacerbated by influenza. Chest x-ray personally reviewed and shows chronic changes not significant change from January 10, 2022. Strep and Legionella antigens negative. Sputum culture currently pending but thus far negative. (2) Influenza B: PLAN: Influenza B infection Rapid COVID screen negative. Acute positive for influenza B. Started on Tamiflu and continued. (3) Hypertension, accelerated: PLAN: Improved Certainly exacerbated due to the patient's underlying COPD and influenza but has been persistently high in the 170s 180s. Patient currently takes metoprolol tartrate 50 mg twice daily. We will add HCTZ PLAN: Plan DVT prophylaxis Subcutaneous Lovenox ordered. Disposition: Monitor.
--- NOTE | 2022-05-09 08:31 | NURSING ---
Per patient request turned O2 down to 2L NC, patient sating at 93%.
[2022-05-09 08:37] LABS: Absolute Lymphocyte Count 0.43 X10^3/uL (0.83-4.51); Absolute Neutrophil Count 7.5 X10^3/uL (2.0-7.7); Basophil# 0.01 X10^3/uL; Basophil% 0.1 % (0-1); Hematocrit 42.3 % (37-47); Hemoglobin 13.4 g/dL (12.0-15.0); Lymphocyte # 0.43 X10^3/ul (0.83-4.51); Lymphocyte % 5.1 % (19-41); Mean Corp Hgb Conc 31.7 g/dL (32-36); Mean Corpuscular Hgb 28.8 pg (27.0-32.0); Mean Platelet Vol. 9.8 fl (6.2-12.0); Monocyte# 0.44 X10^3/uL; Monocyte% 5.3 % (0-10); NRBC Flagged by Analyzer 0 % (0-5); Neutrophil # 7.45 X10^3/uL (2.7-7.7); POSITIVE DIFFERENTIAL YES; Platelet Count 216 K/mm3 (150-450); RBC Distribution Width CV 13.4 % (11.6-14.6); RBC Distribution Width SD 45.2 fl (35.1-43.9); Red Blood Count 4.65 M/mm3 (4.2-5.4); White Blood Count 8.4 K/mm3 (4.4-11.0)
[2022-05-09] MEDS: Enoxaparin 40 MG/0.4 ML Syringe SC (08:37)
[2022-05-09] MEDS: Oseltamivir Phosphate 30 MG Capsule PO (08:38)
[2022-05-09] MEDS: hydroCHLOROthiazide 25 MG Tablet PO (08:39)
[2022-05-09] MEDS: PARoxetine 10 MG Tablet PO (08:39)
[2022-05-09] MEDS: guaiFENesin 1,200 MG Tablet 1200 MG PO (08:39)
[2022-05-09] MEDS: Metoprolol Tartrate 50 MG Tablet PO (08:40)
[2022-05-09] MEDS: busPIRone 5 MG Tablet PO (08:41)
[2022-05-09 08:43] LABS: Differential Indicated SCAN CRITERIA MET
[2022-05-09 08:58] LABS: Anion Gap 8 (5-15); BUN 21 mg/dL (7-18); BUN/Creat Ratio 25.7 RATIO (10-20); Calcium,Total 9.3 mg/dL (8.5-10.1); Chloride 100 mmol/L (98-107); Creatinine, Serum 0.82 mg/dL (0.55-1.02); EST Glomerular Filtration Rate 73 mL/min (>60); Est Glom Filt Rate - Afr Amer 88 mL/min (>60); Estimated Creatinine Clearance 43.89 ml/min; Glucose 143 mg/dL (74-106); Potassium 3.4 mmol/L (3.5-5.1); Sodium Level 138 mmol/L (136-145)
[2022-05-09 09:37] LABS: Platelet Estimate ADEQUATE (ADEQ); Red Cell Morphology NORM C+C NORMAL (NORM C&C)
[2022-05-09] MEDS: Potassium Chloride Oral Tablet 20 MEQ 40 MEQ PO (10:57)
--- NOTE | 2022-05-09 12:54 | PCM.DC ---
Discharge Instructions Diet Discharge Diet: No restrictions Dressing / Incision Call your doctor if you observe: Shortness of breath Follow Up Care Test Results: Test results from this visit will be discussed in further detail at your follow-up appointment, if applicable. Discharge Plan Admission Admit Date/Time: 05/08/22 04:09 Primary Reason for Your Visit: COPD exacerbation. Pneumonia. Influenza B. Attending Provider: Walt Kim Primary Care Provider: Eryn Shelton Consulting Providers: Bari Dahl Discharge Orders/Prescriptions Prescriptions: New acetaminophen 325 mg Tablet 650 mg PO Q6H PRN PRN (Reason: Pain 1-10 Or Fever>100.7) Qty: 0 0RF gabapentin 100 mg Capsule 100 mg PO TIDCM PRN (Reason: restless legs) Qty: 30 0RF hydrochlorothiazide 25 mg Tablet 25 mg PO DAILY Qty: 30 0RF levofloxacin 750 mg Tablet 750 mg PO Q48@0600 Qty: 2 0RF oseltamivir 30 mg Capsule 30 mg PO BID Qty: 7 0RF codeine-guaifenesin [Guaifenesin AC] 10-100 mg/5 mL liquid 5 ml PO Q6H PRN (Reason: coughing fits) Qty: 120 0RF prednisone 20 mg tablet 40 mg PO DAILY Qty: 10 0RF Continued (DME) Handicap Placard See Rx Instructions .Route .MEDSUPPLY Qty: 1 0RF Rx Instructions: 5 year RX (11/05/21-11/05/26) metoprolol tartrate 50 mg tablet 50 mg PO BID Qty: 180 3RF albuterol sulfate 90 mcg/actuation HFA aerosol inhaler 2 puff INHALATION Q4H PRN (Reason: shortness of breath or wheezing) Qty: 8.5 6RF Rx Instructions: administer with spacer budesonide 0.5 mg/2 mL suspension for nebulization 0.5 mg inhalation BID Qty: 120 6RF ipratropium-albuterol 0.5 mg-3 mg(2.5 mg base)/3 mL solution for nebulization 3 ml INHALATION Q4H PRN (Reason: shortness of breath or wheezing) Qty: 120 6RF Rx Instructions: J96.11 Chronic respiratory failure with hypoxia J44.1 COPD with exacerbation paroxetine HCl [Paxil] 10 mg tablet 10 mg PO DAILY Qty: 90 3RF buspirone 5 mg tablet 5 mg PO BID Qty: 180 3RF Discontinued prednisone 10 mg tablet 10 mg PO DAILY Qty: 30 6RF Referrals / Follow Up: [facility] [Provider Group] - 05/12/22 9:45 am Eryn Shelton MD [Primary Care Provider] - Within 2 Weeks Jony Villegas DO [Med Staff - Active Staff] - 06/02/22 9:30 am Disposition Disposition (needs filled in before D/C Order can be placed): Home, Self Care
--- NOTE | 2022-05-09 13:11 | PCM.DC.SUM ---
Providers Date of Admission: 05/08/22 Primary Care Physician: Dr. Eryn Shelton MD Reason For Visit: COPD EXACERBATION Diagnosis Discharge Diagnosis (1) COPD exacerbation: Status: Chronic Code(s): J44.1 - Chronic obstructive pulmonary disease with (acute) exacerbation Plan: Acute exacerbation of COPD with possible pneumonia Scheduled DuoNeb Albuterol as needed Mucinex ordered Solu-Medrol IV ordered. Continue home ICS. Levaquin ordered. On home supplemental oxygen of 3 L with oxygen saturation of at least 95%, titrate as necessary. Monitor BMP and CBC Exacerbated by influenza. Chest x-ray personally reviewed and shows chronic changes not significant change from January 10, 2022. Strep and Legionella antigens negative. Sputum culture currently pending but thus far negative. (2) Influenza B: Status: Acute Code(s): J10.1 - Influenza due to other identified influenza virus with other respiratory manifestations Plan: Influenza B infection Rapid COVID screen negative. Acute positive for influenza B. Started on Tamiflu and continued. (3) Hypertension, accelerated: Status: Acute Code(s): I10 - Essential (primary) hypertension Plan: Improved Certainly exacerbated due to the patient's underlying COPD and influenza but has been persistently high in the 170s 180s. Patient currently takes metoprolol tartrate 50 mg twice daily. We will add HCTZ Plan DVT prophylaxis Subcutaneous Lovenox ordered. Disposition: Monitor. Medications at Discharge Home Medications metoprolol tartrate 50 mg tablet 50 mg PO BID #180 tabs 10/28/21 Handicap Placard #1 ea 11/05/21 albuterol sulfate 90 mcg/actuation aerosol inhaler 2 puff inhalation Q4H PRN shortness of breath or wheezing #8.5 grams 11/05/21 budesonide 0.5 mg/2 mL suspension for nebulization 0.5 mg (2 mL) inhalation BID #120 mL 11/05/21 ipratropium 0.5 mg-albuterol 3 mg (2.5 mg base)/3 mL nebulization soln 3 ml inhalation Q4H PRN shortness of breath or wheezing #120 vials 11/05/21 paroxetine HCl 10 mg tablet (Paxil) 10 mg PO DAILY #90 tabs 11/05/21 buspirone 5 mg tablet 5 mg PO BID #180 tabs 01/16/23 acetaminophen 325 mg tablet 650 mg PO Q6H PRN PRN Pain 1-10 Or Fever>100.7 #0 tabs 05/09/22 codeine 10 mg-guaifenesin 100 mg/5 mL oral liquid (Guaifenesin AC) 5 ml PO Q6H PRN coughing fits #120 mL 05/09/22 gabapentin 100 mg capsule 100 mg PO TIDCM PRN restless legs #30 caps 05/09/22 hydrochlorothiazide 25 mg tablet 25 mg PO DAILY #30 tabs 05/09/22 levofloxacin 750 mg tablet 750 mg PO Q48@0600 #2 tabs 05/09/22 oseltamivir 30 mg capsule 30 mg PO BID #7 caps 05/09/22 prednisone 20 mg tablet 40 mg PO DAILY #10 tabs 05/09/22 Hospital Course Operations None Procedures None Summary of Care Provided Minutes Spent on Discharge: 33 Hospital Course: Patient presents with shortness of breath due to COPD. Patient was also positive for influenza B. There is concern about pneumonia as patient was started on empiric levofloxacin. Pneumonia work-up for the most part was unremarkable we will continue with levofloxacin for 2 more doses at every 48 hours. Patient will continue Tamiflu. Patient also be on prednisone. Patient had some other issues regards to nonproductive cough. Patient will be discharged with guaifenesin with codeine. Patient did have restless legs and she was started on gabapentin 100 mg 3 times daily as needed and that seemed to help so she will have a prescription for that. Patient also did have accelerated hypertension. Patient was on metoprolol as outpatient patient is also subsequent been added 25 mg of hydrochlorothiazide. Weight / BMI Weight Weight: 58.6 kg Body Mass Index (BMI) 25.2 ABG / Lab / Microbiology Data Result Diagrams: 05/09/22 08:09 05/09/22 08:09 Laboratory: Laboratory Results - last 24 hr 05/09/22 08:09: WBC 8.4, RBC 4.65, Hgb 13.4, Hct 42.3, MCV 91.0, MCH 28.8, MCHC 31.7 L, RDW Std Deviation 45.2 H, RDW Coeff of Joi 13.4, Plt Count 216, MPV 9.8, Immature Gran % (Auto) 0.500, Neut % (Auto) 89.0 H, Lymph % (Auto) 5.1 L, [place] % (Auto) 5.3, Eos % (Auto) 0.0, Baso % (Auto) 0.1, Absolute Neuts (auto) 7.5, Absolute Lymphs (auto) 0.43 L, Nucleated RBC % 0, Platelet Estimate ADEQUATE, RBC Morphology NORM C+C 05/09/22 08:09: Sodium 138, Potassium 3.4 L, Chloride 100, Carbon Dioxide 30.0, Anion Gap 8, BUN 21 H, Creatinine 0.82, Estim Creat Clear Calc 43.89, Est GFR (MDRD) Af Amer 88, Est GFR (MDRD) Non-Af 73, BUN/Creatinine Ratio 25.7 H, Glucose 143 H, Calcium 9.3 Microbiology: Microbiology 05/08/22 15:05 Urine, Clean Catch Legionella Antigen - Final 05/08/22 15:05 Urine, Clean Catch Streptococcus pneumoniae Antigen (M - Final 05/08/22 02:32 Nasal Secretion SARS-CoV-2 & FLU Antigen (Rapid) - Final Influenzae B D/C Instructions Discharge Diet: No restrictions Call your doctor if you observe: Shortness of breath Meaningful Use Info Meaningful Use Diagnoses (Choose all that apply): None applicable Discharge Plan Admission Admit Date/Time: 05/08/22 04:09 Primary Reason for Your Visit: COPD exacerbation. Pneumonia. Influenza B. Attending Provider: Walt Kim Primary Care Provider: Eryn Shelton Consulting Providers: Bari Dahl Discharge Orders/Prescriptions Prescriptions: New acetaminophen 325 mg Tablet 650 mg PO Q6H PRN PRN (Reason: Pain 1-10 Or Fever>100.7) Qty: 0 0RF gabapentin 100 mg Capsule 100 mg PO TIDCM PRN (Reason: restless legs) Qty: 30 0RF hydrochlorothiazide 25 mg Tablet 25 mg PO DAILY Qty: 30 0RF levofloxacin 750 mg Tablet 750 mg PO Q48@0600 Qty: 2 0RF oseltamivir 30 mg Capsule 30 mg PO BID Qty: 7 0RF codeine-guaifenesin [Guaifenesin AC] 10-100 mg/5 mL liquid 5 ml PO Q6H PRN (Reason: coughing fits) Qty: 120 0RF prednisone 20 mg tablet 40 mg PO DAILY Qty: 10 0RF Continued (DME) Handicap Placard See Rx Instructions .Route .MEDSUPPLY Qty: 1 0RF Rx Instructions: 5 year RX (11/05/21-11/05/26) metoprolol tartrate 50 mg tablet 50 mg PO BID Qty: 180 3RF albuterol sulfate 90 mcg/actuation HFA aerosol inhaler 2 puff INHALATION Q4H PRN (Reason: shortness of breath or wheezing) Qty: 8.5 6RF Rx Instructions: administer with spacer budesonide 0.5 mg/2 mL suspension for nebulization 0.5 mg inhalation BID Qty: 120 6RF ipratropium-albuterol 0.5 mg-3 mg(2.5 mg base)/3 mL solution for nebulization 3 ml INHALATION Q4H PRN (Reason: shortness of breath or wheezing) Qty: 120 6RF Rx Instructions: J96.11 Chronic respiratory failure with hypoxia J44.1 COPD with exacerbation paroxetine HCl [Paxil] 10 mg tablet 10 mg PO DAILY Qty: 90 3RF buspirone 5 mg tablet 5 mg PO BID Qty: 180 3RF Discontinued prednisone 10 mg tablet 10 mg PO DAILY Qty: 30 6RF Referrals / Follow Up: [facility] [Provider Group] - 05/12/22 9:45 am Eryn Shelton MD [Primary Care Provider] - Within 2 Weeks Jony Villegas DO [Med Staff - Active Staff] - 06/02/22 9:30 am Disposition Disposition (needs filled in before D/C Order can be placed): Home, Self Care Charges/Coding Visit Charges Inpatient E&M: 56984 Disch Hosp >30min
--- NOTE | 2022-05-09 13:50 | CASEMGMT ---
Patient has order for discharge. RN CM in to room to discuss discharge plan. Patient to discharge home with follow-up with patient link. Patient states their walker at home is broken and would like new walker. Script received, patient prefers [employer]. [place] [facility] [place] [employer]. Patient had no further questions or concerns at this time.
--- NOTE | 2022-05-09 15:19 | CASEMGMT ---
Social Work Pt had wanted to complete LW/POA. Pt is being discharged today, family present and had indicated yesterday may not want to do paperwork w/family present. SW gave pt copies of LW/POA paperwork, and gave her the number to the SW dept to call to set up an appointment to complete the paperwork at a later time. Pt states understanding and states will call to set up a time to complete the paperwork. LIZETTE Handley
== END 2022-05-09 03:52 | disposition home or self-care (01) | DRG 190 ==
LOC: ED 04:13 → PCU 04:42
PROVIDERS: Admitting Provider Hospitalist; Emergency Provider Emergency Medicine; PCP Internal Medicine
DX: J44.1 Chronic obstructive pulmonary disease with (acute) exacerbation (principal); J18.9 Pneumonia, unspecified organism; J96.11 Chronic respiratory failure with hypoxia; J44.0 Chronic obstructive pulmonary disease with (acute) lower respiratory infection; F17.210 Nicotine dependence, cigarettes, uncomplicated; I10 Essential (primary) hypertension; J10.1 Influenza due to other identified influenza virus with other respiratory manifestations; Z85.118 Personal history of other malignant neoplasm of bronchus and lung
CPT/HCPCS: 71045; 80048; 83605; 84484; 85025; 85379; 87040; 87070; 87205; 87428; 87449; 93005; 94640; 94668; 99285; J7030; A4216

== ENCOUNTER 2022-05-19 00:17 | Inpatient (IN) | payer MEDICARE, SELFPAY ==
[2022-05-19] VITALS (30 sets, daily range): BP systolic 87–155; BP diastolic 49–141; PULSE 71–148; RESP 12–25; TEMP 36.6–37.6; O2SAT 90–100; BMI 26.1; BMI 24.8
--- NOTE | 2022-05-19 00:48 | EKG12_ITS ---
Test Reason : SOB Blood Pressure : / mmHG Vent. Rate : 133 BPM Atrial Rate : 000 BPM P-R Int : 000 ms QRS Dur : 072 ms QT Int : 292 ms P-R-T Axes : 000 069 246 degrees QTc Int : 434 ms Atrial fibrillation with rapid ventricular response Marked ST abnormality, possible inferior subendocardial injury Abnormal ECG Confirmed by CALI NICHOLS, VLADISLAV ([id number]), newspaper or periodical editor SURY FARMER ([id number]) on 05/25/2022 6:48:24 AM Referred By: Confirmed By:PRAKASH LEIVA MD
--- NOTE | 2022-05-19 00:48 | CT_ITS ---
EXAM: CT ANGIOGRAPHY CHEST WITHOUT AND WITH INTRAVENOUS CONTRAST CLINICAL INDICATION: dyspnea TECHNIQUE: Helically acquired angiography images were obtained of the chest without and with intravenous contrast. This CT exam was performed using one or more of the following dose reduction techniques: automated exposure control, adjustment of the mA and/or kV according to patient size, and/or use of iterative reconstruction technique. This report was created using [employer] report generation technology. MIP reconstructed images were created and reviewed. CONTRAST: 75 cc of Isovue-370 IV. RADIATION DOSE: CTDIvol = 12.71 mGy, DLP = 242.09 mGy-cm. COMPARISON: 12/02/2021. FINDINGS: PULMONARY ARTERIES: Unremarkable. Normal in caliber. No evidence of pulmonary embolism. AORTA: Unremarkable. Normal in caliber. No evidence of dissection. GREAT VESSELS OF AORTIC ARCH: Unremarkable. Normal in caliber. No evidence of dissection. LUNGS AND PLEURAL SPACES: Patchy opacification and tree-in-bud nodular opacities left lung base consistent with pneumonia. Mucus plugging lower lobe bronchi bilaterally. Emphysema. Status post right upper lobectomy and partial atelectasis of the right middle lobe. No mass. No pleural effusion or thickening. HEART: Coronary artery calcifications. No pericardial effusion. No signs of right heart strain, ratio of right ventricle to left ventricle measures less than 1. MEDIASTINUM: Unremarkable. No mediastinal or hilar adenopathy. Esophagus is unremarkable. No hiatal hernia. THYROID: Unremarkable. No thyroid lesions. BONES/JOINTS: Unremarkable. No suspicious lytic or blastic abnormality. CT/CTA Chest W/WO Contrast IMPRESSION: 1. Patchy opacification and tree-in-bud nodular opacities left lung base consistent with pneumonia. 2. Mucus plugging lower lobe bronchi bilaterally. 3. No pulmonary embolism or dissection. 4. Emphysema. 5. Status post right upper lobectomy and partial atelectasis of the right middle lobe. 6. Coronary artery disease. Electronically Signed: Bhanu Pope MD at 2:52 EDT ,
[2022-05-19 00:59] LABS: Absolute Lymphocyte Count 0.58 X10^3/uL (0.83-4.51); Absolute Neutrophil Count 14.5 X10^3/uL (2.0-7.7); Basophil# 0.05 X10^3/uL; Basophil% 0.3 % (0-1); Eosinophil# 0.01 X10^3/uL; Eosinophils% 0.1 % (0-5); Hemoglobin 14.3 g/dL (12.0-15.0); Lymphocyte # 0.58 X10^3/ul (0.83-4.51); Lymphocyte % 3.7 % (19-41); Mean Corp Hgb Conc 31.8 g/dL (32-36); Mean Corpuscular Hgb 28.7 pg (27.0-32.0); Mean Corpuscular Volume 90.2 fL (81-99); Mean Platelet Vol. 9.6 fl (6.2-12.0); Monocyte# 0.68 X10^3/uL; Monocyte% 4.3 % (0-10); NRBC Flagged by Analyzer 0 % (0-5); Neutrophil # 14.45 X10^3/uL (2.7-7.7); Neutrophil % 91.2 % (47-70); POSITIVE DIFFERENTIAL YES; Platelet Count 237 K/mm3 (150-450); RBC Distribution Width CV 13.1 % (11.6-14.6); RBC Distribution Width SD 43.1 fl (35.1-43.9); Red Blood Count 4.99 M/mm3 (4.2-5.4); White Blood Count 15.8 K/mm3 (4.4-11.0)
[2022-05-19 01:01] LABS: Differential Indicated SCAN CRITERIA MET
[2022-05-19 01:07] LABS: Prothrombin Time (Protime)PT. 12.6 SECONDS (11.7-14.9)
[2022-05-19 01:08] LABS: Partial Thromboplast Time 33.7 Seconds (24.1-36.2)
[2022-05-19] MEDS: Ipratropium/Albuterol Sulfate 3 ML AMPUL.NEB INHALATION ×3 (01:09→19:16)
[2022-05-19 01:18] LABS: Anion Gap 10 (5-15); BUN 26 mg/dL (7-18); BUN/Creat Ratio 30.6 RATIO (10-20); Calcium,Total 9.2 mg/dL (8.5-10.1); Chloride 93 mmol/L (98-107); Creatinine, Serum 0.85 mg/dL (0.55-1.02); EST Glomerular Filtration Rate 70 mL/min (>60); Est Glom Filt Rate - Afr Amer 84 mL/min (>60); Estimated Creatinine Clearance 42.34 ml/min; Glucose 125 mg/dL (74-106); Magnesium 1.8 mg/dL (1.6-2.6); Potassium 2.8 mmol/L (3.5-5.1); Sodium Level 130 mmol/L (136-145); Troponin-I HS 9 pg/mL (3.0-54.0)
[2022-05-19 01:22] LABS: BNP,B-Type NATRIURETIC PEPTIDE 212.1 pg/mL (0-100)
[2022-05-19 01:24] LABS: Differential Comment SCANNED
[2022-05-19] MEDS: MethylPREDNISolone 125 MG/2 ML Vial IV (01:25)
[2022-05-19] MEDS: dilTIAZem 25 MG/5 ML Vial 10 MG IV BOLUS (01:52)
[2022-05-19 01:54] LABS: Lactic Acid 1.6 mmol/L (0.4-1.9)
[2022-05-19] MEDS: Potassium Chloride 10mEq/100mL 10 MEQ/100 ML IV.SOLN. 100 MEQ IV BOLUS ×3 (02:15→05:19)
[2022-05-19 02:17] LABS: Thyroid Stim Hormone (TSH) 2.98 uIU/mL (0.358-3.74)
[2022-05-19] MEDS: Potassium Chloride Oral Tablet 20 MEQ 40 MEQ PO (02:39)
[2022-05-19] MEDS: Digoxin 250 MCG/ML Ampul 500 MCG IV (03:05)
--- NOTE | 2022-05-19 04:14 | EX.ED.DYSGE1 ---
HPI History of Present Illness Chief Complaint: Shortness of Breath Narrative Narrative: Patient is a 71-year-old female with past medical history of lung cancer requiring lobectomy as well as COPD who wears 3 L nasal cannula oxygen 14/09. She was recently admitted to the hospital with approximately 2 weeks ago secondary to influenza B with possible pneumonia. Patient states that over the past few days she has been having mild increased shortness of breath but that this evening the shortness of breath sensation spiked and she is concerned for repeat pneumonia and therefore called EMS to bring her in for evaluation [facility] Medical History Anxiety Chronic bronchitis Chronic hypoxemic respiratory failure Chronic obstructive pulmonary disease with (acute) exacerbation COPD (chronic obstructive pulmonary disease) Depression Emphysema of lung History of lung cancer History of pneumonia HTN (hypertension) Left anterior knee pain Lung cancer Lung mass Lung nodule Nicotine dependence, cigarettes, uncomplicated Pneumonia Primary malignant neoplasm of both lungs Seasonal allergies Tobacco dependence in remission Unintentional weight loss Home Medications Handicap Placard #1 ea 11/05/21 [Rx Last Taken Unknown] albuterol sulfate 90 mcg/actuation aerosol inhaler 2 puff inhalation Q4H PRN shortness of breath or wheezing #8.5 grams 11/05/21 [Rx Last Taken Unknown] budesonide 0.5 mg/2 mL suspension for nebulization 0.5 mg (2 mL) inhalation BID #120 mL 11/05/21 [Rx Last Taken Unknown] ipratropium 0.5 mg-albuterol 3 mg (2.5 mg base)/3 mL nebulization soln 3 ml inhalation Q4H PRN shortness of breath or wheezing #120 vials 11/05/21 [Rx Last Taken Unknown] acetaminophen 325 mg tablet 650 mg PO Q6H PRN PRN Pain 1-10 Or Fever>100.7 #0 tabs 05/09/22 [Rx Last Taken Unknown] oseltamivir 30 mg capsule 30 mg PO BID #7 caps 05/09/22 [Rx Last Taken Unknown] buspirone 5 mg tablet 5 mg PO BID depression 05/19/22 [History Last Taken Unknown] guaifenesin 1,200 mg tablet, extended release 12 hr 1,200 mg PO Q12H congestion 05/19/22 [History Last Taken Unknown] hydrochlorothiazide 25 mg tablet 25 mg PO DAILY water pill 05/19/22 [History Last Taken Unknown] metoprolol tartrate 50 mg tablet 50 mg PO BID heart 05/19/22 [History Last Taken Unknown] paroxetine HCl 10 mg tablet (Paxil) 10 mg PO DAILY anxiety 05/19/22 [History Last Taken Unknown] prednisone 10 mg tablet 10 mg PO QDAY breathing 05/19/22 [History Last Taken Unknown] Allergy/AdvReac Type Severity Reaction Status Date / Time meperidine HCl [From Demerol] AdvReac pass out Verified 05/12/22 09:54 Family History Mother Thyroid cancer Anemia Lung disease Father Throat cancer Diabetes Hypertension Arthritis Lung disease Sister Breast cancer Brain cancer Other Asthma Ovarian cancer Surgical History H/O pneumonectomy H/O tubal ligation History of bilateral carpal tunnel release repaired lymph node Wedge resection of lung Social History household members: spouse Smoking Status: Heavy Smoker (>10/day) Tobacco: How many years used: 50 how long ago did patient quit smoking: pt reports smoking 2-3 cigs every couple of days second hand exposure: Yes alcohol intake: never substance use type: does not use what type of physical activity do you participate in: none ROS ROS ED Constitutional Constitutional ED: Denies chills or fever(s) ENT ENT ED: Denies sore throat Cardiovascular Cardiovascular: Reports palpitations and racing heartbeat; Denies chest pain Respiratory/Chest Respiratory/Chest: Reports cough, dyspnea and dyspnea on exertion Gastrointestinal Gastrointestinal: Denies abdominal pain, diarrhea, nausea or vomiting Genitourinary Genitourinary ED: Denies dysuria Musculoskeletal Musculoskeletal: Reports myalgias Integumentary Denies rash Neurologic Neurologic: Reports headache(s) and weakness Hematologic/Lymphatic Hematologic/Lymphatic: Denies easy bleeding or easy bruising EXAM Physical Exam Const Vital Signs: 05/19/22 00:18 05/19/22 00:21 05/19/22 00:22 Temperature 99.6 F H Temperature Source Temporal Pulse Rate 144 H Respiratory Rate 14 Respiratory Effort Short of Breath Respiratory Pattern Normal Blood Pressure Blood Pressure Mean Pulse Ox 96 99 Oxygen Delivery Method Room Air Room Air Non-Rebreather Oxygen Flow Rate (L/min) 15 05/19/22 01:50 05/19/22 01:56 05/19/22 03:02 Temperature Temperature Source Pulse Rate 137 H 134 H 148 H Respiratory Rate 20 H 19 H 23 H Respiratory Effort Respiratory Pattern Blood Pressure 106/53 L 110/92 H Blood Pressure Mean 70 98 Pulse Ox 94 94 96 Oxygen Delivery Method Nasal Cannula Nasal Cannula Room Air Oxygen Flow Rate (L/min) 3 3 05/19/22 04:10 05/19/22 04:10 Temperature 98.2 F Temperature Source Temporal Pulse Rate 121 H 119 H Respiratory Rate 17 17 Respiratory Effort Respiratory Pattern Blood Pressure 127/56 H 122/66 H Blood Pressure Mean 79 84 Pulse Ox 97 97 Oxygen Delivery Method Nasal Cannula Nasal Cannula Oxygen Flow Rate (L/min) 3 3 Positive well nourished and well developed General Appearance ED: well developed HEENT Reports dry mucous membranes HEENT Narrative: No tongue or lip swelling no oral lesions no airway edema or compromise Mouth ED: Yes dry mucous membranes Mouth: dry mucous membranes Eyes PERRL and EOMs intact bilaterally General Eye ED: Yes pale conjunctiva Neck supple and no JVD Neck Narrative: No nuchal rigidity or meningeal signs noted Chest Wall palpation of chest normal Chest Narrative: No bony deformity or crepitance Resp Resp Narrative: Patient is tachypneic with diminished breath sounds throughout and rhonchi noted in the bilateral lower lobes greatest on left Cardio Rate: other Other Details: Irregularly irregular rhythm with tachycardic rate GI normal to inspection, nondistended, normoactive bowel sounds, non-tender, non-distended and no masses GI Narrative: No voluntary guarding or rigidity no pulsatile mass or fluid wave Auscultation: normoactive bowel sounds Palpation: soft Extremity normal to inspection Extremity Narrative: No asymmetric edema no pitting edema negative Homans' sign bilaterally Neuro oriented x3 and CN's II-XII intact bilaterally Sensorium / Orientation: alert Psych mental status grossly normal Skin no rashes or lesions noted General Skin Exam: Negative for jaundice MDM MDM MDM Narrative Medical decision making narrative: Patient presented to the ER tachypneic with accessory muscle use but was satting in the mid 90s on her normal 3 L. She had diminished breath sounds with rhonchi and there is concern for pneumonia versus congestive heart failure exacerbation versus COPD exacerbation. She has an irregularly irregular heart rhythm which chart review and speaking to the patient is not normal and EKG confirmed this is atrial fibrillation. Therefore with her recent hospitalization and new onset A-fib there is concern for a pulmonary embolus and therefore CT of the chest was obtained. CT revealed no PE or dissection but it shows bilateral mucous plugging with left-sided groundglass opacities concerning for pneumonia. There is also concern that this could be influenza or COVID and patient's flu swab was positive for influenza A. At this time asked be assumed that the changes to the lung tineo are most likely related to influenza but pending blood culture results and procalcitonin value antibiotics will be started as well as Tamiflu. Patient's blood pressure was soft and she is in A-fib with RVR but she is not in acute distress or unstable so therefore there is no need for cardioversion. She was given Lovenox for anticoagulation she was initially given Cardizem without much improvement and as her blood pressure was low she was changed to digoxin which did help improve the heart rate. Lab work showed that she is hypokalemic as well with a potassium of 2.8 and with the new onset A-fib this will replace orally and by IV route. At this time the patient is satting in the mid 90s on her normal 3 L but with influenza A left-sided pneumonia and new onset A-fib with RVR and hypokalemia she will need to be admitted. The case was discussed with the medicine service and they agree with this and therefore accept the patient to their service at this time. History & Record Review Discussion w/independent historian: Patient Additional record(s) reviewed:: Prior inpatient record Lab Data Attestation: I reviewed the patient's lab results. Labs: Laboratory Results - last 24 hr 05/19/22 05/19/22 05/19/22 00:30 00:30 00:30 WBC RBC Hgb Hct MCV MCH MCHC RDW Std Deviation RDW Coeff of Joi Plt Count MPV Immature Gran % (Auto) Neut % (Auto) Lymph % (Auto) [place] % (Auto) Eos % (Auto) Baso % (Auto) Absolute Neuts (auto) Absolute Lymphs (auto) Nucleated RBC % Differential Comment PT 12.6 INR 1.0 APTT 33.7 Sodium 130 L Potassium 2.8 L Chloride 93 L Carbon Dioxide 27.0 Anion Gap 10 BUN 26 H Creatinine 0.85 Estim Creat Clear Calc 42.34 Est GFR (MDRD) Af Amer 84 Est GFR (MDRD) Non-Af 70 BUN/Creatinine Ratio 30.6 H Glucose 125 H Lactic Acid Calcium 9.2 Magnesium 1.8 Troponin I High Sens 9 B-Natriuretic Peptide 212.1 H TSH 05/19/22 05/19/22 05/19/22 00:30 00:30 01:03 WBC 15.8 H RBC 4.99 Hgb 14.3 Hct 45.0 MCV 90.2 MCH 28.7 MCHC 31.8 L RDW Std Deviation 43.1 RDW Coeff of Joi 13.1 Plt Count 237 MPV 9.6 Immature Gran % (Auto) 0.400 Neut % (Auto) 91.2 H Lymph % (Auto) 3.7 L [place] % (Auto) 4.3 Eos % (Auto) 0.1 Baso % (Auto) 0.3 Absolute Neuts (auto) 14.5 H Absolute Lymphs (auto) 0.58 L Nucleated RBC % 0 Differential Comment SCANNED PT INR APTT Sodium Potassium Chloride Carbon Dioxide Anion Gap BUN Creatinine Estim Creat Clear Calc Est GFR (MDRD) Af Amer Est GFR (MDRD) Non-Af BUN/Creatinine Ratio Glucose Lactic Acid 1.6 Calcium Magnesium Troponin I High Sens B-Natriuretic Peptide TSH 2.98 Radiography Diagnostic Testing: Clinical Impression(s) from Imaging Studies Chest CTA 05/19/22 00:48 IMPRESSION: 1. Patchy opacification and tree-in-bud nodular opacities left lung base consistent with pneumonia. 2. Mucus plugging lower lobe bronchi bilaterally. 3. No pulmonary embolism or dissection. 4. Emphysema. 5. Status post right upper lobectomy and partial atelectasis of the right middle lobe. 6. Coronary artery disease. Electronically Signed: Bhanu Pope MD at 2:52 EDT , Discharge Plan Dx/Rx/DC Orders Clinical Impression: Atrial fibrillation with rapid ventricular response, Acute hypokalemia, Influenza A, Left lower lobe pneumonia Disposition Disposition: Acute Care [facility]
[2022-05-19] MEDS: Ceftriaxone 1 GM/50 ML BAG IV (04:21)
[2022-05-19] MEDS: Enoxaparin 60 MG/0.6 ML Syringe SC ×2 (04:22→17:41)
[2022-05-19] MEDS: Oseltamivir Phosphate 30 MG Capsule PO ×2 (05:02→17:41)
--- NOTE | 2022-05-19 05:10 | PCM.HP.STD ---
HPI - General General Date of Admission: 05/19/22 Date of Service: 05/19/22 Chief Complaint: Shortness of breath HPI Narrative YVROSE HAWTHORNE, is a 71 F with a significant history of hypertension; COPD on 3 L of home nasal oxygen; lung cancer status post bilateral lung resection, left lung radiation and currently with lung nodules in her left lung which is under surveillance and? who presents to the emergency department with 2-day history of progressively worsening shortness of breath that got even worse on the day of presentation.? Associated with her symptoms is chills, poor appetite and productive cough of thick yellow sputum. Further she reports dysgeusia. [facility] Medical History Anxiety Chronic bronchitis Chronic hypoxemic respiratory failure Chronic obstructive pulmonary disease with (acute) exacerbation COPD (chronic obstructive pulmonary disease) Depression Emphysema of lung History of lung cancer History of pneumonia HTN (hypertension) Left anterior knee pain Lung cancer Lung mass Lung nodule Nicotine dependence, cigarettes, uncomplicated Pneumonia Primary malignant neoplasm of both lungs Seasonal allergies Tobacco dependence in remission Unintentional weight loss Home Medications metoprolol tartrate 50 mg tablet 50 mg PO BID #180 tabs 10/28/21 [Rx Last Taken Unknown] Handicap Placard #1 ea 11/05/21 [Rx Last Taken Unknown] albuterol sulfate 90 mcg/actuation aerosol inhaler 2 puff inhalation Q4H PRN shortness of breath or wheezing #8.5 grams 11/05/21 [Rx Last Taken Unknown] budesonide 0.5 mg/2 mL suspension for nebulization 0.5 mg (2 mL) inhalation BID #120 mL 11/05/21 [Rx Last Taken Unknown] ipratropium 0.5 mg-albuterol 3 mg (2.5 mg base)/3 mL nebulization soln 3 ml inhalation Q4H PRN shortness of breath or wheezing #120 vials 11/05/21 [Rx Last Taken Unknown] paroxetine HCl 10 mg tablet (Paxil) 10 mg PO DAILY #90 tabs 11/05/21 [Rx Last Taken Unknown] buspirone 5 mg tablet 5 mg PO BID #180 tabs 03/09/22 [Rx Last Taken Unknown] acetaminophen 325 mg tablet 650 mg PO Q6H PRN PRN Pain 1-10 Or Fever>100.7 #0 tabs 05/09/22 [Rx Last Taken Unknown] gabapentin 100 mg capsule 100 mg PO TIDCM PRN restless legs #30 caps 05/09/22 [Rx Last Taken Unknown] hydrochlorothiazide 25 mg tablet 25 mg PO DAILY #30 tabs 05/09/22 [Rx Last Taken Unknown] levofloxacin 750 mg tablet 750 mg PO Q48@0600 #2 tabs 05/09/22 [Rx Last Taken Unknown] oseltamivir 30 mg capsule 30 mg PO BID #7 caps 05/09/22 [Rx Last Taken Unknown] guaifenesin 1,200 mg tablet, extended release 12 hr 1,200 mg PO Q12H #60 tabs 05/12/22 [Rx Last Taken Unknown] ropinirole 1 mg tablet 1 mg PO QHS #60 tabs 05/12/22 [Rx Last Taken Unknown] prednisone 10 mg tablet 10 mg PO QDAY #90 tabs 05/15/22 [Rx Last Taken Unknown] Allergy/AdvReac Type Severity Reaction Status Date / Time meperidine HCl [From Demerol] AdvReac pass out Verified 05/12/22 09:54 Family History Mother Thyroid cancer Anemia Lung disease Father Throat cancer Diabetes Hypertension Arthritis Lung disease Sister Breast cancer Brain cancer Other Asthma Ovarian cancer Surgical History H/O pneumonectomy H/O tubal ligation History of bilateral carpal tunnel release repaired lymph node Wedge resection of lung Social History household members: spouse Smoking Status: Heavy Smoker (>10/day) Tobacco: How many years used: 50 how long ago did patient quit smoking: pt reports smoking 2-3 cigs every couple of days second hand exposure: Yes alcohol intake: never substance use type: does not use what type of physical activity do you participate in: none ROS ROS Narrative Pertinent positives and pertinent negatives as noted in HPI. All other systems were reviewed and are negative Vital Signs Vital Signs Vital Signs: 05/19/22 00:18 05/19/22 00:21 05/19/22 00:22 Temperature 99.6 F H Temperature Source Temporal Pulse Rate 144 H Respiratory Rate 14 Respiratory Effort Short of Breath Respiratory Pattern Normal Blood Pressure Blood Pressure Mean Pulse Ox 96 99 Oxygen Delivery Method Room Air Room Air Non-Rebreather Oxygen Flow Rate (L/min) 15 05/19/22 01:50 05/19/22 01:56 05/19/22 03:02 Temperature Temperature Source Pulse Rate 137 H 134 H 148 H Respiratory Rate 20 H 19 H 23 H Respiratory Effort Respiratory Pattern Blood Pressure 106/53 L 110/92 H Blood Pressure Mean 70 98 Pulse Ox 94 94 96 Oxygen Delivery Method Nasal Cannula Nasal Cannula Room Air Oxygen Flow Rate (L/min) 3 3 05/19/22 04:10 Temperature Temperature Source Pulse Rate 121 H Respiratory Rate 17 Respiratory Effort Respiratory Pattern Blood Pressure 127/56 H Blood Pressure Mean 79 Pulse Ox 97 Oxygen Delivery Method Nasal Cannula Oxygen Flow Rate (L/min) 3 Weight Weight: 60.6 kg Body Mass Index (BMI) 26.1 Physical Exam Narrative Physical exam: General: Well-nourished, well-developed. Head: Normocephalic, atraumatic, no tenderness Eyes: Vision is grossly intact. EOMI ENT, no trauma, moist mucous membranes, no rhinorrhea Neck: Nontender, No thyromegaly. CVS: Tachycardia. Irregularly irregular rate and rhythm. S1-S2 present. No murmur, gallop or rub. Respiratory : clear to auscultation bilaterally, chest wall nontender Abdomen: Soft, nontender, nondistended, normal bowel sounds, no masses : Deferred Back: Nontender, no CVA tenderness, no midline spinal tenderness, deformities, step-offs Extremities: Nontender full range of motion, no trauma Skin: Normal color, no trauma, abrasions Neuro: Alert, oriented, cranial nerves II through XII grossly intact. Psychiatry: Normal mood. Normal affect. Not depressed. Not anxious. Results Lab / Micro Data Result Diagrams: 05/19/22 00:30 05/19/22 00:30 Labs: Laboratory Results - last 24 hr 05/19/22 00:30: PT 12.6, INR 1.0, APTT 33.7 05/19/22 00:30: Sodium 130 L, Potassium 2.8 L, Chloride 93 L, Carbon Dioxide 27.0, Anion Gap 10, BUN 26 H, Creatinine 0.85, Estim Creat Clear Calc 42.34, Est GFR (MDRD) Af Amer 84, Est GFR (MDRD) Non-Af 70, BUN/Creatinine Ratio 30.6 H, Glucose 125 H, Calcium 9.2, Magnesium 1.8, Troponin I High Sens 9 05/19/22 00:30: B-Natriuretic Peptide 212.1 H 05/19/22 00:30: WBC 15.8 H, RBC 4.99, Hgb 14.3, Hct 45.0, MCV 90.2, MCH 28.7, MCHC 31.8 L, RDW Std Deviation 43.1, RDW Coeff of Joi 13.1, Plt Count 237, MPV 9.6, Immature Gran % (Auto) 0.400, Neut % (Auto) 91.2 H, Lymph % (Auto) 3.7 L, [place] % (Auto) 4.3, Eos % (Auto) 0.1, Baso % (Auto) 0.3, Absolute Neuts (auto) 14.5 H, Absolute Lymphs (auto) 0.58 L, Nucleated RBC % 0, Differential Comment SCANNED 05/19/22 00:30: TSH 2.98 05/19/22 01:03: Lactic Acid 1.6 Micro: Microbiology 05/19/22 01:09 Nasal Secretion SARS-CoV-2 & FLU Antigen (Rapid) - Final Influenzae A Radiology Impression Chest CTA 05/19/22 00:48 IMPRESSION: 1. Patchy opacification and tree-in-bud nodular opacities left lung base consistent with pneumonia. 2. Mucus plugging lower lobe bronchi bilaterally. 3. No pulmonary embolism or dissection. 4. Emphysema. 5. Status post right upper lobectomy and partial atelectasis of the right middle lobe. 6. Coronary artery disease. Electronically Signed: Bhanu Pope MD at 2:52 EDT , Assessment & Plan Assessment/Plan (1) Influenza A: (2) Left lower lobe pneumonia: (3) Atrial fibrillation with rapid ventricular response: (4) Acute hypokalemia: PLAN: Plan Influenza A infection Rapid influenza antigen positive for influenza A. SARS-CoV-2 negative. Of note patient was positive for influenza B when she was tested on 05/08/2022. At that time she was admitted; given Tamiflu and also given Levaquin for pneumonia. Tamiflu ordered. Pneumonia/mucous plug Gram-positive or gram-negative Impression of chest CTA include patchy opacification and tree-in-bud nodular opacities left lung base consistent with pneumonia. Mucous plugging lower lobe bronchi bilaterally. Chest CTA was visualized and independently interpreted and I agree with radiologist impression above. Acapella ordered. Mucinex ordered. Started on azithromycin and ceftriaxone emergency department and continued. White count of 15,800 with neutrophilic predominance and lymphopenia, trend. Atrial fibrillation with RVR. EKG personally reviewed showed A-fib with RVR. We will continue Cardizem bolus in the emergency department with soft blood pressures. Open patient on Cardizem drip. Of note patient has hypokalemia and not a candidate for digoxin. Received therapeutic dose of Lovenox in the emergency department and continued. We will get an echocardiogram. We will check a TSH. Supplement magnesium. Trend BMP. Acute hypokalemia Potassium presentation was 2.8. Received p.o. and IV replacement emergency department. Trend. Acute Hyponatremia Sodium of 130 on presentation. Likely secondary to poor intake. Gentle normal saline with potassium infusion ordered. Trend BMP. DVT prophylaxis: Not indicated as patient has been started on therapeutic dose of Lovenox for A-fib. Charges/Coding Visit Charges Inpatient E&M: 36250 Init Hosp L3
--- NOTE | 2022-05-19 05:37 | ECHOD_ITS ---
Reason For Study: AFIB/FLUTTER Procedure This was a 2D Doppler, Color Flow transthoracic echocardiogram. The study was technically difficult. Due to lung disease and arrhythmia. Exam performed portable in ICU/CCU. Left Ventricle Normal LV size. Left ventricular systolic function is normal. The estimated ejection fraction is 60 %. No regional wall motion abnormalities noted. Right Ventricle Normal RV size. Normal systolic function. Atria Normal left atrium. Normal right atrium. Mitral Valve Normal mitral valve. Tricuspid Valve Normal tricuspid valve. Mild tricuspid valve insufficiency. Pulmonary artery systolic pressure is 23 mmHg. Aortic Valve Trisinus/trileaflet aortic valve. Mild focal aortic valve calcification. Pulmonic Valve Normal pulmonic valve. Great Vessels Normal aortic root. The pulmonary artery is normal size. Normal inferior vena cava. Pericardium/Pleural No pericardial effusion. MMode/2D Measurements & Calculations LVIDd: 4.0 cm IVSd: 1.2 cm Ao root diam: 2.7 cm LVIDs: 2.4 cm LVPWd: 1.1 cm RVDd: 2.6 cm FS: 39.5 % LAV(MOD-bp): 34.9 ml LA A4 area: 13.2 cm2 LA dimension(2D): 3.4 cm LAV(MOD-bp) Indexed: 22.7 ml/m2 LAV(MOD-sp2): 38.9 ml LAV(MOD-sp4): 29.4 ml RA A4 area: 10.6 cm2 Doppler Measurements & Calculations MV E max oscar: 87.8 cm/sec Ao V2 max: 111.9 cm/sec LV V1 max: 85.9 cm/sec Ao max P.0 mmHg LV V1 max P.0 mmHg Ao V2 mean: 79.1 cm/sec LV V1 mean P.6 mmHg Ao mean P.7 mmHg LV V1 mean: 60.0 cm/sec Ao V2 VTI: 21.8 cm LV V1 VTI: 14.5 cm AV (velocity ratio): 0.67 PA V2 max: 68.5 cm/sec TR max oscar: 220.6 cm/sec TR max P.5 mmHg ECHO/Echo Complete Interpretation Summary Normal LV size. Left ventricular systolic function is normal. The estimated ejection fraction is 60 %. Trisinus/trileaflet aortic valve. Mild focal aortic valve calcification. Ordering Physician: Bari Dahl Referring Physician: Eryn Shelton Performed By: Yola nAglin, BETH, RVT
[2022-05-19 06:30] LABS: Absolute Lymphocyte Count 0.26 X10^3/uL (0.83-4.51); Absolute Neutrophil Count 15.3 X10^3/uL (2.0-7.7); Basophil# 0.03 X10^3/uL; Basophil% 0.2 % (0-1); Hematocrit 38.5 % (37-47); Hemoglobin 12.4 g/dL (12.0-15.0); Lymphocyte # 0.26 X10^3/ul (0.83-4.51); Lymphocyte % 1.6 % (19-41); Mean Corp Hgb Conc 32.2 g/dL (32-36); Mean Corpuscular Hgb 28.8 pg (27.0-32.0); Mean Corpuscular Volume 89.3 fL (81-99); Mean Platelet Vol. 9.4 fl (6.2-12.0); Monocyte# 0.27 X10^3/uL; Monocyte% 1.7 % (0-10); NRBC Flagged by Analyzer 0 % (0-5); Neutrophil # 15.27 X10^3/uL (2.7-7.7); Neutrophil % 95.9 % (47-70); POSITIVE DIFFERENTIAL YES; Platelet Count 214 K/mm3 (150-450); RBC Distribution Width CV 13.2 % (11.6-14.6); RBC Distribution Width SD 43.5 fl (35.1-43.9); Red Blood Count 4.31 M/mm3 (4.2-5.4); White Blood Count 15.9 K/mm3 (4.4-11.0)
[2022-05-19 06:31] LABS: Differential Indicated SCAN CRITERIA MET
[2022-05-19] MEDS: Potassium Chloride 40 MEQ in 0.9% Normal Saline 1,000 ML 75 MEQ IV ×2 (06:43→20:07)
[2022-05-19] MEDS: 0.9% Saline Lock 10 ML Syringe IV (06:43)
[2022-05-19 06:46] LABS: Differential Comment SCANNED
[2022-05-19] MEDS: Acetaminophen 325 MG Tablet 650 MG PO (06:49)
[2022-05-19 06:57] LABS: Anion Gap 6 (5-15); BUN 17 mg/dL (7-18); Calcium,Total 8.1 mg/dL (8.5-10.1); Chloride 101 mmol/L (98-107); Creatinine, Serum 0.68 mg/dL (0.55-1.02); EST Glomerular Filtration Rate 90 mL/min (>60); Est Glom Filt Rate - Afr Amer 109 mL/min (>60); Estimated Creatinine Clearance 35.99 ml/min; Glucose 228 mg/dL (74-106); Potassium 3.6 mmol/L (3.5-5.1); Sodium Level 132 mmol/L (136-145); Thyroid Stim Hormone (TSH) 0.62 uIU/mL (0.358-3.74)
[2022-05-19] MEDS: Metoprolol Tartrate 50 MG Tablet 75 MG PO ×2 (08:36→21:25)
[2022-05-19] MEDS: dilTIAZem 30 MG Tablet PO (08:38)
[2022-05-19] MEDS: hydroCHLOROthiazide 25 MG Tablet PO (08:39)
[2022-05-19] MEDS: guaiFENesin 1,200 MG Tablet 1200 MG PO ×2 (08:39→21:26)
[2022-05-19] MEDS: busPIRone 5 MG Tablet PO ×2 (08:59→21:26)
[2022-05-19] MEDS: PARoxetine 10 MG Tablet PO (08:59)
[2022-05-19] MEDS: Budesonide Respules 0.5 MG/2 ML AMPUL.NEB. INHALATION ×2 (09:15→19:16)
--- NOTE | 2022-05-19 10:12 | CASEMGMT ---
Social Work Attempted to see for advanced directives follow-up as patient was not able to have documents completed last hospitalization, per chart review. Patient being seen by another healthcare provider, social work to follow up with patient at a later time. Marjorie HAHN, LIZETTE
[2022-05-19] MEDS: Ibuprofen 400 MG Tablet PO (12:26)
--- NOTE | 2022-05-19 13:07 | CASEMGMT ---
[facility] Readmission Review: Index: 05/08 thru 05/09, Dx: COPD exac with possible pneumonia, Inf. B, accelerated HTN Readmission: 05/19/22, Dx: Inf A, Afib RVR, hypokalemia Pt admitted on the above noted dates for the noted diagnoses. Pt with comorbidities including lung CA s/p bilat lung resections and radiation, COPD, and HTN. Pt discharged on index with continued treatment including tamiflu, prednisone, levofloxacin, guaifenesin w/codeine, addition of hydrochlorothiazide, and gabapentin (for newly dx'd restless legs). DC planning assessment completed by the [facility] noted pt to live in a two story home with a first floor set up and to have the support of her spouse and daughter as needed. Pt had home O2 from [place] with a confirmed prescription for 3l/min continuous. Pt was interested in and agreeable to participating in the Pt Link program but declined when self pay representative met with her to enroll. O2 qualification testing was completed on day of discharge and pt demonstrated need for 2l/min at rest and with ambulation. Pt returned on 05/19 with c/o increased SOB and required readmission for the above noted dx's. Pt noted to remain on home O2 liter flow of 3l/min. Pt did attend her f/u appointment with her cider maker on 05/12. Will continue to monitor pt's medical progress and assist with any identified DC needs as these are identified. Shanell Levy RN CM
[2022-05-19] MEDS: Albuterol 2.5 MG/3 ML VIAL.NEB. INHALATION (13:25)
--- NOTE | 2022-05-19 15:09 | ED.RN ---
[facility] CONFORMATION OF NOTIFICATION NUMBER [id number]
--- NOTE | 2022-05-19 15:52 | PCM.HOSP.N ---
Hospitalist Note Patient was seen and examined in ICU today, she remains in atrial fibrillation, I placed her on oral metoprolol and briefly she was on oral Cardizem and her Cardizem drip was stopped. Patient became mildly bradycardic and I stopped the oral Cardizem. At this time, patient's heart rate is in the 70s to 80s and she remains in atrial fibrillation. According to the patient, she has never been in atrial fibrillation before. At this time, I will continue present care and reevaluate the patient tomorrow. At the time of this dictation, patient's echocardiogram results are pending.
[2022-05-19] MEDS: Pramipexole Di-HCl 0.5 MG Tablet PO (21:26)
[2022-05-20] VITALS (11 sets, daily range): BP systolic 126–146; BP diastolic 74–96; PULSE 81–106; RESP 15–21; TEMP 36.3–36.9; O2SAT 94–100
[2022-05-20] MEDS: Enoxaparin 60 MG/0.6 ML Syringe SC ×2 (05:13→17:23)
[2022-05-20 08:01] LABS: Absolute Lymphocyte Count 0.55 X10^3/uL (0.83-4.51); Absolute Neutrophil Count 12.7 X10^3/uL (2.0-7.7); Basophil# 0.01 X10^3/uL; Basophil% 0.1 % (0-1); Hematocrit 35.9 % (37-47); Hemoglobin 11.1 g/dL (12.0-15.0); Lymphocyte # 0.55 X10^3/ul (0.83-4.51); Lymphocyte % 3.9 % (19-41); Mean Corp Hgb Conc 30.9 g/dL (32-36); Mean Corpuscular Hgb 28.5 pg (27.0-32.0); Mean Corpuscular Volume 92.3 fL (81-99); Mean Platelet Vol. 10.3 fl (6.2-12.0); Monocyte# 0.57 X10^3/uL; Monocyte% 4.1 % (0-10); NRBC Flagged by Analyzer 0 % (0-5); Neutrophil # 12.73 X10^3/uL (2.7-7.7); Neutrophil % 91.2 % (47-70); POSITIVE DIFFERENTIAL YES; Platelet Count 233 K/mm3 (150-450); RBC Distribution Width CV 13.4 % (11.6-14.6); RBC Distribution Width SD 45.3 fl (35.1-43.9); Red Blood Count 3.89 M/mm3 (4.2-5.4)
[2022-05-20 08:03] LABS: Differential Indicated SCAN CRITERIA MET
[2022-05-20 08:09] LABS: ALB/GLOB Ratio 0.6 RATIO (0.9-2.4); AST(SGOT) 21 U/L (15-37); Alanine Aminotransfer ALT/SGPT 21 U/L (13-56); Albumin, Serum 2.4 g/dL (3.2-5.0); Alkaline Phosphatase 63 U/L (45-117); Anion Gap 3 (5-15); BUN 17 mg/dL (7-18); Calcium,Total 8.4 mg/dL (8.5-10.1); Chloride 106 mmol/L (98-107); Creatinine, Serum 0.61 mg/dL (0.55-1.02); EST Glomerular Filtration Rate 102 mL/min (>60); Est Glom Filt Rate - Afr Amer 124 mL/min (>60); Estimated Creatinine Clearance 35.99 ml/min; Globulin 3.7 g/dL (2.2-4.2); Glucose 118 mg/dL (74-106); Potassium 4.7 mmol/L (3.5-5.1); Protein, Total 6.1 g/dL (6.4-8.2); Sodium Level 136 mmol/L (136-145)
[2022-05-20] MEDS: busPIRone 5 MG Tablet PO ×2 (09:10→20:38)
[2022-05-20] MEDS: guaiFENesin 1,200 MG Tablet 1200 MG PO ×2 (09:11→20:38)
[2022-05-20] MEDS: PARoxetine 10 MG Tablet PO (09:11)
[2022-05-20] MEDS: hydroCHLOROthiazide 25 MG Tablet PO (09:11)
[2022-05-20] MEDS: Oseltamivir Phosphate 30 MG Capsule PO ×2 (09:11→20:38)
[2022-05-20] MEDS: Metoprolol Tartrate 100 MG Tablet PO ×2 (09:11→20:38)
--- NOTE | 2022-05-20 10:34 | PCM.PN.HOSP ---
Reason for Visit Reason for Visit: Diagnoses Hypokalemia (05/19/22) Unspecified atrial fibrillation (05/19/22) Influenza due to other identified influenza virus with other respiratory manifestations (05/19/22) Pneumonia, unspecified organism (05/19/22) Subjective Subjective Patient was seen and examined today, she complained of shortness of breath but her pulse ox on 2 L was 95%. Patient remains in atrial fib with a rate of approximately 100, I elected to increase her metoprolol today to 100 mg twice daily. Her echocardiogram showed no abnormality yesterday. I told her I did not feel that cardiology would add anything to her care currently. Objective Data Objective Data Vital Signs: Vital Signs Temp Pulse Resp BP Pulse Ox O2 Del Method O2 Flow Rate 97.8 F 101 H 20 H 139/89 H 95 Nasal Cannula 2 05/20/22 09:26 05/20/22 09:26 05/20/22 09:26 05/20/22 09:26 05/20/22 09:26 05/20/22 09:26 05/20/22 09:26 Oxygen Flow Rate (L/min) 2 Oxygen Delivery Method Nasal Cannula Weight: 57.8 kg Body Mass Index (BMI) 24.8 Intake & Output: Intake and Output for Last 24 Hours 05/18/22 05/19/22 05/20/22 23:59 23:59 23:59 Intake Total 3205.25 / 3205.25 1015 / 1015 Output Total 600 / 600 500 / 500 Balance 2605.25 / 2605.25 515 / 515 Lab / Micro Data Result Diagrams: 05/20/22 05:06 05/20/22 05:06 Labs: Laboratory Results - last 24 hr 05/20/22 05:06: WBC 14.0 H, RBC 3.89 L, Hgb 11.1 L, Hct 35.9 L, MCV 92.3, MCH 28.5, MCHC 30.9 L, RDW Std Deviation 45.3 H, RDW Coeff of Joi 13.4, Plt Count 233, MPV 10.3, Immature Gran % (Auto) 0.700, Neut % (Auto) 91.2 H, Lymph % (Auto) 3.9 L, [place] % (Auto) 4.1, Eos % (Auto) 0.0, Baso % (Auto) 0.1, Absolute Neuts (auto) 12.7 H, Absolute Lymphs (auto) 0.55 L, Nucleated RBC % 0 05/20/22 05:06: Sodium 136, Potassium 4.7, Chloride 106, Carbon Dioxide 27.0, Anion Gap 3 L, BUN 17, Creatinine 0.61, Estim Creat Clear Calc 35.99, Est GFR (MDRD) Af Amer 124, Est GFR (MDRD) Non-Af 102, BUN/Creatinine Ratio 28.0 H, Glucose 118 H, Calcium 8.4 L, Total Bilirubin 0.30, AST 21, ALT 21, Alkaline Phosphatase 63, Total Protein 6.1 L, Albumin 2.4 L, Globulin 3.7, Albumin/Globulin Ratio 0.6 L Micro: Microbiology 05/19/22 01:09 Nasal Secretion SARS-CoV-2 & FLU Antigen (Rapid) - Final Influenzae A Radiography Diagnostic Testing: Radiology Impression Echocardiogram 05/19/22 05:37 Interpretation Summary Normal LV size. Left ventricular systolic function is normal. The estimated ejection fraction is 60 %. Trisinus/trileaflet aortic valve. Mild focal aortic valve calcification. Ordering Physician: Bari Dahl Referring Physician: Eryn Shelton Performed By: Yola Anglin, BETH, RVT Physical Exam Const alert, oriented x3, no apparent distress, average body habitus and healthy appearing General Appearance: cooperative, well kempt and well developed Orientation / Consciousness: awake, oriented to person, oriented to place and oriented to time HEENT normocephalic, head/scalp atraumatic and moist oral mucous membranes Eyes PERRL, EOMs intact bilaterally and conjunctivae normal Neck supple, no JVD, thyroid normal and no carotid bruits General: trachea midline Resp normal respiratory effort, no retractions, no use of accessory muscles and clear to auscultation bilaterally Auscultation: Negative for rales, rhonchi or wheezes Cardio S1 normal heart sound, S2 normal heart sound, no murmurs, no rub and no gallops Cardio Narrative: Heart rate and rhythm is irregular GI normal to inspection, nondistended, normoactive bowel sounds, soft to palpation, non-tender and non-distended Extremity no clubbing, cyanosis or edema Skin no rashes or lesions noted General Skin Exam: no breakdown Neuro oriented x3, CN's II-XII intact bilaterally, moves all extremities, no focal motor deficits and no sensory deficits noted Sensorium / Orientation: awake, alert, oriented to person, oriented to place and oriented to time Speech: speech normal Psych affect normal Assessment & Plan Assessment/Plan (1) Atrial fibrillation with rapid ventricular response: PLAN: Plan 1. New onset atrial fibrillation with rapid ventricular response-again patient's metoprolol was increased today, she remains on Lovenox subcu. #2 influenza A infection-patient remains on Tamiflu #3 community-acquired pneumonia-presumed to be bacterial, patient is currently on Levaquin #4 hypokalemia-corrected at this time #5 chronic obstructive pulmonary disease-patient is on chronic oxygen at home #6 hypercoagulable state secondary to atrial fibrillation-patient is currently on Lovenox #7 chronic hypoxic respiratory failure-patient wears chronic oxygen at home, pulse ox will be monitored here and oxygen will be adjusted accordingly Total clinical time spent by myself addressing the patient's medical issues, reviewing all the data, and collaborating with patient's care team: 35-minutes Charges/Coding Visit Charges Inpatient E&M: 60301 Subs Hosp L2
[2022-05-20] MEDS: Albuterol 2.5 MG/3 ML VIAL.NEB. INHALATION (12:06)
[2022-05-20] MEDS: Ipratropium/Albuterol Sulfate 3 ML AMPUL.NEB INHALATION ×3 (15:30→22:57)
[2022-05-20] MEDS: Budesonide Respules 0.5 MG/2 ML AMPUL.NEB. INHALATION (19:07)
[2022-05-20] MEDS: Pramipexole Di-HCl 0.5 MG Tablet PO (20:38)
[2022-05-21] VITALS (8 sets, daily range): BP systolic 121–135; BP diastolic 75–87; PULSE 94–99; RESP 12–19; TEMP 36.3–36.6; O2SAT 95–98
[2022-05-21] MEDS: Ipratropium/Albuterol Sulfate 3 ML AMPUL.NEB INHALATION ×3 (02:06→16:19)
[2022-05-21 03:57] LABS: Absolute Lymphocyte Count 0.71 X10^3/uL (0.83-4.51); Basophil# 0.01 X10^3/uL; Basophil% 0.1 % (0-1); Eosinophil# 0.03 X10^3/uL; Eosinophils% 0.3 % (0-5); Hematocrit 36.7 % (37-47); Hemoglobin 11.5 g/dL (12.0-15.0); Lymphocyte # 0.71 X10^3/ul (0.83-4.51); Lymphocyte % 7.6 % (19-41); Mean Corp Hgb Conc 31.3 g/dL (32-36); Mean Corpuscular Hgb 28.7 pg (27.0-32.0); Mean Corpuscular Volume 91.5 fL (81-99); Mean Platelet Vol. 9.2 fl (6.2-12.0); Monocyte# 0.59 X10^3/uL; Monocyte% 6.3 % (0-10); NRBC Flagged by Analyzer 0 % (0-5); Neutrophil # 8.01 X10^3/uL (2.7-7.7); Neutrophil % 85.2 % (47-70); Platelet Count 233 K/mm3 (150-450); RBC Distribution Width CV 13.2 % (11.6-14.6); Red Blood Count 4.01 M/mm3 (4.2-5.4); White Blood Count 9.4 K/mm3 (4.4-11.0)
[2022-05-21 04:11] LABS: Anion Gap 2 (5-15); BUN 18 mg/dL (7-18); BUN/Creat Ratio 29.7 RATIO (10-20); Calcium,Total 8.4 mg/dL (8.5-10.1); Chloride 103 mmol/L (98-107); Creatinine, Serum 0.61 mg/dL (0.55-1.02); EST Glomerular Filtration Rate 103 mL/min (>60); Est Glom Filt Rate - Afr Amer 124 mL/min (>60); Estimated Creatinine Clearance 35.99 ml/min; Glucose 92 mg/dL (74-106); Potassium 3.9 mmol/L (3.5-5.1); Sodium Level 135 mmol/L (136-145)
[2022-05-21] MEDS: Enoxaparin 60 MG/0.6 ML Syringe SC (05:17)
[2022-05-21] MEDS: 0.9% Saline Lock 10 ML Syringe IV (05:17)
[2022-05-21] MEDS: Budesonide Respules 0.5 MG/2 ML AMPUL.NEB. INHALATION (07:30)
[2022-05-21] MEDS: busPIRone 5 MG Tablet PO (08:14)
[2022-05-21] MEDS: hydroCHLOROthiazide 25 MG Tablet PO (08:14)
[2022-05-21] MEDS: guaiFENesin 1,200 MG Tablet 1200 MG PO (08:14)
[2022-05-21] MEDS: PARoxetine 10 MG Tablet PO (08:14)
[2022-05-21] MEDS: Metoprolol Tartrate 100 MG Tablet PO (08:14)
[2022-05-21] MEDS: Oseltamivir Phosphate 30 MG Capsule PO (08:14)
--- NOTE | 2022-05-21 14:00 | CASEMGMT ---
Addendum entered by Asiya Mcfadden 05/21/22 15:24: RN HARITHA received call back from [facility] and they are able to accept the patient with planned start of care for Wednesday. RN HARITHA updated the patient, patient had no further questions or concerns at this time. RN CM updated hospitalist and nursing. Original Note: RN CM in to discuss discharge needs with patient. Therapy recommending HHC. Patient is agreeable for HHC. A list of C providers including quality and resource use data and consistent with the patient?s preferred geographical region, medical needs, and insurance network were provided from the [facility] Guide. Patient prefers [facility]. MORGAN MG called and made referral to [facility]. [facility] to review and follow-up with CM. CM will continue to follow this patient and plan for a safe discharge.
--- NOTE | 2022-05-21 16:11 | DCINST_ITS ---
Discharge Instructions Diet Discharge Diet: No restrictions Activity Discharge Activity: Return to Normal Activity Weight Bearing Status: Full weight bearing Follow Up Care Test Results: Test results from this visit will be discussed in further detail at your follow- up appointment, if applicable. Discharge Plan Admission Admit Date/Time: 05/19/22 04:18 Primary Reason for Your Visit: atrial fibrillation Attending Provider: Cleve Floyd Primary Care Provider: Eryn Shelton Consulting Providers: Bari Dahl Discharge Orders/Prescriptions Prescriptions: New metoprolol tartrate 100 mg Tablet 100 mg PO BID Qty: 60 0RF oseltamivir 30 mg Capsule 30 mg PO BID Qty: 6 0RF Eliquis 5 mg tablet 5 mg PO BID Qty: 60 0RF Rx Instructions: start on 05/21/22 cefdinir 300 mg capsule 600 mg PO DAILY Qty: 8 0RF Rx Instructions: two caps once a day starting on 05/22/22 digoxin [Lanoxin] 250 mcg (0.25 mg) tablet 250 mcg PO DAILY Qty: 30 0RF Rx Instructions: start on 05/22/22 Continued (DME) Handicap Placard See Rx Instructions .Route .MEDSUPPLY Qty: 1 0RF Rx Instructions: 5 year RX (11/05/21-11/05/26) acetaminophen 325 mg Tablet 650 mg PO Q6H PRN PRN (Reason: Pain 1-10 Or Fever>100.7) Qty: 0 0RF oseltamivir 30 mg Capsule 30 mg PO BID Qty: 7 0RF buspirone 5 mg tablet 5 mg PO BID hydrochlorothiazide 25 mg tablet 25 mg PO DAILY guaifenesin 1,200 mg tablet extended release 12hr 1,200 mg PO Q12H prednisone 10 mg tablet 10 mg PO QDAY paroxetine HCl [Paxil] 10 mg tablet 10 mg PO DAILY albuterol sulfate 90 mcg/actuation HFA aerosol inhaler 2 puff INHALATION Q4H PRN (Reason: shortness of breath or wheezing) Qty: 8.5 6RF Rx Instructions: administer with spacer budesonide 0.5 mg/2 mL suspension for nebulization 0.5 mg inhalation BID Qty: 120 6RF ipratropium-albuterol 0.5 mg-3 mg(2.5 mg base)/3 mL solution for nebulization 3 ml INHALATION Q4H PRN (Reason: shortness of breath or wheezing) Qty: 120 6RF Rx Instructions: J96.11 Chronic respiratory failure with hypoxia J44.1 COPD with exacerbation Discontinued metoprolol tartrate 50 mg tablet 50 mg PO BID Referrals / Follow Up: Tran Mariscal MD [Med Staff - Active Staff] - See Referral Note (as scheduled) Eryn Shelton MD [Primary Care Provider] - Disposition Disposition (needs filled in before D/C Order can be placed): Home Health Service
--- NOTE | 2022-05-21 16:30 | PCM.DC.SUM ---
Providers Date of Admission: 05/19/22 Date of Discharge: 05/21/22 Primary Care Physician: Dr. Eryn Shelton MD Reason For Visit: NEW ONSET AFIB WITH RVR, INFLUENZA A INFECTION,PNE Diagnosis Discharge Diagnosis (1) Atrial fibrillation with rapid ventricular response: Status: Acute Code(s): I48.91 - Unspecified atrial fibrillation Plan 1. New onset atrial fibrillation with rapid ventricular response-again patient's metoprolol was increased today, she remains on Lovenox subcu. #2 influenza A infection-patient remains on Tamiflu #3 community-acquired pneumonia-presumed to be bacterial, patient is currently on Levaquin #4 hypokalemia-corrected at this time #5 chronic obstructive pulmonary disease-patient is on chronic oxygen at home #6 hypercoagulable state secondary to atrial fibrillation-patient is currently on Lovenox #7 chronic hypoxic respiratory failure-patient wears chronic oxygen at home, pulse ox will be monitored here and oxygen will be adjusted accordingly Total clinical time spent by myself addressing the patient's medical issues, reviewing all the data, and collaborating with patient's care team: 35-minutes Medications at Discharge Home Medications Handicap Placard #1 ea 11/05/21 albuterol sulfate 90 mcg/actuation aerosol inhaler 2 puff inhalation Q4H PRN shortness of breath or wheezing #8.5 grams 11/05/21 budesonide 0.5 mg/2 mL suspension for nebulization 0.5 mg (2 mL) inhalation BID #120 mL 11/05/21 ipratropium 0.5 mg-albuterol 3 mg (2.5 mg base)/3 mL nebulization soln 3 ml inhalation Q4H PRN shortness of breath or wheezing #120 vials 11/05/21 acetaminophen 325 mg tablet 650 mg PO Q6H PRN PRN Pain 1-10 Or Fever>100.7 #0 tabs 05/09/22 oseltamivir 30 mg capsule 30 mg PO BID #7 caps 05/09/22 buspirone 5 mg tablet 5 mg PO BID depression 05/19/22 guaifenesin 1,200 mg tablet, extended release 12 hr 1,200 mg PO Q12H congestion 05/19/22 hydrochlorothiazide 25 mg tablet 25 mg PO DAILY water pill 05/19/22 paroxetine HCl 10 mg tablet (Paxil) 10 mg PO DAILY anxiety 05/19/22 prednisone 10 mg tablet 10 mg PO QDAY breathing 05/19/22 apixaban 5 mg tablet (Eliquis) 5 mg PO BID #60 tabs 05/21/22 cefdinir 300 mg capsule 600 mg PO DAILY #8 caps 05/21/22 digoxin 250 mcg (0.25 mg) tablet (Lanoxin) 250 mcg PO DAILY #30 tabs 05/21/22 metoprolol tartrate 100 mg tablet 100 mg PO BID #60 tabs 05/21/22 oseltamivir 30 mg capsule 30 mg PO BID #6 caps 05/21/22 Hospital Course Operations None Procedures 2-D Echocardiogram Summary of Care Provided Minutes Spent on Discharge: 31 Hospital Course: This 71-year-old white female was seen in the emergency room at [facility] with complaints of shortness of breath. She recently was diagnosed approximately 2 weeks prior with influenza B and possible pneumonia, labs obtained reveal an elevated white blood cell count of 15.8, patient's sodium was low at 130, potassium was 2.8, and beta natruretic peptide was 212. Patient's chest CTA revealed patchy opacification and tree-in-bud nodular opacities left lung base consistent with pneumonia, emphysema was also noted with mucous plugging. EKG showed the patient to be in atrial fibrillation with a rapid ventricular response. Patient was given IV Cardizem for her atrial fibrillation, this did not have much effect on the atrial fibrillation and her blood pressure was low and she was changed to digoxin which helped with the heart rate. She was given replacement potassium. Patient's nasal swab was positive for influenza A. Patient was admitted to ICU for atrial for with rapid ventricular response, pneumonia, hypokalemia, community-acquired pneumonia, and influenza A. Patient was treated with antibiotics and her beta-bryan was increased, she was given anticoagulation with subcu Lovenox. Patient's heart rate improved and her oxygenation improved. On 05/21/2022, patient was seen and examined: On examination she appeared in good health and spirits, she does not appear to be in any distress. Vital signs as documented. Skin warm and dry and without overt rashes. Neck without JVD, thyroid appears normal, trachea is midline, neck is supple. Lungs clear, normal air movement was noted. Heart exam notable for irregular rhythm, normal sounds and absence of murmurs, rubs or gallops. Abdomen unremarkable and without evidence of organomegaly, masses, or abdominal aortic enlargement, bowel sounds are present in all 4 quadrants, no abdominal tenderness was noted. Extremities nonedematous, no cyanosis was noted, no clubbing was noted. Neuro: Cranial nerves II through XII are grossly intact, no focal motor deficits were noted, sensation to light touch and pinprick is intact, motor exam 5/5 throughout. Psych: Patient is alert and oriented x3, she does not appear anxious or depressed, she does not appear agitated. Patient appears stable for discharge on 05/21/2022. Weight / BMI Weight Weight: 57.8 kg Body Mass Index (BMI) 24.8 ABG / Lab / Microbiology Data Result Diagrams: 05/21/22 03:49 05/21/22 03:49 Laboratory: Laboratory Results - last 24 hr 05/21/22 03:49: WBC 9.4, RBC 4.01 L, Hgb 11.5 L, Hct 36.7 L, MCV 91.5, MCH 28.7, MCHC 31.3 L, RDW Std Deviation 45.0 H, RDW Coeff of Joi 13.2, Plt Count 233, MPV 9.2, Immature Gran % (Auto) 0.500, Neut % (Auto) 85.2 H, Lymph % (Auto) 7.6 L, [place] % (Auto) 6.3, Eos % (Auto) 0.3, Baso % (Auto) 0.1, Absolute Neuts (auto) 8.0 H, Absolute Lymphs (auto) 0.71 L, Nucleated RBC % 0 05/21/22 03:49: Sodium 135 L, Potassium 3.9, Chloride 103, Carbon Dioxide 30.0, Anion Gap 2 L, BUN 18, Creatinine 0.61, Estim Creat Clear Calc 35.99, Est GFR (MDRD) Af Amer 124, Est GFR (MDRD) Non-Af 103, BUN/Creatinine Ratio 29.7 H, Glucose 92, Calcium 8.4 L Microbiology: Microbiology 05/19/22 00:31 Blood Culture (Wb) - Anticubital Right Bacteria Detection (PCR) - Final 05/19/22 00:31 Blood Culture (Wb) - Anticubital Right Blood Culture - Preliminary 05/19/22 01:04 Blood Culture (Wb) - Anticubital Left Blood Culture - Preliminary No growth in 48 hours. 05/19/22 01:09 Nasal Secretion SARS-CoV-2 & FLU Antigen (Rapid) - Final Influenzae A D/C Instructions Discharge Diet: No restrictions Weight Bearing Status: Full weight bearing Meaningful Use Info Meaningful Use Diagnoses (Choose all that apply): None applicable Discharge Plan Admission Admit Date/Time: 05/19/22 04:18 Primary Reason for Your Visit: atrial fibrillation Attending Provider: Cleve Floyd Primary Care Provider: Eryn Shelton Consulting Providers: Bari Dahl Discharge Orders/Prescriptions Prescriptions: New metoprolol tartrate 100 mg Tablet 100 mg PO BID Qty: 60 0RF oseltamivir 30 mg Capsule 30 mg PO BID Qty: 6 0RF Eliquis 5 mg tablet 5 mg PO BID Qty: 60 0RF Rx Instructions: start on 05/21/22 cefdinir 300 mg capsule 600 mg PO DAILY Qty: 8 0RF Rx Instructions: two caps once a day starting on 05/22/22 digoxin [Lanoxin] 250 mcg (0.25 mg) tablet 250 mcg PO DAILY Qty: 30 0RF Rx Instructions: start on 05/22/22 Continued (DME) Handicap Placard See Rx Instructions .Route .MEDSUPPLY Qty: 1 0RF Rx Instructions: 5 year RX (11/05/21-11/05/26) acetaminophen 325 mg Tablet 650 mg PO Q6H PRN PRN (Reason: Pain 1-10 Or Fever>100.7) Qty: 0 0RF oseltamivir 30 mg Capsule 30 mg PO BID Qty: 7 0RF buspirone 5 mg tablet 5 mg PO BID hydrochlorothiazide 25 mg tablet 25 mg PO DAILY guaifenesin 1,200 mg tablet extended release 12hr 1,200 mg PO Q12H prednisone 10 mg tablet 10 mg PO QDAY paroxetine HCl [Paxil] 10 mg tablet 10 mg PO DAILY albuterol sulfate 90 mcg/actuation HFA aerosol inhaler 2 puff INHALATION Q4H PRN (Reason: shortness of breath or wheezing) Qty: 8.5 6RF Rx Instructions: administer with spacer budesonide 0.5 mg/2 mL suspension for nebulization 0.5 mg inhalation BID Qty: 120 6RF ipratropium-albuterol 0.5 mg-3 mg(2.5 mg base)/3 mL solution for nebulization 3 ml INHALATION Q4H PRN (Reason: shortness of breath or wheezing) Qty: 120 6RF Rx Instructions: J96.11 Chronic respiratory failure with hypoxia J44.1 COPD with exacerbation Discontinued metoprolol tartrate 50 mg tablet 50 mg PO BID Referrals / Follow Up: Trna Mariscal MD [Med Staff - Active Staff] - 05/28/22 9:30 am (as scheduled) Eryn Shelton MD [Primary Care Provider] - Disposition Disposition (needs filled in before D/C Order can be placed): Home Health Service Charges/Coding Visit Charges Inpatient E&M: 57408 Disch Hosp >30min
[2022-05-21] MEDS: Digoxin 250 MCG Tablet 500 MCG PO (16:54)
[2022-05-21] MEDS: Azithromycin 250 MG Tablet 500 MG PO (16:54)
[2022-05-21] MEDS: Cefdinir 300 MG Capsule 600 MG PO (16:54)
== END 2022-05-21 17:23 | disposition home health service (06) | DRG 308 ==
LOC: ED 04:18 → ICU 05:12
PROVIDERS: Admitting Provider Hospitalist; Emergency Provider Emergency Medicine; PCP Internal Medicine; Visit Provider Internal Medicine
DX: I48.91 Unspecified atrial fibrillation (principal); J18.9 Pneumonia, unspecified organism; D68.59 Other primary thrombophilia; J44.0 Chronic obstructive pulmonary disease with (acute) lower respiratory infection; E87.1 Hypo-osmolality and hyponatremia; J96.11 Chronic respiratory failure with hypoxia; Z99.81 Dependence on supplemental oxygen; J10.1 Influenza due to other identified influenza virus with other respiratory manifestations; I10 Essential (primary) hypertension; F17.210 Nicotine dependence, cigarettes, uncomplicated; D72.810 Lymphocytopenia; E87.6 Hypokalemia
CPT/HCPCS: 71275; 80048; 80053; 83605; 83735; 83880; 84145; 84443; 84484; 85025; 85610; 85730; 87040; 87149; 87428; 93005; 93306; 94640; 94668; 97162; 97166; 99285; J7030; J7050; Q9967; A4216; J0696

== ENCOUNTER → 2022-05-28 | Outpatient (CLI) | payer MEDICARE, SELFPAY ==
--- NOTE | 2022-05-28 08:21 | CT_ITS ---
STUDY: CT CHEST WITHOUT CONTRAST REASON FOR EXAM: Female, 71 years old. Follow up treated NSCLC, please compare to prior RADIATION DOSAGE (If Supplied By Facility): CTDIvol = ( 7.09 ) mGy, DLP = ( 253.43 ) mGycm TECHNIQUE: Transaxial imaging was performed without the administration of intravenous contrast material. Multiplanar coronal and sagittal images were reformatted. Individualized dose optimization techniques were used for this CT. COMPARISON: Comparison is made with prior study done December 02, 2021 and May 19, 2022. FINDINGS: CHEST The patient is status post left upper lobe resection and radiation treatment. Postsurgical changes are seen in the medial aspect of the left upper lobe. There is also evidence of adjacent areas of linear scarring and bronchiectasis most likely secondary to prior radiation treatment and post radiation fibrosis. Mild increased linear markings are also seen in the anterior aspect of the right upper lobe as well as linear linear scarring adjacent to the left major fissure. There is no demonstrated pleural abnormality. There are calcifications of the coronary arteries. Normal mediastinum. Normal hilar regions. Normal unenhanced pulmonary arteries. There is atherosclerotic calcification of the aortic arch with tortuosity and elongation of the aortic arch and descending thoracic aorta. There are multi-level degenerative changes of the thoracic spine. There is no demonstrated abnormality of the visualized upper abdomen. CT/Chest without Contrast IMPRESSION: Status post right upper lobectomy. Postsurgical changes as well as pulsed radiation therapy changes are seen in the left upper lobe. Minimal scarring in the right upper lobe as well. Electronically Signed: Hiram Chi MD at 15:29 EDT ,
== END | disposition home or self-care (01) ==
LOC: CT 08:21
PROVIDERS: PCP Internal Medicine; Referring Provider Student in an Organized Health Care Education/Training Program; Visit Provider Student in an Organized Health Care Education/Training Program
DX: Z85.118 Personal history of other malignant neoplasm of bronchus and lung (principal)
CPT/HCPCS: 71250

== ENCOUNTER → 2022-05-29 | Outpatient (CLI) | payer MEDICARE, SELFPAY | END | disposition home or self-care (01) | LOC: LABSPEC 13:46 | PROVIDERS: PCP Internal Medicine; Visit Provider Internal Medicine | DX: R19.7 Diarrhea, unspecified (principal) | CPT/HCPCS: 87493 ==

== ENCOUNTER 2022-07-14 17:42 | Emergency (ER) | payer MEDICARE, SELFPAY ==
[2022-07-14 17:43] VITALS: BP 109/86; PULSE 87; RESP 20; TEMP 36.7; O2SAT 97; BMI 26.9
[2022-07-14 17:46] VITALS: BP 109/86; PULSE 93; RESP 16; TEMP 36.7; O2SAT 97
--- NOTE | 2022-07-14 18:00 | EKG12_ITS ---
Test Reason : DYSRHYTHMIA Blood Pressure : / mmHG Vent. Rate : 100 BPM Atrial Rate : 117 BPM P-R Int : 000 ms QRS Dur : 082 ms QT Int : 352 ms P-R-T Axes : 000 071 266 degrees QTc Int : 454 ms Atrial fibrillation Nonspecific ST and T wave abnormality Abnormal ECG Confirmed by ALDA NICHOLS, CAITLIN ([id number]), graphics editor CIARRA HYDE ([id number]) on 07/16/2022 8:55:21 AM Referred By: BREONNA Confirmed By:CAITLIN LIZAMA MD
--- NOTE | 2022-07-14 18:02 | ED.VIS.DYS ---
HPI History of Present Illness Chief Complaint: Shortness of Breath Informant: patient Narrative Narrative: Patient presents with dyspnea. This patient has a history of COPD and she is on 3 L oxygen all the time. The last days she has bumped it up to about 4. She states for the last about 3 to 4 days she has been coughing more wheezing more using breathing treatments more. She is on chronic prednisone at 10 mg a day and that has not changed. She was bringing up clear sputum but it is now starting to get a little bit of padilla color. No fevers or chills. But she says a temperature of 98 for her is high. She denied chest pain but she states it just feels tight. She also complains that she had started Multaq about 8 days ago. They had stopped her digoxin as they wanted to try a different medicine. She states that as soon as she took the Multaq she felt nauseated weak and more short of breath. She stopped taking it after a few days because it made her feel horrible. She would like to have her digoxin back because she tolerated it quite well. She is on Eliquis for history of atrial fibrillation. She is taking it twice a day as prescribed. Her appetite has been down somewhat. She does feel weak. She states it is hard to even walk across the room at home now because she feels so short of breath. [facility] Medical History Anxiety Atrial fibrillation Chronic bronchitis Chronic hypoxemic respiratory failure Chronic obstructive pulmonary disease with (acute) exacerbation COPD (chronic obstructive pulmonary disease) Depression Emphysema of lung Essential hypertension History of lung cancer History of pneumonia Influenza A Influenza B Left anterior knee pain Left lower lobe pneumonia Lung cancer Lung mass Lung nodule Nicotine dependence, cigarettes, uncomplicated PAD (peripheral artery disease) Pneumonia Primary malignant neoplasm of both lungs Seasonal allergies Tobacco dependence in remission Unintentional weight loss Home Medications Handicap Placard #1 ea 11/05/21 [Rx Last Taken Unknown] albuterol sulfate 90 mcg/actuation aerosol inhaler 2 puff inhalation Q4H PRN shortness of breath or wheezing #8.5 grams 11/05/21 [Rx Last Taken Unknown] budesonide 0.5 mg/2 mL suspension for nebulization 0.5 mg (2 mL) inhalation BID #120 mL 11/05/21 [Rx Last Taken Unknown] acetaminophen 325 mg tablet 650 mg PO Q6H PRN PRN Pain 1-10 Or Fever>100.7 #0 tabs 05/09/22 [Rx Last Taken Unknown] buspirone 5 mg tablet 5 mg PO BID depression 05/19/22 [History Last Taken Unknown] paroxetine HCl 10 mg tablet (Paxil) 10 mg PO DAILY anxiety 05/19/22 [History Last Taken Unknown] prednisone 10 mg tablet 10 mg PO QDAY breathing 05/19/22 [History Last Taken Unknown] apixaban 5 mg tablet (Eliquis) 5 mg PO BID #60 tabs 05/28/22 [Rx Last Taken Unknown] hydrochlorothiazide 25 mg tablet 12.5 mg PO DAILY water pill #60 tabs 06/09/22 [Rx Last Taken Unknown] ipratropium 0.5 mg-albuterol 3 mg (2.5 mg base)/3 mL nebulization soln 3 ml inhalation Q4H PRN shortness of breath or wheezing #120 vials 06/11/22 [Rx Last Taken Unknown] gabapentin 100 mg capsule 100 mg PO BID 06/29/22 [History Last Taken Unknown] dronedarone 400 mg tablet (Multaq) 400 mg PO BID 06/30/22 [History Last Taken Unknown] albuterol sulfate 2.5 mg/3 mL (0.083 %) solution for nebulization 2.5 mg continuous nebulization Q4H 07/01/22 [History Last Taken Unknown] metoprolol tartrate 100 mg tablet 100 mg PO BID #180 tabs 07/01/22 [Rx Last Taken Unknown] doxycycline monohydrate 100 mg capsule 100 mg PO BID #20 CAPSULES 07/14/22 [Rx Last Taken Unknown] prednisone 20 mg tablet 60 mg PO DAILY #15 TABLETS 07/14/22 [Rx Last Taken Unknown] Allergy/AdvReac Type Severity Reaction Status Date / Time meperidine HCl [From Demerol] AdvReac pass out Verified 07/14/22 17:43 Family History Mother Thyroid cancer Anemia Lung disease Father Throat cancer Diabetes Hypertension Arthritis Lung disease Sister Breast cancer Brain cancer Other Asthma Ovarian cancer Surgical History H/O pneumonectomy H/O tubal ligation History of bilateral carpal tunnel release repaired lymph node Wedge resection of lung Social History household members: spouse Smoking Status: Heavy Smoker (>10/day) Tobacco: How many years used: 50 how long ago did patient quit smoking: pt reports smoking 2-3 cigs every couple of days second hand exposure: Yes alcohol intake: never substance use type: does not use caffeine: No what type of physical activity do you participate in: none ROS ROS ED ROS Narrative A complete review of systems was performed and is negative except as documented in the history of present illness. Some specific details below. Constitutional: No recent fevers or chills. But she states that temperature of 98 is high for her. She admits to generalized weakness and hard getting around her house. EYE: No discharge, visual complaints, or pain. ENT: No difficulty swallowing. No swelling. No pain. No reflux symptoms. CV: See history of present illness. She denies pain but does describe a sense of tightness. Respiratory: See history of present illness. GI: No abdominal pain. No nausea vomiting diarrhea. No blood in stool. : No frequency dysuria or hematuria. Musculoskeletal: No recent trauma. No pains. No swelling. Skin: No rash. Nondiaphoretic. Neuro: No weakness or numbness. Endocrine: No polyuria or polydipsia. EXAM Physical Exam Narrative Exam Narrative: CONSTITUTIONAL: Patient is nontoxic in appearance. However she does look a little bit dyspneic. She does speak in slightly shortened sentences. HEENT: No notable trauma. Mucous membranes moist. No sinus tenderness. No indication of pain with swallowing. EYES: No conjunctival injection. No proptosis. NECK:No JVD. No stridor. CARDIOVASCULAR: Mildly tachycardic rate. Irregularly irregular rhythm. No notable murmur. No JVD. My interpretation of the assistant branch manager shows atrial fibrillation with a heart rate that runs about 100-110. RESPIRATORY: Diffuse expiratory wheezing. Diffuse mildly coarse breath sounds slightly more on the right but not markedly so. No subcu air. No pain with a deep breath. Her trace is normal at 97% on her 3 L of oxygen. GASTROINTESTINAL: Not distended. Bowel sounds are normal. No tenderness. No guarding. No rebound. No palpable mass. No bruit is heard. GENITOURINARY: No tenderness over the bladder. No CVA tenderness. MUSCULOSKELETAL: Atraumatic. No noted peripheral edema. NEUROLOGICAL: Patient is alert and appropriate. No focal deficit noted. SKIN: No noted rashes. No diaphoresis. PSYCHIATRIC: Patient is calm. Mood is appropriate. Const Vital Signs: 07/14/22 17:43 07/14/22 17:46 07/14/22 17:46 Temperature 98.0 F 98.0 F Temperature Source Temporal Temporal Pulse Rate 87 93 Respiratory Rate 20 H 16 Respiratory Effort Short of Breath Labored Accessory Muscle Use Respiratory Depth Normal Respiratory Pattern Tachypnea Blood Pressure 109/86 H 109/86 H Blood Pressure Mean 93 93 Pulse Ox 97 97 Oxygen Delivery Method Nasal Cannula Nasal Cannula Nasal Cannula Oxygen Flow Rate (L/min) 2 3 3 07/14/22 18:42 07/14/22 18:12 07/14/22 19:42 Temperature 97.3 F L Temperature Source Temporal Pulse Rate 99 98 98 Respiratory Rate 25 H 20 H 20 H Respiratory Effort Respiratory Depth Respiratory Pattern Normal Blood Pressure 102/72 138/78 H Blood Pressure Mean 82 98 Pulse Ox 97 98 Oxygen Delivery Method Nasal Cannula Nasal Cannula Oxygen Flow Rate (L/min) 3 3 MDM MDM MDM Narrative Medical decision making narrative: CBC shows no marked abnormalities. Patient's electrolytes were normal other than mild elevation of glucose at 122 Patient's troponin was negative despite several days of symptoms. My independent interpretation the patient's single view AP chest x-ray shows COPD changes but no sign of definitive infiltrate. Patient was feeling much better with treatments. She was much less dyspneic. We did get her up and walk. She felt dyspneic walking but her saturations stayed good. She states she always feels dyspneic walking though. It is little worse than normal. But overall she feels better. I do not think she needs CT scan as she is already on Eliquis. I will give her another treatment while here. We will get her home with steroids antibiotics. We discussed with her the option of coming in the hospital but she would prefer to go home. I think this is reasonable as she is not desaturating, has overall normal vitals, has normal saturations at rest also. She also has normal labs. I think it is appropriate to attempt outpatient therapy but we did discuss reasons to return. Lab Data Attestation: I reviewed the patient's lab results. Labs: Laboratory Results - last 24 hr 07/14/22 07/14/22 17:49 17:49 WBC 7.6 RBC 4.79 Hgb 13.8 Hct 44.3 MCV 92.5 MCH 28.8 MCHC 31.2 L RDW Std Deviation 45.4 H RDW Coeff of Joi 13.4 Plt Count 274 MPV 9.6 Immature Gran % (Auto) 0.300 Neut % (Auto) 84.6 H Lymph % (Auto) 7.1 L Mcmullen % (Auto) 7.2 Eos % (Auto) 0.1 Baso % (Auto) 0.7 Absolute Neuts (auto) 6.4 Absolute Lymphs (auto) 0.54 L Nucleated RBC % 0 Differential Comment SCANNED Sodium 138 Potassium 3.9 Chloride 102 Carbon Dioxide 30.0 Anion Gap 6 BUN 11 Creatinine 0.83 Estim Creat Clear Calc 43.36 Est GFR (MDRD) Af Amer 87 Est GFR (MDRD) Non-Af 72 BUN/Creatinine Ratio 13.3 Glucose 122 H Calcium 8.9 Troponin I High Sens 6 Radiography Diagnostic Testing: Clinical Impression(s) from Imaging Studies Chest X-Ray 07/14/22 18:40 IMPRESSION: No radiographic evidence of acute cardiopulmonary disease. Electronically Signed: Jesús Jefferson MD at 19:09 EDT , EKG Initial EKG: Comments: My independent interpretation the patient's EKG done for dyspnea and tightness shows atrial fibrillation with overall rate of 100. No acute ST elevation or depression. QRS duration and QTc are normal. Discharge Plan Triage Chief Complaint: Shortness of Breath ED Provider: Kannan Dorsey Dx/Rx/DC Orders Clinical Impression: COPD with acute exacerbation, Oxygen dependent Instructions: ED COPD Flare Prescriptions: New prednisone 20 mg tablet 60 mg PO DAILY Qty: 15 0RF doxycycline monohydrate 100 mg capsule 100 mg PO BID Qty: 20 0RF No Action (DME) Handicap Placard See Rx Instructions .Route .MEDSUPPLY Qty: 1 0RF Rx Instructions: 5 year RX (11/05/21-11/05/26) Eliquis 5 mg tablet 5 mg PO BID Qty: 60 5RF Rx Instructions: start on 05/21/22 gabapentin 100 mg capsule 100 mg PO BID Multaq 400 mg tablet 400 mg PO BID Rx Instructions: must administer with a meal/food albuterol sulfate 2.5 mg /3 mL (0.083 %) solution for nebulization 2.5 mg continuous nebulization Q4H Label Comments: Inhale one vial (with the ipratropium) every 4 hours as needed for shortness of breath/wheezing. acetaminophen 325 mg Tablet 650 mg PO Q6H PRN PRN (Reason: Pain 1-10 Or Fever>100.7) Qty: 0 0RF buspirone 5 mg tablet 5 mg PO BID prednisone 10 mg tablet 10 mg PO QDAY paroxetine HCl [Paxil] 10 mg tablet 10 mg PO DAILY albuterol sulfate 90 mcg/actuation HFA aerosol inhaler 2 puff INHALATION Q4H PRN (Reason: shortness of breath or wheezing) Qty: 8.5 6RF Rx Instructions: administer with spacer budesonide 0.5 mg/2 mL suspension for nebulization 0.5 mg inhalation BID Qty: 120 6RF hydrochlorothiazide 25 mg tablet 12.5 mg PO DAILY Qty: 60 1RF ipratropium-albuterol 0.5 mg-3 mg(2.5 mg base)/3 mL solution for nebulization 3 ml INHALATION Q4H PRN (Reason: shortness of breath or wheezing) Qty: 120 6RF Rx Instructions: J96.11 Chronic respiratory failure with hypoxia J44.1 COPD with exacerbation metoprolol tartrate 100 mg tablet 100 mg PO BID Qty: 180 1RF Primary Care Provider: Eryn Shelton Referrals: Eryn Shelton MD [Primary Care Provider] - 3-5 Days if not improving Disposition Disposition: Home, Self Care
[2022-07-14 18:12] VITALS: PULSE 98; RESP 20
[2022-07-14] MEDS: Ipratropium/Albuterol Sulfate 3 ML AMPUL.NEB INHALATION (18:12)
[2022-07-14] MEDS: Albuterol 2.5 MG/3 ML VIAL.NEB. INHALATION (18:12)
[2022-07-14 18:14] LABS: Absolute Lymphocyte Count 0.54 X10^3/uL (0.83-4.51); Absolute Neutrophil Count 6.4 X10^3/uL (2.0-7.7); Basophil# 0.05 X10^3/uL; Basophil% 0.7 % (0-1); Eosinophil# 0.01 X10^3/uL; Eosinophils% 0.1 % (0-5); Hematocrit 44.3 % (37-47); Hemoglobin 13.8 g/dL (12.0-15.0); Lymphocyte # 0.54 X10^3/ul (0.83-4.51); Lymphocyte % 7.1 % (19-41); Mean Corp Hgb Conc 31.2 g/dL (32-36); Mean Corpuscular Hgb 28.8 pg (27.0-32.0); Mean Corpuscular Volume 92.5 fL (81-99); Mean Platelet Vol. 9.6 fl (6.2-12.0); Monocyte# 0.55 X10^3/uL; Monocyte% 7.2 % (0-10); NRBC Flagged by Analyzer 0 % (0-5); Neutrophil # 6.43 X10^3/uL (2.7-7.7); Neutrophil % 84.6 % (47-70); POSITIVE DIFFERENTIAL YES; Platelet Count 274 K/mm3 (150-450); RBC Distribution Width CV 13.4 % (11.6-14.6); RBC Distribution Width SD 45.4 fl (35.1-43.9); Red Blood Count 4.79 M/mm3 (4.2-5.4); White Blood Count 7.6 K/mm3 (4.4-11.0)
[2022-07-14] MEDS: Digoxin 250 MCG Tablet PO (18:39)
[2022-07-14] MEDS: MethylPREDNISolone 125 MG/2 ML Vial IV (18:39)
--- NOTE | 2022-07-14 18:40 | RAD_ITS ---
INDICATION: SOB EXAMINATION/TECHNIQUE: X-RAY - XR Chest 1 View COMPARISON: 05/08/2022 FINDINGS: LUNGS: Similar bilateral lower lung scarring. Emphysematous lungs. No focal consolidation or large pleural effusion. MEDIASTINUM AND CARDIOVASCULAR STRUCTURES: Cardiac silhouette not enlarged. Central airways and mediastinal contour are unremarkable. RAD/Chest 1 View (Portable) IMPRESSION: No radiographic evidence of acute cardiopulmonary disease. Electronically Signed: Jesús Jefferson MD at 19:09 EDT ,
[2022-07-14 18:42] VITALS: BP 102/72; PULSE 99; RESP 25; O2SAT 97
--- NOTE | 2022-07-14 18:46 | CPS ---
x1 Albuterol given to pt. in ER as well
[2022-07-14 18:49] LABS: Differential Comment SCANNED; Differential Indicated SCAN CRITERIA MET
[2022-07-14 19:07] LABS: Anion Gap 6 (5-15); BUN 11 mg/dL (7-18); BUN/Creat Ratio 13.3 RATIO (10-20); Calcium,Total 8.9 mg/dL (8.5-10.1); Chloride 102 mmol/L (98-107); Creatinine, Serum 0.83 mg/dL (0.55-1.02); EST Glomerular Filtration Rate 72 mL/min (>60); Est Glom Filt Rate - Afr Amer 87 mL/min (>60); Estimated Creatinine Clearance 43.36 ml/min; Glucose 122 mg/dL (74-106); Potassium 3.9 mmol/L (3.5-5.1); Sodium Level 138 mmol/L (136-145); Troponin-I HS 6 pg/mL (3.0-54.0)
[2022-07-14 19:42] VITALS: BP 138/78; PULSE 98; RESP 20; TEMP 36.3; O2SAT 98
[2022-07-14 20:05] VITALS: O2SAT 97
[2022-07-14] MEDS: predniSONE 20 MG Tablet 60 MG PO (21:09)
[2022-07-14] MEDS: Doxycycline 100 MG CAPSULE PO (21:09)
== END 2022-07-14 21:18 | disposition home or self-care (01) ==
PROVIDERS: Emergency Provider Emergency Medicine; PCP Internal Medicine; Visit Provider Emergency Medicine
DX: J44.1 Chronic obstructive pulmonary disease with (acute) exacerbation (principal); I48.91 Unspecified atrial fibrillation; Z99.81 Dependence on supplemental oxygen; F17.210 Nicotine dependence, cigarettes, uncomplicated; I10 Essential (primary) hypertension; Z79.51 Long term (current) use of inhaled steroids; Z79.01 Long term (current) use of anticoagulants; Z79.899 Other long term (current) drug therapy; F32.A Depression, unspecified; F41.9 Anxiety disorder, unspecified; Z85.118 Personal history of other malignant neoplasm of bronchus and lung
CPT/HCPCS: 99285; 96374; 71045; 80048; 84484; 85025; 87428; 93005; 94640; A4216

== ENCOUNTER 2022-07-15 14:18 | Inpatient (IN) | payer MEDICARE, SELFPAY ==
[2022-07-15] VITALS (13 sets, daily range): BP systolic 131–144; BP diastolic 93–109; PULSE 89–103; RESP 16–36; TEMP 36.5–36.7; O2SAT 94–100; BMI 26.2; BMI 25.2
--- NOTE | 2022-07-15 14:49 | EKG12_ITS ---
Test Reason : SOB Blood Pressure : / mmHG Vent. Rate : 089 BPM Atrial Rate : 000 BPM P-R Int : 000 ms QRS Dur : 082 ms QT Int : 334 ms P-R-T Axes : 000 070 246 degrees QTc Int : [address] & T wave abnormality, consider inferior ischemia Abnormal ECG Confirmed by ALDA NICHOLS, CAITLIN ([id number]), multimedia editor CIARRA HYDE ([id number]) on 07/16/2022 9:07:36 AM Referred By: Confirmed By:CAITLIN LIZAMA MD
--- NOTE | 2022-07-15 15:10 | RAD_ITS ---
HISTORY: Dyspnea. TECHNIQUE: XR Chest 1 View. COMPARISON: Prior day. FINDINGS: LINES/TUBES: None. CARDIOMEDIASTINAL BORDERS: Stable. LUNGS: Right apical pleural-parenchymal thickening again seen. Hyperinflation, likely COPD. Scarring and suture in the right lung base. PLEURA: Unchanged blunting of the right costophrenic angle from trace pleural effusion or pleural scarring. RAD/Chest 1 View (Portable) IMPRESSION: No significant interval change. Electronically Signed: Nathalia Bliss MD at 15:33 EDT ,
[2022-07-15 15:18] LABS: Absolute Lymphocyte Count 0.62 X10^3/uL (0.83-4.51); Absolute Neutrophil Count 6.6 X10^3/uL (2.0-7.7); Basophil# 0.01 X10^3/uL; Basophil% 0.1 % (0-1); Hematocrit 45.5 % (37-47); Hemoglobin 14.4 g/dL (12.0-15.0); Lymphocyte # 0.62 X10^3/ul (0.83-4.51); Lymphocyte % 8.2 % (19-41); Mean Corp Hgb Conc 31.6 g/dL (32-36); Mean Corpuscular Hgb 29.3 pg (27.0-32.0); Mean Corpuscular Volume 92.5 fL (81-99); Mean Platelet Vol. 9.4 fl (6.2-12.0); NRBC Flagged by Analyzer 0 % (0-5); Neutrophil # 6.63 X10^3/uL (2.7-7.7); Neutrophil % 87.4 % (47-70); Platelet Count 268 K/mm3 (150-450); RBC Distribution Width CV 13.2 % (11.6-14.6); RBC Distribution Width SD 45.1 fl (35.1-43.9); Red Blood Count 4.92 M/mm3 (4.2-5.4); White Blood Count 7.6 K/mm3 (4.4-11.0)
[2022-07-15] MEDS: Ipratropium/Albuterol Sulfate 3 ML AMPUL.NEB INHALATION ×2 (15:19→20:08)
[2022-07-15 15:30] LABS: D-Dimer Quantitative (DVT/PE) 0.41 FEU/ug/m (0.27-0.49)
[2022-07-15 15:39] LABS: Anion Gap 7 (5-15); BUN 18 mg/dL (7-18); BUN/Creat Ratio 22.2 RATIO (10-20); Calcium,Total 9.4 mg/dL (8.5-10.1); Chloride 96 mmol/L (98-107); Creatinine, Serum 0.81 mg/dL (0.55-1.02); EST Glomerular Filtration Rate 74 mL/min (>60); Est Glom Filt Rate - Afr Amer 89 mL/min (>60); Estimated Creatinine Clearance 44.43 ml/min; Glucose 165 mg/dL (74-106); Potassium 4.3 mmol/L (3.5-5.1); Sodium Level 131 mmol/L (136-145); Troponin-I HS 8 pg/mL (3.0-54.0)
--- NOTE | 2022-07-15 15:52 | EDS_ITS ---
HPI History of Present Illness Chief Complaint: Shortness of Breath Informant: patient Onset/Context/Timing Onset: Days (2) Context: gradual Timing: Continuous Quality: Positive for Dyspnea on exertion Worsened by: Exertion Relieved by: Rest Associated Symptoms cough and clear sputum; Negative for rhinorrhea, post nasal drip, ear pain, fever, sore throat, subjective or chills Chest Pain: Positive for Aching and Pressure Narrative Narrative: Patient presents with shortness of breath that has been getting worse over the past 2 days. Patient states it is gradually getting worse. Patient states she is having difficulty ambulating from her living room to her kitchen due to the dyspnea. Patient admits to a cough with thick clear sputum. Patient denies any fevers or chills. Patient admits to some aching and pressure in her chest. Patient states it is over the lower substernal area and left parasternal area. Patient states she was seen here last night. Patient states she was started on prednisone and doxycycline. Patient states she did take her dose of prednisone and doxycycline today. Patient states she is normally on home oxygen at 3 L/min. Patient states she has a history of lung cancer. Patient states she has had resections of portions of both upper lobes. PE Risk Factors: Positive for Cancer [facility] Medical History Anxiety Atrial fibrillation Chronic bronchitis Chronic hypoxemic respiratory failure Chronic obstructive pulmonary disease with (acute) exacerbation COPD (chronic obstructive pulmonary disease) Depression Emphysema of lung Essential hypertension History of lung cancer History of pneumonia Influenza A Influenza B Left anterior knee pain Left lower lobe pneumonia Lung cancer Lung mass Lung nodule Nicotine dependence, cigarettes, uncomplicated PAD (peripheral artery disease) Pneumonia Primary malignant neoplasm of both lungs Seasonal allergies Tobacco dependence in remission Unintentional weight loss Home Medications Handicap Skylerard #1 ea 11/05/21 [Rx Last Taken Unknown] albuterol sulfate 90 mcg/actuation aerosol inhaler 2 puff inhalation Q4H PRN shortness of breath or wheezing #8.5 grams 11/05/21 [Rx Last Taken 07/14/22] budesonide 0.5 mg/2 mL suspension for nebulization 0.5 mg (2 mL) inhalation BID #120 mL 11/05/21 [Rx Last Taken 07/15/22 06:00] buspirone 5 mg tablet 5 mg PO BID depression 05/19/22 [History Last Taken 07/15/22] paroxetine HCl 10 mg tablet (Paxil) 10 mg PO DAILY anxiety 05/19/22 [History Last Taken 07/15/22] prednisone 10 mg tablet 10 mg PO DAILY breathing 05/19/22 [History Last Taken 07/15/22] apixaban 5 mg tablet (Eliquis) 5 mg PO BID #60 tabs 05/28/22 [Rx Last Taken 07/15/22] hydrochlorothiazide 25 mg tablet 12.5 mg PO DAILY water pill #60 tabs 06/09/22 [Rx Last Taken 07/15/22] ipratropium 0.5 mg-albuterol 3 mg (2.5 mg base)/3 mL nebulization soln 3 ml inhalation Q4H PRN shortness of breath or wheezing #120 vials 06/11/22 [Rx Last Taken 07/15/22] gabapentin 100 mg capsule 100 mg PO BID NERVE PAIN 06/29/22 [History Last Taken 07/08/22] albuterol sulfate 2.5 mg/3 mL (0.083 %) solution for nebulization 2.5 mg continuous nebulization Q4H SOB 07/01/22 [History Last Taken 07/15/22] metoprolol tartrate 100 mg tablet 100 mg PO BID #180 tabs 07/01/22 [Rx Last Taken 07/15/22] doxycycline monohydrate 100 mg capsule 100 mg PO BID #20 CAPSULES 07/14/22 [Rx Last Taken 07/15/22] prednisone 20 mg tablet 60 mg PO DAILY #15 TABLETS 07/14/22 [Rx Last Taken 07/15/22] digoxin 250 mcg (0.25 mg) tablet 250 mcg PO DAILY HEART 07/15/22 [History Last Taken 07/15/22] Allergy/AdvReac Type Severity Reaction Status Date / Time meperidine HCl [From Demerol] AdvReac pass out Verified 07/15/22 14:22 Family History Mother Thyroid cancer Anemia Lung disease Father Throat cancer Diabetes Hypertension Arthritis Lung disease Sister Breast cancer Brain cancer Other Asthma Ovarian cancer Surgical History H/O pneumonectomy H/O tubal ligation History of bilateral carpal tunnel release repaired lymph node Wedge resection of lung Social History household members: spouse Smoking Status: Heavy Smoker (>10/day) Tobacco: How many years used: 50 how long ago did patient quit smoking: pt reports smoking 2-3 cigs every couple of days second hand exposure: Yes alcohol intake: never substance use type: does not use caffeine: No what type of physical activity do you participate in: none ROS ROS ED Constitutional Constitutional ED: Denies chills or fever(s) Eyes Eyes: Denies blurry vision or change in vision ENT ENT ED: Reports rhinorrhea; Denies sore throat Cardiovascular Cardiovascular: Reports chest pain; Denies palpitations Respiratory/Chest Respiratory/Chest: Reports cough and dyspnea Gastrointestinal Gastrointestinal: Denies nausea or vomiting Genitourinary Genitourinary ED: Denies dysuria or hematuria Musculoskeletal Musculoskeletal: Denies back pain or neck pain Integumentary Denies abscess or rash Neurologic Neurologic: Reports headache(s); Denies weakness Allergic/Immunologic Allergic/Immunologic ED: Denies mouth swelling or urticaria EXAM Physical Exam Const Vital Signs: 07/15/22 14:19 07/15/22 14:24 07/15/22 14:25 Temperature 98.1 F Temperature Source Temporal Pulse Rate 95 Respiratory Rate 36 H Respiratory Effort Short of Breath Respiratory Depth Shallow Respiratory Pattern Tachypnea Blood Pressure 144/109 H Blood Pressure Mean 120 Pulse Ox 96 Oxygen Delivery Method Nasal Cannula Nasal Cannula Oxygen Flow Rate (L/min) 3 07/15/22 15:20 07/15/22 15:20 Temperature Temperature Source Pulse Rate 95 Respiratory Rate 22 H Respiratory Effort Respiratory Depth Respiratory Pattern Tachypnea Blood Pressure Blood Pressure Mean Pulse Ox 97 Oxygen Delivery Method Nasal Cannula Oxygen Flow Rate (L/min) 3 Positive well nourished and well developed General Appearance ED: well developed HEENT Reports moist mucous membranes Neck supple and no JVD Resp normal respiratory effort and clear to auscultation bilaterally Auscultation: wheezes and diminished lung sounds Cardio regular rate and regular rhythm GI normal to inspection, nondistended, normoactive bowel sounds and non-tender Palpation: soft Extremity normal to inspection General Extremety ED: Negative for edema or tenderness General Extremity: Negative for edema Neuro oriented x3, CN's II-XII intact bilaterally and no sensory deficits noted Sensorium / Orientation: alert Motor Exam: strength 5/5 throughout Psych mental status grossly normal Skin no rashes or lesions noted MDM MDM MDM Narrative Medical decision making narrative: Differential diagnosis includes COPD exacerbation, pneumonia, cardiac dysrhythmia, cardiac ischemia, pulmonary embolism, and pneumothorax. Chest x- ray will be obtained to assess for pneumonia and pneumothorax. EKG will be obtained to assess for cardiac dysrhythmia and cardiac ischemia. CBC will be obtained to assess for leukocytosis and anemia. Basic metabolic profile will be obtained to assess for electrolyte abnormality and renal function. High- sensitivity troponin will be obtained to assess for cardiac ischemia. D-dimer will be obtained to assess for pulmonary embolism. Lab Data Attestation: I reviewed the patient's lab results. Lab results narrative: CBC was reviewed and was within normal limits. Basic metabolic profile was reviewed. There is a mild hyponatremia of 131 and hypochloremia of 96. The remainder was essentially within normal limits. High-sensitivity troponin was reviewed and was normal at 8. D-dimer was reviewed and was normal at 0.41. Serum lactate was reviewed and was within normal limits. Labs: Laboratory Results - last 24 hr 07/15/22 07/15/22 07/15/22 14:26 14:26 14:26 WBC 7.6 RBC 4.92 Hgb 14.4 Hct 45.5 MCV 92.5 MCH 29.3 MCHC 31.6 L RDW Std Deviation 45.1 H RDW Coeff of Joi 13.2 Plt Count 268 MPV 9.4 Immature Gran % (Auto) 0.300 Neut % (Auto) 87.4 H Lymph % (Auto) 8.2 L [place] % (Auto) 4.0 Eos % (Auto) 0.0 Baso % (Auto) 0.1 Absolute Neuts (auto) 6.6 Absolute Lymphs (auto) 0.62 L Nucleated RBC % 0 D-Dimer Quant (PE/DVT) 0.41 Sodium 131 L Potassium 4.3 Chloride 96 L Carbon Dioxide 28.0 Anion Gap 7 BUN 18 Creatinine 0.81 Estim Creat Clear Calc 44.43 Est GFR (MDRD) Af Amer 89 Est GFR (MDRD) Non-Af 74 BUN/Creatinine Ratio 22.2 H Glucose 165 H Lactic Acid Calcium 9.4 Troponin I High Sens 8 07/15/22 15:00 WBC RBC Hgb Hct MCV MCH MCHC RDW Std Deviation RDW Coeff of Joi Plt Count MPV Immature Gran % (Auto) Neut % (Auto) Lymph % (Auto) [place]erry % (Auto) Eos % (Auto) Baso % (Auto) Absolute Neuts (auto) Absolute Lymphs (auto) Nucleated RBC % D-Dimer Quant (PE/DVT) Sodium Potassium Chloride Carbon Dioxide Anion Gap BUN Creatinine Estim Creat Clear Calc Est GFR (MDRD) Af Amer Est GFR (MDRD) Non-Af BUN/Creatinine Ratio Glucose Lactic Acid 1.2 Calcium Troponin I High Sens Radiography Diagnostic Testing: Clinical Impression(s) from Imaging Studies Chest X-Ray 07/15/22 15:10 IMPRESSION: No significant interval change. Electronically Signed: Nathalia Bliss MD at 15:33 EDT , Portable 1 view chest x-ray was obtained. On my independent interpretation, lung tineo are clear. There is normal cardiac silhouette. Bony thorax is normal. There is no acute process noted. Radiologist also interpreted the x- ray and agrees. EKG Initial EKG: Attestation: I personally reviewed and interpreted this EKG as follows: Interpretation: Atrial Fibrillation (89) and Non-Specific ST Changes Comments: EKG was obtained. On my interpretation it shows atrial fibrillation with a rate of 89. QRS interval and QTc intervals are within normal limits. Hyder is normal. There are nonspecific ST-T wave changes. Prior EKG tracings: available for review Prior: Unchanged (06/29/2022) Management Discussion w/another healthcare provider: Hospitalist Treatment and Re-Evaluation :: Since the patient took her prednisone dose today, I did not give her a repeat dose of prednisone. Patient was given a DuoNeb aerosol here. Patient is feeling somewhat better on reevaluation. Patient states she would prefer to stay in the hospital since she becomes short of breath with minimal ambulation. Case was discussed with the hospitalist. He will admit the patient to PCU. Patient understands and is agreeable with the plan. All questions were answere d. Discharge Plan Dx/Rx/DC Orders Clinical Impression: COPD with acute exacerbation, Essential hypertension Disposition Disposition: Acute Care Hospital [facility]
--- NOTE | 2022-07-15 16:20 | NURSING ---
DR DRE AGUILAR
[2022-07-15 16:23] LABS: Lactic Acid 1.2 mmol/L (0.4-1.9)
--- NOTE | 2022-07-15 16:24 | HP.PCM.HOS_ITS ---
HPI - General General Date of Admission: 07/15/22 Date of Service: 07/15/22 Chief Complaint: Shortness of breath progressively worsening for 1 week but the worst for last 2 days HPI Narrative YVROSE HAWTHORNE, is a 71 F with history of COPD and chronic hypoxic respiratory failure on 3 L of home oxygen came to ED for progressive worsening of shortness of breath with dyspnea at rest for last 2 days. She came to ED yesterday was sent home on steroid and doxycycline. Patient came back today stating that around 2:30 AM she felt short of breath and chest tightness in the midsternal region. Her chest tightness was about 7-8/intensity but now getting better about 5/10. She is localized, nonradiating feels like heaviness. She is also wheezing for last 2 days. Her usual baseline that she can walk easily without short of breath on level g round with oxygen but she is not dyspneic even at rest. Her heart rate also elevated was 90s last night but today about 104-110. May be related to DuoNeb. Her other concern is high blood pressure. She states her usually blood pressure is controlled 1 30-1 40 systolic, she regularly checks at home. Last 2 days blood pressure has been elevated. On monitor systolic 180. Chest x-ray does not show acute abnormality yesterday and today. Twelve-lead EKG done and shows A-fib at 89 bpm, QTc 406 ms. Yesterday on 328 her EKG was A- fib with RVR at 133 bpm. [facility] Medical History Anxiety Atrial fibrillation Chronic bronchitis Chronic hypoxemic respiratory failure Chronic obstructive pulmonary disease with (acute) exacerbation COPD (chronic obstructive pulmonary disease) Depression Emphysema of lung Essential hypertension History of lung cancer History of pneumonia Influenza A Influenza B Left anterior knee pain Left lower lobe pneumonia Lung cancer Lung mass Lung nodule Nicotine dependence, cigarettes, uncomplicated PAD (peripheral artery disease) Pneumonia Primary malignant neoplasm of both lungs Seasonal allergies Tobacco dependence in remission Unintentional weight loss Home Medications Handicap Placard #1 ea 11/05/21 [Rx Last Taken Unknown] albuterol sulfate 90 mcg/actuation aerosol inhaler 2 puff inhalation Q4H PRN shortness of breath or wheezing #8.5 grams 11/05/21 [Rx Last Taken 07/14/22] budesonide 0.5 mg/2 mL suspension for nebulization 0.5 mg (2 mL) inhalation BID #120 mL 11/05/21 [Rx Last Taken 07/15/22 06:00] buspirone 5 mg tablet 5 mg PO BID depression 05/19/22 [History Last Taken 07/15/22] paroxetine HCl 10 mg tablet (Paxil) 10 mg PO DAILY anxiety 05/19/22 [History Last Taken 07/15/22] prednisone 10 mg tablet 10 mg PO DAILY breathing 05/19/22 [History Last Taken 07/15/22] apixaban 5 mg tablet (Eliquis) 5 mg PO BID #60 tabs 05/28/22 [Rx Last Taken 07/15/22] hydrochlorothiazide 25 mg tablet 12.5 mg PO DAILY water pill #60 tabs 06/09/22 [Rx Last Taken 07/15/22] ipratropium 0.5 mg-albuterol 3 mg (2.5 mg base)/3 mL nebulization soln 3 ml inhalation Q4H PRN shortness of breath or wheezing #120 vials 06/11/22 [Rx Last Taken 07/15/22] gabapentin 100 mg capsule 100 mg PO BID NERVE PAIN 06/29/22 [History Last Taken 07/08/22] albuterol sulfate 2.5 mg/3 mL (0.083 %) solution for nebulization 2.5 mg contin uous nebulization Q4H SOB 07/01/22 [History Last Taken 07/15/22] metoprolol tartrate 100 mg tablet 100 mg PO BID #180 tabs 07/01/22 [Rx Last Taken 07/15/22] doxycycline monohydrate 100 mg capsule 100 mg PO BID #20 CAPSULES 07/14/22 [Rx Last Taken 07/15/22] prednisone 20 mg tablet 60 mg PO DAILY #15 TABLETS 07/14/22 [Rx Last Taken 07/15/22] digoxin 250 mcg (0.25 mg) tablet 250 mcg PO DAILY HEART 07/15/22 [History Last Taken 07/15/22] Allergy/AdvReac Type Severity Reaction Status Date / Time meperidine HCl [From Demerol] AdvReac pass out Verified 07/15/22 14:22 Family History Mother Thyroid cancer Anemia Lung disease Father Throat cancer Diabetes Hypertension Arthritis Lung disease Sister Breast cancer Brain cancer Other Asthma Ovarian cancer Surgical History H/O pneumonectomy H/O tubal ligation History of bilateral carpal tunnel release repaired lymph node Wedge resection of lung Social History household members: spouse Smoking Status: Heavy Smoker (>10/day) Tobacco: How many years used: 50 how long ago did patient quit smoking: pt reports smoking 2-3 cigs every couple of days second hand exposure: Yes alcohol intake: never substance use type: does not use caffeine: No what type of physical activity do you participate in: none ROS ROS Narrative Constitutional: Reports fatigue and weakness. No fever. HEENT: Reports systems reviewed and no addt'l complaints, except as documented Respiratory/Chest: Increasing cough, wheezing and shortness of breath. CVS: Chest tightness as described in HPI Gastrointestinal: Denies coffee ground emesis, hematemesis or vomiting Genitourinary: Denies burning urination or new urinary tract symptoms Musculoskeletal: Denies acute joint pain or limited range of motion. No acute injury Neurologic: Denies seizure-like symptoms. skin: No ulcer. No rash Endocrinology: Reports systems reviewed and no addt'l complaints, except as documented Hematologic/Lymphatic: Reports systems reviewed and no addt'l complaints, except as documented Rest 14 ROS are negative except as mentioned in HPI Vital Signs Vital Signs Vital Signs: 07/15/22 14:19 07/15/22 14:24 07/15/22 14:25 Temperature 98.1 F Temperature Source Temporal Pulse Rate 95 Respiratory Rate 36 H Respiratory Effort Short of Breath Respiratory Depth Shallow Respiratory Pattern Tachypnea Blood Pressure 144/109 H Blood Pressure Mean 120 Pulse Ox 96 Oxygen Delivery Method Nasal Cannula Nasal Cannula Oxygen Flow Rate (L/min) 3 07/15/22 15:20 07/15/22 15:20 Temperature Temperature Source Pulse Rate 95 Respiratory Rate 22 H Respiratory Effort Respiratory Depth Respiratory Pattern Tachypnea Blood Pressure Blood Pressure Mean Pulse Ox 97 Oxygen Delivery Method Nasal Cannula Oxygen Flow Rate (L/min) 3 Weight Weight: 134 lb 0.657 oz Body Mass Index (BMI) 26.2 Physical Exam Narrative General: Alert, Oriented x3, Cooperative HEENT: Atraumatic, PERRLA, EOMI, Normocephalic Oral: Oral mucosa dry. No Gingival or Mucosal Lesions/ Ulcerations Neck: Supple, No JVD, Negative Carotid Bruits Lungs: Air entry severely diminished in bilateral lung bases. Bilateral diffuse wheezing. On 3 L of oxygen. Cardiovascular: A-fib with RVR, Normal S1, Normal S2, No murmurs Abdomen: Bowel Sounds Present, Soft, Non Tender, Non-Distended : No renal angle tenderness. No suprapubic tenderness. Extremities: No edema, Capillary Refill Less than 3 Seconds Skin: No rashes, No breakdown Musculoskeletal: No Tenderness to Palpation of Joints or Extremities. ROM adequate and full. Neurological: Cranial nerves II-XII grossly intact, DTR 2+/4 and Symmetrical, Neuro grossly intact Psych/Mental Status: Flat affect, anxious. Results Lab / Micro Data Result Diagrams: 07/15/22 14:26 07/15/22 14:26 Labs: Laboratory Results - last 24 hr 07/15/22 14:26: WBC 7.6, RBC 4.92, Hgb 14.4, Hct 45.5, MCV 92.5, MCH 29.3, MCHC 31.6 L, RDW Std Deviation 45.1 H, RDW Coeff of Joi 13.2, Plt Count 268, MPV 9.4, Immature Gran % (Auto) 0.300, Neut % (Auto) 87.4 H, Lymph % (Auto) 8.2 L, [place] % (Auto) 4.0, Eos % (Auto) 0.0, Baso % (Auto) 0.1, Absolute Neuts (auto) 6.6, Absolute Lymphs (auto) 0.62 L, Nucleated RBC % 0 07/15/22 14:26: D-Dimer Quant (PE/DVT) 0.41 07/15/22 14:26: Sodium 131 L, Potassium 4.3, Chloride 96 L, Carbon Dioxide 28.0, Anion Gap 7, BUN 18, Creatinine 0.81, Estim Creat Clear Calc 44.43, Est GFR (MDRD) Af Amer 89, Est GFR (MDRD) Non-Af 74, BUN/Creatinine Ratio 22.2 H, Glucose 165 H, Calcium 9.4, Troponin I High Sens 8 07/15/22 15:00: Lactic Acid 1.2 Radiology Impression Chest X-Ray 07/15/22 15:10 IMPRESSION: No significant interval change. Electronically Signed: Nathalia Bliss MD at 15:33 EDT , Assessment & Plan Assessment/Plan (1) COPD with acute exacerbation: (2) Atrial fibrillation with rapid ventricular response: PLAN: Plan This 71-year-old female with history of COPD/emphysema on 3 L of home oxygen is being admitted with worsening shortness of breath, wheezing and chest tightness consistent with COPD exacerbation. 1. COPD exacerbation, exact etiology unclear but suspected viral bronchitis with chronic hypoxic respiratory failure: Patient is being admitted in PCU. Respiratory panel, COVID-19 PCR and urinary antigens ordered. Sputum culture if patient expectorates. Urinary antigens ordered. Chest x-ray mutilative does not show acute cardiopulmonary abnormality. Patient is started on ipratropium every 4 hourly, Solu-Medrol, Mucinex, incentive spirometry and Pep. BiPAP as needed. Lactic acid normal. PFT in September 2019 reported partially reversible severe large airway obstructive ventilatory defect with symmetric reduction of DLCO. 2. A-fib with mild RVR probably due to bronchodilator: Patient was last admitted in April 2022 for new onset A-fib with RVR. Patient on metoprolol 100 mg twice daily. Digoxin to 50 mcg daily. On Eliquis 5 mg twice daily. If patient gets into rapid ventricular more than 130 per night, will need diltiazem IV bolus. We will avoid albuterol for now. Last echo in May 11, 2022 reported EF 60% mild focal aortic valve calcification. Normal LV size. During previous admission patient had influenza a and pneumonia and was treated with Tamiflu and levofloxacin. 3. Mild hypotonic and hypovolemic hyponatremia and hypokalemia: Patient is started on IV fluid normal saline. 4. History of lung mass/primary malignant neoplasm, seasonal allergies history of 50 pack years of cigarette smoking : Patient still smokes 2 to 3 cigarettes every other day. Patient had partial pneumonectomy. Patient follows radiation oncologist and supervisor baking Dr. Johnston. VTE prophylaxis: On Eliquis. Living will/advanced directive/end of life care: Patient does have living will or advanced directive. Her is power of workers compensation defense attorney for health. After discussion of benefits/risks procedures involved with full code, DNR CC arrest and DNR CC, the patient opted for DNRCC arrest with no intubation Patient doesn't want artificial life support including intubation, tube feed, ventilator and/chest compression, central venous catheter, vasopressor and DC shock if needed Total time spent in [id number] encounter in discussion of advanced directive 17 minutes. Laboratory Results 07/15/22 14:26: WBC 7.6, RBC 4.92, Hgb 14.4, Hct 45.5, MCV 92.5, MCH 29.3, MCHC 31.6 L, RDW Std Deviation 45.1 H, RDW Coeff of Joi 13.2, Plt Count 268, MPV 9.4, Immature Gran % (Auto) 0.300, Neut % (Auto) 87.4 H, Lymph % (Auto) 8.2 L, [place] % (Auto) 4.0, Eos % (Auto) 0.0, Baso % (Auto) 0.1, Absolute Neuts (auto) 6.6, Absolute Lymphs (auto) 0.62 L, Nucleated RBC % 0 07/15/22 14:26: D-Dimer Quant (PE/DVT) 0.41 07/15/22 14:26: Sodium 131 L, Potassium 4.3, Chloride 96 L, Carbon Dioxide 28.0, Anion Gap 7, BUN 18, Creatinine 0.81, Estim Creat Clear Calc 44.43, Est GFR (MDRD) Af Amer 89, Est GFR (MDRD) Non-Af 74, BUN/Creatinine Ratio 22.2 H, Glucose 165 H, Calcium 9.4, Troponin I High Sens 8 07/15/22 15:00: Lactic Acid 1.2 Clinical Impression(s) from Imaging Studies Chest X-Ray 07/15/22 15:10 IMPRESSION: No significant interval change. Charges/Coding Multi Select Codes Visit Charges Visit Charges: 51649 Init Hosp L3 Hospitalists' Procedures Procedures: 89915 Advncd Care Plan 30 Min
--- NOTE | 2022-07-15 16:30 | NURSING ---
PCU DRE COPD EXAC, ATRIAL FIBULATION
[2022-07-15 17:33] LABS: Magnesium 2.6 mg/dL (1.6-2.6); Phosphorus 3.9 mg/dL (2.5-4.9)
[2022-07-15 18:23] LABS: Troponin-I HS 8 pg/mL (3.0-54.0)
[2022-07-15] MEDS: 0.9% Normal Saline 1,000 ML 100 ML IV (18:24)
[2022-07-15] MEDS: Azithromycin 250 MG Tablet 500 MG PO (18:27)
[2022-07-15] MEDS: guaiFENesin 1,200 MG Tablet 1200 MG PO (18:27)
[2022-07-15] MEDS: Methylprednisolone Sod Succ 40 MG/ML VIAL IV ×2 (18:43→22:46)
[2022-07-15] MEDS: Albuterol 2.5 MG/3 ML VIAL.NEB. INHALATION (22:10)
[2022-07-15] MEDS: Gabapentin 100 MG Capsule PO (22:46)
[2022-07-15] MEDS: 0.9% Saline Lock 10 ML Syringe IV (22:46)
[2022-07-15] MEDS: Metoprolol Tartrate 100 MG Tablet PO (22:46)
[2022-07-15] MEDS: APIXABAN 5 MG TABLET PO (22:46)
[2022-07-16] VITALS (20 sets, daily range): BP systolic 135–151; BP diastolic 80–92; PULSE 81–106; RESP 18–26; TEMP 36.6–36.9; O2SAT 95–99; BMI 25.2
[2022-07-16] MEDS: Ipratropium/Albuterol Sulfate 3 ML AMPUL.NEB INHALATION ×6 (00:08→23:20)
[2022-07-16] MEDS: Methylprednisolone Sod Succ 40 MG/ML VIAL IV ×3 (05:07→21:51)
[2022-07-16] MEDS: 0.9% Saline Lock 10 ML Syringe IV ×2 (05:07→21:57)
[2022-07-16 05:38] LABS: Absolute Lymphocyte Count 0.41 X10^3/uL (0.83-4.51); Absolute Neutrophil Count 9.2 X10^3/uL (2.0-7.7); Basophil# 0.01 X10^3/uL; Basophil% 0.1 % (0-1); Hematocrit 43.7 % (37-47); Hemoglobin 13.9 g/dL (12.0-15.0); Lymphocyte # 0.41 X10^3/ul (0.83-4.51); Lymphocyte % 4.2 % (19-41); Mean Corp Hgb Conc 31.8 g/dL (32-36); Mean Corpuscular Hgb 29.2 pg (27.0-32.0); Mean Corpuscular Volume 91.8 fL (81-99); Mean Platelet Vol. 9.3 fl (6.2-12.0); Monocyte# 0.21 X10^3/uL; Monocyte% 2.1 % (0-10); NRBC Flagged by Analyzer 0 % (0-5); Neutrophil # 9.15 X10^3/uL (2.7-7.7); Neutrophil % 93.3 % (47-70); POSITIVE DIFFERENTIAL YES; Platelet Count 244 K/mm3 (150-450); RBC Distribution Width CV 13.2 % (11.6-14.6); RBC Distribution Width SD 44.7 fl (35.1-43.9); Red Blood Count 4.76 M/mm3 (4.2-5.4); White Blood Count 9.8 K/mm3 (4.4-11.0)
[2022-07-16 05:39] LABS: Differential Indicated SCAN CRITERIA MET
[2022-07-16 06:07] LABS: Differential Comment SCANNED
[2022-07-16 06:30] LABS: Anion Gap 3 (5-15); BUN 20 mg/dL (7-18); BUN/Creat Ratio 31.4 RATIO (10-20); Calcium,Total 8.4 mg/dL (8.5-10.1); Chloride 103 mmol/L (98-107); Creatinine, Serum 0.64 mg/dL (0.55-1.02); EST Glomerular Filtration Rate 97 mL/min (>60); Est Glom Filt Rate - Afr Amer 117 mL/min (>60); Estimated Creatinine Clearance 35.99 ml/min; Glucose 132 mg/dL (74-106); Sodium Level 136 mmol/L (136-145); Thyroid Stim Hormone (TSH) 0.51 uIU/mL (0.358-3.74)
[2022-07-16] MEDS: Digoxin 250 MCG Tablet PO (09:25)
[2022-07-16] MEDS: Metoprolol Tartrate 100 MG Tablet PO ×2 (09:25→21:51)
[2022-07-16] MEDS: guaiFENesin 1,200 MG Tablet 1200 MG PO ×2 (09:26→21:51)
[2022-07-16] MEDS: PARoxetine 10 MG Tablet PO (09:26)
[2022-07-16] MEDS: Azithromycin 250 MG Tablet 500 MG PO (09:26)
[2022-07-16] MEDS: hydroCHLOROthiazide 12.5mg 12.5 MG PO (09:26)
[2022-07-16] MEDS: Gabapentin 100 MG Capsule PO ×2 (09:26→21:51)
[2022-07-16] MEDS: Albuterol 2.5 MG/3 ML VIAL.NEB. INHALATION ×2 (11:15→21:02)
[2022-07-16] MEDS: APIXABAN 5 MG TABLET PO ×2 (12:08→21:51)
--- NOTE | 2022-07-16 13:50 | CASEMGMT ---
RN HARITHA Face to Face with patient for initial transition planning/care coordination assessment. RN CM introduced self and role at [facility]. Patient sitting in chair, alert and oriented. Patient willing to participate in assessment and is able to answer all questions appropriately. Care providers, pharmacy, and demographics verified. Patient wishes to discharge to a SNF for additional rehab. Patient states he has no further needs or concerns at this time. SW updated regarding request for SNF. CM to follow for discharge planning needs that may arise. PCP: Nikita Specialists: Preston, lifter; Bakari, radiation oncologist; Slim cardioloigst Preferred Pharmacy: [facility] Insurance: [employer] Prescription Benefit: yes Living Will/HPOA: yes, Jesús Eid LNOK: , daughter Living Arrangements: Patient lives with in a 2 story home with bed and bath on first floor, 2 steps to enter the home. Patient states she is normally independent at home. Transportation: self, daughter DME/HHC: Patient has shower chair, grab bars, walker, nebulizer, pulse ox, and home oxygen with [employer] with portability at 3lpm. Patient is active with [facility] for SN. No previous SNF Disposition Plan: Patient to SNF pending acceptance and precert. Asiya VELAZQUEZ, RN, CM
--- NOTE | 2022-07-16 14:22 | CASEMGMT ---
Patient expressed interest in going to a custodial. SW met with patient. Introduced self and role at [facility]. Patient confirmed she wants to go to a custodial to get stronger and build her endurance back up. SW let patient know we will give her alist of facilities that take her insurance. SW explained she will need to pick 3 she would be okay with and SW will work on making referrals. Hamida Aquino SALESFORCE CONSULTANT DESIREE
--- NOTE | 2022-07-16 14:29 | CASEMGMT ---
Sw present for patient rounds. Patient reports that she would like to be discharged to SNF. A list of SNF providers, including quality and resources use data and consistent with the patient's preferred geographical region, medical needs and insurance network from the [facility] Guide was given to patient. Patient reviewed list and indicated that her first choice was 1. [facility] and 2. [facility]. Sophia Angeles, MEDIA EXECUTIVE, [employer]
--- NOTE | 2022-07-16 14:43 | CASEMGMT ---
SNF referral sent to [facility]
--- NOTE | 2022-07-16 15:46 | PN.HOSP_ITS ---
Reason for Visit Reason for Visit: Shortness of breath Subjective Subjective Mrs. Valle is a 71-year-old white female who has a history of COPD and chronic hypoxic respiratory failure on 3 L of nasal cannula at home. Who presented to the emergency department twice yesterday with progressively worsening shortness of breath and dyspnea at rest for the last 2 days. She came into the ER as initially and was sent home on a steroid and doxycycline the night prior to admission. She came back to the emergency department on the afternoon of 07/15/2022 stating that around 2:30 in the morning she felt more short of breath and had some chest tightness in the midsternal region. She rated her chest tightness at about 7-8 in intensity but stated on presentation had improved. She indicated it was localized and nonradiating and felt like heaviness. She also negated she been wheezing. She stated at her usual baseline she can walk easily without shortness of breath on ground-level but with oxygen. She is on 3 L at baseline as noted above. She was also concerned about elevated blood pressure that was above her baseline of 130-140 systolic. Upon presentation she was noted to be in A-fib with RVR having a heart rate of 133 bpm. This is a chronic arrhythmia for her however she is usually rate controlled. This is a relatively new diagnosis. She does have significant anxiety. CBC was overall unremarkable other than a left shift on presentation however she had been on steroids. Her chemistry panel was unremarkable. TSH was normal. She was admit curry to the telemetry floor with A-fib with RVR. Respiratory viral panel resulted positive for rhinovirus. Strep pneumo and Legionella antigens were negative. Today she is on her baseline oxygen but states she is feeling significantly short of breath and gets fairly dyspneic with exertion. She is concerned about being able to go home and care for herself especially with her dyspnea on exertion and states her does not help her much. There does seem to be an anxiety component and she agrees with this. Objective Data Objective Data Vital Signs: Vital Signs Temp Pulse Resp BP Pulse Ox O2 Del Method O2 Flow Rate 98.5 F 101 H 18 151/87 H 95 Nasal Cannula 2 07/16/22 15:27 07/16/22 15:27 07/16/22 15:27 07/16/22 15:27 07/16/22 15:27 07/16/22 15:27 07/16/22 15:27 Oxygen Flow Rate (L/min) [ 2 AMBULATING with Oxygen #1] Oxygen Flow Rate (L/min) [At 2 REST with Oxygen] Oxygen Flow Rate (L/min) 2 Oxygen Delivery Method Nasal Cannula Weight: 58.5 kg Body Mass Index (BMI) 25.2 Intake & Output: Intake and Output for Last 24 Hours 07/14/22 07/15/22 07/16/22 23:59 23:59 23:59 Intake Total 300 / 300 1500 / 1500 Balance 300 / 300 1500 / 1500 Lab / Micro Data Result Diagrams: 07/16/22 04:58 07/16/22 04:58 Labs: Laboratory Results - last 24 hr 07/15/22 14:26: Phosphorus 3.9, Magnesium 2.6 07/15/22 15:00: Lactic Acid 1.2 07/15/22 17:54: Troponin I High Sens 8 07/15/22 20:15: COVID-19 (ALEXEI) Not Detected 07/16/22 04:58: WBC 9.8, RBC 4.76, Hgb 13.9, Hct 43.7, MCV 91.8, MCH 29.2, MCHC 31.8 L, RDW Std Deviation 44.7 H, RDW Coeff of Joi 13.2, Plt Count 244, MPV 9.3, Immature Gran % (Auto) 0.300, Neut % (Auto) 93.3 H, Lymph % (Auto) 4.2 L, [place] % (Auto) 2.1, Eos % (Auto) 0.0, Baso % (Auto) 0.1, Absolute Neuts (auto) 9.2 H, Absolute Lymphs (auto) 0.41 L, Nucleated RBC % 0, Differential Comment SCANNED 07/16/22 04:58: Sodium 136, Potassium 4.0, Chloride 103, Carbon Dioxide 30.0, Anion Gap 3 L, BUN 20 H, Creatinine 0.64, Estim Creat Clear Calc 35.99, Est GFR (MDRD) Af Amer 117, Est GFR (MDRD) Non-Af 97, BUN/Creatinine Ratio 31.4 H, Glucose 132 H, Calcium 8.4 L, TSH 0.51 Micro: Microbiology 07/15/22 19:00 Urine, Clean Catch Legionella Antigen - Final 07/15/22 19:00 Urine, Clean Catch Streptococcus pneumoniae Antigen (M - Final 07/15/22 20:15 Mucosa - Nasopharyngeal Respiratory Panel (PCR) - Final Rhinovirus Physical Exam Const alert, oriented x3, no apparent distress and average body habitus Constitutional Narrative: Anxious, thin, elderly, white female, appears older than stated age, sitting up in bed watching television, nontoxic but does get conversationally dyspneic HEENT head/scalp atraumatic and moist oral mucous membranes Head and Scalp: normocephalic Resp No clear to auscultation bilaterally Resp Narrative: Conversationally dyspneic with intermittent increased accessory muscle use but no retractions, diffuse inspiratory and end expiratory wheezing Auscultation: wheezes; Negative for rales or rhonchi Cardio regular rate, S1 normal heart sound, S2 normal heart sound, no murmurs, no rub, no gallops and no clicks Cardio Narrative: Irregular irregular rhythm however rate is well controlled at this time GI normal to inspection, nondistended, normoactive bowel sounds, soft to palpation and non-tender Extremity no clubbing, cyanosis or edema Extremity Narrative: Pedal pulses are 2+ Neuro oriented x3, moves all extremities and no focal motor deficits Speech: speech normal Psych Mood & Affect: anxious Assessment & Plan Assessment/Plan (1) COPD with acute exacerbation: (2) Shortness of breath: (3) Rhinovirus: (4) Anxiety: PLAN: Plan Shortness of breath with acute exacerbation of COPD secondary to rhinovirus infection -Respiratory viral panel positive for rhinovirus -Flu and COVID is negative -Strep pneumo and Legionella antigens are negative -Continue azithromycin for anti-inflammatory purposes -Continue IV steroids -Continue scheduled and as needed nebulizers -Continue guaifenesin -I-S -Acapella -Patient is on her baseline oxygen however does wheeze significantly and has significant problems with exertion however oxygen remained stable -I think that anxiety plays a significant role in this -Anticipate discharge in the next 24 hours as long as she remains stable -Restart inhalers at discharge A-fib with RVR -Patient states she was recently diagnosed with A-fib within the last month -Continue metoprolol 100 twice daily -Continue digoxin -Continue apixaban -Suspect RVR was related to acute respiratory issues on presentation Depression/anxiety -Seems to be severe and I suspect it significantly contributes to her respiratory distress -Start BuSpar 10 mg 3 times daily -Continue paroxetine Hyponatremia -Resolved History of lung cancer -Status post partial pneumonectomy -Follows with radiation oncologist -Dr. Johnston is her supervisor [employer] -Still smoking -Ongoing outpatient follow-up with pulmonary after discharge Peripheral artery disease - is fully anticoag but no anti-platelet therapy Hypertension -Continue hydrochlorothiazide -Continue metoprolol DVT prophylaxis -Full anticoagulation with Eliquis CODE STATUS Been DNR CCA with no intubation Charges/Coding Visit Charges Inpatient E&M: 89970 Subs Hosp L2
--- NOTE | 2022-07-16 15:49 | CM.UR ---
[facility] accepted patient and will start precert. Sw informed patient. Sophia Angeles, ORAL HEALTH THERAPIST, [employer]AND[employer]
[2022-07-16] MEDS: busPIRone 5 MG Tablet 10 MG PO (21:54)
[2022-07-17] VITALS (13 sets, daily range): BP systolic 131–134; BP diastolic 93–112; PULSE 80–112; RESP 16–20; TEMP 36.7–36.8; O2SAT 86–100; BMI 25.4
[2022-07-17] MEDS: Albuterol 2.5 MG/3 ML VIAL.NEB. INHALATION ×2 (01:04→12:05)
[2022-07-17] MEDS: busPIRone 5 MG Tablet 10 MG PO ×2 (05:25→14:23)
[2022-07-17] MEDS: guaiFENesin 10 ML UDC (200MG/10ML) PO (05:25)
[2022-07-17] MEDS: Methylprednisolone Sod Succ 40 MG/ML VIAL IV ×2 (05:26→14:24)
[2022-07-17] MEDS: 0.9% Saline Lock 10 ML Syringe IV ×2 (05:33→14:24)
[2022-07-17] MEDS: Ipratropium/Albuterol Sulfate 3 ML AMPUL.NEB INHALATION ×4 (05:39→14:35)
[2022-07-17] MEDS: Azithromycin 250 MG Tablet 500 MG PO (08:34)
[2022-07-17] MEDS: hydroCHLOROthiazide 12.5mg 12.5 MG PO (08:34)
[2022-07-17] MEDS: Gabapentin 100 MG Capsule PO (08:35)
[2022-07-17] MEDS: Metoprolol Tartrate 100 MG Tablet PO (08:35)
[2022-07-17] MEDS: dilTIAZem CD 120 MG Capsule PO (08:36)
[2022-07-17] MEDS: Digoxin 250 MCG Tablet PO (08:36)
[2022-07-17] MEDS: APIXABAN 5 MG TABLET PO (08:36)
[2022-07-17] MEDS: PARoxetine 10 MG Tablet PO (08:37)
--- NOTE | 2022-07-17 12:07 | CASEMGMT ---
Social Work As per initial assessment analyst, pt has LW/POA, Jesús Eid is POA, and pt will bring in the documents. LIZETTE Handley
--- NOTE | 2022-07-17 13:17 | CASEMGMT ---
Patient was approved to go to [place]. MARIAH notified Physician. MARIAH Cortes notified patient and also let patient know SW will set up transport, but patient will get a bill. Await orders. Hamida RAMÍREZ
--- NOTE | 2022-07-17 13:24 | PCM.TXEXTCAR ---
Diet Diet Order/Speech Therapy: 07/16/22 13:30 Diet: Regular - No Added Salt Is pt able to select menu?: Yes Routine Orders/Code Status O2 Liters per Minute: 3 O2 Frequency: Continuous Keep PO Greater than or Equal to (%): 88 Code Status: DNRCC-A (no ETT) Suggestions for Active Care Change Position every (hours): 2 Therapies Weight Bearing: Full weight bearing Physical Therapy: Eval and Treat Occupational Therapy: Eval and Treat Problem/Diagnosis (1) COPD with acute exacerbation: Status: Chronic Code(s): J44.1 - Chronic obstructive pulmonary disease with (acute) exacerbation (2) Shortness of breath: Status: Acute Code(s): R06.02 - Shortness of breath (3) Rhinovirus: Status: Acute Code(s): B34.8 - Other viral infections of unspecified site (4) Anxiety: Status: Acute Code(s): F41.9 - Anxiety disorder, unspecified Allergies/Procedures Done in Hospital Allergies meperidine HCl [From Demerol] Adverse Reaction (Verified 07/15/22 14:22) pass out Procedures: EKG and - (Chest x-ray) Type of Care/Length of Stay Estimated LOS: Convalescent Care Less Than 30 days Type of Care Needed: Skilled Rehab Potential: Good Prognosis: Fair Additional Orders/Day of Discharge Day of Discharge: 07/17/22 Dietary and Speech Recommendations Dietitian Recommendations/Changes: will adjust diet to regular/no added salt given risk for malnutrition w/ acute illness. Will monitor PO intake and provide ONS as indicated/pt willing at time of follow-up Discharge Plan Admission Admit Date/Time: 07/15/22 16:20 Attending Provider: Ana Rutherford Primary Care Provider: Eryn Shelton Consulting Providers: Derek Paniagua Discharge Orders/Prescriptions Prescriptions: No Action (DME) Handicap Placard See Rx Instructions .Route .MEDSUPPLY Qty: 1 0RF Rx Instructions: 5 year RX (11/05/21-11/05/26) Eliquis 5 mg tablet 5 mg PO BID Qty: 60 5RF gabapentin 100 mg capsule 100 mg PO BID albuterol sulfate 2.5 mg /3 mL (0.083 %) solution for nebulization 2.5 mg continuous nebulization Q4H Label Comments: Inhale one vial (with the ipratropium) every 4 hours as needed for shortness of breath/wheezing. buspirone 5 mg tablet 5 mg PO BID prednisone 10 mg tablet 10 mg PO DAILY paroxetine HCl [Paxil] 10 mg tablet 10 mg PO DAILY prednisone 20 mg tablet 60 mg PO DAILY Qty: 15 0RF doxycycline monohydrate 100 mg capsule 100 mg PO BID Qty: 20 0RF digoxin 250 mcg (0.25 mg) tablet 250 mcg PO DAILY Label Comments: TAKE 1 TABLET BY MOUTH ONCE DAILY albuterol sulfate 90 mcg/actuation HFA aerosol inhaler 2 puff INHALATION Q4H PRN (Reason: shortness of breath or wheezing) Qty: 8.5 6RF Rx Instructions: administer with spacer budesonide 0.5 mg/2 mL suspension for nebulization 0.5 mg inhalation BID Qty: 120 6RF hydrochlorothiazide 25 mg tablet 12.5 mg PO DAILY Qty: 60 1RF ipratropium-albuterol 0.5 mg-3 mg(2.5 mg base)/3 mL solution for nebulization 3 ml INHALATION Q4H PRN (Reason: shortness of breath or wheezing) Qty: 120 6RF Rx Instructions: J96.11 Chronic respiratory failure with hypoxia J44.1 COPD with exacerbation metoprolol tartrate 100 mg tablet 100 mg PO BID Qty: 180 1RF Referrals / Follow Up: Eryn Shelton MD [Primary Care Provider] - 07/22/22 2:00 pm
--- NOTE | 2022-07-17 13:34 | PCM.DC.SUM ---
Providers Date of Admission: 07/15/22 Date of Discharge: 07/17/22 Primary Care Physician: Dr. Eryn Shelton MD Reason For Visit: COPD EXA, LUNG CA Diagnosis Discharge Diagnosis (1) COPD with acute exacerbation: Status: Chronic Code(s): J44.1 - Chronic obstructive pulmonary disease with (acute) exacerbation (2) Shortness of breath: Status: Acute Code(s): R06.02 - Shortness of breath (3) Rhinovirus: Status: Acute Code(s): B34.8 - Other viral infections of unspecified site (4) Anxiety: Status: Acute Code(s): F41.9 - Anxiety disorder, unspecified Medications at Discharge Home Medications Handicap Placard #1 ea 11/05/21 albuterol sulfate 90 mcg/actuation aerosol inhaler 2 puff inhalation Q4H PRN shortness of breath or wheezing #8.5 grams 11/05/21 budesonide 0.5 mg/2 mL suspension for nebulization 0.5 mg (2 mL) inhalation BID #120 mL 11/05/21 paroxetine HCl 10 mg tablet (Paxil) 10 mg PO DAILY anxiety 05/19/22 apixaban 5 mg tablet (Eliquis) 5 mg PO BID #60 tabs 05/28/22 hydrochlorothiazide 25 mg tablet 12.5 mg PO DAILY water pill #60 tabs 06/09/22 ipratropium 0.5 mg-albuterol 3 mg (2.5 mg base)/3 mL nebulization soln 3 ml inhalation Q4H PRN shortness of breath or wheezing #120 vials 06/11/22 gabapentin 100 mg capsule 100 mg PO BID NERVE PAIN 06/29/22 albuterol sulfate 2.5 mg/3 mL (0.083 %) solution for nebulization 2.5 mg continuous nebulization Q4H SOB 07/01/22 metoprolol tartrate 100 mg tablet 100 mg PO BID #180 tabs 07/01/22 digoxin 250 mcg (0.25 mg) tablet 250 mcg PO DAILY HEART 07/15/22 buspirone 5 mg tablet 10 mg PO TID #0 tabs 07/17/22 diltiazem HCl 120 mg capsule,extended release 24 hr 120 mg PO Q12 #0 caps 07/17/22 guaifenesin 100 mg/5 mL oral liquid 10 ml PO Q4H PRN PRN COUGH #0 mL 07/17/22 prednisone 10 mg tablet 10 mg PO DAILY #40 tabs 07/17/22 Hospital Course Procedures EKG and - (Chest x-ray) Summary of Care Provided Minutes Spent on Discharge: 37 Hospital Course: Mrs. Valle is a 71-year-old white female who has a history of COPD and chronic hypoxic respiratory failure on 3 L of nasal cannula at home.? Who presented to the emergency department twice yesterday with progressively worsening shortness of breath and dyspnea at rest for the last 2 days.? She came into the ER as initially and was sent home on a steroid and doxycycline the night prior to admission.? She came back to the emergency department on the afternoon of 07/15/2022 stating that around 2:30 in the morning she felt more short of breath and had some chest tightness in the midsternal region.? She rated her chest tightness at about 7-8 in intensity but stated on presentation had improved.? She indicated it was localized and nonradiating and felt like heaviness.? She also reported she been wheezing.? She stated at her usual baseline she can walk easily without shortness of breath on ground-level but with oxygen.? She is on 3 L at baseline as noted above.? She was also concerned about elevated blood pressure that was above her baseline of 130-140 systolic.? Upon presentation she was noted to be in A-fib with RVR having a heart rate of 133 bpm.? This is a chronic arrhythmia for her however she is usually rate controlled.? This is a relatively new diagnosis.? She does have significant anxiety.? CBC was overall unremarkable other than a left shift on presentation however she had been on steroids.? Her chemistry panel was unremarkable.? TSH was normal.? She was admitted to the telemetry floor with A-fib with RVR.? Respiratory viral panel resulted positive for rhinovirus.? Strep pneumo and Legionella antigens were negative. Sputum culture was obtained and was unremarkable. Antibiotics were discontinued. She was on her baseline oxygen throughout her hospital course and overall her clinical condition was much improved by 07/17/2022. She was concerned about going home and elected to go to a assisted facility as she felt it would be too much for her at home and her does not help much. She does have considerable anxiety which I think somewhat contributes to her respiratory distress at times. She did have some intermittent tachycardia and we added Cardizem 120 mg p.o. twice daily. This seemed to help her tachycardia considerably and her blood pressure remained stable after this initiation. In addition to adding Cardizem we also will send her on a prednisone taper over the next 16 days. She was able to be discharged in stable condition to [facility] for ongoing rehab with the intent to go home after she is stronger and more stable. She will be maintained on her aerosols in addition to the prednisone. She has follow-up appointment to see her primary care physician on 07/22/2022. If this is not able to be capped I would recommend outpatient follow-up 1 to 2 weeks after she is discharged from the assisted facility. Discharge diagnoses: Shortness of breath Acute exacerbation of COPD secondary to rhinovirus infection A-fib with RVR Depression Anxiety Hyponatremia-resolved History of lung cancer Peripheral artery disease Hypertension Physical Exam Const alert, oriented x3, no apparent distress and average body habitus Constitutional Narrative: Anxious but improved, thin, elderly, white female, appears older than stated age, sitting up in bed watching television, nontoxic, much less conversationally dyspneic today General Appearance: cooperative, comfortable, well kempt and well developed Orientation / Consciousness: awake, oriented to person, oriented to place and oriented to time Exam Limitations: no limitations Nutritional Appearance: thin HEENT normocephalic, head/scalp atraumatic, hearing grossly normal bilaterally and moist oral mucous membranes HEENT Narrative: Dentition is poor, Mallampati is 2, no thrush Eyes PERRL, EOMs intact bilaterally and conjunctivae normal Eyes Narrative: No scleral icterus Neck no lymphadenopathy and supple Neck Narrative: Trachea midline, no thyroid enlargement Resp normal respiratory effort, no retractions, no use of accessory muscles and No clear to auscultation bilaterally Resp Narrative: Wheezing but much improved-diffuse and scattered Auscultation: wheezes; Negative for rales or rhonchi Cardio regular rate, S1 normal heart sound, S2 normal heart sound, no murmurs, no rub, no gallops and no clicks Cardio Narrative: Irregular irregular rhythm however rate is well controlled at this time GI normal to inspection, nondistended, normoactive bowel sounds, soft to palpation and non-tender Extremity no clubbing, cyanosis or edema Extremity Narrative: Pedal pulses are 2+ Skin no rashes or lesions noted, no wounds, skin turgor normal and no jaundice Skin Narrative: Skin is thin with scattered ecchymosis likely related to intermittent steroid use Neuro oriented x3, CN's II-XII intact bilaterally, moves all extremities, no focal motor deficits and no sensory deficits noted Neuro Narrative: Generalized weakness with no focal deficits Speech: speech normal Psych Psych Narrative: Affect is normal and patient is much less anxious today Weight / BMI Weight Weight: 59.1 kg Body Mass Index (BMI) 25.4 ABG / Lab / Microbiology Data Result Diagrams: 07/16/22 04:58 07/16/22 04:58 Microbiology: Microbiology 07/16/22 15:30 Sputum, Expectorated/Coughed Gram Stain - Preliminary 07/16/22 15:30 Sputum, Expectorated/Coughed Respiratory Culture - Preliminary Appears to be normal respiratory henry. Further studies to follow. 07/15/22 19:00 Urine, Clean Catch Legionella Antigen - Final 07/15/22 19:00 Urine, Clean Catch Streptococcus pneumoniae Antigen (M - Final 07/15/22 20:15 Mucosa - Nasopharyngeal Respiratory Panel (PCR) - Final Rhinovirus Meaningful Use Info Meaningful Use Diagnoses (Choose all that apply): None applicable Discharge Plan Admission Admit Date/Time: 07/15/22 16:20 Primary Reason for Your Visit: Shortness of breath Attending Provider: Ana Rutherford Primary Care Provider: Eryn Shelton Consulting Providers: Derek Paniagua Discharge Orders/Prescriptions Prescriptions: New buspirone 5 mg Tablet 10 mg PO TID Qty: 0 0RF guaifenesin 100 mg/5 mL Liquid 10 ml PO Q4H PRN PRN (Reason: COUGH) Qty: 0 0RF diltiazem HCl 120 mg Capsule,Extended Release 24hr 120 mg PO Q12 Qty: 0 0RF prednisone 10 mg tablet 10 mg PO DAILY Qty: 40 0RF Rx Instructions: 4 tablets x 4 days, 3 tablets x 4 days, 2 tablets x 4 days, 1 tablet x 4 days Continued (DME) Handicap Placard See Rx Instructions .Route .MEDSUPPLY Qty: 1 0RF Rx Instructions: 5 year RX (11/05/21-11/05/26) Eliquis 5 mg tablet 5 mg PO BID Qty: 60 5RF gabapentin 100 mg capsule 100 mg PO BID albuterol sulfate 2.5 mg /3 mL (0.083 %) solution for nebulization 2.5 mg continuous nebulization Q4H Label Comments: Inhale one vial (with the ipratropium) every 4 hours as needed for shortness of breath/wheezing. paroxetine HCl [Paxil] 10 mg tablet 10 mg PO DAILY digoxin 250 mcg (0.25 mg) tablet 250 mcg PO DAILY Label Comments: TAKE 1 TABLET BY MOUTH ONCE DAILY albuterol sulfate 90 mcg/actuation HFA aerosol inhaler 2 puff INHALATION Q4H PRN (Reason: shortness of breath or wheezing) Qty: 8.5 6RF Rx Instructions: administer with spacer budesonide 0.5 mg/2 mL suspension for nebulization 0.5 mg inhalation BID Qty: 120 6RF hydrochlorothiazide 25 mg tablet 12.5 mg PO DAILY Qty: 60 1RF ipratropium-albuterol 0.5 mg-3 mg(2.5 mg base)/3 mL solution for nebulization 3 ml INHALATION Q4H PRN (Reason: shortness of breath or wheezing) Qty: 120 6RF Rx Instructions: J96.11 Chronic respiratory failure with hypoxia J44.1 COPD with exacerbation metoprolol tartrate 100 mg tablet 100 mg PO BID Qty: 180 1RF Discontinued buspirone 5 mg tablet 5 mg PO BID prednisone 10 mg tablet 10 mg PO DAILY prednisone 20 mg tablet 60 mg PO DAILY Qty: 15 0RF doxycycline monohydrate 100 mg capsule 100 mg PO BID Qty: 20 0RF Referrals / Follow Up: Eryn Shelton MD [Primary Care Provider] - 07/22/22 2:00 pm Disposition Disposition (needs filled in before D/C Order can be placed): Detention Facility Charges/Coding Visit Charges Inpatient E&M: 89778 SNF Disch >30 Min
--- NOTE | 2022-07-17 14:44 | CASEMGMT ---
Authorization received from insurance by [facility]. Orders were sent to [facility] via [facility]. Patient informed of acceptance, pt stated she would notify her family. Transportation arranged with [facility], patient informed that transportation would be self pay. Sw informed patient, nurse and placement secretary of rock picker time. Pt stated she would tell her family what time she is being transferred. Plan: Patient being transferred to [facility] via skilled level of care. Transportation via [facility] arranged via [facility], pt to update family of transfer and time. [id number] completed in [facility]. Sophia Angeles, COMMERCIAL ACCOUNT OFFICER, [employer]
--- NOTE | 2022-07-17 14:58 | NURSING ---
Report called to nurse Bowen for pt to be d/c to [facility].
== END 2022-07-17 16:13 | disposition skilled nursing facility (03) | DRG 191 ==
LOC: ED 16:24 → PCU 16:38
PROVIDERS: Admitting Provider Internal Medicine; Emergency Provider Emergency Medicine; PCP Internal Medicine; Visit Provider Internal Medicine
DX: J44.1 Chronic obstructive pulmonary disease with (acute) exacerbation (principal); E87.1 Hypo-osmolality and hyponatremia; J96.11 Chronic respiratory failure with hypoxia; I48.91 Unspecified atrial fibrillation; I73.9 Peripheral vascular disease, unspecified; J44.0 Chronic obstructive pulmonary disease with (acute) lower respiratory infection; E87.6 Hypokalemia; F17.210 Nicotine dependence, cigarettes, uncomplicated; I10 Essential (primary) hypertension; F41.9 Anxiety disorder, unspecified; Z79.51 Long term (current) use of inhaled steroids; Z51.5 Encounter for palliative care; Z79.01 Long term (current) use of anticoagulants; Z66 Do not resuscitate; B34.8 Other viral infections of unspecified site; F32.A Depression, unspecified
CPT/HCPCS: 36415; 71045; 80048; 83605; 83735; 84100; 84443; 84484; 85025; 85379; 87070; 87205; 87428; 87449; 87633; 87635; 93005; 94640; 94668; 96374; 97162; 97166; 97530; 97535; 99252; 99285; J7030; A4216; G0463; U0005

== ENCOUNTER 2022-08-01 19:23 | Emergency (ER) | payer MEDICARE, SELFPAY ==
[2022-08-01 19:24] VITALS: BP 120/71; PULSE 77; RESP 15; TEMP 36.6; O2SAT 91; BMI 26.3
[2022-08-01 19:28] VITALS: BP 120/71; PULSE 83; RESP 16; TEMP 36.6; O2SAT 93
[2022-08-01 19:29] VITALS: O2SAT 96
--- NOTE | 2022-08-01 19:38 | EKG12_ITS ---
Test Reason : SOB Blood Pressure : / mmHG Vent. Rate : 078 BPM Atrial Rate : 000 BPM P-R Int : 000 ms QRS Dur : 070 ms QT Int : 316 ms P-R-T Axes : 000 060 237 degrees QTc Int : [address] & T wave abnormality, consider inferolateral ischemia Abnormal ECG Confirmed by ALDA NICHOLS, CAITLIN ([id number]), editor at large CIARRA HYDE ([id number]) on 08/03/2022 1:20:46 PM Referred By: CYNTHIA Confirmed By:CAITLIN LIZAMA MD
[2022-08-01 19:52] LABS: Absolute Lymphocyte Count 0.56 X10^3/uL (0.83-4.51); Absolute Neutrophil Count 12.6 X10^3/uL (2.0-7.7); Basophil# 0.02 X10^3/uL; Basophil% 0.1 % (0-1); Hematocrit 39.6 % (37-47); Hemoglobin 12.7 g/dL (12.0-15.0); Lymphocyte # 0.56 X10^3/ul (0.83-4.51); Lymphocyte % 4.1 % (19-41); Mean Corp Hgb Conc 32.1 g/dL (32-36); Mean Corpuscular Hgb 29.3 pg (27.0-32.0); Mean Corpuscular Volume 91.2 fL (81-99); Mean Platelet Vol. 8.7 fl (6.2-12.0); Monocyte# 0.47 X10^3/uL; Monocyte% 3.4 % (0-10); NRBC Flagged by Analyzer 0 % (0-5); Neutrophil # 12.62 X10^3/uL (2.7-7.7); Neutrophil % 91.6 % (47-70); POSITIVE DIFFERENTIAL YES; Platelet Count 303 K/mm3 (150-450); Red Blood Count 4.34 M/mm3 (4.2-5.4); White Blood Count 13.8 K/mm3 (4.4-11.0)
--- NOTE | 2022-08-01 19:55 | RAD_ITS ---
STUDY: XR Chest 2 Views 08/01/2022 7:51 PM REASON FOR EXAM: Female, 71 years old. CHEST PAIN shortness of breath COMPARISON: 5.24.23 TECHNIQUE: XR Chest 2 Views FINDINGS: There are bilateral pleural effusions. There are bilateral infiltrates. Normal heart size. Normal mediastinum. Normal lucia. Prominent appearing increased interstitial lung markings. Normal visualized pulmonary arteries. There is atherosclerotic calcification of the aortic arch with tortuosity. There are diffuse degenerative changes of the visualized thoracic spine. There is degenerative osteoarthritis of the bilateral shoulders. There is no demonstrated abnormality of the visualized soft tissue structures of the upper abdomen. RAD/Chest PA and Lateral IMPRESSION: There are bilateral pleural effusions. There are bilateral infiltrates. Electronically Signed: Puma Mann MD at 20:33 EDT ,
[2022-08-01 19:56] LABS: Differential Indicated SCAN CRITERIA MET
--- NOTE | 2022-08-01 19:57 | EX.ED.DYSGE1 ---
HPI <JORDAN Pichardo - Last Filed: 08/01/22 21:01> History of Present Illness Chief Complaint: Shortness of Breath Narrative Narrative: Patient presenting with shortness of breath that she has had since this evening. She reports that she was cooking dinner when the kitchen became really hot and she does not do well in the heat. She became short of breath and went to cool off in the living room where her symptoms dissipated. Not too long after that, the shortness of breath came back. She tried to use a nebulizer treatment but did not get any relief from it. Patient has a history of COPD, atrial fibrillation on Eliquis, and lung cancer that required a lobectomy. She denies any fever, chills, chest pain. Patient is on 3.5 L O2 at baseline. [facility] <JORDAN Pichardo - Last Filed: 08/01/22 21:01> [facility] Medical History Anxiety Atrial fibrillation Atrial fibrillation with rapid ventricular response Chronic bronchitis Chronic hypoxemic respiratory failure Chronic obstructive pulmonary disease with (acute) exacerbation COPD (chronic obstructive pulmonary disease) Depression Emphysema of lung Essential hypertension History of lung cancer History of pneumonia Influenza A Influenza B Left anterior knee pain Left lower lobe pneumonia Lung cancer Lung mass Lung nodule Nicotine dependence, cigarettes, uncomplicated PAD (peripheral artery disease) Pneumonia Primary malignant neoplasm of both lungs Seasonal allergies Tobacco dependence in remission Unintentional weight loss Home Medications Handicap Placard #1 ea 11/05/21 [Rx Last Taken Unknown] albuterol sulfate 90 mcg/actuation aerosol inhaler 2 puff inhalation Q4H PRN shortness of breath or wheezing #8.5 grams 11/05/21 [Rx Last Taken 07/14/22] budesonide 0.5 mg/2 mL suspension for nebulization 0.5 mg (2 mL) inhalation BID #120 mL 11/05/21 [Rx Last Taken 07/15/22 06:00] paroxetine HCl 10 mg tablet (Paxil) 10 mg PO DAILY anxiety 05/19/22 [History Last Taken 07/15/22] apixaban 5 mg tablet (Eliquis) 5 mg PO BID #60 tabs 05/28/22 [Rx Last Taken 07/15/22] ipratropium 0.5 mg-albuterol 3 mg (2.5 mg base)/3 mL nebulization soln 3 ml inhalation Q4H PRN shortness of breath or wheezing #120 vials 06/11/22 [Rx Last Taken 07/15/22] gabapentin 100 mg capsule 100 mg PO BID NERVE PAIN 06/29/22 [History Last Taken 07/08/22] albuterol sulfate 2.5 mg/3 mL (0.083 %) solution for nebulization 2.5 mg continuous nebulization Q4H SOB 07/01/22 [History Last Taken 07/15/22] metoprolol tartrate 100 mg tablet 100 mg PO BID #180 tabs 07/01/22 [Rx Last Taken 07/15/22] digoxin 250 mcg (0.25 mg) tablet 250 mcg PO DAILY HEART 07/15/22 [History Last Taken 07/15/22] buspirone 5 mg tablet 10 mg PO TID #0 tabs 07/17/22 [Rx Last Taken Unknown] diltiazem HCl 120 mg capsule,extended release 24 hr 120 mg PO Q12 #0 caps 07/17/22 [Rx Last Taken Unknown] guaifenesin 100 mg/5 mL oral liquid 10 ml PO Q4H PRN PRN COUGH #0 mL 07/17/22 [Rx Last Taken Unknown] doxycycline hyclate 100 mg capsule 100 mg PO BID 7 days #13 caps 08/01/22 [Rx Last Taken Unknown] hydrochlorothiazide 25 mg tablet 25 mg PO DAILY water pill 08/01/22 [History Last Taken Unknown] prednisone 10 mg tablet 10 mg PO BID 08/01/22 [History Last Taken Unknown] Allergy/AdvReac Type Severity Reaction Status Date / Time meperidine HCl [From Demerol] AdvReac pass out Verified 08/01/22 19:29 Family History Mother Thyroid cancer Anemia Lung disease Father Throat cancer Diabetes Hypertension Arthritis Lung disease Sister Breast cancer Brain cancer Other Asthma Ovarian cancer Surgical History H/O pneumonectomy H/O tubal ligation History of bilateral carpal tunnel release repaired lymph node Wedge resection of lung Social History household members: spouse Smoking Status: Light Smoker (<10/day) Tobacco: How many years used: 50 how long ago did patient quit smoking: pt reports smoking 2-3 cigs every couple of days second hand exposure: Yes alcohol intake: never substance use type: does not use caffeine: No what type of physical activity do you participate in: none ROS <JORDAN Pichardo - Last Filed: 08/01/22 21:01> ROS ED Constitutional Constitutional ED: Denies chills or fever(s) Cardiovascular Cardiovascular: Denies chest pain or palpitations Respiratory/Chest Respiratory/Chest: Reports dyspnea and dyspnea on exertion; Denies cough Gastrointestinal Gastrointestinal: Denies abdominal pain, nausea or vomiting Musculoskeletal Musculoskeletal: Denies arthralgias or myalgias Integumentary Denies abscess, Abrasions or rash Neurologic Neurologic: Denies weakness EXAM <JORDAN Pichardo - Last Filed: 08/01/22 21:01> Physical Exam Const Vital Signs: 08/01/22 19:24 08/01/22 19:28 08/01/22 19:29 Temperature 98 F 98 F Temperature Source Oral Oral Pulse Rate 77 83 Respiratory Rate 15 16 Respiratory Effort Short of Breath Labored Respiratory Depth Normal Respiratory Pattern Tachypnea Blood Pressure 120/71 120/71 Blood Pressure Mean 87 87 Pulse Ox 91 93 Oxygen Delivery Method Nasal Cannula Nasal Cannula Nasal Cannula Oxygen Flow Rate (L/min) 3.5 3.5 3.5 08/01/22 20:16 08/01/22 20:39 08/01/22 20:55 Temperature 96.6 F L Temperature Source Temporal Pulse Rate 74 76 77 Respiratory Rate 16 22 H 23 H Respiratory Effort Respiratory Depth Respiratory Pattern Normal Blood Pressure 111/66 125/87 H Blood Pressure Mean 81 Pulse Ox 98 98 Oxygen Delivery Method Nasal Cannula Oxygen Flow Rate (L/min) 3.5 Positive well nourished, well developed and no apparent distress General Appearance ED: well developed HEENT Reports normocephalic and head/scalp atraumatic Mouth ED: Yes moist mucous membranes normal Eyes PERRL and EOMs intact bilaterally Neck full ROM and supple Chest Wall inspection of chest normal Resp normal respiratory effort and clear to auscultation bilaterally Cardio regular rate and regular rhythm GI soft to palpation, non-tender, non-distended and no masses Back/Spine normal ROM and normal to inspection Extremity normal to inspection and full ROM Neuro oriented x3, CN's II-XII intact bilaterally, moves all extremities, no focal motor deficits and no sensory deficits noted Sensorium / Orientation: awake and alert Psych mental status grossly normal and thought process normal Skin no rashes or lesions noted and no wounds <Dr. Walt Whitley DO - Last Filed: 08/01/22 21:06> Physical Exam Const Vital Signs: 08/01/22 19:24 08/01/22 19:28 08/01/22 19:29 Temperature 98 F 98 F Temperature Source Oral Oral Pulse Rate 77 83 Respiratory Rate 15 16 Respiratory Effort Short of Breath Labored Respiratory Depth Normal Respiratory Pattern Tachypnea Blood Pressure 120/71 120/71 Blood Pressure Mean 87 87 Pulse Ox 91 93 Oxygen Delivery Method Nasal Cannula Nasal Cannula Nasal Cannula Oxygen Flow Rate (L/min) 3.5 3.5 3.5 08/01/22 20:16 08/01/22 20:39 08/01/22 20:55 Temperature 96.6 F L Temperature Source Temporal Pulse Rate 74 76 77 Respiratory Rate 16 22 H 23 H Respiratory Effort Respiratory Depth Respiratory Pattern Normal Blood Pressure 111/66 125/87 H Blood Pressure Mean 81 Pulse Ox 98 98 Oxygen Delivery Method Nasal Cannula Oxygen Flow Rate (L/min) 3.5 MDM <JORDAN Pichardo - Last Filed: 08/01/22 21:01> [facility] MDM Narrative Medical decision making narrative: Patient presenting due to shortness of breath after she was cooking in her hot kitchen and became symptomatic. She received a DuoNeb treatment with EMS and felt relief of her symptoms, but still feels somewhat short of breath. She is currently on her maintenance O2 here at 3.5 L and is around 98% O2 saturation. She does not appear to be in any acute distress. She will be given breathing treatments, she is already taking prednisone daily. Labs will be obtained to rule out leukocytosis, anemia, electrolyte abnormality. X-ray of the chest will be obtained to rule out pneumonia and does show lower lobe pneumonia bilaterally as well as bilateral pleural effusions. Patient be started on doxycycline with first dose here. She has a follow-up appointment with her PCP on Wednesday. Shared decision making was made with patient and she would like to go home and be treated as an outpatient rather than be admitted to the hospital. She reports relief of her symptoms after the breathing treatments. I feel this is reasonable, she will be discharged home in stable condition and is comfortable with plan. She has been given return instructions. Lab Data Attestation: I reviewed the patient's lab results. Lab results narrative: WBC 13.8, BUN 25, troponin WNL Labs: Laboratory Results - last 24 hr 08/01/22 08/01/22 19:32 19:32 WBC 13.8 H RBC 4.34 Hgb 12.7 Hct 39.6 MCV 91.2 MCH 29.3 MCHC 32.1 RDW Std Deviation 44.0 H RDW Coeff of Joi 13.0 Plt Count 303 MPV 8.7 Immature Gran % (Auto) 0.800 Neut % (Auto) 91.6 H Lymph % (Auto) 4.1 L [place] % (Auto) 3.4 Eos % (Auto) 0.0 Baso % (Auto) 0.1 Absolute Neuts (auto) 12.6 H Absolute Lymphs (auto) 0.56 L Nucleated RBC % 0 Differential Comment SEE COMMENT Platelet Estimate ADEQUATE RBC Morphology N CHROM Anisocytosis RARE Macrocytosis RARE Sodium 136 Potassium 3.9 Chloride 99 Carbon Dioxide 30.0 Anion Gap 7 BUN 25 H Creatinine 0.94 Estim Creat Clear Calc 38.29 Est GFR (MDRD) Af Amer 75 Est GFR (MDRD) Non-Af 62 BUN/Creatinine Ratio 26.6 H Glucose 137 H Calcium 9.3 Troponin I High Sens 7 Radiography X-Ray: Read by ED Physician and Read by Radiologist Diagnostic Testing: Clinical Impression(s) from Imaging Studies Chest X-Ray 08/01/22 19:55 IMPRESSION: There are bilateral pleural effusions. There are bilateral infiltrates. Electronically Signed: Puma Mnan MD at 20:33 EDT , EKG Initial EKG: Comments: 78 bpm, atrial fibrillation, no ST elevation, reviewed and interpreted by attending ED physician <Dr. Walt Whitley, DO - Last Filed: 08/01/22 21:06> [facility] Lab Data Labs: Laboratory Results - last 24 hr 08/01/22 08/01/22 19:32 19:32 WBC 13.8 H RBC 4.34 Hgb 12.7 Hct 39.6 MCV 91.2 MCH 29.3 MCHC 32.1 RDW Std Deviation 44.0 H RDW Coeff of Joi 13.0 Plt Count 303 MPV 8.7 Immature Gran % (Auto) 0.800 Neut % (Auto) 91.6 H Lymph % (Auto) 4.1 L [place] % (Auto) 3.4 Eos % (Auto) 0.0 Baso % (Auto) 0.1 Absolute Neuts (auto) 12.6 H Absolute Lymphs (auto) 0.56 L Nucleated RBC % 0 Differential Comment SEE COMMENT Platelet Estimate ADEQUATE RBC Morphology N CHROM Anisocytosis RARE Macrocytosis RARE Sodium 136 Potassium 3.9 Chloride 99 Carbon Dioxide 30.0 Anion Gap 7 BUN 25 H Creatinine 0.94 Estim Creat Clear Calc 38.29 Est GFR (MDRD) Af Amer 75 Est GFR (MDRD) Non-Af 62 BUN/Creatinine Ratio 26.6 H Glucose 137 H Calcium 9.3 Troponin I High Sens 7 Radiography Diagnostic Testing: Clinical Impression(s) from Imaging Studies Chest X-Ray 08/01/22 19:55 IMPRESSION: There are bilateral pleural effusions. There are bilateral infiltrates. Electronically Signed: Puma Mann MD at 20:33 EDT Reading Location ID and State: [facility] / [place] , Service support , Treatment and Re-Evaluation :: I have personally performed a face to face assessment of the patient and have reviewed the CARLOS Note. I performed a substantive portion of the visit including all aspects of the following. My carvalho findings include: History: Patient presents with shortness of breath that became worse tonight. Patient states she was in her kitchen doing some cooking when she felt like she was overheated. Patient states she was able to walk to her living room and started to feel better. Patient states then her breathing became worse again. Patient called EMS. Patient denies any chest pain. Patient denies any nausea or vomiting. Patient denies any diaphoresis. Exam: Vital signs are stable. Patient is afebrile. Patient is in no acute distress. Oral mucosa is pink and moist. Neck is supple. Trachea is midline. There is no JVD. Heart was irregularly irregular. Lungs showed some scattered wheezes. There is good respiratory effort noted. Abdomen is soft. Bowel sounds are normal. There is no tenderness. Cranial nerves II through XII are intact. There are no focal motor or sensory deficits noted. Extremities are intact. There is no pitting edema of the lower extremities. Medical Decision Making: Differential diagnosis includes COPD exacerbation, pneumonia, congestive heart failure, cardiac dysrhythmia, cardiac ischemia. EKG will be obtained to assess for cardiac dysrhythmia and cardiac ischemia. Chest x-ray will be obtained to assess for pneumonia and COPD. CBC will be obtained to assess for leukocytosis and anemia. Basic metabolic profile will be obtained to assess for electrolyte abnormality and renal function. High-sensitivity troponin will be obtained to assess for cardiac ischemia. EKG was obtained. On my independent interpretation, shows atrial fibrillation with a rate of 78. There are no acute ST or T wave changes noted. PA lateral chest x-ray was obtained. There are 2 views. On my independent interpretation, there is a questionable bilateral lower lobe infiltrates. There are no effusions noted. Bony thorax is normal. There is no cardiomegaly noted. Radiologist also interpreted the x-rays and agrees. CBC was reviewed. There is a mild leukocytosis of 13.8. The remainder was essentially within normal limits. Basic metabolic profile was reviewed. BUN was slightly elevated at 25. The remainder was within normal limits. High-sensitivity troponin was reviewed and was normal at 7. Patient was advised of her findings. Patient is feeling better after DuoNeb aerosol and albuterol aerosol. Patient was given a dose of Solu-Medrol here. Patient was given a dose of doxycycline. Patient was instructed to follow-up with her primary care physician in 5 to 7 days. Patient was given a prescription for doxycycline. Patient was instructed return if worse in any way. Patient understood and was agreeable with the plan. All questions were answered. Discharge Plan Triage Chief Complaint: Shortness of Breath ED Midlevel Provider: Ann-Marie Lock ED Provider: Walt Whitley Dx/Rx/DC Orders Clinical Impression: COPD exacerbation, Pneumonia Instructions: ED Pneumonia (Adult) Prescriptions: New doxycycline hyclate 100 mg capsule 100 mg PO BID 7 Days Qty: 13 0RF No Action (DME) Handicap Placard See Rx Instructions .Route .MEDSUPPLY Qty: 1 0RF Rx Instructions: 5 year RX (11/05/21-11/05/26) Eliquis 5 mg tablet 5 mg PO BID Qty: 60 5RF gabapentin 100 mg capsule 100 mg PO BID albuterol sulfate 2.5 mg /3 mL (0.083 %) solution for nebulization 2.5 mg continuous nebulization Q4H Label Comments: Inhale one vial (with the ipratropium) every 4 hours as needed for shortness of breath/wheezing. paroxetine HCl [Paxil] 10 mg tablet 10 mg PO DAILY digoxin 250 mcg (0.25 mg) tablet 250 mcg PO DAILY Label Comments: TAKE 1 TABLET BY MOUTH ONCE DAILY buspirone 5 mg Tablet 10 mg PO TID Qty: 0 0RF guaifenesin 100 mg/5 mL Liquid 10 ml PO Q4H PRN PRN (Reason: COUGH) Qty: 0 0RF diltiazem HCl 120 mg Capsule,Extended Release 24hr 120 mg PO Q12 Qty: 0 0RF prednisone 10 mg tablet 10 mg PO BID Rx Instructions: 4 tablets x 4 days, 3 tablets x 4 days, 2 tablets x 4 days, 1 tablet x 4 days hydrochlorothiazide 25 mg tablet 25 mg PO DAILY albuterol sulfate 90 mcg/actuation HFA aerosol inhaler 2 puff INHALATION Q4H PRN (Reason: shortness of breath or wheezing) Qty: 8.5 6RF Rx Instructions: administer with spacer budesonide 0.5 mg/2 mL suspension for nebulization 0.5 mg inhalation BID Qty: 120 6RF ipratropium-albuterol 0.5 mg-3 mg(2.5 mg base)/3 mL solution for nebulization 3 ml INHALATION Q4H PRN (Reason: shortness of breath or wheezing) Qty: 120 6RF Rx Instructions: J96.11 Chronic respiratory failure with hypoxia J44.1 COPD with exacerbation metoprolol tartrate 100 mg tablet 100 mg PO BID Qty: 180 1RF Primary Care Provider: Eryn Shelton Referrals: Eryn Shelton MD [Primary Care Provider] - 3-5 Days Activity Restrictions/Additional Instructions: Please follow-up at your PCP appointment on Wednesday and return for any worsening of your symptoms. Disposition Disposition: Home, Self Care
[2022-08-01 20:13] LABS: Anisocytosis RARE; Macrocytosis RARE; Platelet Estimate ADEQUATE (ADEQ); Red Cell Morphology N CHROM NORMAL (NORM C&C)
[2022-08-01] MEDS: Albuterol 2.5 MG/3 ML VIAL.NEB. INHALATION (20:15)
[2022-08-01] MEDS: Ipratropium/Albuterol Sulfate 3 ML AMPUL.NEB INHALATION (20:15)
[2022-08-01 20:16] VITALS: PULSE 74; RESP 16
[2022-08-01 20:20] LABS: Anion Gap 7 (5-15); BUN 25 mg/dL (7-18); BUN/Creat Ratio 26.6 RATIO (10-20); Calcium,Total 9.3 mg/dL (8.5-10.1); Chloride 99 mmol/L (98-107); Creatinine, Serum 0.94 mg/dL (0.55-1.02); EST Glomerular Filtration Rate 62 mL/min (>60); Est Glom Filt Rate - Afr Amer 75 mL/min (>60); Estimated Creatinine Clearance 38.29 ml/min; Glucose 137 mg/dL (74-106); Potassium 3.9 mmol/L (3.5-5.1); Sodium Level 136 mmol/L (136-145); Troponin-I HS 7 pg/mL (3.0-54.0)
[2022-08-01 20:39] VITALS: BP 111/66; PULSE 76; RESP 22; TEMP 35.9; O2SAT 98
[2022-08-01 20:55] VITALS: BP 125/87; PULSE 77; RESP 23; O2SAT 98
[2022-08-01] MEDS: Doxycycline 100 MG CAPSULE PO (21:01)
== END 2022-08-01 21:10 | disposition home or self-care (01) ==
PROVIDERS: Physician Assistant; Emergency Provider Emergency Medicine; PCP Internal Medicine; Visit Provider Emergency Medicine
DX: J44.1 Chronic obstructive pulmonary disease with (acute) exacerbation (principal); I48.91 Unspecified atrial fibrillation; J18.9 Pneumonia, unspecified organism; F17.210 Nicotine dependence, cigarettes, uncomplicated; I10 Essential (primary) hypertension; Z79.01 Long term (current) use of anticoagulants; Z79.899 Other long term (current) drug therapy; Z79.51 Long term (current) use of inhaled steroids; F32.A Depression, unspecified; F41.9 Anxiety disorder, unspecified
CPT/HCPCS: 71046; 80048; 84484; 85025; 93005; 94640; 96374; 99285; A4216

== ENCOUNTER → 2022-08-13 | Outpatient (CLI) | payer MEDICARE, SELFPAY | END | disposition home or self-care (01) | LOC: PSN 12:45 | PROVIDERS: PCP Internal Medicine; Referring Provider Physician Assistant Medical; Visit Provider Physician Assistant Medical | DX: I48.91 Unspecified atrial fibrillation (principal); R00.1 Bradycardia, unspecified | CPT/HCPCS: 93225; 93226 ==

== ENCOUNTER → 2022-08-31 | Outpatient (CLI) | payer MEDICARE, SELFPAY ==
--- NOTE | 2022-08-31 07:37 | CT_ITS ---
STUDY: CT CHEST WITHOUT CONTRAST REASON FOR EXAM: Female, 71 years old. Follow up treated lung cancer -- compare to prior RADIATION DOSAGE (If Supplied By Facility): CTDIvol = ( 6.98 ) mGy, DLP = ( 264.95 ) mGycm TECHNIQUE: Transaxial imaging was performed without the administration of intravenous contrast material. Multiplanar coronal and sagittal images were reformatted. Individualized dose optimization techniques were used for this CT. COMPARISON: Comparison is made with prior examination dated May 28, 2022. FINDINGS: CHEST Once again, the patient is status post right upper lobectomy with volume loss in the right lung apex and postoperative scarring. Stable scarring in the left upper lobe more prominent along the medial aspect with fibrocalcific scarring and bronchiectasis. This most likely is secondary to prior radiation treatment. Stable scarring in the right lower lobe. There are calcifications of the coronary arteries. Normal mediastinum. Normal hilar regions. Normal unenhanced pulmonary arteries. There is atherosclerotic calcification of the aortic arch with tortuosity and elongation of the aortic arch and descending thoracic aorta. There are mild degenerative changes of the thoracic spine. There is no demonstrated abnormality of the visualized upper abdomen. CT/Chest without Contrast IMPRESSION: Essentially stable examination. Electronically Signed: Hiram Chi MD at 15:26 EDT ,
== END | disposition home or self-care (01) ==
LOC: CT 07:37
PROVIDERS: PCP Internal Medicine; Referring Provider Student in an Organized Health Care Education/Training Program; Visit Provider Student in an Organized Health Care Education/Training Program
DX: C34.92 Malignant neoplasm of unspecified part of left bronchus or lung (principal); C34.91 Malignant neoplasm of unspecified part of right bronchus or lung
CPT/HCPCS: 71250

== ENCOUNTER 2022-09-18 08:17 | Day surgery (SDC) | payer MEDICARE, SELFPAY ==
--- NOTE | 2022-08-10 08:37 | HP.PCM_ITS ---
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 She has no previous cardiac history, who was admitted to the hospital in April of this year with influenza pneumonia and was noted to be in atrial fibrillation with a rapid ventricular response rate.? She was also noted to be hypokalemic and hyponatremic.? She had had a previous diagnosis of a known non-small cell carcinoma of the lung and underwent a right upper lobectomy in January 2016 with a repeat surgery completed in February 2016.? The postoperative course was complicated by development of chylothorax.? She has severe obstructive lung disease and uses home oxygen.? She had been fairly stable until she presented with the above.? Prior to this she had undergone in 2018 a wedge resection which was thought to be positive for malignancy and she completed 45 days of radiation.? In terms of lung cancer status she is noted to be stable at this time and follows with pulmonology.? She was treated for her atrial fibrillation with anticoagulation and beta-blockers which she has josiah ated.? Of note was the fact that in November 2021 she had been in sinus rhythm.? She says that she does feel her atrial fibrillation though it does not appear to be as rapid as before.? She has had no dizziness or diaphoresis no near syncope or syncope.? Her physical exam demonstrates clear lung tineo irregular rate and rhythm and no pedal edema her electrocardiogram does confirm atrial fibrillation with a rate of 64 bpm and nonspecific changes.? Previous CAT scan had demonstrated coronary calcification echocardiogram from April 2022 demonstrated an ejection fraction of 60% mild focal aortic calcification.? Her renal function is unremarkable and liver function tests were noted to be normal. Intake Vital Signs See EMR Allergies See EMR Medications See EMR Ejection fraction %: 60 to 64 [facility] Medical History? Anxiety Atrial fibrillation Chronic bronchitis Chronic hypoxemic respiratory failure Chronic obstructive pulmonary disease with (acute) exacerbation COPD (chronic obstructive pulmonary disease) Depression Emphysema of lung Essential hypertension History of lung cancer History of pneumonia Influenza A Influenza B Left anterior knee pain Left lower lobe pneumonia Lung cancer Lung mass Lung nodule Nicotine dependence, cigarettes, uncomplicated PAD (peripheral artery disease) Pneumonia Primary malignant neoplasm of both lungs Seasonal allergies Tobacco dependence in remission Unintentional weight loss Surgical History? H/O pneumonectomy H/O tubal ligation History of bilateral carpal tunnel release repaired lymph node Wedge resection of lung Family History? Mother Thyroid cancer Anemia Lung diseaseFather Throat cancer Diabetes Hypertension Arthritis Lung diseaseSister Breast cancer Brain cancerOther Asthma Ovarian cancer Social History? household members:? spouse Smoking Status:? Heavy Smoker (>10/day) Tobacco: How many years used:? 50 how long ago did patient quit smoking:? pt reports smoking 2-3 cigs every couple of days second hand exposure:? Yes alcohol intake:? never substance use type:? does not use caffeine:? No what type of physical activity do you participate in:? none ROS Const Const: Positive for fatigue (Doesn't take much to get worn out.) and weakness; Negative for headache(s), frequent falls, difficulty sleeping or excessive sweating Eyes Eyes: Negative for loss of peripheral vision, transient loss of vision, blurry vision, double vision or tunnel vision ENT ENT: Positive for balance problems; Negative for headache(s), dizziness or Nosebleed/epistaxis Cardio Chest Pain: No Palpitations: Yes feels like its: other (fluttery) Edema: None Muscle aches with walking: None Resp Respiratory: Positive for SOB with activity and SOB at rest; Negative for SOB orthopnea\SOB lying down, Cough or paroxysmal nocturnal dyspnea GI GI: Negative nausea, vomiting, heartburn or black,tarry stools : Negative for hematuria Musc Musc: Positive for balance problems; Negative for muscle aches/ myalgia, muscle weakness or joint pain Skin Skin: Negative non-healing lesions, rash or unusual bruising Neuro Neuro: Positive for weakness; Negative for dizziness, lightheadedness, near syncope, syncope, frequent falls, headache(s), blurry vision, double vision or lack of coordination [place] Hematologic/Lymphatic: Negative for easy bleeding or easy bruising Endo Endo: Positive for fatigue (Doesn't take much to get worn out.); Negative for excessive sweating or increased thirst/drinking Psych Psych: Negative for anxiety or depression Allergy Allergy/Immunology: Negative for hives and Negative for rash Cardiology Exam Const Appearance: cooperative, healthy appearing, no acute distress, well developed and well groomed Nutritional Appearance: average body habitus and well nourished Orientation: alert, awake and oriented x3 Head Head: normal to inspection, normocephalic and atraumatic Ears: hearing grossly normal bilaterally and external ears normal Nose: external nose normal, nares normal, nasal mucous membranes and turbinates normal, septum normal and no nasal discharge Face and Sinus: face symmetric Mouth: oral mucosae normal, tongue normal, oropharynx normal and moist mucous membranes Teeth and gingiva: dentition normal Throat: posterior oropharynx normal, tonsils normal and uvula midline Eyes General: appearance normal, both eyes and all related structures Eyelids: eyelids normal Conjunctivae: conjunctivae normal Pupils: PERRL, normal by confrontation and accommodation normal EOM: EOM intact bilaterally Neck Neck: normal visual inspection, trachea midline and no JVD JVD: +5 Carotids: normal carotid upstroke and bounding pulses Chest Chest inspection: normal inspection of the chest, symmetric chest movement and normal respiratory effort Auscultation: Bilateral: Clear to Auscultation Cardio Palpation: normal PMI Rate: regular rate Rhythm: irregular rhythm Heart sounds: S1 normal, S2 normal and normal, physiologic split S2; Negative rub, gallop or murmur GI GI: normal to inspection, soft, no hepatosplenomegaly and bowel sounds present Neuro General: patient alert, patient awake, patient oriented x3, gait normal, moves all extremities and no focal sensory deficit Skin Skin: no rashes or lesions noted Extremities Pulses: Normal: Right Femoral Pulse, Left Femoral Pulse, Right Dorsalis Pedis Pulse, Left Dorsalis Pedis Pulse, Right Posterior Tibial Pulse, Left Posterior Tibial Pulse, Right Radial Pulse and Left Radial Pulse Lower Extremity Edema: None: Bilateral Musculoskel Musculoskeletal: No joint tenderness Psych Psychological: normal affect Supplemental Info Supplemental Information Echocardiogram 05/19/2022 Interpretation Summary Normal LV size. Left ventricular systolic function is normal. The estimated ejection fraction is 60 %. Trisinus/trileaflet aortic valve. Mild focal aortic valve calcification. ? Chest CTA 05/19/2022 1.? Patchy opacification and tree-in-bud nodular opacities left lung base consistent with pneumonia. 2.? Mucus plugging lower lobe bronchi bilaterally. 3.? No pulmonary embolism or dissection. 4.? Emphysema. 5.? Status post right upper lobectomy and partial atelectasis of the right middle lobe. 6.? Coronary artery disease. Assessment and Plan Assessment and Plan (1) Atrial fibrillation with rapid ventricular response: ?Status:?Acute ?Plan: She does have atrial fibrillation which is recently diagnosed.? At this time she appears to be stable with respect to the above.? She does prefer medical ther apy.? We will consider DC cardioversion after she has been appropriately anticoagulated.? I have also discussed with her the possibility of her enrolling in the?change A-fib trial?and she is interested in this.? She has been giving the appropriate literature to review.? If she is randomized to medication namely dronedarone I would recommend that we discontinue her digoxin.? In the meantime we will schedule her for cardioversion in 4 to 6 weeks. (2) Essential hypertension: ?Status:?Acute ?Plan: Her blood pressure is under good control at this particular time and I would not recommend we make any major changes.
--- NOTE | 2022-09-10 14:38 | PCM.HP.BLA ---
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 She has no previous cardiac history, who was admitted to the hospital in April of this year with influenza pneumonia and was noted to be in atrial fibrillation with a rapid ventricular response rate.? She was also noted to be hypokalemic and hyponatremic.? She had had a previous diagnosis of a known non-small cell carcinoma of the lung and underwent a right upper lobectomy in January 2016 with a repeat surgery completed in February 2016.? The postoperative course was complicated by development of chylothorax.? She has severe obstructive lung disease and uses home oxygen.? She had been fairly stable until she presented with the above.? Prior to this she had undergone in 2018 a wedge resection which was thought to be positive for malignancy and she completed 45 days of radiation.? In terms of lung cancer status she is noted to be stable at this time and follows with pulmonology.? She was treated for her atrial fibrillation with anticoagulation and beta-blockers which she has tolerated.? Of note was the fact that in November 2021 she had been in sinus rhythm.? She says that she does feel her atrial fibrillation though it does not appear to be as rapid as before.? She has had no dizziness or diaphoresis no near syncope or syncope.? Her physical exam demonstrates clear lung tineo irregular rate and rhythm and no pedal edema her electrocardiogram does confirm atrial fibrillation with a rate of 64 bpm and nonspecific changes.? Previous CAT scan had demonstrated coronary calcification echocardiogram from April 2022 demonstrated an ejection fraction of 60% mild focal aortic calcification.? Her renal function is unremarkable and liver function tests were noted to be normal. Intake Vital Signs See EMR Allergies See EMR Medications See EMR Ejection fraction %: 60 to 64 [facility] Medical History? Anxiety Atrial fibrillation Chronic bronchitis Chronic hypoxemic respiratory failure Chronic obstructive pulmonary disease with (acute) exacerbation COPD (chronic obstructive pulmonary disease) Depression Emphysema of lung Essential hypertension History of lung cancer History of pneumonia Influenza A Influenza B Left anterior knee pain Left lower lobe pneumonia Lung cancer Lung mass Lung nodule Nicotine dependence, cigarettes, uncomplicated PAD (peripheral artery disease) Pneumonia Primary malignant neoplasm of both lungs Seasonal allergies Tobacco dependence in remission Unintentional weight loss Surgical History? H/O pneumonectomy H/O tubal ligation History of bilateral carpal tunnel release repaired lymph node Wedge resection of lung Family History? Mother Thyroid cancer Anemia Lung diseaseFather Throat cancer Diabetes Hypertension Arthritis Lung diseaseSister Breast cancer Brain cancerOther Asthma Ovarian cancer Social History? household members:? spouse Smoking Status:? Heavy Smoker (>10/day) Tobacco: How many years used:? 50 how long ago did patient quit smoking:? pt reports smoking 2-3 cigs every couple of days second hand exposure:? Yes alcohol intake:? never substance use type:? does not use caffeine:? No what type of physical activity do you participate in:? none ROS Const Const: Positive for fatigue (Doesn't take much to get worn out.) and weakness; Negative for headache(s), frequent falls, difficulty sleeping or excessive sweating Eyes Eyes: Negative for loss of peripheral vision, transient loss of vision, blurry vision, double vision or tunnel vision ENT ENT: Positive for balance problems; Negative for headache(s), dizziness or Nosebleed/epistaxis Cardio Chest Pain: No Palpitations: Yes feels like its: other (fluttery) Edema: None Muscle aches with walking: None Resp Respiratory: Positive for SOB with activity and SOB at rest; Negative for SOB orthopnea\SOB lying down, Cough or paroxysmal nocturnal dyspnea GI GI: Negative nausea, vomiting, heartburn or black,tarry stools : Negative for hematuria Musc Musc: Positive for balance problems; Negative for muscle aches/ myalgia, muscle weakness or joint pain Skin Skin: Negative non-healing lesions, rash or unusual bruising Neuro Neuro: Positive for weakness; Negative for dizziness, lightheadedness, near syncope, syncope, frequent falls, headache(s), blurry vision, double vision or lack of coordination [place] Hematologic/Lymphatic: Negative for easy bleeding or easy bruising Endo Endo: Positive for fatigue (Doesn't take much to get worn out.); Negative for excessive sweating or increased thirst/drinking Psych Psych: Negative for anxiety or depression Allergy Allergy/Immunology: Negative for hives and Negative for rash Cardiology Exam Const Appearance: cooperative, healthy appearing, no acute distress, well developed and well groomed Nutritional Appearance: average body habitus and well nourished Orientation: alert, awake and oriented x3 Head Head: normal to inspection, normocephalic and atraumatic Ears: hearing grossly normal bilaterally and external ears normal Nose: external nose normal, nares normal, nasal mucous membranes and turbinates normal, septum normal and no nasal discharge Face and Sinus: face symmetric Mouth: oral mucosae normal, tongue normal, oropharynx normal and moist mucous membranes Teeth and gingiva: dentition normal Throat: posterior oropharynx normal, tonsils normal and uvula midline Eyes General: appearance normal, both eyes and all related structures Eyelids: eyelids normal Conjunctivae: conjunctivae normal Pupils: PERRL, normal by confrontation and accommodation normal EOM: EOM intact bilaterally Neck Neck: normal visual inspection, trachea midline and no JVD JVD: +5 Carotids: normal carotid upstroke and bounding pulses Chest Chest inspection: normal inspection of the chest, symmetric chest movement and normal respiratory effort Auscultation: Bilateral: Clear to Auscultation Cardio Palpation: normal PMI Rate: regular rate Rhythm: irregular rhythm Heart sounds: S1 normal, S2 normal and normal, physiologic split S2; Negative rub, gallop or murmur GI GI: normal to inspection, soft, no hepatosplenomegaly and bowel sounds present Neuro General: patient alert, patient awake, patient oriented x3, gait normal, moves all extremities and no focal sensory deficit Skin Skin: no rashes or lesions noted Extremities Pulses: Normal: Right Femoral Pulse, Left Femoral Pulse, Right Dorsalis Pedis Pulse, Left Dorsalis Pedis Pulse, Right Posterior Tibial Pulse, Left Posterior Tibial Pulse, Right Radial Pulse and Left Radial Pulse Lower Extremity Edema: None: Bilateral Musculoskel Musculoskeletal: No joint tenderness Psych Psychological: normal affect Supplemental Info Supplemental Information Echocardiogram 05/19/2022 Interpretation Summary Normal LV size. Left ventricular systolic function is normal. The estimated ejection fraction is 60 %. Trisinus/trileaflet aortic valve. Mild focal aortic valve calcification. ? Chest CTA 05/19/2022 1.? Patchy opacification and tree-in-bud nodular opacities left lung base consistent with pneumonia. 2.? Mucus plugging lower lobe bronchi bilaterally. 3.? No pulmonary embolism or dissection. 4.? Emphysema. 5.? Status post right upper lobectomy and partial atelectasis of the right middle lobe. 6.? Coronary artery disease. Assessment and Plan Assessment and Plan (1) Atrial fibrillation with rapid ventricular response: ?Status:?Acute ?Plan: She does have atrial fibrillation which is recently diagnosed.? She has been appropriately anticoagulated, and will proceed with cardioversion.
[2022-09-14 11:22] LABS: Absolute Lymphocyte Count 1.04 X10^3/uL (0.83-4.51); Absolute Neutrophil Count 4.6 X10^3/uL (2.0-7.7); Basophil# 0.04 X10^3/uL; Basophil% 0.6 % (0-1); Eosinophil# 0.07 X10^3/uL; Eosinophils% 1.1 % (0-5); Hematocrit 40.4 % (37-47); Hemoglobin 12.2 g/dL (12.0-15.0); Lymphocyte # 1.04 X10^3/ul (0.83-4.51); Lymphocyte % 15.7 % (19-41); Mean Corp Hgb Conc 30.2 g/dL (32-36); Mean Corpuscular Hgb 28.6 pg (27.0-32.0); Mean Corpuscular Volume 94.8 fL (81-99); Mean Platelet Vol. 9.2 fl (6.2-12.0); Monocyte# 0.68 X10^3/uL; Monocyte% 10.3 % (0-10); NRBC Flagged by Analyzer 0 % (0-5); Neutrophil # 4.64 X10^3/uL (2.7-7.7); Neutrophil % 69.9 % (47-70); Platelet Count 287 K/mm3 (150-450); RBC Distribution Width CV 14.6 % (11.6-14.6); RBC Distribution Width SD 50.3 fl (35.1-43.9); Red Blood Count 4.26 M/mm3 (4.2-5.4); White Blood Count 6.6 K/mm3 (4.4-11.0)
[2022-09-14 11:44] LABS: Anion Gap 2 (5-15); BUN 13 mg/dL (7-18); BUN/Creat Ratio 18.8 RATIO (10-20); Calcium,Total 8.8 mg/dL (8.5-10.1); Chloride 103 mmol/L (98-107); Creatinine, Serum 0.69 mg/dL (0.55-1.02); EST Glomerular Filtration Rate 88 mL/min (>60); Est Glom Filt Rate - Afr Amer 107 mL/min (>60); Glucose 91 mg/dL (74-106); Potassium 3.3 mmol/L (3.5-5.1); Sodium Level 136 mmol/L (136-145)
[2022-09-18 08:35] LABS: Potassium 4.4 mmol/L (3.5-5.1)
== END 2022-09-18 23:59 | disposition home or self-care (01) ==
PROVIDERS: PCP Internal Medicine; Referring Provider Internal Medicine Cardiovascular Disease; Visit Provider Internal Medicine Cardiovascular Disease
DX: I48.91 Unspecified atrial fibrillation (principal); J44.9 Chronic obstructive pulmonary disease, unspecified; I10 Essential (primary) hypertension; F17.210 Nicotine dependence, cigarettes, uncomplicated; Z85.118 Personal history of other malignant neoplasm of bronchus and lung; Z53.09 Procedure and treatment not carried out because of other contraindication
CPT/HCPCS: 36415; 80048; 84132; 85025; 93005

== ENCOUNTER 2022-09-28 13:07 | Emergency (ER) | payer MEDICARE, SELFPAY ==
[2022-09-28 13:08] VITALS: BP 103/44; PULSE 55; RESP 16; TEMP 36.4; O2SAT 100; BMI 29.0
--- NOTE | 2022-09-28 13:27 | EKG12_ITS ---
Test Reason : Blood Pressure : / mmHG Vent. Rate : 052 BPM Atrial Rate : 052 BPM P-R Int : 174 ms QRS Dur : 066 ms QT Int : 440 ms P-R-T Axes : 085 066 074 degrees QTc Int : 409 ms Sinus bradycardia Possible Left atrial enlargement Borderline ECG Confirmed by ALDA NICHOLS, CAITLIN ([id number]), restaurant expeditor CIARRA HYDE ([id number]) on 09/29/2022 9:40:28 AM Referred By: RICARDO Confirmed By:CAITLIN LIZAMA MD
--- NOTE | 2022-09-28 13:27 | RAD_ITS ---
STUDY: X-RAY CHEST REASON FOR EXAM: Female, 72 years old. Left-sided chest pain with shortness of breath TECHNIQUE: PA and lateral views of the chest. COMPARISON: Comparison is made with prior study August 01, 2022. FINDINGS: EKG electrodes are seen. There is hyperinflation of the lungs consistent with chronic obstructive lung disease (COPD). Stable focal scarring in the left upper lobe. Stable scarring at the lung bases. There is blunting of the right costophrenic angle. Normal size heart. Normal mediastinum and lucia. Normal visualized pulmonary arteries. There is atherosclerotic calcification of the aortic arch with tortuosity. There is demineralization of the osseous structures. Normal visualized ribs, clavicles, and shoulders. There is no demonstrated abnormality of the visualized soft tissue structures of the upper abdomen. RAD/Chest PA and Lateral IMPRESSION: Hyperinflation. Stable mild increased markings at the lung bases with continued blunting of the right costophrenic angle. Electronically Signed: Hiram Chi MD at 13:50 EDT ,
--- NOTE | 2022-09-28 13:35 | ED.RN ---
Patient resting, respirations easy and unlabored.
[2022-09-28 13:39] LABS: Absolute Lymphocyte Count 0.59 X10^3/uL (0.83-4.51); Basophil# 0.04 X10^3/uL; Basophil% 0.4 % (0-1); Eosinophil# 0.08 X10^3/uL; Eosinophils% 0.7 % (0-5); Hematocrit 39.3 % (37-47); Hemoglobin 12.6 g/dL (12.0-15.0); Lymphocyte # 0.59 X10^3/ul (0.83-4.51); Lymphocyte % 5.2 % (19-41); Mean Corp Hgb Conc 32.1 g/dL (32-36); Mean Corpuscular Hgb 29.6 pg (27.0-32.0); Mean Corpuscular Volume 92.3 fL (81-99); Mean Platelet Vol. 9.3 fl (6.2-12.0); Monocyte# 0.63 X10^3/uL; Monocyte% 5.5 % (0-10); NRBC Flagged by Analyzer 0 % (0-5); Neutrophil % 87.5 % (47-70); POSITIVE DIFFERENTIAL YES; Platelet Count 237 K/mm3 (150-450); RBC Distribution Width CV 14.1 % (11.6-14.6); RBC Distribution Width SD 47.7 fl (35.1-43.9); Red Blood Count 4.26 M/mm3 (4.2-5.4); White Blood Count 11.4 K/mm3 (4.4-11.0)
[2022-09-28 13:44] LABS: Differential Indicated SCAN CRITERIA MET
[2022-09-28 13:52] LABS: D-Dimer Quantitative (DVT/PE) 0.34 FEU/ug/m (0.27-0.49)
[2022-09-28 14:02] LABS: Anion Gap 1 (5-15); BUN 16 mg/dL (7-18); BUN/Creat Ratio 17.7 RATIO (10-20); Calcium,Total 8.9 mg/dL (8.5-10.1); Chloride 103 mmol/L (98-107); EST Glomerular Filtration Rate 65 mL/min (>60); Est Glom Filt Rate - Afr Amer 78 mL/min (>60); Estimated Creatinine Clearance 39.39 ml/min; Glucose 116 mg/dL (74-106); Potassium 3.6 mmol/L (3.5-5.1); Sodium Level 139 mmol/L (136-145); Troponin-I HS (w/2H Reflex) 5 pg/mL (3.0-54.0)
--- NOTE | 2022-09-28 14:15 | CT_ITS ---
STUDY: CTA CHEST REASON FOR EXAM: Female, 72 years old. History lung cancer, pleuritic chest pain, R/O PE. COPD. RADIATION DOSAGE (If Supplied By Facility): CTDIvol = ( 7.55 ) mGy, DLP = ( 195.66 ) mGycm TECHNIQUE: The examination was performed with the intravenous administration of IV 100mL [id number]-[id number]. Post-processing of the angiographic images was performed, with multiplanar reformation and 3D reconstruction. Individualized dose optimization techniques were used for this CT. COMPARISON: Comparison is made with prior study dated May 19, 2022. FINDINGS: Normal enhancement of the main pulmonary artery and right and left pulmonary arteries. Normal enhancement of the bilateral peripheral pulmonary arteries. There is no demonstrated pulmonary embolism. There is atherosclerotic calcification of the aortic arch with tortuosity. There is no demonstrated aortic dissection. There are calcifications of the coronary arteries. Normal mediastinum. Normal hilar regions. Normal visualized trachea and bronchi. The patient is status post right upper lobectomy with volume loss in the right upper lobe. Postoperative scarring. Stable scarring in the left upper lobe more prominent along the medial aspect with fibrocalcific scarring and bronchiectasis. 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 Stable scarring in the right lower lobe as well. Normal pulmonary parenchyma. Normal pleura. Normal chest wall structures. Demineralization. Normal visualized upper abdomen. CT/CTA Chest W/WO Contrast IMPRESSION: No evidence of a pulmonary embolism. Stable examination. Electronically Signed: Hiram Chi MD at 15:01 EDT ,
[2022-09-28 14:24] VITALS: BP 94/58; PULSE 55; RESP 16
--- NOTE | 2022-09-28 14:36 | EDS_ITS ---
HPI History of Present Illness Chief Complaint: Chest Pain Detail of Chief Complaint: Left-sided chest pain that awoke patient from sleep at 0300 Informant: patient Onset/Context/Timing Onset: Today and Hours Activity at onset: sudden Timing: Continuous Quality: Positive for Pressure and Tightness Location: Left Chest Current Severity: Mild Maximum Severity: Moderate Worsened By: Nothing Relieved By: Nothing Associated Symptoms: Positive for Diaphoresis, Dyspnea and Lightheadedness; Negative for Nausea, Vomiting, Cough, Fever, Acid Reflux or Palpitations Narrative Narrative: Patient is a 72-year-old woman with history of lobectomy right 2014 for primary lung cancer and lobectomy/wedge resection left upper lobe due to primary lung carcinoma 2018. Patient presents with left-sided chest pain that awoke her from sleep with shortness of breath and lightheadedness. The pain did not radiate. It was not associated with any other symptoms. She denies recent fever, chills night sweats. Denies headache, visual, ocular auditory symptoms. She still complains of pressure in her chest. She denies leg pain or swelling. She does have history of COPD. She used her inhaler with no improvement. She denies history of coronary disease. She is not on anticoagulant. Prior Similar Symptoms: Yes (COPD) Recent Illness/Hospitalization: No CVD Risk Factors: Positive for Smoking (Former); Negative for Hypertension, Diabetes, Hypercholesterolemia or Family History 1' </=55 PE Risk Factors: Positive for Cancer; Negative for Recent Travel/Surgery, Recent Immobilization, Prior DVT or PE or OCP + Smoking + >/=35 TAD Risk Factors: Negative for Marfan's Syndrome, Hypertension or Family History [facility] Medical History Anxiety Atrial fibrillation Atrial fibrillation with rapid ventricular response Bradycardia Chronic bronchitis Chronic hypoxemic respiratory failure Chronic obstructive pulmonary disease with (acute) exacerbation COPD (chronic obstructive pulmonary disease) Depression Emphysema of lung Essential hypertension History of lung cancer History of pneumonia Influenza A Influenza B Left anterior knee pain Left lower lobe pneumonia Lung cancer Lung mass Lung nodule Nicotine dependence, cigarettes, uncomplicated PAD (peripheral artery disease) Pneumonia Primary malignant neoplasm of both lungs Seasonal allergies Tobacco dependence in remission Unintentional weight loss Home Medications Handicap [place] #1 ea 11/05/21 [Rx Last Taken Unknown] albuterol sulfate 90 mcg/actuation aerosol inhaler 2 puff inhalation Q4H PRN shortness of breath or wheezing #8.5 grams 11/05/21 [Rx Last Taken 07/14/22] paroxetine HCl 10 mg tablet (Paxil) 10 mg PO DAILY anxiety 05/19/22 [History Last Taken 07/15/22] guaifenesin 100 mg/5 mL oral liquid 10 ml PO Q4H PRN PRN COUGH #0 mL 07/17/22 [Rx Last Taken Unknown] prednisone 10 mg tablet 10 mg PO BID 08/01/22 [History Last Taken Unknown] buspirone 5 mg tablet 10 mg PO BID 08/05/22 [History Last Taken Unknown] probiotic PO 08/05/22 [History Last Taken Unknown] Home Health Eval for SN and HH Aide 08/10/22 [History Last Taken Unknown] dronedarone 400 mg tablet (Multaq) 400 mg PO BID 08/18/22 [History Last Taken Unknown] metoprolol tartrate 50 mg tablet 75 mg (1.5 x 50 mg) PO BID #270 tabs 08/24/22 [Rx Last Taken Unknown] gabapentin 100 mg capsule 100 mg PO BID NERVE PAIN #180 caps 08/26/22 [Rx Last Taken Unknown] budesonide 1 mg/2 mL suspension for nebulization 1 mg (2 mL) inhalation BID #60 mL 09/08/22 [Rx Last Taken Unknown] ipratropium 0.5 mg-albuterol 3 mg (2.5 mg base)/3 mL nebulization soln 3 ml inhalation Q6H PRN shortness of breath or wheezing #120 vials 09/08/22 [Rx Last Taken Unknown] revefenacin 175 mcg/3 mL solution for nebulization (Yupemarcioi) 175 mcg (3 mL) inhalation DAILY #90 mL 09/08/22 [Rx Last Taken Unknown] hydrochlorothiazide 25 mg tablet 12.5 mg PO DAILY water pill 09/10/22 [History Last Taken Unknown] potassium chloride 20 mEq tablet,extended release 20 meq PO DAILY #30 tabs 09/14/22 [Rx Last Taken 09/18/22] albuterol sulfate 2.5 mg/3 mL (0.083 %) solution for nebulization 2.5 mg (3 mL) continuous nebulization .COMPLEX SOB #180 mL 09/17/22 [Rx Last Taken Unknown] apixaban 5 mg tablet (Eliquis) 5 mg PO BID #180 tabs 09/17/22 [Rx Last Taken 09/18/22] prednisone 20 mg tablet 60 mg (3 x 20 mg) PO DAILY #12 TABLETS 09/28/22 [Rx Last Taken Unknown] Allergy/AdvReac Type Severity Reaction Status Date / Time meperidine HCl [From Demerol] AdvReac pass out Verified 09/28/22 13:18 Family History Mother Thyroid cancer Anemia Lung disease Father Throat cancer Diabetes Hypertension Arthritis Lung disease Sister Breast cancer Brain cancer Other Asthma Ovarian cancer Surgical History H/O pneumonectomy H/O tubal ligation History of bilateral carpal tunnel release repaired lymph node Wedge resection of lung Social History household members: spouse Smoking Status: Light Smoker (<10/day) Tobacco: How many years used: 50 how long ago did patient quit smoking: pt reports smoking 2-3 cigs every couple of days second hand exposure: Yes alcohol intake: never substance use type: does not use caffeine: No what type of physical activity do you participate in: none ROS ROS ED Constitutional Constitutional ED: Denies chills, fever(s), subjective, sweats or weight loss Eyes Eyes: Reports none; Denies blurry vision, change in vision or diplopia ENT ENT ED: Denies ear pain, rhinorrhea or sore throat Cardiovascular Cardiovascular: Reports as per HPI; Denies orthopnea or paroxysmal nocturnal dyspnea Respiratory/Chest Respiratory/Chest: Reports dyspnea; Denies cough, dyspnea on exertion, orthopnea, paroxysmal nocturnal dyspnea or sputum Gastrointestinal Gastrointestinal: Reports nausea; Denies abdominal pain, constipation, diarrhea, melena or vomiting Genitourinary Genitourinary ED: Denies dysuria, hematuria or urinary frequency Musculoskeletal Musculoskeletal: Denies arthralgias, back pain, myalgias or neck pain Integumentary Denies Abrasions or rash Neurologic Neurologic: Denies headache(s), paresthesias or weakness Psychiatric Psychiatric: Denies anxiety or depression Endocrine Endocrinology: Denies cold intolerance or heat intolerance Hematologic/Lymphatic Hematologic/Lymphatic: Denies easy bleeding or easy bruising EXAM Physical Exam Const Vital Signs: 09/28/22 13:08 09/28/22 13:13 09/28/22 14:24 Temperature 97.5 F L Temperature Source Oral Pulse Rate 55 L 55 L Respiratory Rate 16 16 Respiratory Effort Normal Respiratory Pattern Blood Pressure 103/44 L 94/58 L Blood Pressure Mean 63 70 Pulse Ox 100 Oxygen Delivery Method Nasal Cannula Nasal Cannula Oxygen Flow Rate (L/min) 3 3 09/28/22 16:18 Temperature Temperature Source Pulse Rate 52 L Respiratory Rate 16 Respiratory Effort Respiratory Pattern Normal Blood Pressure Blood Pressure Mean Pulse Ox Oxygen Delivery Method Oxygen Flow Rate (L/min) Positive well nourished and well developed General Appearance ED: well developed and NAD; Negative for pallor HEENT Reports TM's clear and moist mucous membranes normocephalic and atraumatic Tympanic Membrane ED: Yes TM's clear Eyes PERRL and EOMs intact bilaterally General Eye ED: Negative for pale conjunctiva or scleral icterus Neck no lymphadenopathy, supple and no JVD Chest Wall inspection of chest normal and palpation of chest normal Resp normal respiratory effort and clear to auscultation bilaterally Cardio regular rate, regular rhythm, S1 normal heart sound, S2 normal heart sound and no murmurs GI normal to inspection, nondistended, normoactive bowel sounds, soft to palpation, non-tender, non-distended and no masses; Negative for hepatosplenomegaly Back/Spine no CVA tenderness and no thoracic nor lumbar tenderness Extremity normal to inspection Extremity Narrative: Insert lower extremity exam T General Extremety ED: Negative for edema or pulses abnormal General Extremity: Negative for edema or pulses abnormal Neuro oriented x3, CN's II-XII intact bilaterally and no sensory deficits noted Sensorium / Orientation: awake and alert Motor Exam: strength 5/5 throughout Psych mental status grossly normal Skin no rashes or lesions noted and no wounds General Skin Exam: Negative for jaundice or pallor Heart Score History: Slightly/Non-Suspicious ECG: Normal Age: >/= 65 years Risk Factors: 1 or 2 Risk Factors Troponin: </= Normal Limit Score: 3 MDM MDM MDM Narrative Medical decision making narrative: Patient presents with chest pain that has pleuritic component. Need to evaluate for pulmonary embolus, cardiac ischemia, pneumothorax, noncardiac etiology i.e. GI. EKG, chest x-ray and appropriate blood work was obtained. White count is elevated with shift. There is no Jailyn. Basic metabolic panel reveals normal renal function. CO2 is elevated at 35. Glucose is 116 with a normal anion gap. For troponin is 5. This is with pain that was present 10 hours prior to presentation. Since her chest x-ray revealed no acute pathology CTA was obtained because of history of lung cancer x2. Lab Data Attestation: I reviewed the patient's lab results. Lab results narrative: White count is slightly elevated with slight shift. There is no bandemia. Basic metabolic panel reveals elevated CO2 consistent with the opiate deep. First troponin is normal. 2-hour troponin is pending. Second troponin is 6 with a delta of 1. Patient was discharged home with prednisone and treated for exacerbation of COPD. Labs: Laboratory Results - last 24 hr 09/28/22 09/28/22 13:10 15:44 WBC 11.4 H RBC 4.26 Hgb 12.6 Hct 39.3 MCV 92.3 MCH 29.6 MCHC 32.1 RDW Std Deviation 47.7 H RDW Coeff of Joi 14.1 Plt Count 237 MPV 9.3 Immature Gran % (Auto) 0.700 Neut % (Auto) 87.5 H Lymph % (Auto) 5.2 L [place] % (Auto) 5.5 Eos % (Auto) 0.7 Baso % (Auto) 0.4 Absolute Neuts (auto) 10.0 H Absolute Lymphs (auto) 0.59 L Nucleated RBC % 0 D-Dimer Quant (PE/DVT) 0.34 Sodium 139 Potassium 3.6 Chloride 103 Carbon Dioxide 35.0 H Anion Gap 1 L BUN 16 Creatinine 0.90 Estim Creat Clear Calc 39.39 Est GFR (MDRD) Af Amer 78 Est GFR (MDRD) Non-Af 65 BUN/Creatinine Ratio 17.7 Glucose 116 H Calcium 8.9 Troponin I High Sens 5 6 Radiography Chest X-Ray - ED: 2 View (2 view chest x-ray was independently reviewed and interpreted by me. There is no acute findings. There is evidence of hyperaeration. There is blunting of the left base which is unchanged from prior. Cardiac silhouette size unremarkable. Perihilar region unremarkable. [place] structures are unrem) Diagnostic Testing: Clinical Impression(s) from Imaging Studies Chest X-Ray 09/28/22 13:27 IMPRESSION: Hyperinflation. Stable mild increased markings at the lung bases with continued blunting of the right costophrenic angle. Electronically Signed: Hiram Chi MD at 13:50 EDT , Chest CTA 09/28/22 14:15 IMPRESSION: No evidence of a pulmonary embolism. Stable examination. Electronically Signed: Hiram Chi MD at 15:01 EDT , EKG Initial EKG: Attestation: I personally reviewed and interpreted this EKG as follows: Interpretation: Sinus Bradycardia (Sinus bradycardia rate of 52. There is no ischemic changes noted. MD interval is 174 ms. Cures duration 6 6 ms. QT duration 440 ms. [place] is normal.) Treatment and Re-Evaluation :: Patient was informed of her test results. Patient was formed a plan. She had no questions at time of discharge. Discharge Plan Triage Chief Complaint: Chest Pain ED Provider: Valentin Parsons Dx/Rx/DC Orders Clinical Impression: COPD with acute exacerbation, History of lung cancer, Acute dyspnea, Bradycardia, sinus, Paroxysmal A-fib Instructions: ED COPD Flare Prescriptions: New prednisone 20 mg tablet 60 mg PO DAILY Qty: 12 0RF No Action (DME) Handicap Placard See Rx Instructions .Route .MEDSUPPLY Qty: 1 0RF Rx Instructions: 5 year RX (11/05/21-11/05/26) buspirone 5 mg tablet 10 mg PO BID probiotic PO ipratropium-albuterol 0.5 mg-3 mg(2.5 mg base)/3 mL solution for nebulization 3 ml INHALATION Q6H PRN (Reason: shortness of breath or wheezing) Qty: 120 6RF Rx Instructions: J96.11 Chronic respiratory failure with hypoxia J44.1 COPD with exacerbation budesonide 1 mg/2 mL suspension for nebulization 1 mg inhalation BID Qty: 60 6RF Yupelri 175 mcg/3 mL solution for nebulization 175 mcg inhalation DAILY Qty: 90 6RF paroxetine HCl [Paxil] 10 mg tablet 10 mg PO DAILY guaifenesin 100 mg/5 mL Liquid 10 ml PO Q4H PRN PRN (Reason: COUGH) Qty: 0 0RF prednisone 10 mg tablet 10 mg PO BID Rx Instructions: 4 tablets x 4 days, 3 tablets x 4 days, 2 tablets x 4 days, 1 tablet x 4 days albuterol sulfate 90 mcg/actuation HFA aerosol inhaler 2 puff INHALATION Q4H PRN (Reason: shortness of breath or wheezing) Qty: 8.5 6RF Rx Instructions: administer with spacer (DME) Home Health Eval for SN and HH Aide See Rx Instructions .Route .MEDSUPPLY Rx Instructions: Evaluation for retirement and Home Health Aide. Ok to delay SOC dt availability . Pt aware and is in agreement to wait. Multaq 400 mg tablet 400 mg PO BID Rx Instructions: must administer with a meal/food metoprolol tartrate 50 mg tablet 75 mg PO BID Qty: 270 3RF gabapentin 100 mg capsule 100 mg PO BID Qty: 180 3RF hydrochlorothiazide 25 mg tablet 12.5 mg PO DAILY Hold Instructions: hypotension potassium chloride 20 mEq tablet extended release 20 meq PO DAILY Qty: 30 12RF Rx Instructions: 40 Meq on day one followed by 20 Meq daily starting day two albuterol sulfate 2.5 mg /3 mL (0.083 %) solution for nebulization 2.5 mg continuous nebulization .COMPLEX Qty: 180 1RF Rx Instructions: inhale 1 vial/2.5 mg via continuous nebulization 6 times daily; Eliquis 5 mg tablet 5 mg PO BID Qty: 180 3RF Primary Care Provider: Eryn Shelton Referrals: Eryn Shelton MD [Primary Care Provider] - 3-5 Days Disposition Disposition: Home, Self Care
[2022-09-28 15:37] LABS: Reflex Troponin-HS? (from REC) Y
--- NOTE | 2022-09-28 15:45 | ED.RN ---
Second troponin drawn and sent to lab. BSC in room. Patient up, voided and returned to bed. Requesting Aerosol
[2022-09-28 16:18] VITALS: PULSE 52; RESP 16
[2022-09-28] MEDS: Albuterol 2.5 MG/3 ML VIAL.NEB. INHALATION (16:18)
[2022-09-28] MEDS: Ipratropium/Albuterol Sulfate 3 ML AMPUL.NEB INHALATION (16:18)
[2022-09-28 16:25] LABS: Troponin-I HS 6 pg/mL (3.0-54.0)
[2022-09-28] MEDS: predniSONE 20 MG Tablet 60 MG PO (16:46)
[2022-09-28 16:47] VITALS: BP 113/70; PULSE 60; RESP 20; O2SAT 98
== END 2022-09-28 16:53 | disposition home or self-care (01) ==
PROVIDERS: Emergency Provider Emergency Medicine; PCP Internal Medicine; Visit Provider Emergency Medicine
DX: J44.1 Chronic obstructive pulmonary disease with (acute) exacerbation (principal); I73.9 Peripheral vascular disease, unspecified; I48.0 Paroxysmal atrial fibrillation; F17.210 Nicotine dependence, cigarettes, uncomplicated; I10 Essential (primary) hypertension; Z79.899 Other long term (current) drug therapy; Z79.01 Long term (current) use of anticoagulants; E78.00 Pure hypercholesterolemia, unspecified; F41.9 Anxiety disorder, unspecified; F32.A Depression, unspecified
CPT/HCPCS: 71046; 71275; 80048; 84484; 85025; 85379; 93005; 94640; 99285; A4216

== ENCOUNTER → 2022-10-15 | Outpatient (CLI) | payer MEDICARE, SELFPAY ==
[2022-10-15 11:08] LABS: BNP,B-Type NATRIURETIC PEPTIDE 107.3 pg/mL (0-100)
[2022-10-15 11:12] LABS: Anion Gap 3 (5-15); BUN 14 mg/dL (7-18); Calcium,Total 8.8 mg/dL (8.5-10.1); Chloride 104 mmol/L (98-107); Creatinine, Serum 0.74 mg/dL (0.55-1.02); EST Glomerular Filtration Rate 82 mL/min (>60); Est Glom Filt Rate - Afr Amer 99 mL/min (>60); Glucose 94 mg/dL (74-106); Potassium 3.8 mmol/L (3.5-5.1); Sodium Level 138 mmol/L (136-145)
== END | disposition home or self-care (01) ==
PROVIDERS: PCP Internal Medicine; Referring Provider Physician Assistant Medical; Visit Provider Physician Assistant Medical
DX: R00.1 Bradycardia, unspecified (principal); I48.91 Unspecified atrial fibrillation; R00.0 Tachycardia, unspecified; R63.5 Abnormal weight gain
CPT/HCPCS: 36415; 80048; 83880; 93225; 93226

== ENCOUNTER 2022-12-15 02:11 | Emergency (ER) | payer MEDICARE, MEDICAID, SELFPAY ==
[2022-12-15] VITALS (7 sets, daily range): BP systolic 127–159; BP diastolic 70–104; PULSE 63–84; RESP 19–28; TEMP 36.6; O2SAT 88–98; BMI 29.2
[2022-12-15] MEDS: Ipratropium/Albuterol Sulfate 3 ML AMPUL.NEB INHALATION (02:20)
--- NOTE | 2022-12-15 03:00 | EDS_ITS ---
HPI History of Present Illness Chief Complaint: Shortness of Breath Informant: patient and EMS Narrative Narrative: 72-year-old female with a history of COPD presenting to the emergency room via EMS with chief complaint of shortness of breath. Patient states she called the squad after more than a day of having shortness of breath and been unable to improve. She notes that symptoms began yesterday and progressively worsened. She denies any chest pain. She notes a cough which is chronic and slightly worse than normal and also some sputum production that is thicker than normal when asked if she has any fevers she states that for her she has a fever at 99 degrees but she does not believe so. She is on apixaban. She has a history of A-fib and lung cancer that is in remission per her. [facility] Medical History Anxiety Atrial fibrillation Atrial fibrillation with rapid ventricular response Bradycardia Chronic bronchitis Chronic hypoxemic respiratory failure Chronic obstructive pulmonary disease with (acute) exacerbation COPD (chronic obstructive pulmonary disease) Depression Emphysema of lung Essential hypertension History of lung cancer History of pneumonia Influenza A Influenza B Left anterior knee pain Left lower lobe pneumonia Lung cancer Lung mass Lung nodule Nicotine dependence, cigarettes, uncomplicated PAD (peripheral artery disease) Pneumonia Primary malignant neoplasm of both lungs Seasonal allergies Tobacco dependence in remission Unintentional weight loss Home Medications Handicap Placard #1 ea 11/05/21 [Rx Last Taken Unknown] paroxetine HCl 10 mg tablet (Paxil) 10 mg PO DAILY anxiety 05/19/22 [History Last Taken 07/15/22] guaifenesin 100 mg/5 mL oral liquid 10 ml PO Q4H PRN PRN COUGH #0 mL 07/17/22 [Rx Last Taken Unknown] prednisone 10 mg tablet 10 mg PO BID 08/01/22 [History Last Taken Unknown] probiotic PO 08/05/22 [History Last Taken Unknown] Home Health Eval for SN and HH Aide 08/10/22 [History Last Taken Unknown] dronedarone 400 mg tablet (Multaq) 400 mg PO BID 08/18/22 [History Last Taken Unknown] gabapentin 100 mg capsule 100 mg PO BID NERVE PAIN #180 caps 08/26/22 [Rx Last Taken Unknown] revefenacin 175 mcg/3 mL solution for nebulization (Yupelri) 175 mcg (3 mL) inhalation DAILY #90 mL 09/08/22 [Rx Last Taken Unknown] hydrochlorothiazide 25 mg tablet 12.5 mg PO DAILY water pill 09/10/22 [History Last Taken Unknown] potassium chloride 20 mEq tablet,extended release 20 meq PO DAILY #30 tabs 09/14/22 [Rx Last Taken 09/18/22] apixaban 5 mg tablet (Eliquis) 5 mg PO BID #180 tabs 09/17/22 [Rx Last Taken 09/18/22] prednisone 20 mg tablet See Rx Instructions PO DAILY #12 TABLETS 09/29/22 [Rx Last Taken Unknown] budesonide 1 mg/2 mL suspension for nebulization 1 mg (2 mL) inhalation BID #60 mL 10/08/22 [Rx Last Taken Unknown] ipratropium 0.5 mg-albuterol 3 mg (2.5 mg base)/3 mL nebulization soln 3 ml inhalation Q6H PRN shortness of breath or wheezing #120 vials 10/19/22 [Rx Last Taken Unknown] albuterol sulfate 2.5 mg/3 mL (0.083 %) solution for nebulization 2.5 mg (3 mL) continuous nebulization .COMPLEX SOB #180 mL 11/03/22 [Rx Last Taken Unknown] albuterol sulfate 90 mcg/actuation aerosol inhaler 2 puff inhalation Q4H PRN shortness of breath or wheezing #8.5 grams 11/03/22 [Rx Last Taken Unknown] azithromycin 250 mg tablet 250 mg PO DAILY #4 TABLETS 12/15/22 [Rx Last Taken Unknown] buspirone 5 mg tablet 10 mg PO BID 12/15/22 [History Last Taken Unknown] metoprolol tartrate 50 mg tablet 150 mg PO BID 12/15/22 [History Last Taken Unknown] prednisone 20 mg tablet 60 mg (3 x 20 mg) PO DAILY #15 TABLETS 12/15/22 [Rx Last Taken Unknown] Allergy/AdvReac Type Severity Reaction Status Date / Time meperidine HCl [From Demerol] AdvReac pass out Verified 10/08/22 15:53 Family History Mother Thyroid cancer Anemia Lung disease Father Throat cancer Diabetes Hypertension Arthritis Lung disease Sister Breast cancer Brain cancer Other Asthma Ovarian cancer Surgical History H/O pneumonectomy H/O tubal ligation History of bilateral carpal tunnel release repaired lymph node Wedge resection of lung Social History household members: spouse Smoking Status: Heavy Smoker (>10/day) Tobacco: How many years used: 50 how long ago did patient quit smoking: pt reports smoking 2-3 cigs every couple of days second hand exposure: Yes alcohol intake: never substance use type: does not use caffeine: No what type of physical activity do you participate in: none ROS ROS ED Constitutional Constitutional ED: Denies chills, fever(s) or weight loss Eyes Eyes: Denies change in vision or diplopia ENT ENT ED: Denies ear pain, rhinorrhea or sore throat Cardiovascular Cardiovascular: Denies chest pain, orthopnea, palpitations or racing heartbeat Respiratory/Chest Respiratory/Chest: Reports cough, dyspnea, dyspnea on exertion and sputum; Denies orthopnea Gastrointestinal Gastrointestinal: Denies abdominal pain, diarrhea, nausea or vomiting Genitourinary Genitourinary ED: Denies dysuria, hematuria or urinary frequency Musculoskeletal Musculoskeletal: Denies arthralgias or myalgias Integumentary Denies abscess or rash Neurologic Neurologic: Denies headache(s) or weakness Psychiatric Psychiatric: Denies anxiety, depression, suicidal ideation or suicidal thoughts Endocrine Endocrinology: Denies polydipsia, polyphagia or polyuria Allergic/Immunologic Allergic/Immunologic ED: Denies mouth swelling, tongue swelling or urticaria EXAM Physical Exam Narrative Exam Narrative: Patient wishes to put the history and physical on hold until she can get a drink of water. Const Vital Signs: 12/15/22 02:12 12/15/22 02:16 12/15/22 02:21 Temperature 97.8 F Temperature Source Temporal Pulse Rate 84 Respiratory Rate 28 H Respiratory Effort Short of Breath Labored Accessory Muscle Use Pursed Lip Respiratory Depth Deep Respiratory Pattern Tachypnea Blood Pressure 159/104 H Blood Pressure Mean 122 Pulse Ox 88 92 Oxygen Delivery Method Nasal Cannula Nasal Cannula Nasal Cannula Oxygen Flow Rate (L/min) 4 4 4 12/15/22 02:20 12/15/22 02:20 12/15/22 02:54 Temperature Temperature Source Pulse Rate 78 Respiratory Rate 22 H Respiratory Effort Respiratory Depth Respiratory Pattern Tachypnea Blood Pressure Blood Pressure Mean Pulse Ox 94 92 Oxygen Delivery Method Nasal Cannula Nasal Cannula Oxygen Flow Rate (L/min) 4 4 12/15/22 03:14 Temperature Temperature Source Pulse Rate 68 Respiratory Rate 20 H Respiratory Effort Respiratory Depth Respiratory Pattern Normal Blood Pressure Blood Pressure Mean Pulse Ox Oxygen Delivery Method Oxygen Flow Rate (L/min) Positive well nourished and well developed General Appearance ED: well developed HEENT Reports normocephalic, head/scalp atraumatic and moist mucous membranes HEENT Narrative: There are some white spots on the oral mucosa/soft palate with an erythematous base consistent with thrush Eyes PERRL and EOMs intact bilaterally Neck no lymphadenopathy, supple and no JVD Resp Resp Narrative: Patient has conversational dyspnea Auscultation: rhonchi, wheezes expiratory wheezes and inspiratory wheezes and diminished lung sounds Cardio regular rate, regular rhythm and no murmurs GI normal to inspection, nondistended, normoactive bowel sounds and non-tender Palpation: soft Back/Spine no CVA tenderness and normal ROM Extremity normal to inspection General Extremety ED: Negative for edema General Extremity: Negative for edema Neuro oriented x3 and CN's II-XII intact bilaterally Sensorium / Orientation: alert Motor Exam: strength 5/5 throughout Psych mental status grossly normal Mood & Affect: Negative for depressed or tearful Skin no rashes or lesions noted and no wounds MDM MDM MDM Narrative Medical decision making narrative: Patient received breathing treatments supplemental oxygen and IV Solu-Medrol. White count is 14.5. My independent interpretation of the chest x-ray is chronic changes with no acute infiltrate. She is anticoagulated on apixaban I do not think we need to pursue a DVT PE. Troponin is normal at 10. Repeat examination finds the patient to be resting comfortably. Her oxygen is back at baseline. She has significantly improved aeration. She has no conversational dyspnea. At this point I will treat her at home and start her on azithromycin as well as burst prednisone. Encouraged her to do an aerosol 2 to every 4 hours. Patient will return if worsening or concerns. Lab Data Attestation: I reviewed the patient's lab results. Labs: Laboratory Results - last 24 hr 12/15/22 03:00 WBC 14.5 H RBC 5.08 Hgb 14.5 Hct 47.8 H MCV 94.1 MCH 28.5 MCHC 30.3 L RDW Std Deviation 46.4 H RDW Coeff of Joi 13.4 Plt Count 291 MPV 9.2 Immature Gran % (Auto) 1.400 H Neut % (Auto) 82.7 H Lymph % (Auto) 7.2 L [place] % (Auto) 7.9 Eos % (Auto) 0.3 Baso % (Auto) 0.5 Absolute Neuts (auto) 12.0 H Absolute Lymphs (auto) 1.05 Nucleated RBC % 0 Sodium 139 Potassium 4.3 Chloride 101 Carbon Dioxide 34.0 H Anion Gap 4 L BUN 22 H Creatinine 0.92 Estim Creat Clear Calc 57.34 Est GFR (MDRD) Af Amer 76 Est GFR (MDRD) Non-Af 63 BUN/Creatinine Ratio 23.8 H Glucose 114 H Calcium 9.1 Troponin I High Sens 10 Radiography Diagnostic Testing: Clinical Impression(s) from Imaging Studies Chest X-Ray 12/15/22 03:30 IMPRESSION: No radiographic evidence of acute cardiopulmonary disease. Electronically Signed: Leanne Crawley MD at 4:16 EDT Reading Location ID and State: [address] [place] [address] , Service support , EKG Initial EKG: Attestation: I personally reviewed and interpreted this EKG as follows: Comments: Normal sinus rhythm ventricular rate of 64 bpm no concerning features of ACS or active Differential Diagnosis Chest pain/SOB: pulmonary embolism, ACS, pneumothorax, pneumonia, aortic dissection, CHF and COPD Discharge Plan Triage Chief Complaint: Shortness of Breath ED Provider: Timothy Nunes Dx/Rx/DC Orders Clinical Impression: Oral thrush, Acute on chronic respiratory failure with hypoxemia, Acute exacerbation of chronic obstructive pulmonary disease Prescriptions: New azithromycin [azithromycin] 250 mg tablet 250 mg PO DAILY Qty: 4 0RF prednisone 20 mg tablet 60 mg PO DAILY Qty: 15 0RF No Action (DME) Handicap Placard See Rx Instructions .Route .MEDSUPPLY Qty: 1 0RF Rx Instructions: 5 year RX (11/05/21-11/05/26) probiotic PO Hold Instructions: Order Changed Yupelri 175 mcg/3 mL solution for nebulization 175 mcg inhalation DAILY Qty: 90 6RF Hold Instructions: Order Changed paroxetine HCl [Paxil] 10 mg tablet 10 mg PO DAILY guaifenesin 100 mg/5 mL Liquid 10 ml PO Q4H PRN PRN (Reason: COUGH) Qty: 0 0RF Hold Instructions: not taking prednisone 10 mg tablet 10 mg PO BID Rx Instructions: 4 tablets x 4 days, 3 tablets x 4 days, 2 tablets x 4 days, 1 tablet x 4 days buspirone 5 mg tablet 10 mg PO BID metoprolol tartrate 50 mg tablet 150 mg PO BID (DME) Home Health Eval for SN and HH Aide See Rx Instructions .Route .MEDSUPPLY Rx Instructions: Evaluation for intermediate and Home Health Aide. Ok to delay SOC dt availability . Pt aware and is in agreement to wait. Multaq 400 mg tablet 400 mg PO BID Rx Instructions: must administer with a meal/food gabapentin 100 mg capsule 100 mg PO BID Qty: 180 3RF hydrochlorothiazide 25 mg tablet 12.5 mg PO DAILY Hold Instructions: hypotension potassium chloride 20 mEq tablet extended release 20 meq PO DAILY Qty: 30 12RF Hold Instructions: Order Changed Rx Instructions: 40 Meq on day one followed by 20 Meq daily starting day two Eliquis 5 mg tablet 5 mg PO BID Qty: 180 3RF prednisone 20 mg tablet See Rx Instructions PO DAILY Qty: 12 0RF Hold Instructions: Order Changed Rx Instructions: orally daily; Take 2 tablets daily for 3 days then one tablet daily until finished. budesonide 1 mg/2 mL suspension for nebulization 1 mg inhalation BID Qty: 60 6RF ipratropium-albuterol 0.5 mg-3 mg(2.5 mg base)/3 mL solution for nebulization 3 ml INHALATION Q6H PRN (Reason: shortness of breath or wheezing) Qty: 120 6RF Rx Instructions: J96.11 Chronic respiratory failure with hypoxia J44.1 COPD with exacerbation albuterol sulfate 90 mcg/actuation HFA aerosol inhaler 2 puff INHALATION Q4H PRN (Reason: shortness of breath or wheezing) Qty: 8.5 6RF Rx Instructions: administer with spacer albuterol sulfate 2.5 mg /3 mL (0.083 %) solution for nebulization 2.5 mg continuous nebulization .COMPLEX Qty: 180 3RF Rx Instructions: inhale 1 vial/2.5 mg via continuous nebulization 6 times daily; Primary Care Provider: Eryn Shelton Referrals: Eryn Shelton MD [Primary Care Provider] - 3-5 Days if not improving Activity Restrictions/Additional Instructions: I would recommend doing a nebulizer at least every 4 hours or sooner if needed. Please monitor closely return if worsening. Disposition Disposition: Home, Self Care
[2022-12-15 03:02] LABS: Absolute Lymphocyte Count 1.05 X10^3/uL (0.83-4.51); Basophil# 0.07 X10^3/uL; Basophil% 0.5 % (0-1); Eosinophil# 0.05 X10^3/uL; Eosinophils% 0.3 % (0-5); Hematocrit 47.8 % (37-47); Hemoglobin 14.5 g/dL (12.0-15.0); Lymphocyte # 1.05 X10^3/ul (0.83-4.51); Lymphocyte % 7.2 % (19-41); Mean Corp Hgb Conc 30.3 g/dL (32-36); Mean Corpuscular Hgb 28.5 pg (27.0-32.0); Mean Corpuscular Volume 94.1 fL (81-99); Mean Platelet Vol. 9.2 fl (6.2-12.0); Monocyte# 1.15 X10^3/uL; Monocyte% 7.9 % (0-10); NRBC Flagged by Analyzer 0 % (0-5); Neutrophil # 11.98 X10^3/uL (2.7-7.7); Neutrophil % 82.7 % (47-70); Platelet Count 291 K/mm3 (150-450); RBC Distribution Width CV 13.4 % (11.6-14.6); RBC Distribution Width SD 46.4 fl (35.1-43.9); Red Blood Count 5.08 M/mm3 (4.2-5.4); White Blood Count 14.5 K/mm3 (4.4-11.0)
[2022-12-15] MEDS: Albuterol 2.5 MG/3 ML VIAL.NEB. INHALATION (03:14)
[2022-12-15] MEDS: MethylPREDNISolone 125 MG/2 ML Vial IV (03:19)
--- NOTE | 2022-12-15 03:30 | RAD_ITS ---
STUDY: X-RAY CHEST REASON FOR EXAM: Female, 72 years old patient with dyspnea. TECHNIQUE: Single AP portable view of the chest. COMPARISON: September 28, 2022. FINDINGS: Cardiac monitoring leads are present. The lungs are clear and expanded. There is pleural fibrotic thickening of the right lung apex. There may be small right-sided pleural effusion. Normal size heart. Normal mediastinum and lucia. Normal visualized pulmonary arteries. There is atherosclerotic calcification of the aortic arch with tortuosity. There is demineralization of the osseous structures. Normal visualized ribs, clavicles, and shoulders. There is no demonstrated abnormality of the visualized soft tissue structures of the upper abdomen. RAD/Chest 1 View (Portable) IMPRESSION: No radiographic evidence of acute cardiopulmonary disease. Electronically Signed: Leanne Crawley MD at 4:16 EDT ,
[2022-12-15 03:56] LABS: Anion Gap 4 (5-15); BUN 22 mg/dL (7-18); BUN/Creat Ratio 23.8 RATIO (10-20); Calcium,Total 9.1 mg/dL (8.5-10.1); Chloride 101 mmol/L (98-107); Creatinine, Serum 0.92 mg/dL (0.55-1.02); EST Glomerular Filtration Rate 63 mL/min (>60); Est Glom Filt Rate - Afr Amer 76 mL/min (>60); Estimated Creatinine Clearance 57.34 ml/min; Glucose 114 mg/dL (74-106); Potassium 4.3 mmol/L (3.5-5.1); Sodium Level 139 mmol/L (136-145); Troponin-I HS 10 pg/mL (3.0-54.0)
[2022-12-15] MEDS: Azithromycin 250 MG Tablet 500 MG PO (04:37)
== END 2022-12-15 04:51 | disposition home or self-care (01) ==
PROVIDERS: Emergency Provider Emergency Medicine; PCP Internal Medicine; Visit Provider Emergency Medicine
DX: J96.21 Acute and chronic respiratory failure with hypoxia (principal); J44.1 Chronic obstructive pulmonary disease with (acute) exacerbation; I48.91 Unspecified atrial fibrillation; F17.210 Nicotine dependence, cigarettes, uncomplicated; B37.0 Candidal stomatitis; I10 Essential (primary) hypertension; Z79.01 Long term (current) use of anticoagulants; Z85.118 Personal history of other malignant neoplasm of bronchus and lung; F41.9 Anxiety disorder, unspecified; Z79.899 Other long term (current) drug therapy; Z79.51 Long term (current) use of inhaled steroids; Z90.2 Acquired absence of lung [part of]
CPT/HCPCS: 71045; 80048; 84484; 85025; 87040; 87428; 93005; 94640; 96374; 99285; A4216

== ENCOUNTER → 2023-03-30 | Outpatient (CLI) | payer MEDICARE, SELFPAY ==
[2023-03-30 13:53] LABS: Anion Gap 3 (5-15); BUN 18 mg/dL (7-18); BUN/Creat Ratio 28.6 RATIO (10-20); Calcium,Total 8.7 mg/dL (8.5-10.1); Chloride 104 mmol/L (98-107); Creatinine, Serum 0.63 mg/dL (0.55-1.02); EST Glomerular Filtration Rate 98 mL/min (>60); Est Glom Filt Rate - Afr Amer 119 mL/min (>60); Glucose 89 mg/dL (74-106); Sodium Level 139 mmol/L (136-145)
== END | disposition home or self-care (01) ==
LOC: LABSPEC 11:35
PROVIDERS: PCP Internal Medicine
DX: J44.9 Chronic obstructive pulmonary disease, unspecified (principal)
CPT/HCPCS: 80048

== ENCOUNTER 2023-08-30 23:46 | Emergency (ER) | payer MEDICARE, MEDICAID, SELFPAY ==
[2023-08-30 23:49] VITALS: BP 107/92; PULSE 110; RESP 20; TEMP 36.3; O2SAT 100; BMI 24.7
--- NOTE | 2023-08-31 01:06 | EDS_ITS ---
HPI History of Present Illness Chief Complaint: Oquendo C/O Informant: patient and family Narrative Narrative: Patient is a 72-year-old female with past medical history of COPD/emphysema as well as previous lung cancer and hypertension. She has a chronic indwelling Oquendo catheter. She states that she has been having pain and spasms in the lower mid abdomen. She states that the catheter is still draining but it is decreased from her baseline and with concern there may be catheter malfunction causing her pain she presents for evaluation [facility] Medical History Anxiety Atrial fibrillation Atrial fibrillation with rapid ventricular response Bradycardia Chronic bronchitis Chronic hypoxemic respiratory failure Chronic obstructive pulmonary disease with (acute) exacerbation COPD (chronic obstructive pulmonary disease) Depression Emphysema of lung Essential hypertension History of lung cancer History of pneumonia Influenza A Influenza B Left anterior knee pain Left lower lobe pneumonia Lung cancer Lung mass Lung nodule Nicotine dependence, cigarettes, uncomplicated PAD (peripheral artery disease) Pneumonia Primary malignant neoplasm of both lungs Seasonal allergies Tobacco dependence in remission Unintentional weight loss Home Medications ?Medication ?Instructions ?Recorded ?Last Taken ?Type Handicap Placard #1 ea 11/05/21 Unknown Rx paroxetine HCl 10 mg tablet (Paxil) 10 mg PO DAILY anxiety 05/19/22 07/15/22 History guaifenesin 100 mg/5 mL oral liquid 10 ml PO Q4H PRN PRN COUGH #0 mL 07/17/22 Unknown Rx prednisone 10 mg tablet 10 mg PO BID 08/01/22 Unknown History probiotic PO 08/05/22 Unknown History Home Health Eval for SN and HH Aide 08/10/22 Unknown History gabapentin 100 mg capsule 100 mg PO BID NERVE PAIN #180 caps 08/26/22 Unknown Rx revefenacin 175 mcg/3 mL solution 175 mcg (3 mL) inhalation DAILY 09/08/22 Unknown Rx for nebulization (Yupelri) #90 mL hydrochlorothiazide 25 mg tablet 12.5 mg PO DAILY water pill 09/10/22 Unknown History potassium chloride 20 mEq 20 meq PO DAILY #30 tabs 09/14/22 09/18/22 Rx tablet,extended release apixaban 5 mg tablet (Eliquis) 5 mg PO BID #180 tabs 09/17/22 09/18/22 Rx prednisone 20 mg tablet See Rx Instructions PO DAILY #12 09/29/22 Unknown Rx TABLETS budesonide 1 mg/2 mL suspension 1 mg (2 mL) inhalation BID #60 mL 10/08/22 Unknown Rx for nebulization ipratropium 0.5 mg-albuterol 3 mg 3 ml inhalation Q6H PRN shortness 10/19/22 Unknown Rx (2.5 mg base)/3 mL nebulization of breath or wheezing #120 vials soln albuterol sulfate 2.5 mg/3 mL 2.5 mg (3 mL) continuous 11/03/22 Unknown Rx (0.083 %) solution for nebulization nebulization .COMPLEX SOB #180 mL albuterol sulfate 90 mcg/actuation 2 puff inhalation Q4H PRN 11/03/22 Unknown Rx aerosol inhaler shortness of breath or wheezing #8.5 grams azithromycin 250 mg tablet 250 mg PO DAILY #4 TABLETS 12/15/22 Unknown Rx buspirone 5 mg tablet 10 mg PO BID 12/15/22 Unknown History metoprolol tartrate 50 mg tablet 150 mg PO BID 12/15/22 Unknown History prednisone 20 mg tablet 60 mg (3 x 20 mg) PO DAILY #15 12/15/22 Unknown Rx TABLETS nebulizer accessories #1 ea 08/30/23 Unknown Rx nebulizer and compressor #1 ea 08/30/23 Unknown Rx oxygen concentrator 3 l inhalation .qd #1 ea 08/30/23 Unknown Rx Allergy/AdvReac Type Severity Reaction Status Date / Time meperidine HCl (From Demerol) AdvReac pass out Verified 10/08/22 15:53 Family History Mother Thyroid cancer Anemia Lung disease Father Throat cancer Diabetes Hypertension Arthritis Lung disease Sister Breast cancer Brain cancer Other Asthma Ovarian cancer Surgical History H/O pneumonectomy H/O tubal ligation History of bilateral carpal tunnel release repaired lymph node Wedge resection of lung Social History household members: spouse Smoking Status: Heavy Smoker (>10/day) Tobacco: How many years used: 50 how long ago did patient quit smoking: pt reports smoking 2-3 cigs every couple of days second hand exposure: Yes alcohol intake: never substance use type: does not use caffeine: No what type of physical activity do you participate in: none ROS ROS ED Constitutional Constitutional ED: Denies chills or fever(s) ENT ENT ED: Denies sore throat Cardiovascular Cardiovascular: Denies chest pain Respiratory/Chest Respiratory/Chest: Reports cough and dyspnea Gastrointestinal Gastrointestinal: Reports abdominal pain; Denies diarrhea, nausea or vomiting Genitourinary Genitourinary ED: Denies hematuria Musculoskeletal Musculoskeletal: Denies back pain Neurologic Neurologic: Denies headache(s) Hematologic/Lymphatic Hematologic/Lymphatic: Reports easy bleeding and easy bruising EXAM Physical Exam Const Vital Signs: 08/30/23 23:49 08/31/23 01:25 Temperature 97.4 F L 98.1 F Temperature Source Temporal Pulse Rate 110 H 110 H Respiratory Rate 20 H 19 H Blood Pressure 107/92 H 136/86 H Blood Pressure Mean 97 102 Pulse Ox 100 97 Oxygen Delivery Method Nasal Cannula Oxygen Flow Rate (L/min) 3 Positive well nourished and well developed General Appearance ED: well developed; Negative for pallor HEENT HEENT Narrative: Normocephalic atraumatic Eyes PERRL and EOMs intact bilaterally General Eye ED: Negative for scleral icterus Neck supple Resp normal respiratory effort Resp Narrative: Breath sounds are diminished throughout with diffuse expiratory wheeze and faint rhonchi in the bilateral bases consistent with history of COPD/emphysema Cardio regular rhythm Rate: tachycardic and other Other Details: Tachycardic rate with regular rhythm GI non-distended and no masses GI Narrative: Abdomen is soft and nondistended with normal active bowel sounds. Patient has pain on palpation in the suprapubic/lower mid abdomen without voluntary guarding or rigidity or obvious organomegaly. Auscultation: normoactive bowel sounds Palpation: soft Extremity normal to inspection Neuro oriented x3, CN's II-XII intact bilaterally and no sensory deficits noted Sensorium / Orientation: alert Psych mental status grossly normal Skin General Skin Exam: Negative for jaundice or pallor MDM MDM MDM Narrative Medical decision making narrative: Patient arrived to the ER in no acute distress but reported intermittent spasms in the lower abdomen and changes to the Oquendo output. Differential diagnosis is for acute kidney injury versus UTI versus pyelonephritis versus Oquendo catheter malfunction. The patient does not have a fever and she is not hypotensive however she has been having intermittent spasms which would correlate with more of a Oquendo catheter obstruction and infection at this time and the fact the catheter has been in for prolonged period of time would indicate it is colonized. Therefore do not feel need for UA. We initially attempted to flush the catheter but were unsuccessful so it was removed and a new catheter was placed. Upon doing this there was return of clear yellow urine and the patient's pain and spasms resolved. On reevaluation her abdomen remains soft and nonsurgical without organomegaly. At this time I feel the pain and spasm is most likely related to the partial obstruction. As the urine is clear once the catheter was changed my concern that there is a retained infection is low especially as patient's vitals are stable. I discussed with patient and family of obtaining a urine sample at this time to potentially check for UTI but did advise that there could be colonization present and they do not want testing obtained especially as her symptoms have resolved with changing the catheter. Therefore at this time as patient's vitals are stable and her pain has resolved with resolution of the catheter obstruction she otherwise safe for discharge Discharge Plan Triage Chief Complaint: Oquendo C/O ED Provider: Barron Mckeon Dx/Rx/DC Orders Clinical Impression: Complication of Oquendo catheter, History of lung cancer, COPD (chronic obstructive pulmonary disease), Current use of longterm anticoagulation Instructions: Indwelling Urinary Catheter Dc, ED Oquendo Catheter, Care Prescriptions: No Action (DME) Handicap Placard See Rx Instructions .Route .MEDSUPPLY Qty: 1 0RF Rx Instructions: 5 year RX (11/05/21-11/05/26) probiotic PO Yupelri 175 mcg/3 mL solution for nebulization 175 mcg inhalation DAILY Qty: 90 6RF paroxetine HCl [Paxil] 10 mg tablet 10 mg PO DAILY guaifenesin 100 mg/5 mL Liquid 10 ml PO Q4H PRN PRN (Reason: COUGH) Qty: 0 0RF prednisone 10 mg tablet 10 mg PO BID Rx Instructions: 4 tablets x 4 days, 3 tablets x 4 days, 2 tablets x 4 days, 1 tablet x 4 days buspirone 5 mg tablet 10 mg PO BID metoprolol tartrate 50 mg tablet 150 mg PO BID azithromycin [azithromycin] 250 mg tablet 250 mg PO DAILY Qty: 4 0RF prednisone 20 mg tablet 60 mg PO DAILY Qty: 15 0RF (DME) Home Health Eval for SN and HH Aide See Rx Instructions .Route .MEDSUPPLY Rx Instructions: Evaluation for retirement and Home Health Aide. Ok to delay SOC dt availability . Pt aware and is in agreement to wait. gabapentin 100 mg capsule 100 mg PO BID Qty: 180 3RF hydrochlorothiazide 25 mg tablet 12.5 mg PO DAILY potassium chloride 20 mEq tablet extended release 20 meq PO DAILY Qty: 30 12RF Rx Instructions: 40 Meq on day one followed by 20 Meq daily starting day two Eliquis 5 mg tablet 5 mg PO BID Qty: 180 3RF prednisone 20 mg tablet See Rx Instructions PO DAILY Qty: 12 0RF Rx Instructions: orally daily; Take 2 tablets daily for 3 days then one tablet daily until finished. budesonide 1 mg/2 mL suspension for nebulization 1 mg inhalation BID Qty: 60 6RF ipratropium-albuterol 0.5 mg-3 mg(2.5 mg base)/3 mL solution for nebulization 3 ml INHALATION Q6H PRN (Reason: shortness of breath or wheezing) Qty: 120 6RF Rx Instructions: J96.11 Chronic respiratory failure with hypoxia J44.1 COPD with exacerbation albuterol sulfate 90 mcg/actuation HFA aerosol inhaler 2 puff INHALATION Q4H PRN (Reason: shortness of breath or wheezing) Qty: 8.5 6RF Rx Instructions: administer with spacer albuterol sulfate 2.5 mg /3 mL (0.083 %) solution for nebulization 2.5 mg continuous nebulization .COMPLEX Qty: 180 3RF Rx Instructions: inhale 1 vial/2.5 mg via continuous nebulization 6 times daily; oxygen concentrator 3 l inhalation .qd Qty: 1 0RF Rx Instructions: include tubing. (DME) nebulizer accessories Kit See Rx Instructions .Route Qty: 1 5RF Rx Instructions: As directed (DME) nebulizer and compressor Device See Rx Instructions .Route Qty: 1 0RF Rx Instructions: As directed Primary Care Provider: Eryn Shelton Referrals: Eryn Shelton MD [Primary Care Provider] - Activity Restrictions/Additional Instructions: If you have worsening of symptoms develop a fever or any further concerns please return to the ER for repeat evaluation Print Language: French Disposition Disposition: Home, Self Care Discharge Date/Time: 08/31/23 01:26
[2023-08-31 01:25] VITALS: BP 136/86; PULSE 110; RESP 19; TEMP 36.7; O2SAT 97
== END 2023-08-31 01:26 | disposition home or self-care (01) ==
PROVIDERS: Emergency Provider Emergency Medicine; PCP Internal Medicine; Visit Provider Emergency Medicine
DX: T83.091A Other mechanical complication of indwelling urethral catheter, initial encounter (principal); J44.9 Chronic obstructive pulmonary disease, unspecified; I48.91 Unspecified atrial fibrillation; F17.210 Nicotine dependence, cigarettes, uncomplicated; I10 Essential (primary) hypertension; Z79.01 Long term (current) use of anticoagulants; Z85.118 Personal history of other malignant neoplasm of bronchus and lung; F41.9 Anxiety disorder, unspecified; Z79.899 Other long term (current) drug therapy; Z98.51 Tubal ligation status; Z90.2 Acquired absence of lung [part of]
CPT/HCPCS: 51702; 99283